=== PATIENT | female | born 1950 ===

== ENCOUNTER 2025-01-18 01:31 | Outpatient (BNV) | payer MEDICARE, MEDICAID, SELFPAY | END 2025-01-27 12:18 | PROVIDERS: Admitting Provider Psychiatry & Neurology Psychiatry; PCP Family Medicine; Visit Provider Radiology Diagnostic Radiology | DX: R60.0 Localized edema (principal) | CPT/HCPCS: 93971 ==

== ENCOUNTER 2025-01-18 01:31 | Inpatient (IN) | payer MEDICARE, OTHER, SELFPAY ==
--- NOTE | ~2025-01-18 | US_ITS ---
EXAMINATION: US LOWER EXTREMITY VEINS LIMITED FOLLOW UP LEFT HISTORY: Swelling, edema COMPARISON: There are no prior studies for comparison. TECHNIQUE: Duplex and color Doppler sonographic examination of the deep venous system of the left lower extremity was performed. FINDINGS: The common femoral, superficial femoral, and popliteal veins are patent demonstrating normal compressibility, spontaneous flow, and augmentation. There is a normal color and spectral Doppler waveform appearance of the visualized deep venous system above the knee. The posterior tibial and peroneal veins are patent. US/US venous duplex LE LT IMPRESSION: No evidence of acute DVT in the left lower extremity. Electronically signed by: Yg Go MD 01/27/2025 01:30 PM EDT
[2025-01-18 01:49] VITALS: BMI 18.5
[2025-01-18 01:50] VITALS: BP 109/53; PULSE 61; RESP 16; TEMP 36.7; O2SAT 96
--- NOTE | 2025-01-18 03:53 | HO.PM.IMCN ---
History of Present Illness Data of Consult Service Date: 01/18/25 Requesting physician: Nir Anna Primary Care Provider: Ian Urena [facility] Reason for consult: wound L ankle Pt is a 74 yo female admitted to [facility] with a pmhx significant for hypothyroid, iron def anemia, vit D deficeincy, mood disorder, and COPD unspecified, with an urgent consult placed for wound L ankle, r/o infection. the pt states that she has been seeing wound care and her son was contacted who also states this. the wound is not painful, no foul odor, or increased warmth. no purulent drainage or surrounding erythema. the pt denies any nausea, vomiting, fever, chills or diarrhea. she is not happy that we are evaluating the wound as she states she has had it for 10+ years Review of Systems Constitutional: Constitutional: Denies body ache(s), Denies chills, Denies fatigue and Denies fever(s) Gastrointestinal: Gastrointestinal: Denies diarrhea, Denies nausea and Denies vomiting Integumentary/Breasts: Skin/Breast: Reports as per HPI Neurologic: Denies confusion Psychiatric: Psychiatric: Denies confusion Endocrine: Endocrine: Denies fatigue Hematologic/Lymphatic: Hematologic/Lymphatic: Denies easy bleeding and Denies easy bruising PMFSH Social History Household Members: Other Household Members Other:: son Housing: House Do you presently have visiting nurse or other home services: No Patient Tobacco Use Status: Former Tobacco user Tobacco use type: Cigarette Use of substances other than those prescribed or required for medical reasons: No Have you been hit, kicked, punched, or otherwise hurt by someone within the past year? If so, by whom?: No Do you feel safe in your current relationship?: No Current Relationship Is there a partner from a previous relationship who is making you feel unsafe now?: No Are you made to feel afraid or neglected: No Advance Directives: No Advance Directives Information Provided: No Do you have a plan to hurt others: No Plan Recently lost weight without trying: Yes How much weight loss: 14-23 pounds Eating poorly because of decreased appetite: Yes Nutrition screen score: 5 Nutrition Risks: No Nutritional Risk Patient : No : No Poor oral hygiene: No Meds Allergies Allergy/AdvReac Type Severity Reaction Status Date / Time gluten Allergy Unknown Unknown Verified 01/17/25 19:18 hydrocodone Allergy Unknown Unknown Verified 01/17/25 19:17 propoxyphene Allergy Unknown Unknown Verified 01/17/25 19:18 sulfamethoxazole Allergy Unknown Unknown Verified 01/17/25 19:17 [From Bactrim] trimethoprim [From Bactrim] Allergy Unknown Unknown Verified 01/17/25 19:17 mepilex Allergy Unknown Unknown Uncoded 01/17/25 19:18 Active Medications: Current Medications Acetaminophen (Acetaminophen 325 Mg Tablet) 650 mg PO Q6H PRN PRN Reason: Headache/Pain, Scale 1-10 Al Hydroxide/Mg Hydroxide (Magnesium Hydrox/Alum Hydrox 30 Ml Oral.Susp) 30 ml PO Q6H PRN PRN Reason: Heartburn/Nausea Albuterol Sulfate (Albuterol Sulfate 90 Mcg 8 Gm Inhaler) 2 puff INHALE RQ4H PRN PRN Reason: Dyspnea Ascorbic Acid (Ascorbic Acid 500 Mg Tablet) 500 mg PO DAILY [facility] Ferrous Sulfate (Ferrous Sulfate 324 Mg Tablet.Dr) 324 mg PO BIDWM [facility] Levothyroxine Sodium (Levothyroxine Sodium 125 Mcg Tablet) 125 mcg PO DAILY@0600 [facility] [place] Carbonate ([place] Carbonate Er 450 Mg Tablet.Er) 450 mg PO BEDTIME [facility] Magnesium Hydroxide (Milk Of Magnesia 30 Ml Oral.Susp) 30 ml PO DAILY PRN PRN Reason: Constipation Mirtazapine (Mirtazapine 15 Mg Tablet) 15 mg PO BEDTIME [facility] Nicotine Polacrilex (Nicotine Polacrilex 2 Mg Gum) 4 mg BUCCAL Q2H PRN PRN Reason: Nicotine Cravings Risperidone (Risperidone 0.25 Mg Tablet) 0.25 mg PO BID [facility] Trazodone HCl (Trazodone Hcl 50 Mg Tablet) 50 mg PO BEDTIME MRX1 PRN PRN Reason: Insomnia Vitamin D (Cholecalciferol (Vitamin D3) 25 Mcg Tablet) 25 mcg PO DAILY [facility] Home Medications ?Medication ?Instructions ?Recorded ?Confirmed ?Last Taken ?Type albuterol sulfate 90 mcg/actuation 2 puff inhalation Q4H PRN dyspnea 01/18/25 01/18/25 Unknown History aerosol inhaler ascorbic acid (vitamin C) 500 mg 500 mg PO DAILY 01/18/25 01/18/25 Unknown History tablet (Vitamin C) cholecalciferol (vitamin D3) 25 25 mcg PO DAILY 01/18/25 01/18/25 Unknown History mcg (1,000 unit) tablet (Vitamin D3) ferrous sulfate 325 mg (65 mg 325 mg PO BID 01/18/25 01/18/25 Unknown History iron) tablet levothyroxine 125 mcg tablet 125 mcg PO QAM 01/18/25 01/18/25 Unknown History lithium carbonate 450 mg 450 mg PO BEDTIME 01/18/25 01/18/25 Unknown History tablet,extended release mirtazapine 15 mg tablet 15 mg PO BEDTIME 01/18/25 01/18/25 Unknown History risperidone 0.25 mg tablet 0.25 mg PO BID 01/18/25 01/18/25 Unknown History Physical Exam Vital Signs and Narrative: Vital Signs: Last Vital Signs Temp 98.1 F 01/18/25 01:50 Pulse 61 01/18/25 01:50 Resp 16 01/18/25 01:50 BP 109/53 L 01/18/25 01:50 Pulse Ox 96 01/18/25 01:50 O2 Del Method Room Air 01/18/25 01:50 BMI result Body Mass Index 18.5 General: AOx3, no acute distress. mild agitation Resp: CTA B/L, no respiratory distress CVS: pedal pulse present, RRR Skin: Warm, dry. large ovioid wound L ankle with graulation tissue. no foul odor, no increased warmth, no surround erythema, no pain to touch the surrounding area. pt states it has been like this for years. Extremities: No LE edema Neuro: CN II-XII intact. moves all extremities without difficulty. Psych: Appropriate affect, mild agitation Const: General: No confusion Orientation/consciousness: No confusion Neuro: General: No confusion Assessment and Plan (1) Wound of left ankle: Status: Acute (2) Medical clearance for psychiatric admission: Status: Acute Plan Pt is a 74 yo female admitted to [facility] with a pmhx significant for hypothyroid, iron def anemia, vit D deficiency, mood disorder, and COPD unspecified, urgent consult placed for wound L ankle, r/o infection. the pt states that she has been seeing wound care and her son was contacted who also states this. wound L ankle - the wound does not appear infected at this time, therefore, transfer to the medical floor is not necessary - no fever, tachycardia or tachypnea, mild hypotension, no previous vitals to compare - add labs to upcoming AM labs: CBC, CRP, ESR, BMP, lactic acid, blood cultures x2 (pt will not likely allow further labs so will order all now incase of leukocytosis) - wound care consult mood disorder - plan per psych hypothyroid - levothyroxine - check TSH with morning labs iron deficiency anemia - continue iron - CBC ordered COPD unspecified, no acute exacerbation - continue albuterol PRN Thank you for allowing me to participate in the pt's care. Will continue to follow pending labs. Please contact the medical team if any questions or concerns.
--- NOTE | 2025-01-18 04:15 | PC.NURSE ---
Admission Note Joceline Giles, a 74-year-old woman, was presented to [facility] ED from the Doctor?s office for making suicidal and homicidal statements. The patient lives with her son, Kenny, who is her health care proxy. According to Kenny, he has been actively looking for long-term care for his mother. The patient was at [facility] for 10 months, and the hospital could not find a placement and eventually discharged to home. The patient has a medical and psychiatric history of Hypothyroidism, Hyperlipidemia, PTSD, and? Bipolar I. Tisha arrived at our unit in a stretcher at 0145 on 01/18/25, on section 12 B, with an admitting diagnosis of? Bipolar I Mixed Severe. She is full-code. The patient is alert and oriented times four. Behaviour loud, disruptive at times, and labile. The patient was not compliant with skin assessment; however, the skin check revealed a left inner ankle venous ulcer, weeping, and the presence of slough. The left mid-lateral sole has a raised callus. The right sole at the base of the toes has a slit. Bilateral toes are twisted and deformed. Wounds were cleansed, covered with a nonadherent pad, and secured with tape. Wounds were pictured and sent to the on-call. The rest of the skin is intact. The wound nurse was unavailable on weekends, so a stat hospitalist consult was ordered. Med rec completed/pending provider?s approval, per report, patient takes her meds whole with water. Patients use a cane for ambulation at home, but she is using a walker on the units for ambulation?continent with bowel and bladder.? The patient needs assistance with bathing and minimal support with dressing, per the patient. Labs are unremarkable. UA negative. Utox negative. Serology negative. No lithium level was checked at [place], but it was ordered here. Tisha signed her treatment plan, safety tool, belonging sheet, and release paper. Omerabanzayra searched. Tisha is on a 5-minute safety check.
[2025-01-18] MEDS: Levothyroxine Sodium 125 MCG TABLET PO (05:26)
[2025-01-18 08:00] VITALS: BP 94/49; PULSE 66; RESP 14; TEMP 37.1; O2SAT 96
[2025-01-18] MEDS: Ascorbic Acid 500 MG TABLET PO (09:16)
[2025-01-18] MEDS: risperiDONE 0.25 MG TABLET PO ×2 (09:16→21:00)
[2025-01-18] MEDS: Ferrous Sulfate 324 MG TABLET.DR PO ×2 (09:16→16:46)
[2025-01-18] MEDS: Cholecalciferol (Vitamin D3) 25 MCG TABLET PO (09:17)
[2025-01-18 11:48] LABS: MANUAL DIFF FLAG NO
[2025-01-18 11:51] LABS: Basophils Percent Auto 0.3 % (0-2); Eosinophils Absolute Auto 0.2 X10*3/uL (0.0-0.4); Eosinophils Percent Auto 2.5 % (0-4); Hematocrit 39.5 % (37.0-47.0); Hemoglobin 11.9 g/dl (12.0-16.0); Imm Gran Abs Auto 0.01 X10*3/uL (0.00-0.03); Imm Gran Pct Auto 0.1 % (0.0-0.4); Lymphocytes Absolute Auto 2.2 X10*3/uL (1.2-4.9); Lymphocytes Percent Auto 29.3 % (20-40); Mean Corpuscular HGB Conc 30.1 g/dl (31.0-35.0); Mean Corpuscular Hemoglobin 27.9 pg (27.0-33.0); Mean Corpuscular Volume 92.5 fL (80.0-98.0); Mean Platelet Volume 10.5 fL (9.4-12.3); Monocytes Absolute Auto 0.7 X10*3/uL (0.1-1.2); Monocytes Percent Auto 8.9 % (2-11); Neutrophils Absolute Auto 4.4 x10*3/uL (2.0-8.3); Neutrophils Percent Auto 58.9 % (45-73); Platelet Count 295 X10*3/uL (160-400); Red Blood Count 4.27 X10*6/uL (4.20-5.50); Red Cell Distribution Width 14.5 % (11.0-16.0); White Blood Count 7.5 X10*3/uL (4.8-10.8)
[2025-01-18 12:09] LABS: Estimated Average Glucose 114 mg/dL; Hemoglobin A1C 114.7569 umol/L; Hemoglobin A1c % 5.6 % (<6.0); Lithium 0.28 mmol/L (0.60-1.20); Total Hemoglobin (HGBA1C) 3030.0058 umol/L
[2025-01-18 12:22] LABS: Anion Gap 13 (12-20); Blood Urea Nitrogen 19 mg/dL (9-16); C Reactive Protein 0.21 mg/dL (< or = 0.50); Calcium 9.2 mg/dL (8.4-10.2); Carbon Dioxide 23 mmol/L (22-29); Chloride 111 mmol/L (96-108); Cholesterol 123 mg/dL (<200); Creatinine Clr Calc Pharmacy 55.8; Estimated Glomerular Filt Rate > 60; Glucose Random 94 mg/dL (60-115); HDL Cholesterol 30 mg/dL (>40); LDL Cholesterol Calculated 73 mg/dL (<100); Potassium 4.7 mmol/L (3.3-5.1); Sodium 142 mmol/L (135-145); Triglycerides 103 mg/dL (<150)
[2025-01-18 12:38] LABS: Free T4 (Free Thyroxine) 0.65 ng/dL (0.71-1.85); Thyroid Stimulating Hormone 66.09 uIU/mL (0.32-4.0)
[2025-01-18 12:43] LABS: Erythrocyte Sedimentation Rate 32 MM/HR (0-20)
[2025-01-18 12:51] LABS: Folate 8.1 ng/mL (> or = 4.0); Vitamin B12 858 pg/mL (200-900)
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
[2025-01-18 20:00] VITALS: BP 96/55; PULSE 95; RESP 18; TEMP 36.4; O2SAT 95
[2025-01-18] MEDS: Mirtazapine 15 MG TABLET PO (21:00)
[2025-01-18] MEDS: Lithium Carbonate ER 450 MG TABLET.ER PO (21:00)
[2025-01-19] MEDS: Levothyroxine Sodium 150 MCG TABLET PO (05:34)
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
[2025-01-19] MEDS: Cholecalciferol (Vitamin D3) 25 MCG TABLET PO (09:38)
[2025-01-19] MEDS: Ascorbic Acid 500 MG TABLET PO (09:38)
[2025-01-19] MEDS: risperiDONE 0.25 MG TABLET PO ×2 (09:39→20:42)
[2025-01-19] MEDS: Ferrous Sulfate 324 MG TABLET.DR PO ×2 (09:39→17:06)
--- NOTE | 2025-01-19 13:22 | PC.NURSE ---
Dsg on left inner ankle changed the wound bed is 75% covered in slough there is some depth to the center of the wound. Wound edges are slightly macerated and surounding skin is red and crusty. Wound bed cleansed with NS then 4x6 boarder gauze applied over the wound.
[2025-01-19 20:00] VITALS: BP 104/53; PULSE 74; RESP 16; TEMP 36.8; O2SAT 94
[2025-01-19] MEDS: Lithium Carbonate ER 450 MG TABLET.ER PO (20:42)
[2025-01-19] MEDS: Mirtazapine 15 MG TABLET PO (20:43)
[2025-01-19] MEDS: traZODone HCL 50 MG TABLET PO (20:43)
[2025-01-20] MEDS: Levothyroxine Sodium 150 MCG TABLET PO (05:47)
[2025-01-20 08:36] VITALS: BP 115/56; PULSE 71; RESP 16; TEMP 36.8; O2SAT 98
[2025-01-20] MEDS: risperiDONE 0.25 MG TABLET PO ×3 (08:37→21:01)
[2025-01-20] MEDS: Ascorbic Acid 500 MG TABLET PO (08:37)
[2025-01-20] MEDS: Cholecalciferol (Vitamin D3) 25 MCG TABLET PO (08:37)
[2025-01-20] MEDS: Ferrous Sulfate 324 MG TABLET.DR PO (08:37)
[2025-01-20] MEDS: OLANZapine 2.5 MG TABLET PO (11:13)
--- NOTE | 2025-01-20 11:17 | P.PNPSI_ITS ---
Subjective Subjective Date of Service: 01/20/25 Reason For Visit: Bipolar Interim History: Patient seen chart reviewed. Patient has had periods of behavioral dyscontrol paranoia feels people at home are not real people but imposters. Patient irritable dysphoric reactive labile in the milieu intermittently agitated and reportedly trying to posture at others. Was on Risperdal 4 mg in the past was lowered to minimal says as an outpatient and has relapse with psychosis further history unclear reported bipolar diagnosis hypothyroid Medication Compliance: Intermittent Mental Status Exam Mental Status Exam Narrative: Pt is using her walker, self-dialoguing. Patient Appearance: Disheveled and Unkempt Patient Orientation: Person, Place and Situation Level of Consciousness: Alert Patient Behavior: Guarded, Talkative, Suspicious and Good Eye Contact Mood Description: Hostile and Angry Affect Description: Hostile, Labile and Flat Patient Cognition Impaired: Yes Ability to Follow Directions: Fair Speech Pattern: Spontaneous Speech and Pressured Memory Description: Remote Impaired Delusions: Present Thought Process: Distracted and Rumination Thought Content: positive for [place], positive for Circumstantial, positive for Disorganized, positive for Suicidal Ideation and positive for Homicidal Ideation Depressive Symptoms: Difficulty Sleeping, Changes in Appetite, Loss of Int. in Activity, Hopelessness, Unhappiness, Thoughts of /Suicide, Loss of Energy and Difficulty Concentrating Judgement: Poor Diagnostics Vital Signs (24Hr): Vital Signs - 24 hr 01/19/25 20:00 01/20/25 08:36 Temperature 98.2 F 98.2 F Pulse Rate 74 71 Respiratory Rate 16 16 Blood Pressure 104/53 L 115/56 L Pulse Oximetry 94 98 Oxygen Delivery Method Room Air Room Air BMI result Body Mass Index 18.5 Labs 01/18/25 11:38 01/18/25 11:38 Labs: Laboratory Results - last 48 hr 01/18/25 01/18/25 11:38 11:39 WBC 7.5 RBC 4.27 Hgb 11.9 L Hct 39.5 MCV 92.5 MCH 27.9 MCHC 30.1 L RDW 14.5 Plt Count 295 MPV 10.5 Immature Gran % (Auto) 0.1 Neut % (Auto) 58.9 Lymph % (Auto) 29.3 [place] % (Auto) 8.9 Eos % (Auto) 2.5 Baso % (Auto) 0.3 Lymph # (Auto) 2.2 [place] # (Auto) 0.7 Eos # (Auto) 0.2 Baso # (Auto) 0.0 Abs Immat Gran (auto) 0.01 Absolute Neuts (auto) 4.4 Absolute Nucleated RBC 0.000 Nucleated RBC % (auto) 0.0 ESR 32 H Sodium 142 Potassium 4.7 Chloride 111 H Carbon Dioxide 23 Anion Gap 13 BUN 19 H Creatinine 0.68 Estim Creat Clear Calc 55.8 Estimated GFR > 60 Random Glucose 94 Estimat Average Glucose 114 Hemoglobin A1c % 5.6 Lactic Acid 2.0 Calcium 9.2 Magnesium 2.0 C-Reactive Protein 0.21 Triglycerides 103 Cholesterol 123 LDL Cholesterol, Calc 73 HDL Cholesterol 30 L Vitamin B12 858 Folate 8.1 TSH 66.09 H Free T4 0.65 L [place] 0.28 L Medications Medications Current Medications Acetaminophen (Acetaminophen 325 Mg Tablet) 650 mg PO Q6H PRN PRN Reason: Headache/Pain, Scale 1-10 Al Hydroxide/Mg Hydroxide (Magnesium Hydrox/Alum Hydrox 30 Ml Oral.Susp) 30 ml PO Q6H PRN PRN Reason: Heartburn/Nausea Albuterol Sulfate (Albuterol Sulfate 90 Mcg 8 Gm Inhaler) 2 puff INHALE RQ4H PRN PRN Reason: Dyspnea Ascorbic Acid (Ascorbic Acid 500 Mg Tablet) 500 mg PO DAILY [facility] Last Admin: 01/20/25 08:37 Dose: 500 mg Ferrous Sulfate (Ferrous Sulfate 324 Mg Tablet.Dr) 324 mg PO BIDWM [facility] Last Admin: 01/20/25 08:37 Dose: 324 mg Levothyroxine Sodium (Levothyroxine Sodium 150 Mcg Tablet) 150 mcg PO DAILY@0600 [facility] Last Admin: 01/20/25 05:47 Dose: 150 mcg [place] Carbonate ([place] Carbonate Er 450 Mg Tablet.Er) 450 mg PO BEDTIME [facility] Last Admin: 01/19/25 20:42 Dose: 450 mg Magnesium Hydroxide (Milk Of Magnesia 30 Ml Oral.Susp) 30 ml PO DAILY PRN PRN Reason: Constipation Mirtazapine (Mirtazapine 15 Mg Tablet) 15 mg PO BEDTIME [facility] Last Admin: 01/19/25 20:43 Dose: 15 mg Nicotine Polacrilex (Nicotine Polacrilex 2 Mg Gum) 4 mg BUCCAL Q2H PRN PRN Reason: Nicotine Cravings Risperidone (Risperidone 0.25 Mg Tablet) 0.25 mg PO BID [facility] Last Admin: 01/20/25 08:37 Dose: 0.25 mg Risperidone (Risperidone 0.25 Mg Tablet) 0.25 mg PO BID PRN PRN Reason: agitation Last Admin: 01/20/25 10:02 Dose: 0.25 mg Trazodone HCl (Trazodone Hcl 50 Mg Tablet) 50 mg PO BEDTIME MRX1 PRN PRN Reason: Insomnia Last Admin: 01/19/25 20:43 Dose: 50 mg Vitamin D (Cholecalciferol (Vitamin D3) 25 Mcg Tablet) 25 mcg PO DAILY [facility] Last Admin: 01/20/25 08:37 Dose: 25 mcg Allergies Allergies Allergy/AdvReac Type Severity Reaction Status Date / Time gluten Allergy Unknown Unknown Verified 01/17/25 19:18 hydrocodone Allergy Unknown Unknown Verified 01/17/25 19:17 propoxyphene Allergy Unknown Unknown Verified 01/17/25 19:18 sulfamethoxazole Allergy Unknown Unknown Verified 01/17/25 19:17 [From Bactrim] trimethoprim [From Bactrim] Allergy Unknown Unknown Verified 01/17/25 19:17 mepilex Allergy Unknown Unknown Uncoded 01/18/25 14:24 Assessment & Plan Assessment & Plan (1) Bipolar disorder with psychotic features: Status: Acute Code(s): F31.9 - Bipolar disorder, unspecified (2) Cognitive impairment: Status: Acute Code(s): R41.89 - Other symptoms and signs involving cognitive functions and awareness Plan Admit, Section XIIB, 5 minute checks Continue current regime and observe in milieu. Attempt alliance Collateral contact with family, out pt providers No current med changes until collateral contact is made. Diagnostics as needed 01/19 Pt assaultive to team. Risperdal 0.25 mg bid prn agitation 01/20/2025 Risperdal p.r.n. discontinued start olanzapine 2.5 p.r.n. if Risperdal was titrated off secondary to EPS may benefit from alternative such as olanzapine need additional history encourage med compliance encourage levothyroxine TSH was encouraged Patient educated on: medication risk/benefits Informed Consent: further education needed Reason for continued inpatient stay Substantial Risk for: inability to function, rapid decompensation and med/psych decompensation Time Spent With Patient Time: Total time managing care of this patient today ____ minutes.
[2025-01-20 14:12] VITALS: BMI 18.5
--- NOTE | 2025-01-20 18:00 | PC.NURSE ---
Pt wound not allow this marine underwriter to look at the wound on her L ankle area. This marine underwriter texted Rosangela Escudero wound consult RN. She stated that she was unable to do her assessment today and she will be coming tomorrow.
[2025-01-20 20:00] VITALS: BP 93/55; PULSE 74; RESP 17; TEMP 37; O2SAT 94
[2025-01-20] MEDS: Lithium Carbonate ER 450 MG TABLET.ER PO (21:01)
[2025-01-20] MEDS: traZODone HCL 50 MG TABLET PO (21:01)
[2025-01-20] MEDS: Mirtazapine 15 MG TABLET PO (21:01)
[2025-01-21] MEDS: Levothyroxine Sodium 150 MCG TABLET PO (06:30)
[2025-01-21 08:28] VITALS: BP 140/81; PULSE 72; RESP 15; TEMP 36.9; O2SAT 98
[2025-01-21] MEDS: risperiDONE 0.25 MG TABLET PO (08:30)
[2025-01-21] MEDS: Cholecalciferol (Vitamin D3) 25 MCG TABLET PO (08:30)
[2025-01-21] MEDS: OLANZapine 2.5 MG TABLET PO ×2 (08:30→16:14)
[2025-01-21] MEDS: Ferrous Sulfate 324 MG TABLET.DR PO ×2 (08:30→16:14)
[2025-01-21] MEDS: Ascorbic Acid 500 MG TABLET PO (08:30)
--- NOTE | 2025-01-21 10:44 | HO.WOUND ---
Wound Consult: Initial 74yr old? admitted to [facility] – [place] - Geriatric Behavioral Health Unit on 01/18/25 - See progress notes and H&P for detailed history.? Wound consult placed for Left Ankle and Plantar feet.? Patient agreeable to assessment and photo documentation.? Initially she was resistant to assessment but with education and role explained she was agreeable. No photos were taken at this assessment. Left Medial Ankle Etiology: ??Ulceration suspect related to venous disease Measurements: 5cm x 5cm x 0.3cm Wound Bed: full thickness tissue loss marbled wound bed with moist red pink and yellow slough Drainage / Odor: moderate amount of yellow acosta drainage - mild odor noted Edges: ? macerated and well defined [place] wound: ?macerated pink blanchable tissue - No Induration, Fluctuance or Warmth noted Pain: denies Goals of Treatment: ? Durafiber for moisture management Bilateral Plantar Feet Etiology: [place] vs Wart - unable to perform thorough assessment due to patient irritation level and resistence to assessment. She reports she has the the areas for sometime. She reports she has treated with a corrugated box machine operator in the past. She will benefit from podiatry at time of d/c to pare down callus and treat corn / wart. On the side of each area there is a small open wound 0.1cm x0.2cm red wound bed - I suspect this is trauma from the corn / wart itself digging into her skin or from picking and attempting to peel callused tissue off. Foam dressing in place currently. May continue with foam dressing in place as long as wound is present. When wound is healed corn / wart itself to no need cover dressing. Recommend follow up outpt. Recommendations: Off Load all bony prominences with use of pillows and heel boots if needed.? Apply Preventative foams where needed. ? Monitor for incontinence and moisture control, use barrier creams when needed for prevention and treatment. Provide adequate and supplemental nutrition.? Order or Continue low air loss mattress. When applicable maintain blood glucose levels per Providers order. Left ankle - Cleanse with NS moist gauze, pat dry. Apply skin barrier to wound egde either skin prep or barrier cream. Apply Durafiber AG to wound bed only. Cover with dry gauze, ABD pad and eleastic netting or may use foam dressing. Change every 2-3 days. Plantar Feet - Cleanse with routine bathing. Dry well. Apply skin prep allow to dry. Cover sites with foam dressing. Change every 5 days. May discontinue when wounds heal. Re-consult wound care Nurse for wound deterioration or wound changes.
--- NOTE | 2025-01-21 11:09 | HO.PSYCHPN ---
Subjective Subjective Date of Service: 01/21/25 Reason For Visit: Bipolar Subjective Notes: [place] Warning and Section 12B Interim History: Patient seen has been less agitated difficult to engage in any logical conversation. Patient at present will not sign a conditional voluntary. Again difficult to engage in logical conversation disorganized has been taking Risperdal lithium Medication Compliance: Yes Mental Status Exam Mental Status Exam Narrative: Pt is using her walker, self-dialoguing ongoing Patient Appearance: Disheveled and Unkempt Patient Orientation: Person and Situation Level of Consciousness: Alert Patient Behavior: Guarded, Talkative, Suspicious and Good Eye Contact Mood Description: Angry Affect Description: Hostile, Labile and Flat Patient Cognition Impaired: Yes Ability to Follow Directions: Fair Speech Pattern: Spontaneous Speech and Pressured Memory Description: Remote Impaired Delusions: Present Thought Process: Distracted and Rumination Thought Content: positive for [place], positive for Circumstantial and positive for Disorganized Depressive Symptoms: Difficulty Sleeping, Changes in Appetite, Loss of Int. in Activity, Hopelessness, Unhappiness, Thoughts of /Suicide, Loss of Energy and Difficulty Concentrating Judgement: Poor Judgement and Insight: Delusional preoccupied regarding her son limping her son her [id number] would not answer questions regarding threats to kill herself for threats to kill her family Diagnostics Vital Signs (24Hr): Vital Signs - 24 hr 01/20/25 20:00 01/21/25 08:28 Temperature 98.6 F 98.4 F Pulse Rate 74 72 Respiratory Rate 17 15 Blood Pressure 93/55 L 140/81 H Pulse Oximetry 94 98 Oxygen Delivery Method Room Air Room Air BMI result Body Mass Index 18.5 Labs 01/18/25 11:38 01/18/25 11:38 Medications Medications Current Medications Acetaminophen (Acetaminophen 325 Mg Tablet) 650 mg PO Q6H PRN PRN Reason: Headache/Pain, Scale 1-10 Al Hydroxide/Mg Hydroxide (Magnesium Hydrox/Alum Hydrox 30 Ml Oral.Susp) 30 ml PO Q6H PRN PRN Reason: Heartburn/Nausea Albuterol Sulfate (Albuterol Sulfate 90 Mcg 8 Gm Inhaler) 2 puff INHALE RQ4H PRN PRN Reason: Dyspnea Ascorbic Acid (Ascorbic Acid 500 Mg Tablet) 500 mg PO DAILY [facility] Last Admin: 01/21/25 08:30 Dose: 500 mg Ferrous Sulfate (Ferrous Sulfate 324 Mg Tablet.) 324 mg PO BIDWM [facility] Last Admin: 01/21/25 08:30 Dose: 324 mg Levothyroxine Sodium (Levothyroxine Sodium 150 Mcg Tablet) 150 mcg PO DAILY@0600 [facility] Last Admin: 01/21/25 06:30 Dose: 150 mcg [place] Carbonate ([place] Carbonate Er 450 Mg Tablet.Er) 450 mg PO BEDTIME [facility] Last Admin: 01/20/25 21:01 Dose: 450 mg Magnesium Hydroxide (Milk Of Magnesia 30 Ml Oral.Susp) 30 ml PO DAILY PRN PRN Reason: Constipation Mirtazapine (Mirtazapine 15 Mg Tablet) 15 mg PO BEDTIME [facility] Last Admin: 01/20/25 21:01 Dose: 15 mg Nicotine Polacrilex (Nicotine Polacrilex 2 Mg Gum) 4 mg BUCCAL Q2H PRN PRN Reason: Nicotine Cravings Olanzapine (Olanzapine 2.5 Mg Tablet) 2.5 mg PO Q6H PRN PRN Reason: Psychosis Last Admin: 01/21/25 08:30 Dose: 2.5 mg Risperidone (Risperidone 0.25 Mg Tablet) 0.25 mg PO BID [facility] Last Admin: 01/21/25 08:30 Dose: 0.25 mg Trazodone HCl (Trazodone Hcl 50 Mg Tablet) 50 mg PO BEDTIME MRX1 PRN PRN Reason: Insomnia Last Admin: 01/20/25 21:01 Dose: 50 mg Vitamin D (Cholecalciferol (Vitamin D3) 25 Mcg Tablet) 25 mcg PO DAILY [facility] Last Admin: 01/21/25 08:30 Dose: 25 mcg Allergies Allergies Allergy/AdvReac Type Severity Reaction Status Date / Time gluten Allergy Unknown Unknown Verified 01/17/25 19:18 hydrocodone Allergy Unknown Unknown Verified 01/17/25 19:17 propoxyphene Allergy Unknown Unknown Verified 01/17/25 19:18 sulfamethoxazole Allergy Unknown Unknown Verified 01/17/25 19:17 [From Bactrim] trimethoprim [From Bactrim] Allergy Unknown Unknown Verified 01/17/25 19:17 mepilex Allergy Unknown Unknown Uncoded 01/18/25 14:24 Assessment & Plan Assessment & Plan (1) Bipolar disorder with psychotic features: Status: Acute Code(s): F31.9 - Bipolar disorder, unspecified (2) Cognitive impairment: Status: Acute Code(s): R41.89 - Other symptoms and signs involving cognitive functions and awareness Plan Admit, Section XIIB, 5 minute checks Continue current regime and observe in milieu. Attempt alliance Collateral contact with family, out pt providers No current med changes until collateral contact is made. Diagnostics as needed 01/19 Pt assaultive to team. Risperdal 0.25 mg bid prn agitation 01/20/2025 Risperdal p.r.n. discontinued start olanzapine 2.5 p.r.n. if Risperdal was titrated off secondary to EPS may benefit from alternative such as olanzapine need additional history encourage med compliance encourage levothyroxine TSH was encouraged 01/21/2025 Call placed to healthcare proxy trying to get clear information regarding dangerousness. Patient's section 12 B most likely will need to file can not have logical conversation with patient has been taking Risperdal lithium. Patient labile intrusive irritable will not have clear conversation regarding condition or legal status check lithium level Risperdal call placed to patient's psychiatrist and patient's son trying in additional information try and clarify healthcare proxy Reason for continued inpatient stay Substantial Risk for: harm to others, inability to function and rapid decompensation Time Spent With Patient Time: Total time managing care of this patient today ____ minutes.
[2025-01-21 20:00] VITALS: BP 129/58; PULSE 78; RESP 18; TEMP 37.1; O2SAT 94
[2025-01-21] MEDS: risperiDONE 0.25 MG TABLET 0.5 MG PO (20:35)
[2025-01-21] MEDS: traZODone HCL 50 MG TABLET PO (20:35)
[2025-01-21] MEDS: Mirtazapine 15 MG TABLET PO (20:36)
[2025-01-21] MEDS: Lithium Carbonate ER 450 MG TABLET.ER PO (20:36)
[2025-01-22] MEDS: Levothyroxine Sodium 150 MCG TABLET PO (06:51)
[2025-01-22] MEDS: risperiDONE 0.25 MG TABLET 0.5 MG PO ×2 (08:29→20:55)
[2025-01-22] MEDS: Cholecalciferol (Vitamin D3) 25 MCG TABLET PO (08:30)
[2025-01-22] MEDS: Ferrous Sulfate 324 MG TABLET.DR PO ×2 (08:30→16:17)
[2025-01-22] MEDS: Ascorbic Acid 500 MG TABLET PO (08:30)
[2025-01-22 08:51] VITALS: BP 122/76; PULSE 66; RESP 18; TEMP 36.2; O2SAT 98
--- NOTE | 2025-01-22 15:10 | P.PNPSI_ITS ---
Subjective Subjective Date of Service: 01/22/25 Reason For Visit: Bipolar Subjective Notes: [place] Warning and Section 7 Healthcare Proxy: Yes Interim History: THE PATIENT IS A 71-YEAR-OLD female history of bipolar disorder versus schizoaffective disorder who had been living with her son [id number] children she was in an upstairs apartment. The patient has become increasingly debilitated was not taking in adequate nutrition refusing medications intermittently and has not been able to be stabilized as an outpatient. Increasingly had been making suicidal and homicidal statements. Case was reviewed with her psychiatrist had been quite stable in the past on Risperdal. She had become quite debilitated after a 7 month stay on medical floor secondary to failure to thrive was unable to be referred to a assisted facility ended up going to her son's house Extensive discussion was held with the patient regarding legal status at some points she seemed to understand that she had bipolar disorder ask questions regarding at later just said lets go to court but could not really explain her reasoning. She did seem to be aware that the things she had said could be used in a court hearing. Medication Compliance: Intermittent Attending Groups: Intermittent Review of Systems Acute medical concerns: Yes Has wound hypothyroidism arthritis gait disturbance Mental Status Exam Mental Status Exam Narrative: Pt is using her walker, self-dialoguing ongoing Patient Appearance: Disheveled and Unkempt Patient Orientation: Person, Place and Situation Level of Consciousness: Awake and Alert Patient Behavior: Guarded, Talkative and Suspicious Mood Description: Angry Affect Description: Depressed, Hostile, Labile and Flat Patient Cognition Impaired: Yes Ability to Follow Directions: Fair Speech Pattern: Spontaneous Speech, Pressured and Includes Profanity Memory Description: Remote Impaired and Working Impaired Delusions: Present Thought Process: Distracted and Rumination Thought Content: positive for [place], positive for Circumstantial and positive for Disorganized Depressive Symptoms: Difficulty Sleeping, Changes in Appetite, Loss of Int. in Activity, Hopelessness, Unhappiness, Thoughts of /Suicide, Loss of Energy and Difficulty Concentrating Judgement: Poor Judgement and Insight: Delusional preoccupied regarding her son limping her son her [id number] would not answer questions regarding threats to kill herself for threats to kill her family Diagnostics Vital Signs (24Hr): Vital Signs - 24 hr 01/21/25 20:00 01/22/25 08:51 Temperature 98.7 F 97.2 F Pulse Rate 78 66 Respiratory Rate 18 18 Blood Pressure 129/58 L 122/76 Pulse Oximetry 94 98 Oxygen Delivery Method Room Air Room Air BMI result Body Mass Index 18.5 Labs 01/18/25 11:38 01/18/25 11:38 Medications Medications Current Medications Acetaminophen (Acetaminophen 325 Mg Tablet) 650 mg PO Q6H PRN PRN Reason: Headache/Pain, Scale 1-10 Al Hydroxide/Mg Hydroxide (Magnesium Hydrox/Alum Hydrox 30 Ml Oral.Susp) 30 ml PO Q6H PRN PRN Reason: Heartburn/Nausea Albuterol Sulfate (Albuterol Sulfate 90 Mcg 8 Gm Inhaler) 2 puff INHALE RQ4H PRN PRN Reason: Dyspnea Ascorbic Acid (Ascorbic Acid 500 Mg Tablet) 500 mg PO DAILY [facility] Last Admin: 01/22/25 08:30 Dose: 500 mg Ferrous Sulfate (Ferrous Sulfate 324 Mg Tablet.Dr) 324 mg PO BIDWM [facility] Last Admin: 01/22/25 08:30 Dose: 324 mg Levothyroxine Sodium (Levothyroxine Sodium 150 Mcg Tablet) 150 mcg PO DAILY@0600 [facility] Last Admin: 01/22/25 06:51 Dose: 150 mcg [place] Carbonate ([place] Carbonate Er 450 Mg Tablet.Er) 450 mg PO BEDTIME [facility] Last Admin: 01/21/25 20:36 Dose: 450 mg Magnesium Hydroxide (Milk Of Magnesia 30 Ml Oral.Susp) 30 ml PO DAILY PRN PRN Reason: Constipation Mirtazapine (Mirtazapine 15 Mg Tablet) 15 mg PO BEDTIME [facility] Last Admin: 01/21/25 20:36 Dose: 15 mg Nicotine Polacrilex (Nicotine Polacrilex 2 Mg Gum) 4 mg BUCCAL Q2H PRN PRN Reason: Nicotine Cravings Olanzapine (Olanzapine 2.5 Mg Tablet) 2.5 mg PO Q6H PRN PRN Reason: Psychosis Last Admin: 01/21/25 16:14 Dose: 2.5 mg Risperidone (Risperidone 0.25 Mg Tablet) 0.5 mg PO BID [facility] Last Admin: 01/22/25 08:29 Dose: 0.5 mg Trazodone HCl (Trazodone Hcl 50 Mg Tablet) 50 mg PO BEDTIME MRX1 PRN PRN Reason: Insomnia Last Admin: 01/21/25 20:35 Dose: 50 mg Vitamin D (Cholecalciferol (Vitamin D3) 25 Mcg Tablet) 25 mcg PO DAILY [facility] Last Admin: 01/22/25 08:30 Dose: 25 mcg Allergies Allergies Allergy/AdvReac Type Severity Reaction Status Date / Time gluten Allergy Unknown Unknown Verified 01/17/25 19:18 hydrocodone Allergy Unknown Unknown Verified 01/17/25 19:17 propoxyphene Allergy Unknown Unknown Verified 01/17/25 19:18 sulfamethoxazole Allergy Unknown Unknown Verified 01/17/25 19:17 [From Bactrim] trimethoprim [From Bactrim] Allergy Unknown Unknown Verified 01/17/25 19:17 mepilex Allergy Unknown Unknown Uncoded 01/18/25 14:24 Assessment & Plan Assessment & Plan (1) Bipolar disorder with psychotic features: Status: Acute Code(s): F31.9 - Bipolar disorder, unspecified (2) Cognitive impairment: Status: Acute Code(s): R41.89 - Other symptoms and signs involving cognitive functions and awareness Plan Admit, Section XIIB, 5 minute checks Continue current regime and observe in milieu. Attempt alliance Collateral contact with family, out pt providers No current med changes until collateral contact is made. Diagnostics as needed 01/19 Pt assaultive to team. Risperdal 0.25 mg bid prn agitation 01/20/2025 Risperdal p.r.n. discontinued start olanzapine 2.5 p.r.n. if Risperdal was titrated off secondary to EPS may benefit from alternative such as olanzapine need additional history encourage med compliance encourage levothyroxine TSH was encouraged 01/21/2025 Call placed to healthcare proxy trying to get clear information regarding dangerousness. Patient's section 12 B most likely will need to file can not have logical conversation with patient has been taking Risperdal lithium. Patient labile intrusive irritable will not have clear conversation regarding condition or legal status check lithium level Risperdal call placed to patient's psychiatrist and patient's son trying in additional information try and clarify healthcare proxy 01/22/2025 Filed for commitment and treatment plan we did get a copy of the healthcare proxy check lithium level increase Risperdal as tolerated may need supplements might need additional physical therapy will trying get records of 7 month admission to [place] might do well on long-acting injectable Patient educated on: diagnosis and medication risk/benefits Informed Consent: further education needed Reason for continued inpatient stay Substantial Risk for: harm to self, harm to others, inability to function and rapid decompensation Time Spent With Patient Time: Total time managing care of this patient today __45__ minutes.
[2025-01-22 20:00] VITALS: RESP 16
[2025-01-22] MEDS: Mirtazapine 15 MG TABLET PO (20:55)
[2025-01-22] MEDS: Lithium Carbonate ER 450 MG TABLET.ER PO (20:55)
[2025-01-23] MEDS: Levothyroxine Sodium 150 MCG TABLET PO (06:15)
[2025-01-23] MEDS: risperiDONE 0.25 MG TABLET 0.5 MG PO ×2 (08:47→21:05)
[2025-01-23] MEDS: Ascorbic Acid 500 MG TABLET PO (08:47)
[2025-01-23] MEDS: Ferrous Sulfate 324 MG TABLET.DR PO ×2 (08:47→16:08)
[2025-01-23] MEDS: Cholecalciferol (Vitamin D3) 25 MCG TABLET PO (08:47)
[2025-01-23 08:53] VITALS: BP 103/59; PULSE 67; RESP 18; TEMP 36.1; O2SAT 94
[2025-01-23 20:00] VITALS: TEMP 36.6
[2025-01-23] MEDS: Lithium Carbonate ER 450 MG TABLET.ER PO (21:04)
[2025-01-23] MEDS: Mirtazapine 15 MG TABLET PO (21:04)
--- NOTE | 2025-01-23 22:33 | HO.PSYCHPN ---
Subjective Subjective Date of Service: 01/23/25 Reason For Visit: Bipolar Subjective Notes: [place] Warning and Section 7 Healthcare Proxy: Yes Interim History: Patient has been eating. Patient ambulating with walker dialogue going to herself in his somewhat nonsensical manner difficult to engage in linear conversation. Patient aware that court hearing has been filed will not engage in logical dialogue has been accepting medication Medication Compliance: Yes Attending Groups: No Mental Status Exam Mental Status Exam Narrative: Pt is using her walker, self-dialoguing ongoing Patient Appearance: Disheveled and Unkempt Patient Orientation: Person, Place and Situation Level of Consciousness: Awake and Alert Patient Behavior: Guarded and Suspicious Mood Description: Angry Affect Description: Depressed, Hostile, Labile and Flat Patient Cognition Impaired: Yes Ability to Follow Directions: Fair Speech Pattern: Spontaneous Speech, Pressured and Includes Profanity Memory Description: Remote Impaired and Working Impaired Delusions: Present Thought Process: Distracted and Rumination Thought Content: positive for [place], positive for Circumstantial and positive for Disorganized Depressive Symptoms: Difficulty Sleeping, Changes in Appetite, Loss of Int. in Activity, Hopelessness, Unhappiness, Thoughts of /Suicide, Loss of Energy and Difficulty Concentrating Judgement: Poor Judgement and Insight: Would not engage in linear dialogue digressive angry hays would not answer questions Diagnostics Vital Signs (24Hr): Vital Signs - 24 hr 01/23/25 08:53 01/23/25 20:00 Temperature 97.0 F 97.9 F Pulse Rate 67 Respiratory Rate 18 Blood Pressure 103/59 L Pulse Oximetry 94 Oxygen Delivery Method Room Air BMI result Body Mass Index 18.5 Labs 01/18/25 11:38 01/18/25 11:38 Medications Medications Current Medications Acetaminophen (Acetaminophen 325 Mg Tablet) 650 mg PO Q6H PRN PRN Reason: Headache/Pain, Scale 1-10 Al Hydroxide/Mg Hydroxide (Magnesium Hydrox/Alum Hydrox 30 Ml Oral.Susp) 30 ml PO Q6H PRN PRN Reason: Heartburn/Nausea Albuterol Sulfate (Albuterol Sulfate 90 Mcg 8 Gm Inhaler) 2 puff INHALE RQ4H PRN PRN Reason: Dyspnea Ascorbic Acid (Ascorbic Acid 500 Mg Tablet) 500 mg PO DAILY [facility] Last Admin: 01/23/25 08:47 Dose: 500 mg Ferrous Sulfate (Ferrous Sulfate 324 Mg Tablet.) 324 mg PO BIDWM [facility] Last Admin: 01/23/25 16:08 Dose: 324 mg Levothyroxine Sodium (Levothyroxine Sodium 150 Mcg Tablet) 150 mcg PO DAILY@0600 [facility] Last Admin: 01/23/25 06:15 Dose: 150 mcg [place] Carbonate ([place] Carbonate Er 450 Mg Tablet.Er) 450 mg PO BEDTIME [facility] Last Admin: 01/23/25 21:04 Dose: 450 mg Magnesium Hydroxide (Milk Of Magnesia 30 Ml Oral.Susp) 30 ml PO DAILY PRN PRN Reason: Constipation Mirtazapine (Mirtazapine 15 Mg Tablet) 15 mg PO BEDTIME [facility] Last Admin: 01/23/25 21:04 Dose: 15 mg Nicotine Polacrilex (Nicotine Polacrilex 2 Mg Gum) 4 mg BUCCAL Q2H PRN PRN Reason: Nicotine Cravings Olanzapine (Olanzapine 2.5 Mg Tablet) 2.5 mg PO Q6H PRN PRN Reason: Psychosis Last Admin: 01/21/25 16:14 Dose: 2.5 mg Risperidone (Risperidone 0.25 Mg Tablet) 0.5 mg PO BID [facility] Last Admin: 01/23/25 21:05 Dose: 0.5 mg Trazodone HCl (Trazodone Hcl 50 Mg Tablet) 50 mg PO BEDTIME MRX1 PRN PRN Reason: Insomnia Last Admin: 01/21/25 20:35 Dose: 50 mg Vitamin D (Cholecalciferol (Vitamin D3) 25 Mcg Tablet) 25 mcg PO DAILY [facility] Last Admin: 01/23/25 08:47 Dose: 25 mcg Allergies Allergies Allergy/AdvReac Type Severity Reaction Status Date / Time gluten Allergy Unknown Unknown Verified 01/17/25 19:18 hydrocodone Allergy Unknown Unknown Verified 01/17/25 19:17 propoxyphene Allergy Unknown Unknown Verified 01/17/25 19:18 sulfamethoxazole Allergy Unknown Unknown Verified 01/17/25 19:17 [From Bactrim] trimethoprim [From Bactrim] Allergy Unknown Unknown Verified 01/17/25 19:17 mepilex Allergy Unknown Unknown Uncoded 01/18/25 14:24 Assessment & Plan Assessment & Plan (1) Bipolar disorder with psychotic features: Status: Acute Code(s): F31.9 - Bipolar disorder, unspecified (2) Cognitive impairment: Status: Acute Code(s): R41.89 - Other symptoms and signs involving cognitive functions and awareness Plan Admit, Section XIIB, 5 minute checks Continue current regime and observe in milieu. Attempt alliance Collateral contact with family, out pt providers No current med changes until collateral contact is made. Diagnostics as needed 01/19 Pt assaultive to team. Risperdal 0.25 mg bid prn agitation 01/20/2025 Risperdal p.r.n. discontinued start olanzapine 2.5 p.r.n. if Risperdal was titrated off secondary to EPS may benefit from alternative such as olanzapine need additional history encourage med compliance encourage levothyroxine TSH was encouraged 01/21/2025 Call placed to healthcare proxy trying to get clear information regarding dangerousness. Patient's section 12 B most likely will need to file can not have logical conversation with patient has been taking Risperdal lithium. Patient labile intrusive irritable will not have clear conversation regarding condition or legal status check lithium level Risperdal call placed to patient's psychiatrist and patient's son trying in additional information try and clarify healthcare proxy 01/22/2025 Filed for commitment and treatment plan we did get a copy of the healthcare proxy check lithium level increase Risperdal as tolerated may need supplements might need additional physical therapy will trying get records of 7 month admission to [place] might do well on long-acting injectable 01/23/2025 Check lithium level continue Risperdal recheck TSH encourage medication compliance and encourage acceptance of laboratory and physical exam section 7 filed Patient educated on: diagnosis and medication risk/benefits Informed Consent: further education needed Reason for continued inpatient stay Substantial Risk for: harm to self, harm to others, rapid decompensation and med/psych decompensation Time Spent With Patient Time: Total time managing care of this patient today ____ minutes.
[2025-01-24] MEDS: Levothyroxine Sodium 150 MCG TABLET PO (06:01)
[2025-01-24 08:18] VITALS: BP 107/54; PULSE 69; RESP 16; TEMP 36.5; O2SAT 98
[2025-01-24] MEDS: Cholecalciferol (Vitamin D3) 25 MCG TABLET PO (09:34)
[2025-01-24] MEDS: Ascorbic Acid 500 MG TABLET PO (09:34)
[2025-01-24] MEDS: Ferrous Sulfate 324 MG TABLET.DR PO ×2 (09:34→16:57)
[2025-01-24] MEDS: risperiDONE 0.25 MG TABLET 0.5 MG PO ×2 (09:34→20:39)
--- NOTE | 2025-01-24 13:30 | P.PNPSI_ITS ---
Subjective Subjective Date of Service: 01/24/25 Reason For Visit: Bipolar Subjective Notes: Section 7 Healthcare Proxy: Yes Interim History: Patient seen in psychiatric follow-up. Patient somewhat guarded regarding statements and behavior that she made prior to the hospitalization. States she does not need medication but has been taking it complains of difficulties that she was having prior to admission living with her son and [id number]. Feeling how difficult things were before she was hospitalized . Can be quite reactive in the milieu Mental Status Exam Mental Status Exam Narrative: Pt is using her walker, self-dialoguing ongoing Patient Appearance: Disheveled and Unkempt Patient Orientation: Person, Place and Situation Level of Consciousness: Awake and Alert Patient Behavior: Guarded and Suspicious Mood Description: Angry Affect Description: Depressed, Hostile, Labile and Flat Patient Cognition Impaired: Yes Ability to Follow Directions: Fair Speech Pattern: Spontaneous Speech, Pressured and Includes Profanity Memory Description: Remote Impaired and Working Impaired Delusions: Present Thought Process: Distracted and Rumination Thought Content: positive for [place], positive for Circum[place] and positive for Disorganized Depressive Symptoms: Difficulty Sleeping, Changes in Appetite, Loss of Int. in Activity, Hopelessness, Unhappiness, Thoughts of /Suicide, Loss of Energy and Difficulty Concentrating Judgement: Poor Judgement and Insight: Would not engage in linear dialogue digressive angry hays would not answer questions Diagnostics Vital Signs (24Hr): Vital Signs - 24 hr 01/23/25 20:00 01/24/25 08:18 Temperature 97.9 F 97.7 F Pulse Rate 69 Respiratory Rate 16 Blood Pressure 107/54 L Pulse Oximetry 98 Oxygen Delivery Method Room Air BMI result Body Mass Index 18.5 Labs 01/18/25 11:38 01/18/25 11:38 Medications Medications Current Medications Acetaminophen (Acetaminophen 325 Mg Tablet) 650 mg PO Q6H PRN PRN Reason: Headache/Pain, Scale 1-10 Al Hydroxide/Mg Hydroxide (Magnesium Hydrox/Alum Hydrox 30 Ml Oral.Susp) 30 ml PO Q6H PRN PRN Reason: Heartburn/Nausea Albuterol Sulfate (Albuterol Sulfate 90 Mcg 8 Gm Inhaler) 2 puff INHALE RQ4H PRN PRN Reason: Dyspnea Ascorbic Acid (Ascorbic Acid 500 Mg Tablet) 500 mg PO DAILY [facility] Last Admin: 01/24/25 09:34 Dose: 500 mg Ferrous Sulfate (Ferrous Sulfate 324 Mg Tablet.) 324 mg PO BIDWM [facility] Last Admin: 01/24/25 09:34 Dose: 324 mg Levothyroxine Sodium (Levothyroxine Sodium 150 Mcg Tablet) 150 mcg PO DAILY@0600 [facility] Last Admin: 01/24/25 06:01 Dose: 150 mcg [place] Carbonate ([place] Carbonate Er 450 Mg Tablet.Er) 450 mg PO BEDTIME [facility] Last Admin: 01/23/25 21:04 Dose: 450 mg Magnesium Hydroxide (Milk Of Magnesia 30 Ml Oral.Susp) 30 ml PO DAILY PRN PRN Reason: Constipation Mirtazapine (Mirtazapine 15 Mg Tablet) 15 mg PO BEDTIME [facility] Last Admin: 01/23/25 21:04 Dose: 15 mg Nicotine Polacrilex (Nicotine Polacrilex 2 Mg Gum) 4 mg BUCCAL Q2H PRN PRN Reason: Nicotine Cravings Olanzapine (Olanzapine 2.5 Mg Tablet) 2.5 mg PO Q6H PRN PRN Reason: Psychosis Last Admin: 01/21/25 16:14 Dose: 2.5 mg Risperidone (Risperidone 0.25 Mg Tablet) 0.5 mg PO BID [facility] Last Admin: 01/24/25 09:34 Dose: 0.5 mg Trazodone HCl (Trazodone Hcl 50 Mg Tablet) 50 mg PO BEDTIME MRX1 PRN PRN Reason: Insomnia Last Admin: 01/21/25 20:35 Dose: 50 mg Vitamin D (Cholecalciferol (Vitamin D3) 25 Mcg Tablet) 25 mcg PO DAILY [facility] Last Admin: 01/24/25 09:34 Dose: 25 mcg Allergies Allergies Allergy/AdvReac Type Severity Reaction Status Date / Time gluten Allergy Unknown Unknown Verified 01/17/25 19:18 hydrocodone Allergy Unknown Unknown Verified 01/17/25 19:17 propoxyphene Allergy Unknown Unknown Verified 01/17/25 19:18 sulfamethoxazole Allergy Unknown Unknown Verified 01/17/25 19:17 [From Bactrim] trimethoprim [From Bactrim] Allergy Unknown Unknown Verified 01/17/25 19:17 mepilex Allergy Unknown Unknown Uncoded 01/18/25 14:24 Assessment & Plan Assessment & Plan (1) Bipolar disorder with psychotic features: Status: Acute Code(s): F31.9 - Bipolar disorder, unspecified (2) Cognitive impairment: Status: Acute Code(s): R41.89 - Other symptoms and signs involving cognitive functions and awareness Plan Admit, Section XIIB, 5 minute checks Continue current regime and observe in milieu. Attempt alliance Collateral contact with family, out pt providers No current med changes until collateral contact is made. Diagnostics as needed 01/19 Pt assaultive to team. Risperdal 0.25 mg bid prn agitation 01/20/2025 Risperdal p.r.n. discontinued start olanzapine 2.5 p.r.n. if Risperdal was titrated off secondary to EPS may benefit from alternative such as olanzapine need additional history encourage med compliance encourage levothyroxine TSH was encouraged 01/21/2025 Call placed to healthcare proxy trying to get clear information regarding dangerousness. Patient's section 12 B most likely will need to file can not have logical conversation with patient has been taking Risperdal lithium. Patient labile intrusive irritable will not have clear conversation regarding condition or legal status check lithium level Risperdal call placed to patient's psychiatrist and patient's son trying in additional information try and clarify healthcare proxy 01/22/2025 Filed for commitment and treatment plan we did get a copy of the healthcare proxy check lithium level increase Risperdal as tolera esau may need supplements might need additional physical therapy will trying get records of 7 month admission to [place] might do well on long-acting injectable 01/23/2025 Check lithium level continue Risperdal recheck TSH encourage medication compliance and encourage acceptance of laboratory and physical exam section 7 filed 01/24/2025 Discussed case with medical nurse practitioner mood somewhat labile difficulty organizing her thoughts but somewhat less labile Continue lithium and Risperdal Reason for continued inpatient stay Substantial Risk for: harm to self, harm to others, rapid decompensation and med/psych decompensation Time Spent With Patient Time: Total time managing care of this patient today ____ minutes.
--- NOTE | 2025-01-24 14:27 | MHC.CLN ---
NUTRITION DIET=REGULAR. INTAKE AT MEALS USUALLY 100%. IMPAIRED SKIN NOT PRESSURE RELATED. RD TO MONITOR PO INTAKE WEEKLY.
[2025-01-24] MEDS: Lithium Carbonate ER 450 MG TABLET.ER PO (20:39)
[2025-01-24] MEDS: Mirtazapine 15 MG TABLET PO (20:39)
[2025-01-24] MEDS: traZODone HCL 50 MG TABLET PO (20:39)
[2025-01-25] MEDS: Levothyroxine Sodium 150 MCG TABLET PO (05:13)
--- NOTE | 2025-01-25 07:44 | P.PNPSI_ITS ---
Subjective Subjective Date of Service: 01/25/25 Reason For Visit: Bipolar Subjective Notes: Section 7 Interim History: met with patient. Discussed with Nursing. Self dialogue going. Medications as per Carey order. Intermittent agitation and yelling and clear paranoia throw me to the animals, what do you want here? and declined to further engage Medication Compliance: Yes ( as per Aurelio) Side effects from medications: No Attending Groups: No Review of Systems Acute medical concerns: No Review of Systems Review of Systems Yes Unobtainable due to mental status Mental Status Exam Mental Status Exam Narrative: Pt is using her walker, self-dialoguing ongoing Patient Appearance: Disheveled and Unkempt Patient Orientation: Person, Place and Situation Level of Consciousness: Awake and Alert Patient Behavior: Guarded and Suspicious Mood Description: Angry Affect Description: Hostile, Labile and Flat Patient Cognition Impaired: Yes Ability to Follow Directions: Fair Speech Pattern: Spontaneous Speech, Pressured and Includes Profanity Memory Description: Remote Impaired and Working Impaired Delusions: Present Thought Process: Distracted and Rumination Thought Content: positive for [place], positive for Circumstantial and positive for Disorganized Depressive Symptoms: Difficulty Sleeping, Changes in Appetite, Loss of Int. in Activity, Hopelessness, Unhappiness, Loss of Energy and Difficulty Concentrating Judgement: Poor Judgement and Insight: Would not engage in linear dialogue digressive angry hays would not answer questions Diagnostics Vital Signs (24Hr): Vital Signs - 24 hr 01/24/25 08:18 Temperature 97.7 F Pulse Rate 69 Respiratory Rate 16 Blood Pressure 107/54 L Pulse Oximetry 98 Oxygen Delivery Method Room Air BMI result Body Mass Index 18.5 Labs 01/18/25 11:38 01/18/25 11:38 Medications Medications Current Medications Acetaminophen (Acetaminophen 325 Mg Tablet) 650 mg PO Q6H PRN PRN Reason: Headache/Pain, Scale 1-10 Al Hydroxide/Mg Hydroxide (Magnesium Hydrox/Alum Hydrox 30 Ml Oral.Susp) 30 ml PO Q6H PRN PRN Reason: Heartburn/Nausea Albuterol Sulfate (Albuterol Sulfate 90 Mcg 8 Gm Inhaler) 2 puff INHALE RQ4H PRN PRN Reason: Dyspnea Ascorbic Acid (Ascorbic Acid 500 Mg Tablet) 500 mg PO DAILY [facility] Last Admin: 01/24/25 09:34 Dose: 500 mg Ferrous Sulfate (Ferrous Sulfate 324 Mg Tablet.) 324 mg PO BIDWM [facility] Last Admin: 01/24/25 16:57 Dose: 324 mg Levothyroxine Sodium (Levothyroxine Sodium 150 Mcg Tablet) 150 mcg PO DAILY@0600 [facility] Last Admin: 01/25/25 05:13 Dose: 150 mcg [place] Carbonate ([place] Carbonate Er 450 Mg Tablet.Er) 450 mg PO BEDTIME [facility] Last Admin: 01/24/25 20:39 Dose: 450 mg Magnesium Hydroxide (Milk Of Magnesia 30 Ml Oral.Susp) 30 ml PO DAILY PRN PRN Reason: Constipation Mirtazapine (Mirtazapine 15 Mg Tablet) 15 mg PO BEDTIME [facility] Last Admin: 01/24/25 20:39 Dose: 15 mg Nicotine Polacrilex (Nicotine Polacrilex 2 Mg Gum) 4 mg BUCCAL Q2H PRN PRN Reason: Nicotine Cravings Olanzapine (Olanzapine 2.5 Mg Tablet) 2.5 mg PO Q6H PRN PRN Reason: Psychosis Last Admin: 01/21/25 16:14 Dose: 2.5 mg Risperidone (Risperidone 0.25 Mg Tablet) 0.5 mg PO BID [facility] Last Admin: 01/24/25 20:39 Dose: 0.5 mg Trazodone HCl (Trazodone Hcl 50 Mg Tablet) 50 mg PO BEDTIME MRX1 PRN PRN Reason: Insomnia Last Admin: 01/24/25 20:39 Dose: 50 mg Vitamin D (Cholecalciferol (Vitamin D3) 25 Mcg Tablet) 25 mcg PO DAILY [facility] Last Admin: 01/24/25 09:34 Dose: 25 mcg Allergies Allergies Allergy/AdvReac Type Severity Reaction Status Date / Time gluten Allergy Unknown Unknown Verified 01/17/25 19:18 hydrocodone Allergy Unknown Unknown Verified 01/17/25 19:17 propoxyphene Allergy Unknown Unknown Verified 01/17/25 19:18 sulfamethoxazole Allergy Unknown Unknown Verified 01/17/25 19:17 [From Bactrim] trimethoprim [From Bactrim] Allergy Unknown Unknown Verified 01/17/25 19:17 mepilex Allergy Unknown Unknown Uncoded 01/18/25 14:24 Assessment & Plan Assessment & Plan (1) Bipolar disorder with psychotic features: Status: Acute Code(s): F31.9 - Bipolar disorder, unspecified (2) Cognitive impairment: Status: Acute Code(s): R41.89 - Other symptoms and signs involving cognitive functions and awareness Plan Admit, Section XIIB, 5 minute checks Continue current regime and observe in milieu. Attempt alliance Collateral contact with family, out pt providers No current med changes until collateral contact is made. Diagnostics as needed 01/19 Pt assaultive to team. Risperdal 0.25 mg bid prn agitation 01/20/2025 Risperdal p.r.n. discontinued start olanzapine 2.5 p.r.n. if Risperdal was titrated off secondary to EPS may benefit from alternative such as olanzapine need additional history encourage med compliance encourage levothyroxine TSH was encouraged 01/21/2025 Call placed to healthcare proxy trying to get clear information regarding dangerousness. Patient's section 12 B most likely will need to file can not have logical conversation with patient has been taking Risperdal lithium. Patient labile intrusive irritable will not have clear conversation regarding condition or legal status check lithium level Risperdal call placed to patient's psychiatrist and patient's son trying in additional information try and clarify healthcare proxy 01/22/2025 Filed for commitment and treatment plan we did get a copy of the healthcare proxy check lithium level increase Risperdal as tolera seau may need supplements might need additional physical therapy will trying get records of 7 month admission to [place] might do well on long-acting injectable 01/23/2025 Check lithium level continue Risperdal recheck TSH encourage medication compliance and encourage acceptance of laboratory and physical exam section 7 filed 01/24/2025 Discussed case with medical nurse practitioner mood somewhat labile difficulty organizing her thoughts but somewhat less labile Continue lithium and Risperdal 01/25/2025: No changes to current regimen. Reason for continued inpatient stay Substantial Risk for: inability to function Time Spent With Patient Time: Total time managing care of this patient today ____ minutes.
[2025-01-25 08:00] VITALS: BP 103/49; PULSE 77; RESP 18; TEMP 37; O2SAT 94
[2025-01-25] MEDS: risperiDONE 0.25 MG TABLET 0.5 MG PO ×2 (08:22→20:48)
[2025-01-25] MEDS: Ferrous Sulfate 324 MG TABLET.DR PO ×2 (08:22→17:05)
[2025-01-25] MEDS: Cholecalciferol (Vitamin D3) 25 MCG TABLET PO (08:22)
[2025-01-25] MEDS: Ascorbic Acid 500 MG TABLET PO (08:22)
[2025-01-25] MEDS: OLANZapine 2.5 MG TABLET PO (18:05)
--- NOTE | 2025-01-25 19:15 | PC.NURSE ---
Pt refused labs, they will attempt again later.
[2025-01-25 20:00] VITALS: BP 103/55; PULSE 79; RESP 18; TEMP 36.9; O2SAT 94
[2025-01-25] MEDS: Mirtazapine 15 MG TABLET PO (20:48)
[2025-01-25] MEDS: traZODone HCL 50 MG TABLET PO (20:48)
[2025-01-25] MEDS: Lithium Carbonate ER 450 MG TABLET.ER PO (20:48)
[2025-01-26] MEDS: Levothyroxine Sodium 150 MCG TABLET PO (06:10)
[2025-01-26 08:00] VITALS: BP 88/56; PULSE 69; RESP 16; TEMP 36.4; O2SAT 97
[2025-01-26] MEDS: Cholecalciferol (Vitamin D3) 25 MCG TABLET PO (10:00)
[2025-01-26] MEDS: Ascorbic Acid 500 MG TABLET PO (10:00)
[2025-01-26] MEDS: risperiDONE 0.25 MG TABLET 0.5 MG PO (10:00)
[2025-01-26] MEDS: Ferrous Sulfate 324 MG TABLET.DR PO ×2 (10:01→17:00)
--- NOTE | 2025-01-26 17:34 | P.PNPSI_ITS ---
Subjective Subjective Date of Service: 01/26/25 Reason For Visit: Bipolar Subjective Notes: Section 12B (hearing pending) Medical Problems Affecting Mental Status: No Interim History: Sitting in dayroom. Interacting with another patient. Holding a baby doll. Wants to be able to talk to her daughters but unwilling to ask staff for assistance and appeared guarded when this was suggested. Eating and sleeping OK. No physical health complaints. Medication Compliance: Yes Side effects from medications: No Attending Groups: Intermittent Review of Systems Acute medical concerns: No Medical Review of Systems: unchanged Mental Status Exam Mental Status Exam Patient Appearance: Well Grooomed Patient Orientation: Person and Place Level of Consciousness: Alert Patient Behavior: Guarded Mood Description: Apprehensive Affect Description: Calm Patient Cognition Impaired: No Ability to Follow Directions: Good Speech Pattern: Clear Memory Description: Intact Hallucinations: None Delusions: Paranoid Ideation Thought Process: Intact Thought Content: positive for Preoccupation Depressive Symptoms: Increased Irritability Judgement: Fair Diagnostics Vital Signs (24Hr): Vital Signs - 24 hr 01/25/25 20:00 01/26/25 08:00 Temperature 98.4 F 97.5 F Pulse Rate 79 69 Respiratory Rate 18 16 Blood Pressure 103/55 L 88/56 L Pulse Oximetry 94 97 Oxygen Delivery Method Room Air Room Air BMI result Body Mass Index 18.5 Labs 01/18/25 11:38 01/18/25 11:38 Medications Medications Current Medications Acetaminophen (Acetaminophen 325 Mg Tablet) 650 mg PO Q6H PRN PRN Reason: Headache/Pain, Scale 1-10 Al Hydroxide/Mg Hydroxide (Magnesium Hydrox/Alum Hydrox 30 Ml Oral.Susp) 30 ml PO Q6H PRN PRN Reason: Heartburn/Nausea Albuterol Sulfate (Albuterol Sulfate 90 Mcg 8 Gm Inhaler) 2 puff INHALE RQ4H PRN PRN Reason: Dyspnea Ascorbic Acid (Ascorbic Acid 500 Mg Tablet) 500 mg PO DAILY [facility] Last Admin: 01/26/25 10:00 Dose: 500 mg Ferrous Sulfate (Ferrous Sulfate 324 Mg Tablet.Dr) 324 mg PO BIDWM [facility] Last Admin: 01/26/25 17:00 Dose: 324 mg Levothyroxine Sodium (Levothyroxine Sodium 150 Mcg Tablet) 150 mcg PO DAILY@0600 [facility] Last Admin: 01/26/25 06:10 Dose: 150 mcg [place] Carbonate ([place] Carbonate Er 450 Mg Tablet.Er) 450 mg PO BEDTIME [facility] Last Admin: 01/25/25 20:48 Dose: 450 mg Magnesium Hydroxide (Milk Of Magnesia 30 Ml Oral.Susp) 30 ml PO DAILY PRN PRN Reason: Constipation Mirtazapine (Mirtazapine 15 Mg Tablet) 15 mg PO BEDTIME [facility] Last Admin: 01/25/25 20:48 Dose: 15 mg Nicotine Polacrilex (Nicotine Polacrilex 2 Mg Gum) 4 mg BUCCAL Q2H PRN PRN Reason: Nicotine Cravings Olanzapine (Olanzapine 2.5 Mg Tablet) 2.5 mg PO Q6H PRN PRN Reason: Psychosis Last Admin: 01/25/25 18:05 Dose: 2.5 mg Risperidone (Risperidone 0.25 Mg Tablet) 0.5 mg PO BID [facility] Last Admin: 01/26/25 10:00 Dose: 0.5 mg Trazodone HCl (Trazodone Hcl 50 Mg Tablet) 50 mg PO BEDTIME MRX1 PRN PRN Reason: Insomnia Last Admin: 01/25/25 20:48 Dose: 50 mg Vitamin D (Cholecalciferol (Vitamin D3) 25 Mcg Tablet) 25 mcg PO DAILY [facility] Last Admin: 01/26/25 10:00 Dose: 25 mcg Allergies Allergies Allergy/AdvReac Type Severity Reaction Status Date / Time gluten Allergy Unknown Unknown Verified 01/17/25 19:18 hydrocodone Allergy Unknown Unknown Verified 01/17/25 19:17 propoxyphene Allergy Unknown Unknown Verified 01/17/25 19:18 sulfamethoxazole Allergy Unknown Unknown Verified 01/17/25 19:17 [From Bactrim] trimethoprim [From Bactrim] Allergy Unknown Unknown Verified 01/17/25 19:17 mepilex Allergy Unknown Unknown Uncoded 01/18/25 14:24 Assessment & Plan Assessment & Plan (1) Bipolar disorder with psychotic features: Status: Acute Code(s): F31.9 - Bipolar disorder, unspecified (2) Cognitive impairment: Status: Acute Code(s): R41.89 - Other symptoms and signs involving cognitive functions and awareness Plan Admit, Section XIIB, 5 minute checks Continue current regime and observe in milieu. Attempt alliance Collateral contact with family, out pt providers No current med changes until collateral contact is made. Diagnostics as needed 01/19 Pt assaultive to team. Risperdal 0.25 mg bid prn agitation 01/20/2025 Risperdal p.r.n. discontinued start olanzapine 2.5 p.r.n. if Risperdal was titrated off secondary to EPS may benefit from alternative such as olanzapine need additional history encourage med compliance encourage levothyroxine TSH was encouraged 01/21/2025 Call placed to healthcare proxy trying to get clear information regarding dangerousness. Patient's section 12 B most likely will need to file can not have logical conversation with patient has been taking Risperdal lithium. Patient labile intrusive irritable will not have clear conversation regarding condition or legal status check lithium level Risperdal call placed to patient's psychiatrist and patient's son trying in additional information try and clarify healthcare proxy 01/22/2025 Filed for commitment and treatment plan we did get a copy of the healthcare proxy check lithium level increase Risperdal as tolera esau may need supplements might need additional physical therapy will trying get records of 7 month admission to [place] might do well on long-acting injectable 01/23/2025 Check lithium level continue Risperdal recheck TSH encourage medication compliance and encourage acceptance of laboratory and physical exam section 7 filed 01/24/2025 Discussed case with medical nurse practitioner mood somewhat labile difficulty organizing her thoughts but somewhat less labile Continue lithium and Risperdal 01/25/2025: No changes to current regimen. 01/26/2025: consider increasing standing risperdal Reason for continued inpatient stay Substantial Risk for: inability to function Time Spent With Patient Time: Total time managing care of this patient today ____ minutes.
[2025-01-26 20:00] VITALS: BP 109/64; PULSE 76; RESP 16; TEMP 36.5; O2SAT 96
--- NOTE | 2025-01-26 20:55 | PC.NURSE ---
Patient refusing labs [place] level. Also refused HS meds [place], Mirtazepine and Risperidone multiple attempts. inbound call center representative Malik texted by garrett.
[2025-01-27 07:41] LABS: Lithium 0.54 mmol/L (0.60-1.20); Lithium 0.55 mmol/L (0.60-1.20)
[2025-01-27 07:51] VITALS: BP 104/52; PULSE 70; RESP 16; TEMP 36.7; O2SAT 96
[2025-01-27] MEDS: Cholecalciferol (Vitamin D3) 25 MCG TABLET PO (08:29)
[2025-01-27] MEDS: risperiDONE 0.25 MG TABLET 0.5 MG PO ×2 (08:29→20:21)
[2025-01-27] MEDS: Ascorbic Acid 500 MG TABLET PO (08:30)
[2025-01-27] MEDS: Ferrous Sulfate 324 MG TABLET.DR PO ×2 (08:30→16:26)
--- NOTE | 2025-01-27 09:04 | P.PNPSI_ITS ---
Subjective Subjective Date of Service: 01/27/25 Reason For Visit: Bipolar Subjective Notes: Section 7 Healthcare Proxy: Yes Interim History: Patient intermittently refusing Risperdal and mirtazapine. Case reviewed extensively with healthcare proxy. Pt at times less reactive and able to have conversation at times Mental Status Exam Mental Status Exam Patient Appearance: Well Grooomed Patient Orientation: Person and Place Level of Consciousness: Alert Patient Behavior: Guarded Mood Description: Apprehensive Affect Description: Calm Patient Cognition Impaired: No Ability to Follow Directions: Good Speech Pattern: Clear Memory Description: Intact Hallucinations: None Delusions: Paranoid Ideation Thought Process: Intact Thought Content: positive for Preoccupation Depressive Symptoms: Increased Irritability Judgement: Fair Diagnostics Vital Signs (24Hr): Vital Signs - 24 hr 01/26/25 20:00 01/27/25 07:51 Temperature 97.7 F 98.0 F Pulse Rate 76 70 Respiratory Rate 16 16 Blood Pressure 109/64 104/52 L Pulse Oximetry 96 96 Oxygen Delivery Method Room Air Room Air BMI result Body Mass Index 18.5 Labs 01/18/25 11:38 01/18/25 11:38 Labs: Laboratory Results - last 48 hr 01/27/25 01/27/25 07:16 07:16 [place] 0.55 L 0.54 L Medications Medications Current Medications Acetaminophen (Acetaminophen 325 Mg Tablet) 650 mg PO Q6H PRN PRN Reason: Headache/Pain, Scale 1-10 Al Hydroxide/Mg Hydroxide (Magnesium Hydrox/Alum Hydrox 30 Ml Oral.Susp) 30 ml PO Q6H PRN PRN Reason: Heartburn/Nausea Albuterol Sulfate (Albuterol Sulfate 90 Mcg 8 Gm Inhaler) 2 puff INHALE RQ4H PRN PRN Reason: Dyspnea Ascorbic Acid (Ascorbic Acid 500 Mg Tablet) 500 mg PO DAILY [facility] Last Admin: 01/27/25 08:30 Dose: 500 mg Ferrous Sulfate (Ferrous Sulfate 324 Mg Tablet.Dr) 324 mg PO BIDWM [facility] Last Admin: 01/27/25 08:30 Dose: 324 mg Levothyroxine Sodium (Levothyroxine Sodium 150 Mcg Tablet) 150 mcg PO DAILY@0600 [facility] Last Admin: 01/27/25 05:50 Dose: Not Given [place] Carbonate ([place] Carbonate Er 450 Mg Tablet.Er) 450 mg PO BEDTIME [facility] Last Admin: 01/26/25 20:54 Dose: Not Given Magnesium Hydroxide (Milk Of Magnesia 30 Ml Oral.Susp) 30 ml PO DAILY PRN PRN Reason: Constipation Mirtazapine (Mirtazapine 15 Mg Tablet) 15 mg PO BEDTIME [facility] Last Admin: 01/26/25 20:54 Dose: Not Given Nicotine Polacrilex (Nicotine Polacrilex 2 Mg Gum) 4 mg BUCCAL Q2H PRN PRN Reason: Nicotine Cravings Olanzapine (Olanzapine 2.5 Mg Tablet) 2.5 mg PO Q6H PRN PRN Reason: Psychosis Last Admin: 01/25/25 18:05 Dose: 2.5 mg Risperidone (Risperidone 0.25 Mg Tablet) 0.5 mg PO BID [facility] Last Admin: 01/27/25 08:29 Dose: 0.5 mg Trazodone HCl (Trazodone Hcl 50 Mg Tablet) 50 mg PO BEDTIME MRX1 PRN PRN Reason: Insomnia Last Admin: 01/25/25 20:48 Dose: 50 mg Vitamin D (Cholecalciferol (Vitamin D3) 25 Mcg Tablet) 25 mcg PO DAILY [facility] Last Admin: 01/27/25 08:29 Dose: 25 mcg Allergies Allergies Allergy/AdvReac Type Severity Reaction Status Date / Time gluten Allergy Unknown Unknown Verified 01/17/25 19:18 hydrocodone Allergy Unknown Unknown Verified 01/17/25 19:17 propoxyphene Allergy Unknown Unknown Verified 01/17/25 19:18 sulfamethoxazole Allergy Unknown Unknown Verified 01/17/25 19:17 [From Bactrim] trimethoprim [From Bactrim] Allergy Unknown Unknown Verified 01/17/25 19:17 mepilex Allergy Unknown Unknown Uncoded 01/18/25 14:24 Assessment & Plan Assessment & Plan (1) Bipolar disorder with psychotic features: Status: Acute Code(s): F31.9 - Bipolar disorder, unspecified (2) Cognitive impairment: Status: Acute Code(s): R41.89 - Other symptoms and signs involving cognitive functions and awareness Plan Admit, Section XIIB, 5 minute checks Continue current regime and observe in milieu. Attempt alliance Collateral contact with family, out pt providers No current med changes until collateral contact is made. Diagnostics as needed 01/19 Pt assaultive to team. Risperdal 0.25 mg bid prn agitation 01/20/2025 Risperdal p.r.n. discontinued start olanzapine 2.5 p.r.n. if Risperdal was titrated off secondary to EPS may benefit from alternative such as olanzapine need additional history encourage med compliance encourage levothyroxine TSH was encouraged 01/21/2025 Call placed to healthcare proxy trying to get clear information regarding dangerousness. Patient's section 12 B most likely will need to file can not have logical conversation with patient has been taking Risperdal lithium. Patient labile intrusive irritable will not have clear conversation regarding condition or legal status check lithium level Risperdal call placed to patient's psychiatrist and patient's son trying in additional information try and clarify healthcare proxy 01/22/2025 Filed for commitment and treatment plan we did get a copy of the healthcare proxy check lithium level increase Risperdal as tolera esau may need supplements might need additional physical therapy will trying get records of 7 month admission to [place] might do well on long-acting injectable 01/23/2025 Check lithium level continue Risperdal recheck TSH encourage medication compliance and encourage acceptance of laboratory and physical exam section 7 filed 01/24/2025 Discussed case with medical nurse practitioner mood somewhat labile difficulty organizing her thoughts but somewhat less labile Continue lithium and Risperdal 01/25/2025: No changes to current regimen. 01/26/2025: consider increasing standing risperdal 01/27/25 pt somewhat less labile intermittantly has difficulty with narrative hx discussed refusing risp and events of past few yrs. Civil commitment pending case reviewed with hcp Reason for continued inpatient stay Substantial Risk for: harm to self, inability to function, rapid decompensation and med/psych decompensation Time Spent With Patient Time: Total time managing care of this patient today ____ minutes.
--- NOTE | 2025-01-27 10:54 | P.PNIM_ITS ---
Subjective Subjective Date of Service: 01/27/25 Interval History: 74 year old female with PMH of hypothyroid, iron def anemia, vit D deficeincy, mood disorder, COPD and chronic wounds seen today for increased swelling to left leg. Asked by nursing to see patient for increased swelling to her left leg. Per nursing she has been cooperative with dressing changes. On exam the patient denies any pain or discomfort to her leg. Leg examined, no pain with palpation positive pedal pulses. Interval healing noted at edges. Wound dry, no odor. Recent sed rate was 32, CRP within normal limits, blood cultures negative that were drawn on 01/18/2025. No fevers reported. Review of Systems Denies any shortness of breath, chest pain, dizziness, lightheadedness, abdominal pain or discomfort, nausea, vomiting or diarrhea Physical Exam 2 Vital Signs: Vital Signs: Last Vital Signs Temp 98.0 F 01/27/25 07:51 Pulse 70 01/27/25 07:51 Resp 16 01/27/25 07:51 BP 104/52 L 01/27/25 07:51 Pulse Ox 96 01/27/25 07:51 O2 Del Method Room Air 01/27/25 07:51 BMI result Body Mass Index 18.5 CONST: Alert and oriented, in NAD. Well nourished HEENT: Normocephalic, atraumatic, MMM, Eyes clear RESP: Lungs clear, RRR even and regular HEART:,RRR, S1, S2. No murmur, 1+ edema to left leg. + PP GI:Abdomen Soft NT, ND. + BS times four :Deferred SKIN: Warm dry and intact, Wound to left ankle with interval healing. NEURO:CN II-XII Intact bilaterally, Sensation intact. Speech clear PSYCH:Cooperative, initially resisting care and assessment, later calmed and was agreeable. Objective Data Active Medications Acetaminophen (Acetaminophen 325 Mg Tablet) 650 mg PO Q6H PRN PRN Reason: Headache/Pain, Scale 1-10 Al Hydroxide/Mg Hydroxide (Magnesium Hydrox/Alum Hydrox 30 Ml Oral.Susp) 30 ml PO Q6H PRN PRN Reason: Heartburn/Nausea Albuterol Sulfate (Albuterol Sulfate 90 Mcg 8 Gm Inhaler) 2 puff INHALE RQ4H PRN PRN Reason: Dyspnea Ascorbic Acid (Ascorbic Acid 500 Mg Tablet) 500 mg PO DAILY [facility] Last Admin: 01/27/25 08:30 Dose: 500 mg Documented By: MIKAYLA Ferrous Sulfate (Ferrous Sulfate 324 Mg Tablet.Dr) 324 mg PO BIDWM [facility] Last Admin: 01/27/25 08:30 Dose: 324 mg Documented By: MIKAYLA Levothyroxine Sodium (Levothyroxine Sodium 150 Mcg Tablet) 150 mcg PO DAILY@0600 [facility] Last Admin: 01/27/25 05:50 Dose: Not Given Documented By: OREN Non-Admin Reason: Patient Refused [place] Carbonate ([place] Carbonate Er 450 Mg Tablet.Er) 450 mg PO BEDTIME [facility] Last Admin: 01/26/25 20:54 Dose: Not Given Documented By: LINDSAY Non-Admin Reason: Pt refused Magnesium Hydroxide (Milk Of Magnesia 30 Ml Oral.Susp) 30 ml PO DAILY PRN PRN Reason: Constipation Mirtazapine (Mirtazapine 15 Mg Tablet) 15 mg PO BEDTIME [facility] Last Admin: 01/26/25 20:54 Dose: Not Given Documented By: LINDSAY Non-Admin Reason: Patient Refused Nicotine Polacrilex (Nicotine Polacrilex 2 Mg Gum) 4 mg BUCCAL Q2H PRN PRN Reason: Nicotine Cravings Olanzapine (Olanzapine 2.5 Mg Tablet) 2.5 mg PO Q6H PRN PRN Reason: Psychosis Last Admin: 01/25/25 18:05 Dose: 2.5 mg Documented By: LINDSAY Risperidone (Risperidone 0.25 Mg Tablet) 0.5 mg PO BID [facility] Last Admin: 01/27/25 08:29 Dose: 0.5 mg Documented By: MIKAYLA Trazodone HCl (Trazodone Hcl 50 Mg Tablet) 50 mg PO BEDTIME MRX1 PRN PRN Reason: Insomnia Last Admin: 01/25/25 20:48 Dose: 50 mg Documented By: BYRON Vitamin D (Cholecalciferol (Vitamin D3) 25 Mcg Tablet) 25 mcg PO DAILY [facility] Last Admin: 01/27/25 08:29 Dose: 25 mcg Documented By: MIKAYLA Labs 01/18/25 11:38 01/18/25 11:38 Labs: Laboratory Results - last 24 hr 01/27/25 01/27/25 07:16 07:16 [place] 0.55 L 0.54 L Assessment and Plan (1) Wound of left ankle: Status: Acute Plan 74-year-old patient seen today for evaluation of chronic medical conditions including hypothyroidism chronic wounds, COPD and iron deficiency anemia. She is currently inpatient and the geripsych unit after she was admitted for refusing all care food and medications. Edema to left leg Ultrasound to rule out DVT Chronic wound to left medial ankle Suspected due to venous disease- no records available, however patient reports that she has been seen in the past by vascular as well as a wound clinic. Current wound orders include applying skin barrier, followed by dura fiber Ag wound bed covered with a dry gauze. Changing every 2-3 days Recent CRP within normal limits and sed rate was noted to be elevated at 32, blood cultures negative she has been afebrile. Wound does not appear infected at this time. She has been seen by the wound nurse. We will check pre-albumin and CBC with next lab draw, monitor closely for evidence of infection. Change dressing to Santyl daily Supplements BID Hypothyroidism Her TSH was noted to be 66.09 on 01/18 with a free T4 of 0.65. Had been refusing medication prior to admit. Continues to occasionally refuse medication. Levothyroxine at 150 mcg daily. Continue to follow TSH. Recommend repeat in 2 weeks. COPD Not in acute exacerbation. Continue with albuterol as needed. Nutritional support History of iron deficiency anemia Most recent H&H 11.9/39.5 Continue iron b.i.d. and vitamin-C Quality Stroke Does the patient have a stroke diagnosis?: No VTE Prior VTE?: No VTE Risk Level:: Medical - low VTE Device Contraindication: Treatment Not Indicated VTE Drug Contraindication: Treatment Not Indicated
--- NOTE | 2025-01-27 12:54 | PM.EVENT ---
Event Note Date of Service: 01/27/25 Event Note: Patient seen for wound and edema to left leg. Will start Cephalexin 500 mgs QID for 10 days and change wound dressing orders to santyl. Time Spent With Patient Time: Total time managing care of this patient today ____ minutes.
[2025-01-27] MEDS: cephALEXin 500 MG CAPSULE PO ×2 (14:29→20:21)
[2025-01-27 20:00] VITALS: BP 101/63; PULSE 68; RESP 18; TEMP 36.6; O2SAT 96
[2025-01-27] MEDS: Lithium Carbonate ER 450 MG TABLET.ER PO (20:21)
[2025-01-27] MEDS: traZODone HCL 50 MG TABLET PO (20:21)
[2025-01-27] MEDS: Mirtazapine 15 MG TABLET PO (20:21)
[2025-01-28] MEDS: cephALEXin 500 MG CAPSULE PO ×4 (01:14→19:51)
[2025-01-28] MEDS: Levothyroxine Sodium 150 MCG TABLET PO (05:45)
[2025-01-28 08:42] VITALS: BP 110/57; PULSE 74; RESP 18; TEMP 36.7; O2SAT 96
[2025-01-28] MEDS: Cholecalciferol (Vitamin D3) 25 MCG TABLET PO (08:46)
[2025-01-28] MEDS: Ferrous Sulfate 324 MG TABLET.DR PO ×2 (08:46→16:26)
[2025-01-28] MEDS: Ascorbic Acid 500 MG TABLET PO (08:46)
[2025-01-28] MEDS: risperiDONE 0.25 MG TABLET 0.5 MG PO ×2 (08:47→19:51)
--- NOTE | 2025-01-28 08:51 | HO.WOUND ---
Wound Consult: Follow up 74yr old admitted to [facility] [place] - [facility] on 01/18/25 - See progress notes and H&P for detailed history.? Wound consult followup for Left Ankle and Plantar feet.? This is based on chart review and discussion with provider, Thao Contreras. Photo reviewed. The patient does not report increased pain but swelling and erythema has been noted by staff and provider. See note for details and updated orders. Left Medial Ankle Etiology: ??Ulceration suspect related to venous disease Wound Bed: full thickness tissue loss yellow slough Edges: ?irregular and well defined [place] wound: ?pink erythema tissue Pain: denies Goals of Treatment: ? switch to Santyl for enzymatic debridement Bilateral Plantar Feet - not assessed. Recommendations: Off Load all bony prominences with use of pillows and heel boots if needed.? Apply Preventative foams where needed. ? Monitor for incontinence and moisture control, use barrier creams when needed for prevention and treatment. Provide adequate and supplemental nutrition.? Order or Continue low air loss mattress. When applicable maintain blood glucose levels per Providers order. Left ankle - Cleanse with NS moist gauze, pat dry. Apply skin barrier to wound edge either skin prep or barrier cream. Apply thick layer of santyl to wound bed only. Cover with dry gauze, ABD pad and elastic netting. Change Daily. Plantar Feet - Cleanse with routine bathing. Dry well. Apply skin prep allow to dry. Cover sites with foam dressing. Change every 5 days. May discontinue when wounds heal. Re-consult wound care Nurse for wound deterioration or wound changes.
[2025-01-28] MEDS: Collagenase Clostridium Hist. 30 GM TUBE 1 APPL TOPICAL (15:15)
--- NOTE | 2025-01-28 15:24 | P.PNPSI_ITS ---
Subjective Subjective Date of Service: 01/28/25 Reason For Visit: Bipolar Subjective Notes: Conditional Voluntary Interim History: Pt seen in f/u case reviewed in treatment team patient is somewhat more cooperative less labile more accepting of treatment Medication Compliance: Intermittent Mental Status Exam Mental Status Exam Patient Appearance: Well Grooomed Patient Orientation: Person and Place Level of Consciousness: Alert Patient Behavior: Guarded Mood Description: Labile and Apprehensive Affect Description: Calm Patient Cognition Impaired: No Ability to Follow Directions: Good Speech Pattern: Clear Memory Description: Intact Hallucinations: None Delusions: Paranoid Ideation Thought Process: Intact Thought Content: positive for Preoccupation Depressive Symptoms: Increased Irritability Judgement: Fair Diagnostics Vital Signs (24Hr): Vital Signs - 24 hr 01/27/25 20:00 01/28/25 08:42 Temperature 98 F 98.1 F Pulse Rate 68 74 Respiratory Rate 18 18 Blood Pressure 101/63 110/57 L Pulse Oximetry 96 96 Oxygen Delivery Method Room Air Room Air BMI result Body Mass Index 18.5 Labs 01/18/25 11:38 01/18/25 11:38 Labs: Laboratory Results - last 48 hr 01/27/25 01/27/25 07:16 07:16 [place] 0.55 L 0.54 L Imaging Radiology Impressions: ITS Impressions Venous Duplex 01/27/25 13:11 IMPRESSION: No evidence of acute DVT in the left lower extremity. Electronically signed by: Yg Go MD 01/27/2025 01:30 PM EDT RP Medications Medications Current Medications Acetaminophen (Acetaminophen 325 Mg Tablet) 650 mg PO Q6H PRN PRN Reason: Headache/Pain, Scale 1-10 Al Hydroxide/Mg Hydroxide (Magnesium Hydrox/Alum Hydrox 30 Ml Oral.Susp) 30 ml PO Q6H PRN PRN Reason: Heartburn/Nausea Albuterol Sulfate (Albuterol Sulfate 90 Mcg 8 Gm Inhaler) 2 puff INHALE RQ4H PRN PRN Reason: Dyspnea Ascorbic Acid (Ascorbic Acid 500 Mg Tablet) 500 mg PO DAILY [facility] Last Admin: 01/28/25 08:46 Dose: 500 mg Cephalexin HCl (Cephalexin 500 Mg Capsule) 500 mg PO Q6H [facility] Stop: 02/06/25 12:59 Last Admin: 01/28/25 12:33 Dose: 500 mg Collagenase (Collagenase Clostridium Hist. 30 Gm Tube) 1 appl TOPICAL DAILY [facility]; Protocol Last Admin: 01/28/25 15:15 Dose: 1 appl Ferrous Sulfate (Ferrous Sulfate 324 Mg Tablet.Dr) 324 mg PO BIDWM [facility] Last Admin: 01/28/25 08:46 Dose: 324 mg Levothyroxine Sodium (Levothyroxine Sodium 150 Mcg Tablet) 150 mcg PO DAILY@0600 [facility] Last Admin: 01/28/25 05:45 Dose: 150 mcg [place] Carbonate ([place] Carbonate Er 450 Mg Tablet.Er) 450 mg PO BEDTIME [facility] Last Admin: 01/27/25 20:21 Dose: 450 mg Magnesium Hydroxide (Milk Of Magnesia 30 Ml Oral.Susp) 30 ml PO DAILY PRN PRN Reason: Constipation Mirtazapine (Mirtazapine 15 Mg Tablet) 15 mg PO BEDTIME [facility] Last Admin: 01/27/25 20:21 Dose: 15 mg Nicotine Polacrilex (Nicotine Polacrilex 2 Mg Gum) 4 mg BUCCAL Q2H PRN PRN Reason: Nicotine Cravings Olanzapine (Olanzapine 2.5 Mg Tablet) 2.5 mg PO Q6H PRN PRN Reason: Psychosis Last Admin: 01/25/25 18:05 Dose: 2.5 mg Risperidone (Risperidone 0.25 Mg Tablet) 0.5 mg PO BID [facility] Last Admin: 01/28/25 08:47 Dose: 0.5 mg Trazodone HCl (Trazodone Hcl 50 Mg Tablet) 50 mg PO BEDTIME MRX1 PRN PRN Reason: Insomnia Last Admin: 01/27/25 20:21 Dose: 50 mg Vitamin D (Cholecalciferol (Vitamin D3) 25 Mcg Tablet) 25 mcg PO DAILY [facility] Last Admin: 01/28/25 08:46 Dose: 25 mcg Allergies Allergies Allergy/AdvReac Type Severity Reaction Status Date / Time gluten Allergy Unknown Unknown Verified 01/17/25 19:18 hydrocodone Allergy Unknown Unknown Verified 01/17/25 19:17 propoxyphene Allergy Unknown Unknown Verified 01/17/25 19:18 sulfamethoxazole Allergy Unknown Unknown Verified 01/17/25 19:17 [From Bactrim] trimethoprim [From Bactrim] Allergy Unknown Unknown Verified 01/17/25 19:17 mepilex Allergy Unknown Unknown Uncoded 01/18/25 14:24 Assessment & Plan Assessment & Plan (1) Bipolar disorder with psychotic features: Status: Acute Code(s): F31.9 - Bipolar disorder, unspecified (2) Cognitive impairment: Status: Acute Code(s): R41.89 - Other symptoms and signs involving cognitive functions and awareness Plan Admit, Section XIIB, 5 minute checks Continue current regime and observe in milieu. Attempt alliance Collateral contact with family, out pt providers No current med changes until collateral contact is made. Diagnostics as needed 01/19 Pt assaultive to team. Risperdal 0.25 mg bid prn agitation 01/20/2025 Risperdal p.r.n. discontinued start olanzapine 2.5 p.r.n. if Risperdal was titrated off secondary to EPS may benefit from alternative such as olanzapine need additional history encourage med compliance encourage levothyroxine TSH was encouraged 01/21/2025 Call placed to healthcare proxy trying to get clear information regarding dangerousness. Patient's section 12 B most likely will need to file can not have logical conversation with patient has been taking Risperdal lithium. Patient labile intrusive irritable will not have clear conversation regarding condition or legal status check lithium level Risperdal call placed to patient's psychiatrist and patient's son trying in additional information try and clarify healthcare proxy 01/22/2025 Filed for commitment and treatment plan we did get a copy of the healthcare proxy check lithium level increase Risperdal as tolera esau may need supplements might need additional physical therapy will trying get records of 7 month admission to [place] might do well on long-acting injectable 01/23/2025 Check lithium level continue Risperdal recheck TSH encourage medication compliance and encourage acceptance of laboratory and physical exam section 7 filed 01/24/2025 Discussed case with medical nurse practitioner mood somewhat labile difficulty organizing her thoughts but somewhat less labile Continue lithium and Risperdal 01/25/2025: No changes to current regimen. 01/26/2025: consider increasing standing risperdal 01/27/25 pt somewhat less labile intermittantly has difficulty with narrative hx discussed refusing risp and events of past few yrs. Civil commitment pending case reviewed with hcp 01/2025 Continue lithium and Risperdal patient appears to be tolerating able to ambulate with walker. Some periods of less lability lithium level 0.54 consider increase by 150-300 mg was on lithium for many years previously Patient educated on: medication risk/benefits Guardian/Caregiver educated on: medication risk/benefits Informed Consent: further education needed Reason for continued inpatient stay Substantial Risk for: harm to self, rapid decompensation and med/psych decompensation Time Spent With Patient Time: Total time managing care of this patient today ____ minutes.
[2025-01-28] MEDS: Lithium Carbonate ER 450 MG TABLET.ER PO (19:51)
[2025-01-28] MEDS: Mirtazapine 15 MG TABLET PO (19:51)
[2025-01-28] MEDS: traZODone HCL 50 MG TABLET PO (19:51)
[2025-01-28 20:00] VITALS: BP 100/49; PULSE 72; RESP 18; TEMP 36.2; O2SAT 96
[2025-01-29] MEDS: cephALEXin 500 MG CAPSULE PO ×3 (00:57→18:15)
[2025-01-29 08:00] VITALS: BP 100/60; PULSE 70; RESP 16; TEMP 36.7; O2SAT 98
[2025-01-29] MEDS: Ferrous Sulfate 324 MG TABLET.DR PO ×2 (08:14→18:15)
[2025-01-29] MEDS: Cholecalciferol (Vitamin D3) 25 MCG TABLET PO (08:14)
[2025-01-29] MEDS: risperiDONE 0.25 MG TABLET 0.5 MG PO ×2 (08:14→20:16)
[2025-01-29] MEDS: Ascorbic Acid 500 MG TABLET PO (08:15)
[2025-01-29 20:00] VITALS: BP 107/57; PULSE 77; RESP 16; TEMP 36.3; O2SAT 94
[2025-01-29] MEDS: Mirtazapine 15 MG TABLET PO (20:16)
[2025-01-29] MEDS: Lithium Carbonate ER 450 MG TABLET.ER PO (20:16)
--- NOTE | 2025-01-29 22:14 | HO.PSYCHPN ---
Subjective Subjective Date of Service: 01/29/25 Reason For Visit: Bipolar Subjective Notes: Section 7 Interim History: pt intermittantly refusing meds and at times care. better able to reflect at times Mental Status Exam Mental Status Exam Patient Appearance: Well Grooomed Patient Orientation: Person and Place Level of Consciousness: Alert Patient Behavior: Guarded Mood Description: Labile and Apprehensive Affect Description: Calm Patient Cognition Impaired: No Ability to Follow Directions: Good Speech Pattern: Clear Memory Description: Intact Hallucinations: None Delusions: Paranoid Ideation Thought Process: Intact Thought Content: positive for Preoccupation Depressive Symptoms: Increased Irritability Judgement: Fair Diagnostics Vital Signs (24Hr): Vital Signs - 24 hr 01/29/25 08:00 01/29/25 20:00 Temperature 98.0 F 97.4 F Pulse Rate 70 77 Respiratory Rate 16 16 Blood Pressure 100/60 107/57 L Pulse Oximetry 98 94 Oxygen Delivery Method Room Air BMI result Body Mass Index 18.5 Labs 01/18/25 11:38 01/18/25 11:38 Imaging Radiology Impressions: ITS Impressions Venous Duplex 01/27/25 13:11 IMPRESSION: No evidence of acute DVT in the left lower extremity. Electronically signed by: Yg Go MD 01/27/2025 01:30 PM EDT RP Medications Medications Current Medications Acetaminophen (Acetaminophen 325 Mg Tablet) 650 mg PO Q6H PRN PRN Reason: Headache/Pain, Scale 1-10 Al Hydroxide/Mg Hydroxide (Magnesium Hydrox/Alum Hydrox 30 Ml Oral.Susp) 30 ml PO Q6H PRN PRN Reason: Heartburn/Nausea Albuterol Sulfate (Albuterol Sulfate 90 Mcg 8 Gm Inhaler) 2 puff INHALE RQ4H PRN PRN Reason: Dyspnea Ascorbic Acid (Ascorbic Acid 500 Mg Tablet) 500 mg PO DAILY [facility] Last Admin: 01/29/25 08:15 Dose: 500 mg Cephalexin HCl (Cephalexin 500 Mg Capsule) 500 mg PO Q6H [facility] Stop: 02/06/25 12:59 Last Admin: 01/29/25 18:15 Dose: 500 mg Collagenase (Collagenase Clostridium Hist. 30 Gm Tube) 1 appl TOPICAL DAILY [facility]; Protocol Last Admin: 01/29/25 14:54 Dose: Not Given Ferrous Sulfate (Ferrous Sulfate 324 Mg Tablet.) 324 mg PO BIDWM [facility] Last Admin: 01/29/25 18:15 Dose: 324 mg Levothyroxine Sodium (Levothyroxine Sodium 150 Mcg Tablet) 150 mcg PO DAILY@0600 [facility] Last Admin: 01/29/25 05:37 Dose: Not Given Magnesium Hydroxide (Milk Of Magnesia 30 Ml Oral.Susp) 30 ml PO DAILY PRN PRN Reason: Constipation Mirtazapine (Mirtazapine 15 Mg Tablet) 15 mg PO BEDTIME [facility] Last Admin: 01/29/25 20:16 Dose: 15 mg Nicotine Polacrilex (Nicotine Polacrilex 2 Mg Gum) 4 mg BUCCAL Q2H PRN PRN Reason: Nicotine Cravings Olanzapine (Olanzapine 2.5 Mg Tablet) 2.5 mg PO Q6H PRN PRN Reason: Psychosis Last Admin: 01/25/25 18:05 Dose: 2.5 mg Risperidone (Risperidone 0.25 Mg Tablet) 0.5 mg PO BID [facility] Last Admin: 01/29/25 20:16 Dose: 0.5 mg Trazodone HCl (Trazodone Hcl 50 Mg Tablet) 50 mg PO BEDTIME MRX1 PRN PRN Reason: Insomnia Last Admin: 01/28/25 19:51 Dose: 50 mg Vitamin D (Cholecalciferol (Vitamin D3) 25 Mcg Tablet) 25 mcg PO DAILY [facility] Last Admin: 01/29/25 08:14 Dose: 25 mcg Allergies Allergies Allergy/AdvReac Type Severity Reaction Status Date / Time gluten Allergy Unknown Unknown Verified 01/17/25 19:18 hydrocodone Allergy Unknown Unknown Verified 01/17/25 19:17 propoxyphene Allergy Unknown Unknown Verified 01/17/25 19:18 sulfamethoxazole Allergy Unknown Unknown Verified 01/17/25 19:17 [From Bactrim] trimethoprim [From Bactrim] Allergy Unknown Unknown Verified 01/17/25 19:17 mepilex Allergy Unknown Unknown Uncoded 01/18/25 14:24 Assessment & Plan Assessment & Plan (1) Bipolar disorder with psychotic features: Status: Acute Code(s): F31.9 - Bipolar disorder, unspecified (2) Cognitive impairment: Status: Acute Code(s): R41.89 - Other symptoms and signs involving cognitive functions and awareness Plan Admit, Section XIIB, 5 minute checks Continue current regime and observe in milieu. Attempt alliance Collateral contact with family, out pt providers No current med changes until collateral contact is made. Diagnostics as needed 01/19 Pt assaultive to team. Risperdal 0.25 mg bid prn agitation 01/20/2025 Risperdal p.r.n. discontinued start olanzapine 2.5 p.r.n. if Risperdal was titrated off secondary to EPS may benefit from alternative such as olanzapine need additional history encourage med compliance encourage levothyroxine TSH was encouraged 01/21/2025 Call placed to healthcare proxy trying to get clear information regarding dangerousness. Patient's section 12 B most likely will need to file can not have logical conversation with patient has been taking Risperdal lithium. Patient labile intrusive irritable will not have clear conversation regarding condition or legal status check lithium level Risperdal call placed to patient's psychiatrist and patient's son trying in additional information try and clarify healthcare proxy 01/22/2025 Filed for commitment and treatment plan we did get a copy of the healthcare proxy check lithium level increase Risperdal as tolera esau may need supplements might need additional physical therapy will trying get records of 7 month admission to [place] might do well on long-acting injectable 01/23/2025 Check lithium level continue Risperdal recheck TSH encourage medication compliance and encourage acceptance of laboratory and physical exam section 7 filed 01/24/2025 Discussed case with medical nurse practitioner mood somewhat labile difficulty organizing her thoughts but somewhat less labile Continue lithium and Risperdal 01/25/2025: No changes to current regimen. 01/26/2025: consider increasing standing risperdal 01/27/25 pt somewhat less labile intermittantly has difficulty with narrative hx discussed refusing risp and events of past few yrs. Civil commitment pending case reviewed with hcp 01/2025 Continue lithium and Risperdal patient appears to be tolerating able to ambulate with walker. Some periods of less lability lithium level 0.54 consider increase by 150-300 mg was on lithium for many years previously 01/29/25 Pt willing to comsider gonzales needs much support re medical issues Reason for continued inpatient stay Substantial Risk for: harm to self, rapid decompensation and med/psych decompensation Time Spent With Patient Time: Total time managing care of this patient today ____ minutes.
[2025-01-30] MEDS: cephALEXin 500 MG CAPSULE PO ×4 (00:36→19:25)
[2025-01-30] MEDS: Levothyroxine Sodium 150 MCG TABLET PO (05:26)
[2025-01-30 08:00] VITALS: BP 117/56; PULSE 73; RESP 18; TEMP 36.3; O2SAT 95
[2025-01-30] MEDS: Cholecalciferol (Vitamin D3) 25 MCG TABLET PO (08:26)
[2025-01-30] MEDS: Ferrous Sulfate 324 MG TABLET.DR PO ×2 (08:26→16:44)
[2025-01-30] MEDS: Ascorbic Acid 500 MG TABLET PO (08:26)
[2025-01-30] MEDS: risperiDONE 0.25 MG TABLET 0.5 MG PO ×2 (08:26→20:44)
[2025-01-30] MEDS: Collagenase Clostridium Hist. 30 GM TUBE 1 APPL TOPICAL (10:48)
[2025-01-30 12:52] VITALS: BMI 19.6
[2025-01-30 20:00] VITALS: BP 109/56; PULSE 80; RESP 16; TEMP 37; O2SAT 95
[2025-01-30] MEDS: Mirtazapine 15 MG TABLET PO (20:44)
[2025-01-30] MEDS: Lithium Carbonate ER 300 MG TABLET.ER 600 MG PO (20:44)
--- NOTE | 2025-01-30 21:43 | P.PNPSI_ITS ---
Subjective Subjective Date of Service: 01/30/25 Reason For Visit: Bipolar Subjective Notes: Section 7 Healthcare Proxy: Yes Interim History: Patient seen psychiatric follow-up case reviewed in treatment planning treatment team. Patient is section [address] She has been generally more cooperative can be somewhat irrational at times self dialogue going at times but not grossly psychotic. Poor short-term memory intermittently has been more cooperative with medical care she is somewhat easily arousable. Has been accepting treatment with Risperdal 0.5 b.i.d. and lithium Mental Status Exam Mental Status Exam Patient Appearance: Appropriate Patient Orientation: Person and Place Level of Consciousness: Alert Patient Behavior: Guarded Mood Description: Labile and Apprehensive Affect Description: Calm Patient Cognition Impaired: No Ability to Follow Directions: Good Speech Pattern: Clear Memory Description: Intact Hallucinations: None Delusions: Paranoid Ideation Thought Process: Intact Thought Content: positive for Preoccupation Depressive Symptoms: Increased Irritability Judgement: Fair Diagnostics Vital Signs (24Hr): Vital Signs - 24 hr 01/30/25 08:00 01/30/25 20:00 Temperature 97.4 F 98.6 F Pulse Rate 73 80 Respiratory Rate 18 16 Blood Pressure 117/56 L 109/56 L Pulse Oximetry 95 95 Oxygen Delivery Method Room Air Room Air BMI result Body Mass Index 19.6 Labs 01/18/25 11:38 01/18/25 11:38 Imaging Radiology Impressions: ITS Impressions Venous Duplex 01/27/25 13:11 IMPRESSION: No evidence of acute DVT in the left lower extremity. Electronically signed by: Yg Go MD 01/27/2025 01:30 PM EDT Medications Medications Current Medications Acetaminophen (Acetaminophen 325 Mg Tablet) 650 mg PO Q6H PRN PRN Reason: Headache/Pain, Scale 1-10 Al Hydroxide/Mg Hydroxide (Magnesium Hydrox/Alum Hydrox 30 Ml Oral.Susp) 30 ml PO Q6H PRN PRN Reason: Heartburn/Nausea Albuterol Sulfate (Albuterol Sulfate 90 Mcg 8 Gm Inhaler) 2 puff INHALE RQ4H PRN PRN Reason: Dyspnea Ascorbic Acid (Ascorbic Acid 500 Mg Tablet) 500 mg PO DAILY [facility] Last Admin: 01/30/25 08:26 Dose: 500 mg Cephalexin HCl (Cephalexin 500 Mg Capsule) 500 mg PO Q6H [facility] Stop: 02/06/25 12:59 Last Admin: 01/30/25 19:25 Dose: 500 mg Collagenase (Collagenase Clostridium Hist. 30 Gm Tube) 1 appl TOPICAL DAILY [facility]; Protocol Last Admin: 01/30/25 10:48 Dose: 1 appl Ferrous Sulfate (Ferrous Sulfate 324 Mg Tablet.Dr) 324 mg PO BIDWM [facility] Last Admin: 01/30/25 16:44 Dose: 324 mg Levothyroxine Sodium (Levothyroxine Sodium 150 Mcg Tablet) 150 mcg PO DAILY@0600 [facility] Last Admin: 01/30/25 05:26 Dose: 150 mcg [place] Carbonate ([place] Carbonate Er 300 Mg Tablet.Er) 600 mg PO BEDTIME [facility] Last Admin: 01/30/25 20:44 Dose: 600 mg Magnesium Hydroxide (Milk Of Magnesia 30 Ml Oral.Susp) 30 ml PO DAILY PRN PRN Reason: Constipation Mirtazapine (Mirtazapine 15 Mg Tablet) 15 mg PO BEDTIME [facility] Last Admin: 01/30/25 20:44 Dose: 15 mg Nicotine Polacrilex (Nicotine Polacrilex 2 Mg Gum) 4 mg BUCCAL Q2H PRN PRN Reason: Nicotine Cravings Olanzapine (Olanzapine 2.5 Mg Tablet) 2.5 mg PO Q6H PRN PRN Reason: Psychosis Last Admin: 01/25/25 18:05 Dose: 2.5 mg Risperidone (Risperidone 0.25 Mg Tablet) 0.5 mg PO BID [facility] Last Admin: 01/30/25 20:44 Dose: 0.5 mg Trazodone HCl (Trazodone Hcl 50 Mg Tablet) 50 mg PO BEDTIME MRX1 PRN PRN Reason: Insomnia Last Admin: 01/28/25 19:51 Dose: 50 mg Vitamin D (Cholecalciferol (Vitamin D3) 25 Mcg Tablet) 25 mcg PO DAILY [facility] Last Admin: 01/30/25 08:26 Dose: 25 mcg Allergies Allergies Allergy/AdvReac Type Severity Reaction Status Date / Time gluten Allergy Unknown Unknown Verified 01/17/25 19:18 hydrocodone Allergy Unknown Unknown Verified 01/17/25 19:17 propoxyphene Allergy Unknown Unknown Verified 01/17/25 19:18 sulfamethoxazole Allergy Unknown Unknown Verified 01/17/25 19:17 [From Bactrim] trimethoprim [From Bactrim] Allergy Unknown Unknown Verified 01/17/25 19:17 mepilex Allergy Unknown Unknown Uncoded 01/18/25 14:24 Assessment & Plan Assessment & Plan (1) Bipolar disorder with psychotic features: Status: Acute Code(s): F31.9 - Bipolar disorder, unspecified (2) Cognitive impairment: Status: Acute Code(s): R41.89 - Other symptoms and signs involving cognitive functions and awareness Plan Admit, Section XIIB, 5 minute checks Continue current regime and observe in milieu. Attempt alliance Collateral contact with family, out pt providers No current med changes until collateral contact is made. Diagnostics as needed 01/19 Pt assaultive to team. Risperdal 0.25 mg bid prn agitation 01/20/2025 Risperdal p.r.n. discontinued start olanzapine 2.5 p.r.n. if Risperdal was titrated off secondary to EPS may benefit from alternative such as olanzapine need additional history encourage med compliance encourage levothyroxine TSH was encouraged 01/21/2025 Call placed to healthcare proxy trying to get clear information regarding dangerousness. Patient's section 12 B most likely will need to file can not have logical conversation with patient has been taking Risperdal lithium. Patient labile intrusive irritable will not have clear conversation regarding condition or legal status check lithium level Risperdal call placed to patient's psychiatrist and patient's son trying in additional information try and clarify healthcare proxy 01/22/2025 Filed for commitment and treatment plan we did get a copy of the healthcare proxy check lithium level increase Risperdal as tolera esau may need supplements might need additional physical therapy will trying get records of 7 month admission to [place] might do well on long-acting injectable 01/23/2025 Check lithium level continue Risperdal recheck TSH encourage medication compliance and encourage acceptance of laboratory and physical exam section 7 filed 01/24/2025 Discussed case with medical nurse practitioner mood somewhat labile difficulty organizing her thoughts but somewhat less labile Continue lithium and Risperdal 01/25/2025: No changes to current regimen. 01/26/2025: consider increasing standing risperdal 01/27/25 pt somewhat less labile intermittantly has difficulty with narrative hx discussed refusing risp and events of past few yrs. Civil commitment pending case reviewed with hcp 01/2025 Continue lithium and Risperdal patient appears to be tolerating able to ambulate with walker. Some periods of less lability lithium level 0.54 consider increase by 150-300 mg was on lithium for many years previously 01/29/25 Pt willing to comsider gonzales needs much support re medical issues 01/30/2025 Patient accepting increase lithium 600 mg bedtime is able to sit down and have a conversation can become circumstantial distracted has difficulty with Details. Able to relate story of her difficult relationship with her [id number]. Denies any active thoughts of self-harm states that she has been quiet chronically reactive and making statements that she get overwhelmed with life at times Reason for continued inpatient stay Substantial Risk for: harm to self, inability to function, rapid decompensation and med/psych decompensation Time Spent With Patient Time: Total time managing care of this patient today ____ minutes.
[2025-01-31] MEDS: cephALEXin 500 MG CAPSULE PO ×3 (05:56→18:15)
[2025-01-31] MEDS: Levothyroxine Sodium 150 MCG TABLET PO (05:56)
[2025-01-31 08:00] VITALS: BP 109/55; PULSE 69; RESP 16; TEMP 36.4; O2SAT 96
[2025-01-31] MEDS: risperiDONE 0.25 MG TABLET 0.5 MG PO ×2 (09:30→20:57)
[2025-01-31] MEDS: Ascorbic Acid 500 MG TABLET PO (09:30)
[2025-01-31] MEDS: Ferrous Sulfate 324 MG TABLET.DR PO ×2 (09:30→17:42)
[2025-01-31] MEDS: Cholecalciferol (Vitamin D3) 25 MCG TABLET PO (09:30)
[2025-01-31] MEDS: Collagenase Clostridium Hist. 30 GM TUBE 1 APPL TOPICAL (12:45)
--- NOTE | 2025-01-31 14:11 | MHC.CLN ---
F/U FAVORABLE WEIGHT GAIN SINCE ADM +6%. BMI NOW WITHIN NORMAL LIMITS, 19.6. INTAKE AT MEALS USUALLY 100%. SKIN WITH VENOUS STASIS WOUND TO LEFT ANKLE. NO NUTRITIONAL RISK AT THIS TIME. NO ADDITIONAL FOLLOW UP.
[2025-01-31 20:00] VITALS: BP 96/48; PULSE 70; RESP 16; TEMP 36.7; O2SAT 94
[2025-01-31] MEDS: Lithium Carbonate ER 300 MG TABLET.ER 600 MG PO (20:57)
[2025-01-31] MEDS: Mirtazapine 15 MG TABLET PO (20:58)
--- NOTE | 2025-01-31 22:35 | P.PNPSI_ITS ---
Subjective Subjective Date of Service: 01/31/25 Reason For Visit: Bipolar Subjective Notes: Conditional Voluntary Healthcare Proxy: Yes Mental Status Exam Mental Status Exam Patient Appearance: Appropriate Patient Orientation: Person and Place Level of Consciousness: Alert Patient Behavior: Guarded Mood Description: Labile and Apprehensive Affect Description: Calm Patient Cognition Impaired: No Ability to Follow Directions: Good Speech Pattern: Clear Memory Description: Intact Hallucinations: None Delusions: Not Present Thought Process: Intact Thought Content: positive for Preoccupation Depressive Symptoms: Increased Irritability Judgement: Fair Judgement and Insight: Some difficulty at times short-term memory and reasoning. No gross psychosis not combative more organized in thought Diagnostics Vital Signs (24Hr): Vital Signs - 24 hr 01/31/25 08:00 01/31/25 20:00 Temperature 97.5 F 98.1 F Pulse Rate 69 70 Respiratory Rate 16 16 Blood Pressure 109/55 L 96/48 L Pulse Oximetry 96 94 Oxygen Delivery Method Room Air Room Air BMI result Body Mass Index 19.6 Labs 01/18/25 11:38 01/18/25 11:38 Imaging Radiology Impressions: ITS Impressions Venous Duplex 01/27/25 13:11 IMPRESSION: No evidence of acute DVT in the left lower extremity. Electronically signed by: Yg Go MD 01/27/2025 01:30 PM EDT RP Medications Medications Current Medications Acetaminophen (Acetaminophen 325 Mg Tablet) 650 mg PO Q6H PRN PRN Reason: Headache/Pain, Scale 1-10 Al Hydroxide/Mg Hydroxide (Magnesium Hydrox/Alum Hydrox 30 Ml Oral.Susp) 30 ml PO Q6H PRN PRN Reason: Heartburn/Nausea Albuterol Sulfate (Albuterol Sulfate 90 Mcg 8 Gm Inhaler) 2 puff INHALE RQ4H PRN PRN Reason: Dyspnea Ascorbic Acid (Ascorbic Acid 500 Mg Tablet) 500 mg PO DAILY [facility] Last Admin: 01/31/25 09:30 Dose: 500 mg Cephalexin HCl (Cephalexin 500 Mg Capsule) 500 mg PO Q6H [facility] Stop: 02/06/25 12:59 Last Admin: 01/31/25 18:15 Dose: 500 mg Collagenase (Collagenase Clostridium Hist. 30 Gm Tube) 1 appl TOPICAL DAILY [facility]; Protocol Last Admin: 01/31/25 12:45 Dose: 1 appl Ferrous Sulfate (Ferrous Sulfate 324 Mg Tablet.) 324 mg PO BIDWM [facility] Last Admin: 01/31/25 17:42 Dose: 324 mg Levothyroxine Sodium (Levothyroxine Sodium 150 Mcg Tablet) 150 mcg PO DAILY@0600 [facility] Last Admin: 01/31/25 05:56 Dose: 150 mcg [place] Carbonate ([place] Carbonate Er 300 Mg Tablet.Er) 600 mg PO BEDTIME [facility] Last Admin: 01/31/25 20:57 Dose: 600 mg Magnesium Hydroxide (Milk Of Magnesia 30 Ml Oral.Susp) 30 ml PO DAILY PRN PRN Reason: Constipation Mirtazapine (Mirtazapine 15 Mg Tablet) 15 mg PO BEDTIME [facility] Last Admin: 01/31/25 20:58 Dose: 15 mg Nicotine Polacrilex (Nicotine Polacrilex 2 Mg Gum) 4 mg BUCCAL Q2H PRN PRN Reason: Nicotine Cravings Olanzapine (Olanzapine 2.5 Mg Tablet) 2.5 mg PO Q6H PRN PRN Reason: Psychosis Last Admin: 01/25/25 18:05 Dose: 2.5 mg Risperidone (Risperidone 0.25 Mg Tablet) 0.5 mg PO BID [facility] Last Admin: 01/31/25 20:57 Dose: 0.5 mg Trazodone HCl (Trazodone Hcl 50 Mg Tablet) 50 mg PO BEDTIME MRX1 PRN PRN Reason: Insomnia Last Admin: 01/28/25 19:51 Dose: 50 mg Vitamin D (Cholecalciferol (Vitamin D3) 25 Mcg Tablet) 25 mcg PO DAILY [facility] Last Admin: 01/31/25 09:30 Dose: 25 mcg Allergies Allergies Allergy/AdvReac Type Severity Reaction Status Date / Time gluten Allergy Unknown Unknown Verified 01/17/25 19:18 hydrocodone Allergy Unknown Unknown Verified 01/17/25 19:17 propoxyphene Allergy Unknown Unknown Verified 01/17/25 19:18 sulfamethoxazole Allergy Unknown Unknown Verified 01/17/25 19:17 [From Bactrim] trimethoprim [From Bactrim] Allergy Unknown Unknown Verified 01/17/25 19:17 mepilex Allergy Unknown Unknown Uncoded 01/18/25 14:24 Assessment & Plan Assessment & Plan (1) Bipolar disorder with psychotic features: Status: Acute Code(s): F31.9 - Bipolar disorder, unspecified (2) Cognitive impairment: Status: Acute Code(s): R41.89 - Other symptoms and signs involving cognitive functions and awareness Plan Admit, Section XIIB, 5 minute checks Continue current regime and observe in milieu. Attempt alliance Collateral contact with family, out pt providers No current med changes until collateral contact is made. Diagnostics as needed 01/19 Pt assaultive to team. Risperdal 0.25 mg bid prn agitation 01/20/2025 Risperdal p.r.n. discontinued start olanzapine 2.5 p.r.n. if Risperdal was titrated off secondary to EPS may benefit from alternative such as olanzapine need additional history encourage med compliance encourage levothyroxine TSH was encouraged 01/21/2025 Call placed to healthcare proxy trying to get clear information regarding dangerousness. Patient's section 12 B most likely will need to file can not have logical conversation with patient has been taking Risperdal lithium. Patient labile intrusive irritable will not have clear conversation regarding condition or legal status check lithium level Risperdal call placed to patient's psychiatrist and patient's son trying in additional information try and clarify healthcare proxy 01/22/2025 Filed for commitment and treatment plan we did get a copy of the healthcare proxy check lithium level increase Risperdal as tolera esau may need supplements might need additional physical therapy will trying get records of 7 month admission to [place] might do well on long-acting injectable 01/23/2025 Check lithium level continue Risperdal recheck TSH encourage medication compliance and encourage acceptance of laboratory and physical exam section 7 filed 01/24/2025 Discussed case with medical nurse practitioner mood somewhat labile difficulty organizing her thoughts but somewhat less labile Continue lithium and Risperdal 01/25/2025: No changes to current regimen. 01/26/2025: consider increasing standing risperdal 01/27/25 pt somewhat less labile intermittantly has difficulty with narrative hx discussed refusing risp and events of past few yrs. Civil commitment pending case reviewed with hcp 01/2025 Continue lithium and Risperdal patient appears to be tolerating able to ambulate with walker. Some periods of less lability lithium level 0.54 consider increase by 150-300 mg was on lithium for many years previously 01/29/25 Pt willing to comsider gonzales needs much support re medical issues 01/30/2025 Patient accepting increase lithium 600 mg bedtime is able to sit down and have a conversation can become circumstantial distracted has difficulty with Details. Able to relate story of her difficult relationship with her [id number]. Denies any active thoughts of self-harm states that she has been quiet chronically reactive and making statements that she get overwhelmed with life at times 01/31/2025 Continue lithium and Risperdal. Discussed option of long-acting injectable for Risperdal looking at possibility of discharge versus commitment. Social work has been working with patient's son her healthcare proxy see what services can be put in place Patient educated on: medication risk/benefits Informed Consent: further education needed Reason for continued inpatient stay Substantial Risk for: harm to self and rapid decompensation Time Spent With Patient Time: Total time managing care of this patient today ____ minutes.
[2025-02-01] MEDS: Levothyroxine Sodium 150 MCG TABLET PO (06:35)
[2025-02-01] MEDS: cephALEXin 500 MG CAPSULE PO ×3 (06:35→19:53)
[2025-02-01 08:00] VITALS: BP 114/56; PULSE 70; RESP 14; TEMP 36.7; O2SAT 95
[2025-02-01] MEDS: Ferrous Sulfate 324 MG TABLET.DR PO ×2 (08:21→16:52)
[2025-02-01] MEDS: Ascorbic Acid 500 MG TABLET PO (08:21)
[2025-02-01] MEDS: Cholecalciferol (Vitamin D3) 25 MCG TABLET PO (08:21)
[2025-02-01] MEDS: risperiDONE 0.25 MG TABLET 0.5 MG PO ×2 (08:21→20:48)
--- NOTE | 2025-02-01 10:02 | P.PNPSI_ITS ---
Subjective Subjective Date of Service: 02/01/25 Reason For Visit: Bipolar Interim History: Patient improved per primary team. She has not been overtly manic. She has been in better control. More cooperative. She was approached for a meeting with this keno writer/runner. She was initially calm. She became irritable and started saying where are our rights as patients in here. We have to stay in this [facility]aken place. Go away you're no good. She calmed soon after. Taking medications. Denies SI. Sometimes self dialoguing. Review of Systems Review of Systems Denies any shortness of breath, chest pain, dizziness, lightheadedness, abdominal pain or discomfort, nausea, vomiting or diarrhea Yes Unobtainable due to mental status Constitutional: Denies body ache(s), Denies chills, Denies fatigue and Denies fever(s) Gastrointestinal: Denies diarrhea, Denies nausea and Denies vomiting Skin/Breast: Reports as per HPI Denies confusion Psychiatric: Denies confusion Endocrine: Denies fatigue Hematologic/Lymphatic: Denies easy bleeding and Denies easy bruising Mental Status Exam Mental Status Exam Narrative: Pt is using her walker, self-dialoguing ongoing Patient Appearance: Appropriate Patient Orientation: Person and Place Level of Consciousness: Alert Patient Behavior: Guarded Mood Description: Labile and Apprehensive Affect Description: Calm Patient Cognition Impaired: No Ability to Follow Directions: Good Speech Pattern: Clear Memory Description: Intact Diagnostics Vital Signs (24Hr): Vital Signs - 24 hr 01/31/25 20:00 02/01/25 08:00 Temperature 98.1 F 98.1 F Pulse Rate 70 70 Respiratory Rate 16 14 Blood Pressure 96/48 L 114/56 L Pulse Oximetry 94 95 Oxygen Delivery Method Room Air Room Air BMI result Body Mass Index 19.6 Labs 01/18/25 11:38 01/18/25 11:38 Imaging Radiology Impressions: ITS Impressions Venous Duplex 01/27/25 13:11 IMPRESSION: No evidence of acute DVT in the left lower extremity. Electronically signed by: Yg Go MD 01/27/2025 01:30 PM EDT RP Medications Medications Current Medications Acetaminophen (Acetaminophen 325 Mg Tablet) 650 mg PO Q6H PRN PRN Reason: Headache/Pain, Scale 1-10 Al Hydroxide/Mg Hydroxide (Magnesium Hydrox/Alum Hydrox 30 Ml Oral.Susp) 30 ml PO Q6H PRN PRN Reason: Heartburn/Nausea Albuterol Sulfate (Albuterol Sulfate 90 Mcg 8 Gm Inhaler) 2 puff INHALE RQ4H PRN PRN Reason: Dyspnea Ascorbic Acid (Ascorbic Acid 500 Mg Tablet) 500 mg PO DAILY [facility] Last Admin: 02/01/25 08:21 Dose: 500 mg Cephalexin HCl (Cephalexin 500 Mg Capsule) 500 mg PO Q6H [facility] Stop: 02/06/25 12:59 Last Admin: 02/01/25 06:35 Dose: 500 mg Collagenase (Collagenase Clostridium Hist. 30 Gm Tube) 1 appl TOPICAL DAILY [facility]; Protocol Last Admin: 01/31/25 12:45 Dose: 1 appl Ferrous Sulfate (Ferrous Sulfate 324 Mg Tablet.Dr) 324 mg PO BIDWM [facility] Last Admin: 02/01/25 08:21 Dose: 324 mg Levothyroxine Sodium (Levothyroxine Sodium 150 Mcg Tablet) 150 mcg PO DAILY@0600 [facility] Last Admin: 02/01/25 06:35 Dose: 150 mcg [place] Carbonate ([place] Carbonate Er 300 Mg Tablet.Er) 600 mg PO BEDTIME [facility] Last Admin: 01/31/25 20:57 Dose: 600 mg Magnesium Hydroxide (Milk Of Magnesia 30 Ml Oral.Susp) 30 ml PO DAILY PRN PRN Reason: Constipation Mirtazapine (Mirtazapine 15 Mg Tablet) 15 mg PO BEDTIME [facility] Last Admin: 01/31/25 20:58 Dose: 15 mg Nicotine Polacrilex (Nicotine Polacrilex 2 Mg Gum) 4 mg BUCCAL Q2H PRN PRN Reason: Nicotine Cravings Olanzapine (Olanzapine 2.5 Mg Tablet) 2.5 mg PO Q6H PRN PRN Reason: Psychosis Last Admin: 01/25/25 18:05 Dose: 2.5 mg Risperidone (Risperidone 0.25 Mg Tablet) 0.5 mg PO BID [facility] Last Admin: 02/01/25 08:21 Dose: 0.5 mg Trazodone HCl (Trazodone Hcl 50 Mg Tablet) 50 mg PO BEDTIME MRX1 PRN PRN Reason: Insomnia Last Admin: 01/28/25 19:51 Dose: 50 mg Vitamin D (Cholecalciferol (Vitamin D3) 25 Mcg Tablet) 25 mcg PO DAILY [facility] Last Admin: 02/01/25 08:21 Dose: 25 mcg Allergies Allergies Allergy/AdvReac Type Severity Reaction Status Date / Time gluten Allergy Unknown Unknown Verified 01/17/25 19:18 hydrocodone Allergy Unknown Unknown Verified 01/17/25 19:17 propoxyphene Allergy Unknown Unknown Verified 01/17/25 19:18 sulfamethoxazole Allergy Unknown Unknown Verified 01/17/25 19:17 [From Bactrim] trimethoprim [From Bactrim] Allergy Unknown Unknown Verified 01/17/25 19:17 mepilex Allergy Unknown Unknown Uncoded 01/18/25 14:24 Assessment & Plan Assessment & Plan (1) Bipolar disorder with psychotic features: Status: Acute Code(s): F31.9 - Bipolar disorder, unspecified (2) Cognitive impairment: Status: Acute Code(s): R41.89 - Other symptoms and signs involving cognitive functions and awareness Plan Admit, Section XIIB, 5 minute checks Continue current regime and observe in milieu. Attempt alliance Collateral contact with family, out pt providers No current med changes until collateral contact is made. Diagnostics as needed 01/19 Pt assaultive to team. Risperdal 0.25 mg bid prn agitation 01/20/2025 Risperdal p.r.n. discontinued start olanzapine 2.5 p.r.n. if Risperdal was titrated off secondary to EPS may benefit from alternative such as olanzapine need additional history encourage med compliance encourage levothyroxine TSH was encouraged 01/21/2025 Call placed to healthcare proxy trying to get clear information regarding dangerousness. Patient's section 12 B most likely will need to file can not have logical conversation with patient has been taking Risperdal lithium. Patient labile intrusive irritable will not have clear conversation regarding condition or legal status check lithium level Risperdal call placed to patient's psychiatrist and patient's son trying in additional information try and clarify healthcare proxy 01/22/2025 Filed for commitment and treatment plan we did get a copy of the healthcare proxy check lithium level increase Risperdal as tolera esau may need supplements might need additional physical therapy will trying get records of 7 month admission to [place] might do well on long-acting injectable 01/23/2025 Check lithium level continue Risperdal recheck TSH encourage medication compliance and encourage acceptance of laboratory and physical exam section 7 filed 01/24/2025 Discussed case with medical nurse practitioner mood somewhat labile difficulty organizing her thoughts but somewhat less labile Continue lithium and Risperdal 01/25/2025: No changes to current regimen. 01/26/2025: consider increasing standing risperdal 01/27/25 pt somewhat less labile intermittantly has difficulty with narrative hx discussed refusing risp and events of past few yrs. Civil commitment pending case reviewed with hcp 01/2025 Continue lithium and Risperdal patient appears to be tolerating able to ambulate with walker. Some periods of less lability lithium level 0.54 consider increase by 150-300 mg was on lithium for many years previously 01/29/25 Pt willing to comsider gonzales needs much support re medical issues 01/30/2025 Patient accepting increase lithium 600 mg bedtime is able to sit down and have a conversation can become circumstantial distracted has difficulty with Details. Able to relate story of her difficult relationship with her [id number]. Denies any active thoughts of self-harm states that she has been quiet chronically reactive and making statements that she get overwhelmed with life at times 01/31/2025 Continue lithium and Risperdal. Discussed option of long-acting injectable for Risperdal looking at possibility of discharge versus commitment. Social work has been working with patient's son her healthcare proxy see what services can be put in place 02/01: continue current management and treatment plan. Reason for continued inpatient stay Substantial Risk for: inability to function and rapid decompensation Time Spent With Patient Time: Total time managing care of this patient today ____ minutes.
[2025-02-01] MEDS: Collagenase Clostridium Hist. 30 GM TUBE 1 APPL TOPICAL (13:41)
[2025-02-01 20:00] VITALS: BP 103/52; PULSE 70; RESP 16; TEMP 36.6; O2SAT 95
[2025-02-01] MEDS: Lithium Carbonate ER 300 MG TABLET.ER 600 MG PO (20:48)
[2025-02-01] MEDS: Mirtazapine 15 MG TABLET PO (20:48)
[2025-02-02] MEDS: cephALEXin 500 MG CAPSULE PO ×4 (01:27→20:00)
[2025-02-02] MEDS: Levothyroxine Sodium 150 MCG TABLET PO (06:34)
[2025-02-02] MEDS: Ascorbic Acid 500 MG TABLET PO (09:09)
[2025-02-02] MEDS: Cholecalciferol (Vitamin D3) 25 MCG TABLET PO (09:09)
[2025-02-02] MEDS: Ferrous Sulfate 324 MG TABLET.DR PO ×2 (09:09→18:03)
[2025-02-02 10:13] VITALS: BP 133/60; PULSE 74; RESP 16; TEMP 36.6; O2SAT 96
--- NOTE | 2025-02-02 14:43 | HO.PSYCHPN ---
Subjective Subjective Date of Service: 02/02/25 Reason For Visit: Bipolar Interim History: Patient improved per primary team. More upbeat and pleasant. Less depressed. Denies SI/HI/AVH. She has not been manic. She has been in better control. More cooperative. Taking medications. Sometimes self dialoguing. Review of Systems Review of Systems Denies any shortness of breath, chest pain, dizziness, lightheadedness, abdominal pain or discomfort, nausea, vomiting or diarrhea Yes Unobtainable due to mental status Constitutional: Denies body ache(s), Denies chills, Denies fatigue and Denies fever(s) Gastrointestinal: Denies diarrhea, Denies nausea and Denies vomiting Skin/Breast: Reports as per HPI Denies confusion Psychiatric: Denies confusion Endocrine: Denies fatigue Hematologic/Lymphatic: Denies easy bleeding and Denies easy bruising Mental Status Exam Mental Status Exam Narrative: Pt is using her walker, self-dialoguing ongoing Patient Appearance: Appropriate Patient Orientation: Person and Place Level of Consciousness: Alert Patient Behavior: Guarded Mood Description: Labile and Apprehensive Affect Description: Calm Patient Cognition Impaired: No Ability to Follow Directions: Good Speech Pattern: Clear Memory Description: Intact Diagnostics Vital Signs (24Hr): Vital Signs - 24 hr 02/01/25 20:00 02/02/25 10:13 Temperature 97.9 F 97.8 F Pulse Rate 70 74 Respiratory Rate 16 16 Blood Pressure 103/52 L 133/60 Pulse Oximetry 95 96 Oxygen Delivery Method Room Air Room Air BMI result Body Mass Index 19.6 Labs 01/18/25 11:38 01/18/25 11:38 Imaging Radiology Impressions: ITS Impressions Venous Duplex 01/27/25 13:11 IMPRESSION: No evidence of acute DVT in the left lower extremity. Electronically signed by: Yg Go MD 01/27/2025 01:30 PM EDT Medications Medications Current Medications Acetaminophen (Acetaminophen 325 Mg Tablet) 650 mg PO Q6H PRN PRN Reason: Headache/Pain, Scale 1-10 Al Hydroxide/Mg Hydroxide (Magnesium Hydrox/Alum Hydrox 30 Ml Oral.Susp) 30 ml PO Q6H PRN PRN Reason: Heartburn/Nausea Albuterol Sulfate (Albuterol Sulfate 90 Mcg 8 Gm Inhaler) 2 puff INHALE RQ4H PRN PRN Reason: Dyspnea Ascorbic Acid (Ascorbic Acid 500 Mg Tablet) 500 mg PO DAILY [facility] Last Admin: 02/02/25 09:09 Dose: 500 mg Cephalexin HCl (Cephalexin 500 Mg Capsule) 500 mg PO Q6H [facility] Stop: 02/06/25 12:59 Last Admin: 02/02/25 06:34 Dose: 500 mg Collagenase (Collagenase Clostridium Hist. 30 Gm Tube) 1 appl TOPICAL DAILY [facility]; Protocol Last Admin: 02/01/25 13:41 Dose: 1 appl Ferrous Sulfate (Ferrous Sulfate 324 Mg Tablet.Dr) 324 mg PO BIDWM [facility] Last Admin: 02/02/25 09:09 Dose: 324 mg Levothyroxine Sodium (Levothyroxine Sodium 150 Mcg Tablet) 150 mcg PO DAILY@0600 [facility] Last Admin: 02/02/25 06:34 Dose: 150 mcg [place] Carbonate ([place] Carbonate Er 300 Mg Tablet.Er) 600 mg PO BEDTIME [facility] Last Admin: 02/01/25 20:48 Dose: 600 mg Magnesium Hydroxide (Milk Of Magnesia 30 Ml Oral.Susp) 30 ml PO DAILY PRN PRN Reason: Constipation Mirtazapine (Mirtazapine 15 Mg Tablet) 15 mg PO BEDTIME [facility] Last Admin: 02/01/25 20:48 Dose: 15 mg Nicotine Polacrilex (Nicotine Polacrilex 2 Mg Gum) 4 mg BUCCAL Q2H PRN PRN Reason: Nicotine Cravings Olanzapine (Olanzapine 2.5 Mg Tablet) 2.5 mg PO Q6H PRN PRN Reason: Psychosis Last Admin: 01/25/25 18:05 Dose: 2.5 mg Risperidone (Risperidone 0.25 Mg Tablet) 0.5 mg PO BID [facility] Last Admin: 02/02/25 11:45 Dose: Not Given Trazodone HCl (Trazodone Hcl 50 Mg Tablet) 50 mg PO BEDTIME MRX1 PRN PRN Reason: Insomnia Last Admin: 01/28/25 19:51 Dose: 50 mg Vitamin D (Cholecalciferol (Vitamin D3) 25 Mcg Tablet) 25 mcg PO DAILY [facility] Last Admin: 02/02/25 09:09 Dose: 25 mcg Allergies Allergies Allergy/AdvReac Type Severity Reaction Status Date / Time gluten Allergy Unknown Unknown Verified 01/17/25 19:18 hydrocodone Allergy Unknown Unknown Verified 01/17/25 19:17 propoxyphene Allergy Unknown Unknown Verified 01/17/25 19:18 sulfamethoxazole Allergy Unknown Unknown Verified 01/17/25 19:17 [From Bactrim] trimethoprim [From Bactrim] Allergy Unknown Unknown Verified 01/17/25 19:17 mepilex Allergy Unknown Unknown Uncoded 01/18/25 14:24 Assessment & Plan Assessment & Plan (1) Bipolar disorder with psychotic features: Status: Acute Code(s): F31.9 - Bipolar disorder, unspecified (2) Cognitive impairment: Status: Acute Code(s): R41.89 - Other symptoms and signs involving cognitive functions and awareness Plan Admit, Section XIIB, 5 minute checks Continue current regime and observe in milieu. Attempt alliance Collateral contact with family, out pt providers No current med changes until collateral contact is made. Diagnostics as needed 01/19 Pt assaultive to team. Risperdal 0.25 mg bid prn agitation 01/20/2025 Risperdal p.r.n. discontinued start olanzapine 2.5 p.r.n. if Risperdal was titrated off secondary to EPS may benefit from alternative such as olanzapine need additional history encourage med compliance encourage levothyroxine TSH was encouraged 01/21/2025 Call placed to healthcare proxy trying to get clear information regarding dangerousness. Patient's section 12 B most likely will need to file can not have logical conversation with patient has been taking Risperdal lithium. Patient labile intrusive irritable will not have clear conversation regarding condition or legal status check lithium level Risperdal call placed to patient's psychiatrist and patient's son trying in additional information try and clarify healthcare proxy 01/22/2025 Filed for commitment and treatment plan we did get a copy of the healthcare proxy check lithium level increase Risperdal as tolera esau may need supplements might need additional physical therapy will trying get records of 7 month admission to [place] might do well on long-acting injectable 01/23/2025 Check lithium level continue Risperdal recheck TSH encourage medication compliance and encourage acceptance of laboratory and physical exam section 7 filed 01/24/2025 Discussed case with medical nurse practitioner mood somewhat labile difficulty organizing her thoughts but somewhat less labile Continue lithium and Risperdal 01/25/2025: No changes to current regimen. 01/26/2025: consider increasing standing risperdal 01/27/25 pt somewhat less labile intermittantly has difficulty with narrative hx discussed refusing risp and events of past few yrs. Civil commitment pending case reviewed with hcp 01/2025 Continue lithium and Risperdal patient appears to be tolerating able to ambulate with walker. Some periods of less lability lithium level 0.54 consider increase by 150-300 mg was on lithium for many years previously 01/29/25 Pt willing to comsider gonzales needs much support re medical issues 01/30/2025 Patient accepting increase lithium 600 mg bedtime is able to sit down and have a conversation can become circumstantial distracted has difficulty with Details. Able to relate story of her difficult relationship with her [id number]. Denies any active thoughts of self-harm states that she has been quiet chronically reactive and making statements that she get overwhelmed with life at times 01/31/2025 Continue lithium and Risperdal. Discussed option of long-acting injectable for Risperdal looking at possibility of discharge versus commitment. Social work has been working with patient's son her healthcare proxy see what services can be put in place 02/01: continue current management and treatment plan. 02/02: continue current management and treatment plan. Reason for continued inpatient stay Substantial Risk for: inability to function and rapid decompensation Time Spent With Patient Time: Total time managing care of this patient today ____ minutes.
[2025-02-02] MEDS: Collagenase Clostridium Hist. 30 GM TUBE 1 APPL TOPICAL (18:03)
[2025-02-02] MEDS: risperiDONE 0.25 MG TABLET 0.5 MG PO (20:00)
[2025-02-02] MEDS: Lithium Carbonate ER 300 MG TABLET.ER 600 MG PO (20:01)
[2025-02-02] MEDS: Mirtazapine 15 MG TABLET PO (20:01)
[2025-02-03] MEDS: cephALEXin 500 MG CAPSULE PO ×4 (01:04→20:59)
[2025-02-03 05:53] VITALS: BP 138/60; PULSE 67; RESP 18
[2025-02-03] MEDS: Levothyroxine Sodium 150 MCG TABLET PO (06:14)
[2025-02-03 08:00] VITALS: RESP 16
[2025-02-03] MEDS: Ferrous Sulfate 324 MG TABLET.DR PO ×2 (09:19→18:08)
[2025-02-03] MEDS: Ascorbic Acid 500 MG TABLET PO (09:19)
[2025-02-03] MEDS: risperiDONE 0.25 MG TABLET 0.5 MG PO ×2 (09:19→20:59)
[2025-02-03] MEDS: Cholecalciferol (Vitamin D3) 25 MCG TABLET PO (09:19)
--- NOTE | 2025-02-03 09:35 | HO.PSYCHPN ---
Subjective Subjective Date of Service: 02/03/25 Reason For Visit: Bipolar Interim History: Patient continues to improve. Less agitated. More in control. More upbeat and pleasant. Less depressed. Denies SI/HI/AVH. She is more cooperative. Taking medications although initially refused meds from one nurse then took them from another. Review of Systems Review of Systems Denies any shortness of breath, chest pain, dizziness, lightheadedness, abdominal pain or discomfort, nausea, vomiting or diarrhea Yes Unobtainable due to mental status Constitutional: Denies body ache(s), Denies chills, Denies fatigue and Denies fever(s) Gastrointestinal: Denies diarrhea, Denies nausea and Denies vomiting Skin/Breast: Reports as per HPI Denies confusion Psychiatric: Denies confusion Endocrine: Denies fatigue Hematologic/Lymphatic: Denies easy bleeding and Denies easy bruising Mental Status Exam Mental Status Exam Narrative: Pt is using her walker, self-dialoguing ongoing Patient Appearance: Appropriate Patient Orientation: Person and Place Level of Consciousness: Alert Patient Behavior: Guarded Mood Description: Labile and Apprehensive Affect Description: Calm Patient Cognition Impaired: No Ability to Follow Directions: Good Speech Pattern: Clear Memory Description: Intact Diagnostics Vital Signs (24Hr): Vital Signs - 24 hr 02/02/25 10:13 02/03/25 05:53 Temperature 97.8 F Pulse Rate 74 67 Respiratory Rate 16 18 Blood Pressure 133/60 138/60 Pulse Oximetry 96 Oxygen Delivery Method Room Air BMI result Body Mass Index 19.6 Labs 01/18/25 11:38 01/18/25 11:38 Imaging Radiology Impressions: ITS Impressions Venous Duplex 01/27/25 13:11 IMPRESSION: No evidence of acute DVT in the left lower extremity. Electronically signed by: Yg Go MD 01/27/2025 01:30 PM EDT RP Medications Medications Current Medications Acetaminophen (Acetaminophen 325 Mg Tablet) 650 mg PO Q6H PRN PRN Reason: Headache/Pain, Scale 1-10 Al Hydroxide/Mg Hydroxide (Magnesium Hydrox/Alum Hydrox 30 Ml Oral.Susp) 30 ml PO Q6H PRN PRN Reason: Heartburn/Nausea Albuterol Sulfate (Albuterol Sulfate 90 Mcg 8 Gm Inhaler) 2 puff INHALE RQ4H PRN PRN Reason: Dyspnea Ascorbic Acid (Ascorbic Acid 500 Mg Tablet) 500 mg PO DAILY [facility] Last Admin: 02/02/25 09:09 Dose: 500 mg Cephalexin HCl (Cephalexin 500 Mg Capsule) 500 mg PO Q6H [facility] Stop: 02/06/25 12:59 Last Admin: 02/03/25 06:14 Dose: 500 mg Collagenase (Collagenase Clostridium Hist. 30 Gm Tube) 1 appl TOPICAL DAILY [facility]; Protocol Last Admin: 02/02/25 18:03 Dose: 1 appl Ferrous Sulfate (Ferrous Sulfate 324 Mg Tablet.Dr) 324 mg PO BIDWM [facility] Last Admin: 02/02/25 18:03 Dose: 324 mg Levothyroxine Sodium (Levothyroxine Sodium 150 Mcg Tablet) 150 mcg PO DAILY@0600 [facility] Last Admin: 02/03/25 06:14 Dose: 150 mcg [place] Carbonate ([place] Carbonate Er 300 Mg Tablet.Er) 600 mg PO BEDTIME [facility] Last Admin: 02/02/25 20:01 Dose: 600 mg Magnesium Hydroxide (Milk Of Magnesia 30 Ml Oral.Susp) 30 ml PO DAILY PRN PRN Reason: Constipation Mirtazapine (Mirtazapine 15 Mg Tablet) 15 mg PO BEDTIME [facility] Last Admin: 02/02/25 20:01 Dose: 15 mg Nicotine Polacrilex (Nicotine Polacrilex 2 Mg Gum) 4 mg BUCCAL Q2H PRN PRN Reason: Nicotine Cravings Olanzapine (Olanzapine 2.5 Mg Tablet) 2.5 mg PO Q6H PRN PRN Reason: Psychosis Last Admin: 01/25/25 18:05 Dose: 2.5 mg Risperidone (Risperidone 0.25 Mg Tablet) 0.5 mg PO BID [facility] Last Admin: 02/02/25 20:00 Dose: 0.5 mg Trazodone HCl (Trazodone Hcl 50 Mg Tablet) 50 mg PO BEDTIME MRX1 PRN PRN Reason: Insomnia Last Admin: 01/28/25 19:51 Dose: 50 mg Vitamin D (Cholecalciferol (Vitamin D3) 25 Mcg Tablet) 25 mcg PO DAILY [facility] Last Admin: 02/02/25 09:09 Dose: 25 mcg Allergies Allergies Allergy/AdvReac Type Severity Reaction Status Date / Time gluten Allergy Unknown Unknown Verified 01/17/25 19:18 hydrocodone Allergy Unknown Unknown Verified 01/17/25 19:17 propoxyphene Allergy Unknown Unknown Verified 01/17/25 19:18 sulfamethoxazole Allergy Unknown Unknown Verified 01/17/25 19:17 [From Bactrim] trimethoprim [From Bactrim] Allergy Unknown Unknown Verified 01/17/25 19:17 mepilex Allergy Unknown Unknown Uncoded 01/18/25 14:24 Assessment & Plan Assessment & Plan (1) Bipolar disorder with psychotic features: Status: Acute Code(s): F31.9 - Bipolar disorder, unspecified (2) Cognitive impairment: Status: Acute Code(s): R41.89 - Other symptoms and signs involving cognitive functions and awareness Plan Admit, Section XIIB, 5 minute checks Continue current regime and observe in milieu. Attempt alliance Collateral contact with family, out pt providers No current med changes until collateral contact is made. Diagnostics as needed 01/19 Pt assaultive to team. Risperdal 0.25 mg bid prn agitation 01/20/2025 Risperdal p.r.n. discontinued start olanzapine 2.5 p.r.n. if Risperdal was titrated off secondary to EPS may benefit from alternative such as olanzapine need additional history encourage med compliance encourage levothyroxine TSH was encouraged 01/21/2025 Call placed to healthcare proxy trying to get clear information regarding dangerousness. Patient's section 12 B most likely will need to file can not have logical conversation with patient has been taking Risperdal lithium. Patient labile intrusive irritable will not have clear conversation regarding condition or legal status check lithium level Risperdal call placed to patient's psychiatrist and patient's son trying in additional information try and clarify healthcare proxy 01/22/2025 Filed for commitment and treatment plan we did get a copy of the healthcare proxy check lithium level increase Risperdal as tolera esau may need supplements might need additional physical therapy will trying get records of 7 month admission to [place] might do well on long-acting injectable 01/23/2025 Check lithium level continue Risperdal recheck TSH encourage medication compliance and encourage acceptance of laboratory and physical exam section 7 filed 01/24/2025 Discussed case with medical nurse practitioner mood somewhat labile difficulty organizing her thoughts but somewhat less labile Continue lithium and Risperdal 01/25/2025: No changes to current regimen. 01/26/2025: consider increasing standing risperdal 01/27/25 pt somewhat less labile intermittantly has difficulty with narrative hx discussed refusing risp and events of past few yrs. Civil commitment pending case reviewed with hcp 01/2025 Continue lithium and Risperdal patient appears to be tolerating able to ambulate with walker. Some periods of less lability lithium level 0.54 consider increase by 150-300 mg was on lithium for many years previously 01/29/25 Pt willing to comsider gonzales needs much support re medical issues 01/30/2025 Patient accepting increase lithium 600 mg bedtime is able to sit down and have a conversation can become circumstantial distracted has difficulty with Details. Able to relate story of her difficult relationship with her [id number]. Denies any active thoughts of self-harm states that she has been quiet chronically reactive and making statements that she get overwhelmed with life at times 01/31/2025 Continue lithium and Risperdal. Discussed option of long-acting injectable for Risperdal looking at possibility of discharge versus commitment. Social work has been working with patient's son her healthcare proxy see what services can be put in place 02/01: continue current management and treatment plan. 02/02: continue current management and treatment plan. 02/03: continue current management and treatment plan. Reason for continued inpatient stay Substantial Risk for: inability to function and rapid decompensation Time Spent With Patient Time: Total time managing care of this patient today ____ minutes.
[2025-02-03] MEDS: Collagenase Clostridium Hist. 30 GM TUBE 1 APPL TOPICAL (14:02)
[2025-02-03] MEDS: Lithium Carbonate ER 300 MG TABLET.ER 600 MG PO (20:59)
[2025-02-03] MEDS: traZODone HCL 50 MG TABLET PO (20:59)
[2025-02-03] MEDS: Mirtazapine 15 MG TABLET PO (20:59)
[2025-02-04] MEDS: cephALEXin 500 MG CAPSULE PO ×4 (04:04→19:07)
[2025-02-04] MEDS: Levothyroxine Sodium 150 MCG TABLET PO (05:35)
[2025-02-04 08:00] VITALS: BP 110/54; PULSE 73; RESP 16; TEMP 36.9; O2SAT 95
[2025-02-04] MEDS: Collagenase Clostridium Hist. 30 GM TUBE 1 APPL TOPICAL (08:51)
[2025-02-04] MEDS: Ascorbic Acid 500 MG TABLET PO (08:52)
[2025-02-04] MEDS: risperiDONE 0.25 MG TABLET 0.5 MG PO ×2 (08:52→20:28)
[2025-02-04] MEDS: Ferrous Sulfate 324 MG TABLET.DR PO (08:52)
[2025-02-04] MEDS: Cholecalciferol (Vitamin D3) 25 MCG TABLET PO (08:52)
--- NOTE | 2025-02-04 12:42 | HO.PM.IMPN ---
Subjective Subjective Date of Service: 02/04/25 Interval History: Patient is seen in follow up for wound care management. She is being followed weekly by wound care team. Wound is improving with the use of Santyl. Patient has a callused area on the bottom of her left foot which is painful. She continues on antibiotics, nursing reported a loose stool. We will obtain stool for C diff to rule it out. She otherwise feels well has no complaints, she declines to allow me to look at her wounds at this time. She will be seen by the wound nurse tomorrow. Review of Systems Denies any shortness of breath, chest pain, or pain. One episode of diarrhea. Physical Exam Vital Signs: Vital Signs: Last Vital Signs Temp 98.4 F 02/04/25 08:00 Pulse 73 02/04/25 08:00 Resp 16 02/04/25 08:00 BP 110/54 L 02/04/25 08:00 Pulse Ox 95 02/04/25 08:00 O2 Del Method Room Air 02/04/25 08:00 BMI result Body Mass Index 19.6 CONST: Alert and oriented, in NAD. Well nourished HEENT: Normocephalic, atraumatic, MMM RESP: Lungs clear, RRR even and regular HEART:,RRR, S1, S2. No murmur, no edema GI:Abdomen Soft NT, ND. + BS times four :Deferred SKIN: Warm dry and intact, dressing to left ankle intact. Hard calloused area to left outer sole of foot near 5th toe NEURO:CN II-XII Intact bilaterally, Sensation intact. Speech clear PSYCH: Normal affect Objective Data Active Medications Acetaminophen (Acetaminophen 325 Mg Tablet) 650 mg PO Q6H PRN PRN Reason: Headache/Pain, Scale 1-10 Al Hydroxide/Mg Hydroxide (Magnesium Hydrox/Alum Hydrox 30 Ml Oral.Susp) 30 ml PO Q6H PRN PRN Reason: Heartburn/Nausea Albuterol Sulfate (Albuterol Sulfate 90 Mcg 8 Gm Inhaler) 2 puff INHALE RQ4H PRN PRN Reason: Dyspnea Ascorbic Acid (Ascorbic Acid 500 Mg Tablet) 500 mg PO DAILY [facility] Last Admin: 02/04/25 08:52 Dose: 500 mg Documented By: LINDSAY Cephalexin HCl (Cephalexin 500 Mg Capsule) 500 mg PO Q6H [facility] Stop: 02/06/25 12:59 Last Admin: 02/04/25 12:23 Dose: 500 mg Documented By: LINDSAY Collagenase (Collagenase Clostridium Hist. 30 Gm Tube) 1 appl TOPICAL DAILY [facility]; Protocol Last Admin: 02/04/25 08:51 Dose: 1 appl Documented By: LINDSAY Ferrous Sulfate (Ferrous Sulfate 324 Mg Tablet.Dr) 324 mg PO BIDWM [facility] Last Admin: 02/04/25 08:52 Dose: 324 mg Documented By: LINDSAY Levothyroxine Sodium (Levothyroxine Sodium 150 Mcg Tablet) 150 mcg PO DAILY@0600 [facility] Last Admin: 02/04/25 05:35 Dose: 150 mcg Documented By: BYRON Wilkinson Carbonate ([place]kinson Carbonate Er 300 Mg Tablet.Er) 600 mg PO BEDTIME [facility] Last Admin: 02/03/25 20:59 Dose: 600 mg Documented By: BYRON Magnesium Hydroxide (Milk Of Magnesia 30 Ml Oral.Susp) 30 ml PO DAILY PRN PRN Reason: Constipation Mirtazapine (Mirtazapine 15 Mg Tablet) 15 mg PO BEDTIME [facility] Last Admin: 02/03/25 20:59 Dose: 15 mg Documented By: BYRON Nicotine Polacrilex (Nicotine Polacrilex 2 Mg Gum) 4 mg BUCCAL Q2H PRN PRN Reason: Nicotine Cravings Olanzapine (Olanzapine 2.5 Mg Tablet) 2.5 mg PO Q6H PRN PRN Reason: Psychosis Last Admin: 01/25/25 18:05 Dose: 2.5 mg Documented By: LINDSAY Risperidone (Risperidone 0.25 Mg Tablet) 0.5 mg PO BID [facility] Last Admin: 02/04/25 08:52 Dose: 0.5 mg Documented By: LINDSAY Trazodone HCl (Trazodone Hcl 50 Mg Tablet) 50 mg PO BEDTIME MRX1 PRN PRN Reason: Insomnia Last Admin: 02/03/25 20:59 Dose: 50 mg Documented By: BYRON Vitamin D (Cholecalciferol (Vitamin D3) 25 Mcg Tablet) 25 mcg PO DAILY [facility] Last Admin: 02/04/25 08:52 Dose: 25 mcg Documented By: LINDSAY Labs 01/18/25 11:38 01/18/25 11:38 Assessment and Plan (1) Wound of left ankle: Status: Acute Plan 74-year-old patient seen today for evaluation of chronic medical conditions including hypothyroidism chronic wounds, COPD and iron deficiency anemia. She is currently inpatient and the geripsych unit after she was admitted for refusing all care food and medications. Loose stool Rule out CDIFF Chronic wound to left medial ankle Suspected due to venous disease- no records available, however patient reports that she has been seen in the past by vascular as well as a wound clinic. Recent CRP within normal limits and sed rate was noted to be elevated at 32, blood cultures negative she has been afebrile. Wound does not appear infected at this time. Wound nurse to see tomorrow Completing Cephalexin Continue Santyl daily Supplements BID Hypothyroidism Her TSH was noted to be 66.09 on 01/18 with a free T4 of 0.65. Had been refusing medication prior to admit. Continues to occasionally refuse medication. Levothyroxine at 150 mcg daily. Repeat TSH COPD Not in acute exacerbation. Continue with albuterol as needed. Nutritional support History of iron deficiency anemia Most recent H&H 11.9/39.5 Continue iron b.i.d. and vitamin-C Quality Stroke Does the patient have a stroke diagnosis?: No VTE Prior VTE?: No VTE Risk Level:: Medical - low VTE Device Contraindication: Treatment Not Indicated VTE Drug Contraindication: Treatment Not Indicated
--- NOTE | 2025-02-04 12:58 | HO.PSYCHPN ---
Subjective Subjective Date of Service: 02/04/25 Reason For Visit: Bipolar Subjective Notes: Section 7 Interim History: Patient has been accepting medication generally some difficulty with wound care at times easily frustrated. In general significantly improved less labile future oriented not combative in the milieu Mental Status Exam Mental Status Exam Narrative: Pt is using her walker, self-dialoguing ongoing Patient Appearance: Appropriate Patient Orientation: Person and Place Level of Consciousness: Alert Patient Behavior: Guarded Mood Description: Labile and Apprehensive Affect Description: Calm Patient Cognition Impaired: No Ability to Follow Directions: Good Speech Pattern: Clear Memory Description: Intact Diagnostics Vital Signs (24Hr): Vital Signs - 24 hr 02/04/25 08:00 Temperature 98.4 F Pulse Rate 73 Respiratory Rate 16 Blood Pressure 110/54 L Pulse Oximetry 95 Oxygen Delivery Method Room Air BMI result Body Mass Index 19.6 Labs 01/18/25 11:38 01/18/25 11:38 Imaging Radiology Impressions: ITS Impressions Venous Duplex 01/27/25 13:11 IMPRESSION: No evidence of acute DVT in the left lower extremity. Electronically signed by: Yg Go MD 01/27/2025 01:30 PM EDT RP Medications Medications Current Medications Acetaminophen (Acetaminophen 325 Mg Tablet) 650 mg PO Q6H PRN PRN Reason: Headache/Pain, Scale 1-10 Al Hydroxide/Mg Hydroxide (Magnesium Hydrox/Alum Hydrox 30 Ml Oral.Susp) 30 ml PO Q6H PRN PRN Reason: Heartburn/Nausea Albuterol Sulfate (Albuterol Sulfate 90 Mcg 8 Gm Inhaler) 2 puff INHALE RQ4H PRN PRN Reason: Dyspnea Ascorbic Acid (Ascorbic Acid 500 Mg Tablet) 500 mg PO DAILY [facility] Last Admin: 02/04/25 08:52 Dose: 500 mg Cephalexin HCl (Cephalexin 500 Mg Capsule) 500 mg PO Q6H [facility] Stop: 02/06/25 12:59 Last Admin: 02/04/25 12:23 Dose: 500 mg Collagenase (Collagenase Clostridium Hist. 30 Gm Tube) 1 appl TOPICAL DAILY [facility]; Protocol Last Admin: 02/04/25 08:51 Dose: 1 appl Ferrous Sulfate (Ferrous Sulfate 324 Mg Tablet.) 324 mg PO BIDWM [facility] Last Admin: 02/04/25 08:52 Dose: 324 mg Levothyroxine Sodium (Levothyroxine Sodium 150 Mcg Tablet) 150 mcg PO DAILY@0600 [facility] Last Admin: 02/04/25 05:35 Dose: 150 mcg [place] Carbonate ([place] Carbonate Er 300 Mg Tablet.Er) 600 mg PO BEDTIME [facility] Last Admin: 02/03/25 20:59 Dose: 600 mg Magnesium Hydroxide (Milk Of Magnesia 30 Ml Oral.Susp) 30 ml PO DAILY PRN PRN Reason: Constipation Mirtazapine (Mirtazapine 15 Mg Tablet) 15 mg PO BEDTIME [facility] Last Admin: 02/03/25 20:59 Dose: 15 mg Nicotine Polacrilex (Nicotine Polacrilex 2 Mg Gum) 4 mg BUCCAL Q2H PRN PRN Reason: Nicotine Cravings Olanzapine (Olanzapine 2.5 Mg Tablet) 2.5 mg PO Q6H PRN PRN Reason: Psychosis Last Admin: 01/25/25 18:05 Dose: 2.5 mg Risperidone (Risperidone 0.25 Mg Tablet) 0.5 mg PO BID [facility] Last Admin: 02/04/25 08:52 Dose: 0.5 mg Trazodone HCl (Trazodone Hcl 50 Mg Tablet) 50 mg PO BEDTIME MRX1 PRN PRN Reason: Insomnia Last Admin: 02/03/25 20:59 Dose: 50 mg Vitamin D (Cholecalciferol (Vitamin D3) 25 Mcg Tablet) 25 mcg PO DAILY [facility] Last Admin: 02/04/25 08:52 Dose: 25 mcg Allergies Allergies Allergy/AdvReac Type Severity Reaction Status Date / Time gluten Allergy Unknown Unknown Verified 01/17/25 19:18 hydrocodone Allergy Unknown Unknown Verified 01/17/25 19:17 propoxyphene Allergy Unknown Unknown Verified 01/17/25 19:18 sulfamethoxazole Allergy Unknown Unknown Verified 01/17/25 19:17 [From Bactrim] trimethoprim [From Bactrim] Allergy Unknown Unknown Verified 01/17/25 19:17 mepilex Allergy Unknown Unknown Uncoded 01/18/25 14:24 Assessment & Plan Assessment & Plan (1) Bipolar disorder with psychotic features: Status: Acute Code(s): F31.9 - Bipolar disorder, unspecified (2) Cognitive impairment: Status: Acute Code(s): R41.89 - Other symptoms and signs involving cognitive functions and awareness Plan Admit, Section XIIB, 5 minute checks Continue current regime and observe in milieu. Attempt alliance Collateral contact with family, out pt providers No current med changes until collateral contact is made. Diagnostics as needed 01/19 Pt assaultive to team. Risperdal 0.25 mg bid prn agitation 01/20/2025 Risperdal p.r.n. discontinued start olanzapine 2.5 p.r.n. if Risperdal was titrated off secondary to EPS may benefit from alternative such as olanzapine need additional history encourage med compliance encourage levothyroxine TSH was encouraged 01/21/2025 Call placed to healthcare proxy trying to get clear information regarding dangerousness. Patient's section 12 B most likely will need to file can not have logical conversation with patient has been taking Risperdal lithium. Patient labile intrusive irritable will not have clear conversation regarding condition or legal status check lithium level Risperdal call placed to patient's psychiatrist and patient's son trying in additional information try and clarify healthcare proxy 01/22/2025 Filed for commitment and treatment plan we did get a copy of the healthcare proxy check lithium level increase Risperdal as tolera esau may need supplements might need additional physical therapy will trying get records of 7 month admission to [place] might do well on long-acting injectable 01/23/2025 Check lithium level continue Risperdal recheck TSH encourage medication compliance and encourage acceptance of laboratory and physical exam section 7 filed 01/24/2025 Discussed case with medical nurse practitioner mood somewhat labile difficulty organizing her thoughts but somewhat less labile Continue lithium and Risperdal 01/25/2025: No changes to current regimen. 01/26/2025: consider increasing standing risperdal 01/27/25 pt somewhat less labile intermittantly has difficulty with narrative hx discussed refusing risp and events of past few yrs. Civil commitment pending case reviewed with hcp 01/2025 Continue lithium and Risperdal patient appears to be tolerating able to ambulate with walker. Some periods of less lability lithium level 0.54 consider increase by 150-300 mg was on lithium for many years previously 01/29/25 Pt willing to comsider gonzales needs much support re medical issues 01/30/2025 Patient accepting increase lithium 600 mg bedtime is able to sit down and have a conversation can become circumstantial distracted has difficulty with Details. Able to relate story of her difficult relationship with her [id number]. Denies any active thoughts of self-harm states that she has been quiet chronically reactive and making statements that she get overwhelmed with life at times 01/31/2025 Continue lithium and Risperdal. Discussed option of long-acting injectable for Risperdal looking at possibility of discharge versus commitment. Social work has been working with patient's son her healthcare proxy see what services can be put in place 02/01: continue current management and treatment plan. 02/02: continue current management and treatment plan. 02/03: continue current management and treatment plan. 02/05/2024 Continue lithium and Risperdal patient on section 7 evaluate safety coordinate with patient's son as possible discharge planning check lithium level Reason for continued inpatient stay Substantial Risk for: inability to function, rapid decompensation and med/psych decompensation Time Spent With Patient Time: Total time managing care of this patient today ____ minutes.
[2025-02-04 15:51] LABS: TSH reflex Free T4 3.39 uIU/mL (0.32-4.0)
[2025-02-04 20:00] VITALS: BP 126/56; PULSE 75; RESP 18; TEMP 36.8; O2SAT 95
[2025-02-04] MEDS: Lithium Carbonate ER 300 MG TABLET.ER 600 MG PO (20:28)
[2025-02-04] MEDS: traZODone HCL 50 MG TABLET PO (20:28)
[2025-02-04] MEDS: Mirtazapine 15 MG TABLET PO (20:34)
[2025-02-05] MEDS: cephALEXin 500 MG CAPSULE PO ×2 (00:20→08:31)
[2025-02-05] MEDS: Levothyroxine Sodium 150 MCG TABLET PO (05:52)
[2025-02-05 08:00] VITALS: BP 93/55; PULSE 66; RESP 16; TEMP 36.4; O2SAT 96
[2025-02-05 08:06] LABS: Lithium 1.26 mmol/L (0.60-1.20)
[2025-02-05] MEDS: Ferrous Sulfate 324 MG TABLET.DR PO (08:31)
[2025-02-05] MEDS: risperiDONE 0.25 MG TABLET 0.5 MG PO ×2 (08:31→20:27)
[2025-02-05] MEDS: Ascorbic Acid 500 MG TABLET PO (08:31)
[2025-02-05] MEDS: Cholecalciferol (Vitamin D3) 25 MCG TABLET PO (08:31)
[2025-02-05] MEDS: Collagenase Clostridium Hist. 30 GM TUBE 1 APPL TOPICAL (12:03)
[2025-02-05 12:52] VITALS: BMI 19.8
--- NOTE | 2025-02-05 13:51 | P.PNPSI_ITS ---
Subjective Subjective Date of Service: 02/05/25 Reason For Visit: Bipolar Subjective Notes: Section 7 and Conditional Voluntary Healthcare Proxy: Yes Interim History: Patient seen psychiatric follow-up. Patient's case reviewed with her son healthcare proxy. Patient more reflective calmer not grossly psychotic lithium level somewhat elevated 1 point 2 5 discuss with patient lowering lithium to 450 mg bedtime much less irritable more cooperative no psychosis Mental Status Exam Mental Status Exam Patient Appearance: Appropriate Patient Orientation: Person and Place Level of Consciousness: Alert Patient Behavior: Appropriate and Cooperative Mood Description: Labile and Apprehensive Affect Description: Calm Patient Cognition Impaired: No Ability to Follow Directions: Good Speech Pattern: Clear Memory Description: Intact Judgement: Fair Judgement and Insight: Much more agreeable to treatment agrees for support and taking medication post discharge Diagnostics Vital Signs (24Hr): Vital Signs - 24 hr 02/04/25 20:00 02/05/25 08:00 Temperature 98.3 F 97.5 F Pulse Rate 75 66 Respiratory Rate 18 16 Blood Pressure 126/56 L 93/55 L Pulse Oximetry 95 96 Oxygen Delivery Method Room Air Room Air BMI result Body Mass Index 19.8 Labs 01/18/25 11:38 01/18/25 11:38 Labs: Laboratory Results - last 48 hr 02/04/25 02/05/25 14:52 07:24 TSH 3.39 [place] 1.26 H Imaging Radiology Impressions: ITS Impressions Venous Duplex 01/27/25 13:11 IMPRESSION: No evidence of acute DVT in the left lower extremity. Electronically signed by: Yg Go MD 01/27/2025 01:30 PM EDT RP Medications Medications Current Medications Acetaminophen (Acetaminophen 325 Mg Tablet) 650 mg PO Q6H PRN PRN Reason: Headache/Pain, Scale 1-10 Al Hydroxide/Mg Hydroxide (Magnesium Hydrox/Alum Hydrox 30 Ml Oral.Susp) 30 ml PO Q6H PRN PRN Reason: Heartburn/Nausea Albuterol Sulfate (Albuterol Sulfate 90 Mcg 8 Gm Inhaler) 2 puff INHALE RQ4H PRN PRN Reason: Dyspnea Ascorbic Acid (Ascorbic Acid 500 Mg Tablet) 500 mg PO DAILY GEORGE Last Admin: 02/05/25 08:31 Dose: 500 mg Collagenase (Collagenase Clostridium Hist. 30 Gm Tube) 1 appl TOPICAL DAILY GEORGE; Protocol Last Admin: 02/05/25 12:03 Dose: 1 appl Ferrous Sulfate (Ferrous Sulfate 324 Mg Tablet.Dr) 324 mg PO BIDWM [facility] Last Admin: 02/05/25 08:31 Dose: 324 mg Levothyroxine Sodium (Levothyroxine Sodium 150 Mcg Tablet) 150 mcg PO DAILY@0600 [facility] Last Admin: 02/05/25 05:52 Dose: 150 mcg [place] Carbonate ([place] Carbonate Er 450 Mg Tablet.Er) 450 mg PO BEDTIME [facility] Magnesium Hydroxide (Milk Of Magnesia 30 Ml Oral.Susp) 30 ml PO DAILY PRN PRN Reason: Constipation Mirtazapine (Mirtazapine 15 Mg Tablet) 15 mg PO BEDTIME [facility] Last Admin: 02/04/25 20:34 Dose: 15 mg Nicotine Polacrilex (Nicotine Polacrilex 2 Mg Gum) 4 mg BUCCAL Q2H PRN PRN Reason: Nicotine Cravings Olanzapine (Olanzapine 2.5 Mg Tablet) 2.5 mg PO Q6H PRN PRN Reason: Psychosis Last Admin: 01/25/25 18:05 Dose: 2.5 mg Risperidone (Risperidone 0.25 Mg Tablet) 0.5 mg PO BID [facility] Last Admin: 02/05/25 08:31 Dose: 0.5 mg Trazodone HCl (Trazodone Hcl 50 Mg Tablet) 50 mg PO BEDTIME MRX1 PRN PRN Reason: Insomnia Last Admin: 02/04/25 20:28 Dose: 50 mg Vitamin D (Cholecalciferol (Vitamin D3) 25 Mcg Tablet) 25 mcg PO DAILY [facility] Last Admin: 02/05/25 08:31 Dose: 25 mcg Allergies Allergies Allergy/AdvReac Type Severity Reaction Status Date / Time gluten Allergy Unknown Unknown Verified 01/17/25 19:18 hydrocodone Allergy Unknown Unknown Verified 01/17/25 19:17 propoxyphene Allergy Unknown Unknown Verified 01/17/25 19:18 sulfamethoxazole Allergy Unknown Unknown Verified 01/17/25 19:17 [From Bactrim] trimethoprim [From Bactrim] Allergy Unknown Unknown Verified 01/17/25 19:17 mepilex Allergy Unknown Unknown Uncoded 01/18/25 14:24 Assessment & Plan Assessment & Plan (1) Bipolar disorder with psychotic features: Status: Acute Code(s): F31.9 - Bipolar disorder, unspecified (2) Cognitive impairment: Status: Acute Code(s): R41.89 - Other symptoms and signs involving cognitive functions and awareness Plan Admit, Section XIIB, 5 minute checks Continue current regime and observe in milieu. Attempt alliance Collateral contact with family, out pt providers No current med changes until collateral contact is made. Diagnostics as needed 01/19 Pt assaultive to team. Risperdal 0.25 mg bid prn agitation 01/20/2025 Risperdal p.r.n. discontinued start olanzapine 2.5 p.r.n. if Risperdal was titrated off secondary to EPS may benefit from alternative such as olanzapine need additional history encourage med compliance encourage levothyroxine TSH was encouraged 01/21/2025 Call placed to healthcare proxy trying to get clear information regarding dangerousness. Patient's section 12 B most likely will need to file can not have logical conversation with patient has been taking Risperdal lithium. Patient labile intrusive irritable will not have clear conversation regarding condition or legal status check lithium level Risperdal call placed to patient's psychiatrist and patient's son trying in additional information try and clarify healthcare proxy 01/22/2025 Filed for commitment and treatment plan we did get a copy of the healthcare proxy check lithium level increase Risperdal as tolera esau may need supplements might need additional physical therapy will trying get records of 7 month admission to [place] might do well on long-acting injectable 01/23/2025 Check lithium level continue Risperdal recheck TSH encourage medication compliance and encourage acceptance of laboratory and physical exam section 7 filed 01/24/2025 Discussed case with medical nurse practitioner mood somewhat labile difficulty organizing her thoughts but somewhat less labile Continue lithium and Risperdal 01/25/2025: No changes to current regimen. 01/26/2025: consider increasing standing risperdal 01/27/25 pt somewhat less labile intermittantly has difficulty with narrative hx discussed refusing risp and events of past few yrs. Civil commitment pending case reviewed with hcp 01/2025 Continue lithium and Risperdal patient appears to be tolerating able to ambulate with walker. Some periods of less lability lithium level 0.54 consider increase by 150-300 mg was on lithium for many years previously 01/29/25 Pt willing to comsider gonzales needs much support re medical issues 01/30/2025 Patient accepting increase lithium 600 mg bedtime is able to sit down and have a conversation can become circumstantial distracted has difficulty with Details. Able to relate story of her difficult relationship with her [id number]. Denies any active thoughts of self-harm states that she has been quiet chronically reactive and making statements that she get overwhelmed with life at times 01/31/2025 Continue lithium and Risperdal. Discussed option of long-acting injectable for Risperdal looking at possibility of discharge versus commitment. Social work has been working with patient's son her healthcare proxy see what services can be put in place 02/01: continue current management and treatment plan. 02/02: continue current management and treatment plan. 02/03: continue current management and treatment plan. 02/05/2024 Continue lithium and Risperdal patient on section 7 evaluate safety coordinate with patient's son as possible discharge planning check lithium level 02/05/2025 Lower lithium to 450 mg continue Risperdal 0.5 mg 2 times a day Patient educated on: medication risk/benefits Guardian/Caregiver educated on: medication risk/benefits Informed Consent: further education needed Reason for continued inpatient stay Substantial Risk for: rapid decompensation and med/psych decompensation Time Spent With Patient Time: Total time managing care of this patient today ____ minutes.
--- NOTE | 2025-02-05 15:01 | HO.WOUND ---
Wound Consult: Follow up 74yr old admitted [place] [facility] on 01/18/25 - See progress notes and H&P for detailed history.? Wound consult followup for Left Ankle and Plantar feet.? No new topical recommendations needed at this time - continue with Santyl. 02/05/25 Left Medial Ankle Etiology: ??Ulceration suspect related to venous disease Wound Bed: full thickness tissue loss improving yellow slough Edges: ?irregular and well defined macerated [place] wound: ?Mild pink noted no s/s of active infection at this time. Pain: denies Goals of Treatment: ? continue Santyl for enzymatic debridement Bilateral Plantar Feet - remain with thick corn vs wart - refused dressing at this time. No concerns for infection at this time. recommend off loading site to minimize pain and maximize comfort when patient is agreeable. Recommendations: Off Load all bony prominences with use of pillows and heel boots if needed.? Apply Preventative foams where needed. ? Monitor for incontinence and moisture control, use barrier creams when needed for prevention and treatment. Provide adequate and supplemental nutrition.? When applicable maintain blood glucose levels per Providers order. Left ankle - Cleanse with NS moist gauze, pat dry. Apply Barrier cream (purple top) to wound edge. Apply thick layer of santyl to wound bed only. Cover with dry gauze, ABD pad and elastic netting. Change Daily. Plantar Feet - Cleanse with routine bathing. Dry well. Apply skin prep allow to dry. Cover sites with foam dressing. Change every 5 days. May discontinue when wounds heal. Re-consult wound care Nurse for wound deterioration or wound changes.
[2025-02-05 20:00] VITALS: BP 109/54; PULSE 71; RESP 16; TEMP 36; O2SAT 93
[2025-02-05] MEDS: Lithium Carbonate ER 450 MG TABLET.ER PO (20:27)
[2025-02-05] MEDS: Mirtazapine 15 MG TABLET PO (20:27)
[2025-02-06] MEDS: Levothyroxine Sodium 150 MCG TABLET PO (06:23)
[2025-02-06 09:00] VITALS: BP 109/51; PULSE 66; RESP 20; TEMP 36.6; O2SAT 93
[2025-02-06] MEDS: Ferrous Sulfate 324 MG TABLET.DR PO ×2 (09:04→16:43)
[2025-02-06] MEDS: Cholecalciferol (Vitamin D3) 25 MCG TABLET PO (09:04)
[2025-02-06] MEDS: Ascorbic Acid 500 MG TABLET PO (09:04)
[2025-02-06] MEDS: risperiDONE 0.25 MG TABLET 0.5 MG PO ×2 (09:05→20:25)
[2025-02-06] MEDS: Collagenase Clostridium Hist. 30 GM TUBE 1 APPL TOPICAL (09:39)
[2025-02-06 20:00] VITALS: RESP 16
[2025-02-06] MEDS: Lithium Carbonate ER 450 MG TABLET.ER PO (20:25)
[2025-02-06] MEDS: Mirtazapine 15 MG TABLET PO (20:25)
--- NOTE | 2025-02-06 21:34 | HO.PSYCHPN ---
Subjective Subjective Date of Service: 02/06/25 Reason For Visit: Bipolar Subjective Notes: Conditional Voluntary Interim History: Patient continues to show gradual improvement less irritability and agitation. Case reviewed in treatment planning chart reviewed patient seen. Patient been cooperative not overly agitated or combative continues on lithium and Risperdal. Mental Status Exam Mental Status Exam Patient Appearance: Appropriate Patient Orientation: Person and Place Level of Consciousness: Alert Patient Behavior: Appropriate and Cooperative Mood Description: Labile and Apprehensive Affect Description: Calm Patient Cognition Impaired: No Ability to Follow Directions: Good Speech Pattern: Clear Memory Description: Intact Judgement: Fair Judgement and Insight: Much more agreeable to treatment agrees for support and taking medication post discharge Diagnostics Vital Signs (24Hr): Vital Signs - 24 hr 02/06/25 09:00 02/06/25 20:00 Temperature 97.9 F Pulse Rate 66 Respiratory Rate 20 16 Blood Pressure 109/51 L Pulse Oximetry 93 Oxygen Delivery Method Room Air BMI result Body Mass Index 19.8 Labs 01/18/25 11:38 01/18/25 11:38 Labs: Laboratory Results - last 48 hr 02/05/25 07:24 [place] 1.26 H Imaging Radiology Impressions: ITS Impressions Venous Duplex 01/27/25 13:11 IMPRESSION: No evidence of acute DVT in the left lower extremity. Electronically signed by: Yg Go MD 01/27/2025 01:30 PM EDT RP Medications Medications Current Medications Acetaminophen (Acetaminophen 325 Mg Tablet) 650 mg PO Q6H PRN PRN Reason: Headache/Pain, Scale 1-10 Al Hydroxide/Mg Hydroxide (Magnesium Hydrox/Alum Hydrox 30 Ml Oral.Susp) 30 ml PO Q6H PRN PRN Reason: Heartburn/Nausea Albuterol Sulfate (Albuterol Sulfate 90 Mcg 8 Gm Inhaler) 2 puff INHALE RQ4H PRN PRN Reason: Dyspnea Ascorbic Acid (Ascorbic Acid 500 Mg Tablet) 500 mg PO DAILY GEORGE Last Admin: 02/06/25 09:04 Dose: 500 mg Collagenase (Collagenase Clostridium Hist. 30 Gm Tube) 1 appl TOPICAL DAILY GEORGE; Protocol Last Admin: 02/06/25 09:39 Dose: 1 appl Ferrous Sulfate (Ferrous Sulfate 324 Mg Tablet.) 324 mg PO BIDWM [facility]OR[facility] Last Admin: 02/06/25 16:43 Dose: 324 mg Levothyroxine Sodium (Levothyroxine Sodium 150 Mcg Tablet) 150 mcg PO DAILY@0600 [facility] Last Admin: 02/06/25 06:23 Dose: 150 mcg [place] Carbonate ([place] Carbonate Er 450 Mg Tablet.Er) 450 mg PO BEDTIME [facility] Last Admin: 02/06/25 20:25 Dose: 450 mg Magnesium Hydroxide (Milk Of Magnesia 30 Ml Oral.Susp) 30 ml PO DAILY PRN PRN Reason: Constipation Mirtazapine (Mirtazapine 15 Mg Tablet) 15 mg PO BEDTIME [facility] Last Admin: 02/06/25 20:25 Dose: 15 mg Nicotine Polacrilex (Nicotine Polacrilex 2 Mg Gum) 4 mg BUCCAL Q2H PRN PRN Reason: Nicotine Cravings Olanzapine (Olanzapine 2.5 Mg Tablet) 2.5 mg PO Q6H PRN PRN Reason: Psychosis Last Admin: 01/25/25 18:05 Dose: 2.5 mg Risperidone (Risperidone 0.25 Mg Tablet) 0.5 mg PO BID [facility] Last Admin: 02/06/25 20:25 Dose: 0.5 mg Trazodone HCl (Trazodone Hcl 50 Mg Tablet) 50 mg PO BEDTIME MRX1 PRN PRN Reason: Insomnia Last Admin: 02/04/25 20:28 Dose: 50 mg Vitamin D (Cholecalciferol (Vitamin D3) 25 Mcg Tablet) 25 mcg PO DAILY [facility] Last Admin: 02/06/25 09:04 Dose: 25 mcg Allergies Allergies Allergy/AdvReac Type Severity Reaction Status Date / Time gluten Allergy Unknown Unknown Verified 01/17/25 19:18 hydrocodone Allergy Unknown Unknown Verified 01/17/25 19:17 propoxyphene Allergy Unknown Unknown Verified 01/17/25 19:18 sulfamethoxazole Allergy Unknown Unknown Verified 01/17/25 19:17 [From Bactrim] trimethoprim [From Bactrim] Allergy Unknown Unknown Verified 01/17/25 19:17 mepilex Allergy Unknown Unknown Uncoded 01/18/25 14:24 Assessment & Plan Assessment & Plan (1) Bipolar disorder with psychotic features: Status: Acute Code(s): F31.9 - Bipolar disorder, unspecified (2) Cognitive impairment: Status: Acute Code(s): R41.89 - Other symptoms and signs involving cognitive functions and awareness Plan Admit, Section XIIB, 5 minute checks Continue current regime and observe in milieu. Attempt alliance Collateral contact with family, out pt providers No current med changes until collateral contact is made. Diagnostics as needed 01/19 Pt assaultive to team. Risperdal 0.25 mg bid prn agitation 01/20/2025 Risperdal p.r.n. discontinued start olanzapine 2.5 p.r.n. if Risperdal was titrated off secondary to EPS may benefit from alternative such as olanzapine need additional history encourage med compliance encourage levothyroxine TSH was encouraged 01/21/2025 Call placed to healthcare proxy trying to get clear information regarding dangerousness. Patient's section 12 B most likely will need to file can not have logical conversation with patient has been taking Risperdal lithium. Patient labile intrusive irritable will not have clear conversation regarding condition or legal status check lithium level Risperdal call placed to patient's psychiatrist and patient's son trying in additional information try and clarify healthcare proxy 01/22/2025 Filed for commitment and treatment plan we did get a copy of the healthcare proxy check lithium level increase Risperdal as tolera esau may need supplements might need additional physical therapy will trying get records of 7 month admission to [place] might do well on long-acting injectable 01/23/2025 Check lithium level continue Risperdal recheck TSH encourage medication compliance and encourage acceptance of laboratory and physical exam section 7 filed 01/24/2025 Discussed case with medical nurse practitioner mood somewhat labile difficulty organizing her thoughts but somewhat less labile Continue lithium and Risperdal 01/25/2025: No changes to current regimen. 01/26/2025: consider increasing standing risperdal 01/27/25 pt somewhat less labile intermittantly has difficulty with narrative hx discussed refusing risp and events of past few yrs. Civil commitment pending case reviewed with hcp 01/2025 Continue lithium and Risperdal patient appears to be tolerating able to ambulate with walker. Some periods of less lability lithium level 0.54 consider increase by 150-300 mg was on lithium for many years previously 01/29/25 Pt willing to comsider gonzales needs much support re medical issues 01/30/2025 Patient accepting increase lithium 600 mg bedtime is able to sit down and have a conversation can become circumstantial distracted has difficulty with Details. Able to relate story of her difficult relationship with her [id number]. Denies any active thoughts of self-harm states that she has been quiet chronically reactive and making statements that she get overwhelmed with life at times 01/31/2025 Continue lithium and Risperdal. Discussed option of long-acting injectable for Risperdal looking at possibility of discharge versus commitment. Social work has been working with patient's son her healthcare proxy see what services can be put in place 02/01: continue current management and treatment plan. 02/02: continue current management and treatment plan. 02/03: continue current management and treatment plan. 02/05/2024 Continue lithium and Risperdal patient on section 7 evaluate safety coordinate with patient's son as possible discharge planning check lithium level 02/05/2025 Lower lithium to 450 mg continue Risperdal 0.5 mg 2 times a day 02/06/2025 Continue lithium and Risperdal discharge planning monitor response to lowered lithium Reason for continued inpatient stay Substantial Risk for: inability to function, rapid decompensation and med/psych decompensation Time Spent With Patient Time: Total time managing care of this patient today ____ minutes.
[2025-02-07] MEDS: Levothyroxine Sodium 150 MCG TABLET PO (06:33)
[2025-02-07 08:00] VITALS: BP 105/55; PULSE 69; RESP 18; TEMP 36.6; O2SAT 95
[2025-02-07] MEDS: Cholecalciferol (Vitamin D3) 25 MCG TABLET PO (08:50)
[2025-02-07] MEDS: Ascorbic Acid 500 MG TABLET PO (08:50)
[2025-02-07] MEDS: Ferrous Sulfate 324 MG TABLET.DR PO ×2 (08:50→16:12)
[2025-02-07] MEDS: risperiDONE 0.25 MG TABLET 0.5 MG PO ×2 (08:50→21:08)
[2025-02-07] MEDS: Collagenase Clostridium Hist. 30 GM TUBE 1 APPL TOPICAL (13:47)
[2025-02-07 20:00] VITALS: BP 99/54; PULSE 73; RESP 16; TEMP 36.6; O2SAT 94
[2025-02-07] MEDS: Lithium Carbonate ER 450 MG TABLET.ER PO (21:08)
[2025-02-07] MEDS: Mirtazapine 15 MG TABLET PO (21:08)
[2025-02-07] MEDS: traZODone HCL 50 MG TABLET PO (21:08)
--- NOTE | 2025-02-07 23:59 | P.PNPSI_ITS ---
Subjective Subjective Date of Service: 02/07/25 Reason For Visit: Bipolar Subjective Notes: Section 7 Healthcare Proxy: Yes Interim History: pt much improved less irritable able to process info better no si much dec pi using walker Medication Compliance: Yes Mental Status Exam Mental Status Exam Patient Appearance: Appropriate Patient Orientation: Person, Place and Situation Level of Consciousness: Alert Patient Behavior: Appropriate and Cooperative Mood Description: Labile and Apprehensive Affect Description: Calm Patient Cognition Impaired: No Ability to Follow Directions: Good Speech Pattern: Clear Memory Description: Intact Judgement: Fair Judgement and Insight: Much more agreeable to treatment agrees for support and taking medication post discharge Diagnostics Vital Signs (24Hr): Vital Signs - 24 hr 02/07/25 08:00 02/07/25 20:00 Temperature 97.9 F 98 F Pulse Rate 69 73 Respiratory Rate 18 16 Blood Pressure 105/55 L 99/54 L Pulse Oximetry 95 94 Oxygen Delivery Method Room Air Room Air BMI result Body Mass Index 19.8 Labs 01/18/25 11:38 01/18/25 11:38 Imaging Radiology Impressions: ITS Impressions Venous Duplex 01/27/25 13:11 IMPRESSION: No evidence of acute DVT in the left lower extremity. Electronically signed by: Yg Go MD 01/27/2025 01:30 PM EDT RP Medications Medications Current Medications Acetaminophen (Acetaminophen 325 Mg Tablet) 650 mg PO Q6H PRN PRN Reason: Headache/Pain, Scale 1-10 Al Hydroxide/Mg Hydroxide (Magnesium Hydrox/Alum Hydrox 30 Ml Oral.Susp) 30 ml PO Q6H PRN PRN Reason: Heartburn/Nausea Albuterol Sulfate (Albuterol Sulfate 90 Mcg 8 Gm Inhaler) 2 puff INHALE RQ4H PRN PRN Reason: Dyspnea Ascorbic Acid (Ascorbic Acid 500 Mg Tablet) 500 mg PO DAILY [facility] Last Admin: 02/07/25 08:50 Dose: 500 mg Collagenase (Collagenase Clostridium Hist. 30 Gm Tube) 1 appl TOPICAL DAILY [facility]; Protocol Last Admin: 02/07/25 13:47 Dose: 1 appl Ferrous Sulfate (Ferrous Sulfate 324 Mg Tablet.) 324 mg PO BIDWM [facility] Last Admin: 02/07/25 16:12 Dose: 324 mg Levothyroxine Sodium (Levothyroxine Sodium 150 Mcg Tablet) 150 mcg PO DAILY@0600 [facility] Last Admin: 02/07/25 06:33 Dose: 150 mcg [place] Carbonate ([place] Carbonate Er 450 Mg Tablet.Er) 450 mg PO BEDTIME [facility] Last Admin: 02/07/25 21:08 Dose: 450 mg Magnesium Hydroxide (Milk Of Magnesia 30 Ml Oral.Susp) 30 ml PO DAILY PRN PRN Reason: Constipation Mirtazapine (Mirtazapine 15 Mg Tablet) 15 mg PO BEDTIME [facility] Last Admin: 02/07/25 21:08 Dose: 15 mg Nicotine Polacrilex (Nicotine Polacrilex 2 Mg Gum) 4 mg BUCCAL Q2H PRN PRN Reason: Nicotine Cravings Olanzapine (Olanzapine 2.5 Mg Tablet) 2.5 mg PO Q6H PRN PRN Reason: Psychosis Last Admin: 01/25/25 18:05 Dose: 2.5 mg Risperidone (Risperidone 0.25 Mg Tablet) 0.5 mg PO BID [facility] Last Admin: 02/07/25 21:08 Dose: 0.5 mg Trazodone HCl (Trazodone Hcl 50 Mg Tablet) 50 mg PO BEDTIME MRX1 PRN PRN Reason: Insomnia Last Admin: 02/07/25 21:08 Dose: 50 mg Vitamin D (Cholecalciferol (Vitamin D3) 25 Mcg Tablet) 25 mcg PO DAILY [facility] Last Admin: 02/07/25 08:50 Dose: 25 mcg Allergies Allergies Allergy/AdvReac Type Severity Reaction Status Date / Time gluten Allergy Unknown Unknown Verified 01/17/25 19:18 hydrocodone Allergy Unknown Unknown Verified 01/17/25 19:17 propoxyphene Allergy Unknown Unknown Verified 01/17/25 19:18 sulfamethoxazole Allergy Unknown Unknown Verified 01/17/25 19:17 [From Bactrim] trimethoprim [From Bactrim] Allergy Unknown Unknown Verified 01/17/25 19:17 mepilex Allergy Unknown Unknown Uncoded 01/18/25 14:24 Assessment & Plan Assessment & Plan (1) Bipolar disorder with psychotic features: Status: Acute Code(s): F31.9 - Bipolar disorder, unspecified (2) Cognitive impairment: Status: Acute Code(s): R41.89 - Other symptoms and signs involving cognitive functions and awareness Plan Admit, Section XIIB, 5 minute checks Continue current regime and observe in milieu. Attempt alliance Collateral contact with family, out pt providers No current med changes until collateral contact is made. Diagnostics as needed 01/19 Pt assaultive to team. Risperdal 0.25 mg bid prn agitation 01/20/2025 Risperdal p.r.n. discontinued start olanzapine 2.5 p.r.n. if Risperdal was titrated off secondary to EPS may benefit from alternative such as olanzapine need additional history encourage med compliance encourage levothyroxine TSH was encouraged 01/21/2025 Call placed to healthcare proxy trying to get clear information regarding dangerousness. Patient's section 12 B most likely will need to file can not have logical conversation with patient has been taking Risperdal lithium. Patient labile intrusive irritable will not have clear conversation regarding condition or legal status check lithium level Risperdal call placed to patient's psychiatrist and patient's son trying in additional information try and clarify healthcare proxy 01/22/2025 Filed for commitment and treatment plan we did get a copy of the healthcare proxy check lithium level increase Risperdal as tolera esau may need supplements might need additional physical therapy will trying get records of 7 month admission to [place] might do well on long-acting injectable 01/23/2025 Check lithium level continue Risperdal recheck TSH encourage medication compliance and encourage acceptance of laboratory and physical exam section 7 filed 01/24/2025 Discussed case with medical nurse practitioner mood somewhat labile difficulty organizing her thoughts but somewhat less labile Continue lithium and Risperdal 01/25/2025: No changes to current regimen. 01/26/2025: consider increasing standing risperdal 01/27/25 pt somewhat less labile intermittantly has difficulty with narrative hx discussed refusing risp and events of past few yrs. Civil commitment pending case reviewed with hcp 01/2025 Continue lithium and Risperdal patient appears to be tolerating able to ambulate with walker. Some periods of less lability lithium level 0.54 consider increase by 150-300 mg was on lithium for many years previously 01/29/25 Pt willing to comsider gonzales needs much support re medical issues 01/30/2025 Patient accepting increase lithium 600 mg bedtime is able to sit down and have a conversation can become circumstantial distracted has difficulty with Details. Able to relate story of her difficult relationship with her [id number]. Denies any active thoughts of self-harm states that she has been quiet chronically reactive and making statements that she get overwhelmed with life at times 01/31/2025 Continue lithium and Risperdal. Discussed option of long-acting injectable for Risperdal looking at possibility of discharge versus commitment. Social work has been working with patient's son her healthcare proxy see what services can be put in place 02/01: continue current management and treatment plan. 02/02: continue current management and treatment plan. 02/03: continue current management and treatment plan. 02/05/2024 Continue lithium and Risperdal patient on section 7 evaluate safety coordinate with patient's son as possible discharge planning check lithium level 02/05/2025 Lower lithium to 450 mg continue Risperdal 0.5 mg 2 times a day 02/06/2025 Continue lithium and Risperdal discharge planning monitor response to lowered lithium 02/07/2025 Pt improving generally Reason for continued inpatient stay Substantial Risk for: inability to function and rapid decompensation Time Spent With Patient Time: Total time managing care of this patient today ____ minutes.
[2025-02-08] MEDS: Levothyroxine Sodium 150 MCG TABLET PO (05:52)
[2025-02-08] MEDS: Ascorbic Acid 500 MG TABLET PO (09:02)
[2025-02-08] MEDS: Cholecalciferol (Vitamin D3) 25 MCG TABLET PO (09:02)
[2025-02-08] MEDS: risperiDONE 0.25 MG TABLET 0.5 MG PO ×2 (09:02→20:13)
[2025-02-08] MEDS: Ferrous Sulfate 324 MG TABLET.DR PO ×2 (09:02→18:35)
[2025-02-08 12:00] VITALS: BMI 19.4
--- NOTE | 2025-02-08 12:41 | P.PNPSI_ITS ---
Subjective Subjective Date of Service: 02/08/25 Reason For Visit: Bipolar Subjective Notes: Conditional Voluntary Interim History: Patient was seen and discussed in rounds today. Records and plans were reviewed. She remains the same with no changes. No behavioral issues. No complaints or side effects. No changes were made today Review of Systems Review of Systems Yes all other systems are reviewed and are negative Mental Status Exam Mental Status Exam Patient Appearance: Appropriate Patient Orientation: Person and Place Level of Consciousness: Alert Patient Behavior: Appropriate and Cooperative Mood Description: Labile and Apprehensive Affect Description: Calm Patient Cognition Impaired: No Ability to Follow Directions: Good Speech Pattern: Clear Memory Description: Intact Judgement: Fair Judgement and Insight: Much more agreeable to treatment agrees for support and taking medication post discharge Diagnostics Vital Signs (24Hr): Vital Signs - 24 hr 02/07/25 20:00 Temperature 98 F Pulse Rate 73 Respiratory Rate 16 Blood Pressure 99/54 L Pulse Oximetry 94 Oxygen Delivery Method Room Air BMI result Body Mass Index 19.8 Labs 01/18/25 11:38 01/18/25 11:38 Imaging Radiology Impressions: ITS Impressions Venous Duplex 01/27/25 13:11 IMPRESSION: No evidence of acute DVT in the left lower extremity. Electronically signed by: Yg Go MD 01/27/2025 01:30 PM EDT RP Medications Medications Current Medications Acetaminophen (Acetaminophen 325 Mg Tablet) 650 mg PO Q6H PRN PRN Reason: Headache/Pain, Scale 1-10 Al Hydroxide/Mg Hydroxide (Magnesium Hydrox/Alum Hydrox 30 Ml Oral.Susp) 30 ml PO Q6H PRN PRN Reason: Heartburn/Nausea Albuterol Sulfate (Albuterol Sulfate 90 Mcg 8 Gm Inhaler) 2 puff INHALE RQ4H PRN PRN Reason: Dyspnea Ascorbic Acid (Ascorbic Acid 500 Mg Tablet) 500 mg PO DAILY [facility] Last Admin: 02/08/25 09:02 Dose: 500 mg Collagenase (Collagenase Clostridium Hist. 30 Gm Tube) 1 appl TOPICAL DAILY [facility]; Protocol Last Admin: 02/07/25 13:47 Dose: 1 appl Ferrous Sulfate (Ferrous Sulfate 324 Mg Tablet.) 324 mg PO BIDWM [facility] Last Admin: 02/08/25 09:02 Dose: 324 mg Levothyroxine Sodium (Levothyroxine Sodium 150 Mcg Tablet) 150 mcg PO DAILY@0600 [facility] Last Admin: 02/08/25 05:52 Dose: 150 mcg [place] Carbonate ([place] Carbonate Er 450 Mg Tablet.Er) 450 mg PO BEDTIME [facility] Last Admin: 02/07/25 21:08 Dose: 450 mg Magnesium Hydroxide (Milk Of Magnesia 30 Ml Oral.Susp) 30 ml PO DAILY PRN PRN Reason: Constipation Mirtazapine (Mirtazapine 15 Mg Tablet) 15 mg PO BEDTIME [facility] Last Admin: 02/07/25 21:08 Dose: 15 mg Nicotine Polacrilex (Nicotine Polacrilex 2 Mg Gum) 4 mg BUCCAL Q2H PRN PRN Reason: Nicotine Cravings Olanzapine (Olanzapine 2.5 Mg Tablet) 2.5 mg PO Q6H PRN PRN Reason: Psychosis Last Admin: 01/25/25 18:05 Dose: 2.5 mg Risperidone (Risperidone 0.25 Mg Tablet) 0.5 mg PO BID [facility] Last Admin: 02/08/25 09:02 Dose: 0.5 mg Trazodone HCl (Trazodone Hcl 50 Mg Tablet) 50 mg PO BEDTIME MRX1 PRN PRN Reason: Insomnia Last Admin: 02/07/25 21:08 Dose: 50 mg Vitamin D (Cholecalciferol (Vitamin D3) 25 Mcg Tablet) 25 mcg PO DAILY [facility] Last Admin: 02/08/25 09:02 Dose: 25 mcg Allergies Allergies Allergy/AdvReac Type Severity Reaction Status Date / Time gluten Allergy Unknown Unknown Verified 01/17/25 19:18 hydrocodone Allergy Unknown Unknown Verified 01/17/25 19:17 propoxyphene Allergy Unknown Unknown Verified 01/17/25 19:18 sulfamethoxazole Allergy Unknown Unknown Verified 01/17/25 19:17 [From Bactrim] trimethoprim [From Bactrim] Allergy Unknown Unknown Verified 01/17/25 19:17 mepilex Allergy Unknown Unknown Uncoded 01/18/25 14:24 Assessment & Plan Assessment & Plan (1) Bipolar disorder with psychotic features: Status: Acute Code(s): F31.9 - Bipolar disorder, unspecified (2) Cognitive impairment: Status: Acute Code(s): R41.89 - Other symptoms and signs involving cognitive functions and awareness Plan Admit, Section XIIB, 5 minute checks Continue current regime and observe in milieu. Attempt alliance Collateral contact with family, out pt providers No current med changes until collateral contact is made. Diagnostics as needed 01/19 Pt assaultive to team. Risperdal 0.25 mg bid prn agitation 01/20/2025 Risperdal p.r.n. discontinued start olanzapine 2.5 p.r.n. if Risperdal was titrated off secondary to EPS may benefit from alternative such as olanzapine need additional history encourage med compliance encourage levothyroxine TSH was encouraged 01/21/2025 Call placed to healthcare proxy trying to get clear information regarding dangerousness. Patient's section 12 B most likely will need to file can not have logical conversation with patient has been taking Risperdal lithium. Patient labile intrusive irritable will not have clear conversation regarding condition or legal status check lithium level Risperdal call placed to patient's psychiatrist and patient's son trying in additional information try and clarify healthcare proxy 01/22/2025 Filed for commitment and treatment plan we did get a copy of the healthcare proxy check lithium level increase Risperdal as tolera esau may need supplements might need additional physical therapy will trying get records of 7 month admission to [place] might do well on long-acting injectable 01/23/2025 Check lithium level continue Risperdal recheck TSH encourage medication compliance and encourage acceptance of laboratory and physical exam section 7 filed 01/24/2025 Discussed case with medical nurse practitioner mood somewhat labile difficulty organizing her thoughts but somewhat less labile Continue lithium and Risperdal 01/25/2025: No changes to current regimen. 01/26/2025: consider increasing standing risperdal 01/27/25 pt somewhat less labile intermittantly has difficulty with narrative hx discussed refusing risp and events of past few yrs. Civil commitment pending case reviewed with hcp 01/2025 Continue lithium and Risperdal patient appears to be tolerating able to ambulate with walker. Some periods of less lability lithium level 0.54 consider increase by 150-300 mg was on lithium for many years previously 01/29/25 Pt willing to comsider gonzales needs much support re medical issues 01/30/2025 Patient accepting increase lithium 600 mg bedtime is able to sit down and have a conversation can become circumstantial distracted has difficulty with Details. Able to relate story of her difficult relationship with her [id number]. Denies any active thoughts of self-harm states that she has been quiet chronically reactive and making statements that she get overwhelmed with life at times 01/31/2025 Continue lithium and Risperdal. Discussed option of long-acting injectable for Risperdal looking at possibility of discharge versus commitment. Social work has been working with patient's son her healthcare proxy see what services can be put in place 02/01: continue current management and treatment plan. 02/02: continue current management and treatment plan. 02/03: continue current management and treatment plan. 02/05/2024 Continue lithium and Risperdal patient on section 7 evaluate safety coordinate with patient's son as possible discharge planning check lithium level 02/05/2025 Lower lithium to 450 mg continue Risperdal 0.5 mg 2 times a day 02/06/2025 Continue lithium and Risperdal discharge planning monitor response to lowered lithium 02/08: Continue current regimen and plans. Reason for continued inpatient stay Substantial Risk for: inability to function Time Spent With Patient Time: Total time managing care of this patient today ____ minutes.
[2025-02-08 20:00] VITALS: BP 118/57; PULSE 73; RESP 18; TEMP 37.1; O2SAT 95
[2025-02-08] MEDS: Mirtazapine 15 MG TABLET PO (20:13)
[2025-02-08] MEDS: Lithium Carbonate ER 450 MG TABLET.ER PO (20:13)
[2025-02-08] MEDS: traZODone HCL 50 MG TABLET PO (20:13)
[2025-02-09] MEDS: Levothyroxine Sodium 150 MCG TABLET PO (06:26)
[2025-02-09 08:00] VITALS: BP 96/53; PULSE 70; RESP 18; TEMP 36.2; O2SAT 96
[2025-02-09] MEDS: Cholecalciferol (Vitamin D3) 25 MCG TABLET PO (08:10)
[2025-02-09] MEDS: risperiDONE 0.25 MG TABLET 0.5 MG PO ×2 (08:10→20:40)
[2025-02-09] MEDS: Ferrous Sulfate 324 MG TABLET.DR PO ×2 (08:10→16:32)
[2025-02-09] MEDS: Ascorbic Acid 500 MG TABLET PO (08:11)
--- NOTE | 2025-02-09 11:25 | P.PNPSI_ITS ---
Subjective Subjective Date of Service: 02/09/25 Reason For Visit: Bipolar Subjective Notes: Conditional Voluntary Interim History: Patient was seen and discussed in rounds today. Records and plans were reviewed. She continues to be stable. She is medication compliant. Today her blood pressure was low at 96/53. No complaints or symptoms. Eating and sleeping adequately. No behavioral issues. No changes were made Review of Systems Review of Systems Yes all other systems are reviewed and are negative Mental Status Exam Mental Status Exam Patient Appearance: Appropriate Patient Orientation: Person and Place Level of Consciousness: Alert Patient Behavior: Appropriate and Cooperative Mood Description: Labile and Apprehensive Affect Description: Calm Patient Cognition Impaired: No Ability to Follow Directions: Good Speech Pattern: Clear Memory Description: Intact Judgement: Fair Judgement and Insight: Much more agreeable to treatment agrees for support and taking medication post discharge Diagnostics Vital Signs (24Hr): Vital Signs - 24 hr 02/08/25 20:00 02/09/25 08:00 Temperature 98.8 F 97.2 F Pulse Rate 73 70 Respiratory Rate 18 18 Blood Pressure 118/57 L 96/53 L Pulse Oximetry 95 96 Oxygen Delivery Method Room Air Room Air BMI result Body Mass Index 19.4 Labs 01/18/25 11:38 01/18/25 11:38 Imaging Radiology Impressions: ITS Impressions Venous Duplex 01/27/25 13:11 IMPRESSION: No evidence of acute DVT in the left lower extremity. Electronically signed by: Yg Go MD 01/27/2025 01:30 PM EDT RP Medications Medications Current Medications Acetaminophen (Acetaminophen 325 Mg Tablet) 650 mg PO Q6H PRN PRN Reason: Headache/Pain, Scale 1-10 Al Hydroxide/Mg Hydroxide (Magnesium Hydrox/Alum Hydrox 30 Ml Oral.Susp) 30 ml PO Q6H PRN PRN Reason: Heartburn/Nausea Albuterol Sulfate (Albuterol Sulfate 90 Mcg 8 Gm Inhaler) 2 puff INHALE RQ4H PRN PRN Reason: Dyspnea Ascorbic Acid (Ascorbic Acid 500 Mg Tablet) 500 mg PO DAILY [facility] Last Admin: 02/09/25 08:11 Dose: 500 mg Collagenase (Collagenase Clostridium Hist. 30 Gm Tube) 1 appl TOPICAL DAILY [facility]; Protocol Last Admin: 02/07/25 13:47 Dose: 1 appl Ferrous Sulfate (Ferrous Sulfate 324 Mg Tablet.) 324 mg PO BIDWM [facility] Last Admin: 02/09/25 08:10 Dose: 324 mg Levothyroxine Sodium (Levothyroxine Sodium 150 Mcg Tablet) 150 mcg PO DAILY@0600 [facility] Last Admin: 02/09/25 06:26 Dose: 150 mcg [place] Carbonate ([place] Carbonate Er 450 Mg Tablet.Er) 450 mg PO BEDTIME [facility] Last Admin: 02/08/25 20:13 Dose: 450 mg Magnesium Hydroxide (Milk Of Magnesia 30 Ml Oral.Susp) 30 ml PO DAILY PRN PRN Reason: Constipation Mirtazapine (Mirtazapine 15 Mg Tablet) 15 mg PO BEDTIME [facility] Last Admin: 02/08/25 20:13 Dose: 15 mg Nicotine Polacrilex (Nicotine Polacrilex 2 Mg Gum) 4 mg BUCCAL Q2H PRN PRN Reason: Nicotine Cravings Olanzapine (Olanzapine 2.5 Mg Tablet) 2.5 mg PO Q6H PRN PRN Reason: Psychosis Last Admin: 01/25/25 18:05 Dose: 2.5 mg Risperidone (Risperidone 0.25 Mg Tablet) 0.5 mg PO BID [facility] Last Admin: 02/09/25 08:10 Dose: 0.5 mg Trazodone HCl (Trazodone Hcl 50 Mg Tablet) 50 mg PO BEDTIME MRX1 PRN PRN Reason: Insomnia Last Admin: 02/08/25 20:13 Dose: 50 mg Vitamin D (Cholecalciferol (Vitamin D3) 25 Mcg Tablet) 25 mcg PO DAILY [facility] Last Admin: 02/09/25 08:10 Dose: 25 mcg Allergies Allergies Allergy/AdvReac Type Severity Reaction Status Date / Time gluten Allergy Unknown Unknown Verified 01/17/25 19:18 hydrocodone Allergy Unknown Unknown Verified 01/17/25 19:17 propoxyphene Allergy Unknown Unknown Verified 01/17/25 19:18 sulfamethoxazole Allergy Unknown Unknown Verified 01/17/25 19:17 [From Bactrim] trimethoprim [From Bactrim] Allergy Unknown Unknown Verified 01/17/25 19:17 mepilex Allergy Unknown Unknown Uncoded 01/18/25 14:24 Assessment & Plan Assessment & Plan (1) Bipolar disorder with psychotic features: Status: Acute Code(s): F31.9 - Bipolar disorder, unspecified (2) Cognitive impairment: Status: Acute Code(s): R41.89 - Other symptoms and signs involving cognitive functions and awareness Plan Admit, Section XIIB, 5 minute checks Continue current regime and observe in milieu. Attempt alliance Collateral contact with family, out pt providers No current med changes until collateral contact is made. Diagnostics as needed 01/19 Pt assaultive to team. Risperdal 0.25 mg bid prn agitation 01/20/2025 Risperdal p.r.n. discontinued start olanzapine 2.5 p.r.n. if Risperdal was titrated off secondary to EPS may benefit from alternative such as olanzapine need additional history encourage med compliance encourage levothyroxine TSH was encouraged 01/21/2025 Call placed to healthcare proxy trying to get clear information regarding dangerousness. Patient's section 12 B most likely will need to file can not have logical conversation with patient has been taking Risperdal lithium. Patient labile intrusive irritable will not have clear conversation regarding condition or legal status check lithium level Risperdal call placed to patient's psychiatrist and patient's son trying in additional information try and clarify healthcare proxy 01/22/2025 Filed for commitment and treatment plan we did get a copy of the healthcare proxy check lithium level increase Risperdal as tolera esau may need supplements might need additional physical therapy will trying get records of 7 month admission to [place] might do well on long-acting injectable 01/23/2025 Check lithium level continue Risperdal recheck TSH encourage medication compliance and encourage acceptance of laboratory and physical exam section 7 filed 01/24/2025 Discussed case with medical nurse practitioner mood somewhat labile difficulty organizing her thoughts but somewhat less labile Continue lithium and Risperdal 01/25/2025: No changes to current regimen. 01/26/2025: consider increasing standing risperdal 01/27/25 pt somewhat less labile intermittantly has difficulty with narrative hx discussed refusing risp and events of past few yrs. Civil commitment pending case reviewed with hcp 01/2025 Continue lithium and Risperdal patient appears to be tolerating able to ambulate with walker. Some periods of less lability lithium level 0.54 consider increase by 150-300 mg was on lithium for many years previously 01/29/25 Pt willing to comsider gonzales needs much support re medical issues 01/30/2025 Patient accepting increase lithium 600 mg bedtime is able to sit down and have a conversation can become circumstantial distracted has difficulty with Details. Able to relate story of her difficult relationship with her [id number]. Denies any active thoughts of self-harm states that she has been quiet chronically reactive and making statements that she get overwhelmed with life at times 01/31/2025 Continue lithium and Risperdal. Discussed option of long-acting injectable for Risperdal looking at possibility of discharge versus commitment. Social work has been working with patient's son her healthcare proxy see what services can be put in place 02/01: continue current management and treatment plan. 02/02: continue current management and treatment plan. 02/03: continue current management and treatment plan. 02/05/2024 Continue lithium and Risperdal patient on section 7 evaluate safety coordinate with patient's son as possible discharge planning check lithium level 02/05/2025 Lower lithium to 450 mg continue Risperdal 0.5 mg 2 times a day 02/06/2025 Continue lithium and Risperdal discharge planning monitor response to lowered lithium 02/08: Continue current regimen and plans. 02/09: Continue current regimen and plans. Reason for continued inpatient stay Substantial Risk for: inability to function Time Spent With Patient Time: Total time managing care of this patient today ____ minutes.
[2025-02-09] MEDS: Collagenase Clostridium Hist. 30 GM TUBE 1 APPL TOPICAL ×2 (14:55)
[2025-02-09 20:00] VITALS: BP 92/46; PULSE 73; TEMP 36.9; O2SAT 92
[2025-02-09] MEDS: Lithium Carbonate ER 450 MG TABLET.ER PO (20:40)
[2025-02-09] MEDS: Mirtazapine 15 MG TABLET PO (20:41)
[2025-02-10] MEDS: Levothyroxine Sodium 150 MCG TABLET PO (05:58)
[2025-02-10 07:51] LABS: Lithium 1.01 mmol/L (0.60-1.20)
[2025-02-10 08:00] VITALS: BP 97/50; PULSE 67; RESP 14; TEMP 36.6; O2SAT 93
[2025-02-10] MEDS: Ferrous Sulfate 324 MG TABLET.DR PO (08:25)
[2025-02-10] MEDS: risperiDONE 0.25 MG TABLET 0.5 MG PO (08:25)
[2025-02-10] MEDS: Ascorbic Acid 500 MG TABLET PO (08:25)
[2025-02-10] MEDS: Cholecalciferol (Vitamin D3) 25 MCG TABLET PO (08:25)
--- NOTE | 2025-02-10 12:37 | P.DS_ITS ---
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 help. This was gradually discussed with the patient over time and as she accepted Risperdal and treatment with lithium she became much more grounded social and engaged. She did have some memory and executive function difficulties but she did understand that she had bipolar disorder and was eventually accepting of returning to medication. We did not need to complete the civil commitment. Patient was cooperative with medication. She was on 0.5 mg Risperdal 2 times a day she does walk with a walker she did accept treatment with lithium on 450 mg she had a level of 1.2 on then 1.0 mg her lithium level is trending down at 1.0 education was given to patient and son regarding lithium toxicity, including tremor confusion.Pt pleasant future oriented at time of d/c no longer having diarrhea Status at Discharge Cognitive/behavioral status at discharge: pt alert knows her dx medical issues working attention variable improved judgement impulse control. Not aggressive cooperative Pt looking forward to going home seeing family no bizarre delusions or aggression re family future oriented no si or hi Functional status at discharge: uses cane/walker Overall status at discharge: patient is progressing back to baseline Time Spent with Patient Time attestation: Total time managing care of this patient today __45__ minutes. Time spent: Greater than 30 minutes Discharge Plan Discharge Anticipated Discharge Date/Time: 02/10/25 17:00 Patient Disposition: Home Health Service Discharge Diagnosis: bipolar disorder mixed with recent psychotic fx cognitive impairment hypothyroidism l ankle foot wound low iron copd Referrals: Dr Gómez [Other] - 02/13/25 4:20 pm [facility] [Other] - 3-5 Days (Your [employer] will contact you following discharge within 3 days to discuss your services and needs. ) [facility] [Other] - 02/12/25 ([facility] services for daily wound care will begin 02/12/25. ) Ian Urena MD [Primary Care Provider] - 02/17/25 2:30 pm (Your next appointment with Dr Urena is scheduled for February 17 at 2:30pm. ) Discharge Medications: New risperidone 0.5 mg tablet 0.5 mg PO BID 30 Days Qty: 60 1RF levothyroxine 150 mcg Tablet 150 mcg PO DAILY@0600 30 Days Qty: 30 1RF Santyl 250 unit/gram Ointment 1 appl topical DAILY 30 Days Qty: 90 0RF Protocol: Apply to: Apply to: Left medial ankle lithium carbonate 300 mg Tablet 450 mg PO BEDTIME 30 Days Qty: 45 0RF Continued ascorbic acid (vitamin C) [Vitamin C] 500 mg tablet 500 mg PO DAILY 30 Days Qty: 30 0RF ferrous sulfate 325 mg (65 mg iron) tablet 325 mg PO BID 30 Days Qty: 60 1RF Rx Instructions: 2 x day with meals mirtazapine 15 mg tablet 15 mg PO BEDTIME 30 Days Qty: 30 1RF albuterol sulfate 90 mcg/actuation HFA aerosol inhaler 2 puff INHALATION Q4H PRN (Reason: dyspnea) Qty: 8.5 1RF Rx Instructions: Q.4h p.r.n. shortness breath cholecalciferol (vitamin D3) [Vitamin D3] 25 mcg (1,000 unit) tablet 25 mcg PO DAILY 30 Days Qty: 30 1RF Discontinued risperidone 0.25 mg tablet 0.25 mg PO BID lithium carbonate 450 mg tablet extended release 450 mg PO BEDTIME levothyroxine 125 mcg tablet 125 mcg PO QAM Discharge Orders: Discharge Order (Routine); Ordered 02/10/25 Ordered By: Nir Anna Diet: Advance to usual diet Activity on Discharge: Use cane or walker Stand Alone Forms: Patient Portal Discharge page Print Language: Algerian Activity Restrictions/Additional Instructions: use walker make sure you stay hydrated Care Plan Goals: maintain stable mood reality based thinking stay on medication maintain hydration cooperate with visiting nurses pt Health Concerns: bipolar dx ulceration l foot ankle copd hypothyroidism Plan of Treatment: lithium risperadol see your psychiatrist regularly visiting nurse senior ctr f/u with your pcp regarding medical issues if feeling unsafe call [phone] suicide hotline or go to er if confusion or worsening tremor hold off on lithium and go to er /call your psychiatrist Assessment: pleasant stable accepting of treatment much more reality based
[2025-02-10] MEDS: Collagenase Clostridium Hist. 30 GM TUBE 1 APPL TOPICAL (14:52)
--- NOTE | 2025-02-10 14:53 | PC.NURSE ---
Wound dsg changed wound bed remains fairly heavy. Thick layer of santyl applied with barrier cream applied to surrounding tissue then covered with DCD
== END 2025-02-10 17:15 | disposition home health service (06) | DRG 885 ==
PROVIDERS: Clinical Nurse Specialist Psychiatric/Mental Health, Adult; Nurse Practitioner Family; Physician Assistant; Admitting Provider Psychiatry & Neurology Psychiatry; PCP Family Medicine; Visit Provider Psychiatry & Neurology Psychiatry
DX: F31.9 Bipolar disorder, unspecified (principal); L97.329 Non-pressure chronic ulcer of left ankle with unspecified severity; E03.9 Hypothyroidism, unspecified; D50.9 Iron deficiency anemia, unspecified; J44.9 Chronic obstructive pulmonary disease, unspecified; R41.89 Other symptoms and signs involving cognitive functions and awareness; Z87.891 Personal history of nicotine dependence; Z79.890 Hormone replacement therapy; Z79.899 Other long term (current) drug therapy
CPT/HCPCS: 36415; 80048; 80061; 80178; 82607; 82746; 83036; 83605; 83735; 84439; 84443; 85025; 85652; 86140; 87040; 93971

== ENCOUNTER → 2025-01-18 01:31 | Outpatient (BNV) | payer MEDICARE, MEDICAID, SELFPAY | PROVIDERS: Admitting Provider Psychiatry & Neurology Psychiatry; PCP Family Medicine; Visit Provider Psychiatry & Neurology Psychiatry | DX: F31.9 Bipolar disorder, unspecified (principal); R41.89 Other symptoms and signs involving cognitive functions and awareness | CPT/HCPCS: 99231; 99232 ==

== ENCOUNTER → 2025-01-18 01:31 | Outpatient (BNV) | payer MEDICARE, MEDICAID, SELFPAY | PROVIDERS: Admitting Provider Psychiatry & Neurology Psychiatry; Visit Provider Clinical Nurse Specialist Psychiatric/Mental Health, Adult | DX: F31.9 Bipolar disorder, unspecified (principal); R41.89 Other symptoms and signs involving cognitive functions and awareness | CPT/HCPCS: 90792; 99232 ==

== ENCOUNTER → 2025-01-18 01:31 | Outpatient (BNV) | payer MEDICARE, MEDICAID, SELFPAY | PROVIDERS: Admitting Provider Psychiatry & Neurology Psychiatry; Visit Provider Physician Assistant | DX: S91.002A Unspecified open wound, left ankle, initial encounter (principal); Z00.8 Encounter for other general examination | CPT/HCPCS: 99223 ==

== ENCOUNTER 2025-03-21 12:09 | Emergency (ER) | payer MEDICARE, MEDICAID, SELFPAY ==
--- OUTSIDE RECORDS SUMMARY | 2024-04-15 06:04 | XMS_ITS | Continuity of Care Document ---
Author Organization [facility] Address [address] [place] [phone] Phone Care Team Providers Care Director Federal Name Role Phone Germain PARRA, Kylee Unavailable Unavailable Advance Directives Directive Yes / No Effective Date File Name No Information Encounters Encounter Description Practice Location Reason(s) For Visit Diagnoses Date Provider [facility], [address], [id number], [place] tel:[phone] No Information 2023 Germain Pichardo. [address] [place], [place], [id number], [place]. tel:[phone] Family History Family Member Type Diagnosis Age At Onset No Information Payers Payer name Insurance type Covered republican ID Authoriza tion(s) No Information Social History Type Description Quantity Date Captured Comments Sex Female Smoking Status No Information Chief Complaint And Reason For Visit No Information History Of Present Illness Encounter Date Complaint History Of Prese nt Illness No Information Instructions Date Instruction Additional Infor mation No Information Assessments Type Assessment Date No Information
[2025-03-21 12:26] VITALS: BP 110/70; PULSE 88; RESP 18; TEMP 37.2; O2SAT 95; BMI 24.0
--- OUTSIDE RECORDS SUMMARY | 2025-03-21 13:11 | XMS_ITS | Referral Summary ---
Author Organization [facility] Address [address] [place], [place] [id number] Care Team Providers Care [employer] Name Role Phone Silverio Urena MD Primary Care Provider [phone] Encounters * This document contains information received from the source organization and may not represent a complete record from that organization. Date Type Department Care Team Description 03/19/2025 3:21 PM EDT - 03/20/2025 2:50 PM EDT Emergency [facility] Emergency Department [address] [place] [address] Cielo De La Cruz MD Silva, Joshua T, MD Bipolar disorder, current episode manic severe with psychotic features (HCC) [F31.2] (Primary Dx); Mild cognitive impairment [G31.84]; Bipolar 1 disorder (HCC) [facility]PT [facility] facility/unit[facility] (65) 03/10/2025 11:00 AM EDT Follow-Up [facility] [address] [place] [id number] Tiffanie Kong PA Venous stasis ulcer of left ankle with fat layer exposed with varicose veins (HCC) (Primary Dx) 02/27/2025 Telephone [facility] [address] [place] [phone] Nimisha Bennett RN Santyl 02/25/2025 1:00 PM EDT Follow-Up [facility] [address] [place] [phone] Tiffanie Kong PA Venous stasis ulcer of left ankle with fat layer exposed with varicose veins (HCC) (Primary Dx); Non-healing ulcer of foot with fat layer exposed, left (HCC) 02/21/2025 12:19 PM EDT - 02/21/2025 3:58 PM EDT Emergency [facility] Emergency Department [address] [place] [phone] Chantale Glover MD Roy, Rahul D, MD Venous stasis ulcer of ankle, left (HCC) (Primary Dx); Callus of foot; Cellulitis of left leg Discharge Disposition: Home or Self Care () 02/14/[address] Rheumatology [address] [place] [phone] Danielle Zambrano MD 01/03/2025 1:00 PM EDT Follow-Up [facility] [address] [place] [id number] Tiffanie Kong PA Venous stasis ulcer of left ankle with fat layer exposed with varicose veins (HCC) (Primary Dx) 01/02/2025 6:03 PM EDT - 01/02/2025 6:51 PM EDT Emergency [facility] Emergency Department [address] [place] [id number] Kenny Porras MD Encounter for psychiatric assessment (Primary Dx) Discharge Disposition: Home or Self Care () 12/26/2024 11:45 AM EDT Office Visit [address] Rheumatology [address] [place] [id number] Danielle Zambrano MD Post-menopausal (Primary Dx); Positive anti-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; TENA positive; Polyarthralgia; Encounter for screening for osteoporosis 12/20/2024 1:00 PM EDT Office Visit [facility] [address] [place] [id number] Bellairs-Bk, Cindy M, PA Venous stasis ulcer of left ankle with fat layer exposed with varicose veins (HCC) (Primary Dx); Non-healing ulcer of foot with fat layer exposed, left (HCC) from Last 3 Months Allergies Active Allergy Reactions Criticality Noted Date Comments Sulfamethoxazole-Trimet hoprim Rash Medium 07/02/2023 Gluten Diarrhea,Abdominal Pain,Flatulence 04/11/2024 Pt has Celiac Disease - gluten allergy Hydrocodone Nausea Medium 06/07/2022 Silver Sulfate-Foam Bandage Rash Medium 07/02/2023 Propoxyphene Nausea Medium 06/07/2022 Medications * This document contains information received from the source organization and may not represent a complete record from that organization. Vitamin D3 25 mcg (1,000 unit) capsule Take 1 capsule (1,000 Units total) by mouth once a day. 60 capsule 3 Active ascorbic acid (VITAMIN C) 500 mg tablet Take 1 tablet (500 mg total) by mouth once a day. 30 tablet 2 4 Active mirtazapine (REMERON) 15 mg tablet Take 1 tablet (15 mg total) by mouth nightly. 4 Active albuterol (PROAIR HFA,VENTOLIN HFA) 90 mcg inhaler Inhale 2 puffs by mouth every 4 hours as needed for wheezing or shortness of breath. Use with spacer. Active ARIPiprazole (ABILIFY) 2 mg tablet Take 2 mg by mouth once a day. Active loperamide (IMODIUM) 2 mg capsule Take 2 mg by mouth daily as needed for diarrhea. Active cyanocobalamin (vitamin B-12) 1,000 mcg tablet Take 1 tablet (1,000 mcg total) by mouth once a day. 30 tablet 5 Active levothyroxine (SYNTHROID, LEVOTHROID) 125 mcg tablet Take 1 tablet (125 mcg total) by mouth daily. 30 tablet 5 Active acetaminophen (TYLENOL) 325 mg tablet Take 2 tablets (650 mg total) by mouth every 6 hours as needed for pain (Mild pain). 5 Active folic acid (FOLVITE) 1 mg tablet Take 1 tablet (1 mg total) by mouth once a day. 30 tablet 5 Active hydroxychloroqu ine (PLAQUENIL) 200 mg tablet Take 1 tablet (200 mg total) by mouth once a day. 30 tablet 5 Active ferrous sulfate 325 mg (65 mg iron) EC tablet Take 1 tablet (325 mg total) by mouth once a day. 30 tablet 2 5 Active risperiDONE (RisperDAL) 0.25 mg tablet Take 0.25 mg by mouth nightly. Active acetaminophen (TYLENOL) 325 mg tablet 2 tablet EVERY 6 HOURS (route: oral) 5 Active lithium ER (ESKALITH) 450 mg tablet SMARTSI Tablet(s) By Mouth Every Night 5 Active cholecalciferol 25 mcg (1,000 unit) tablet SMARTSI Tablet(s) By Mouth Daily 5 Active cephalexin (KEFLEX) 500 mg capsule Take 1 capsule (500 mg total) by mouth 4 times a day for 7 days. 28 capsule 5 02/29/20 25 doxycycline hyclate (VIBRAMYCIN) 100 mg capsule Take 1 capsule (100 mg total) by mouth 2 times a day for 7 days. 14 capsule 5 02/29/20 25 Hospital, Clinic, or Other Facility Administered Medication Ordered Dose Route Frequency Start Date End Date Status lidocaine (LMX) 4 % cream topical Once 12/20/2024 Active lidocaine (LMX) 4 % creamIndications:Venous stasis ulcer of left ankle with fat layer exposed with varicose veins (HCC),Non-healing ulcer of foot with fat layer exposed, left (HCC) topical Once 02/25/2025 02/25/2025 Ended lidocaine (LMX) 4 % creamIndications:Venous stasis ulcer of left ankle with fat layer exposed with varicose veins (HCC) topical Once 03/10/2025 03/10/2025 Ended Active Problems Problem Noted Date Diagnosed Date Diarrhea 09/28/2024 Assessment & Plan (10/04/2024 7:45 AM EST): Diarrhea: RESOLVED C-diff neg. Anemia 09/23/2024 Assessment & Plan (11/21/2024 10:39 AM EDT): Anemia: No signs of active blood loss. Last H/H 11.8/34.8 on 11/12/24. Continue folic acid 1 mg daily and ferrous sulfate 325mg daily. Assessment & Plan (11/20/2024 1:06 PM EDT): Anemia: No signs of active blood loss. Last H/H 11.8/34.8 on 11/12/24. Continue folic acid 1 mg daily and ferrous sulfate 325mg daily. Assessment & Plan (11/19/2024 4:11 PM EDT): Anemia: No signs of active blood loss. Last H/H 11.8/34.8 on 11/12/24. Continue folic acid 1 mg daily and ferrous sulfate 325mg daily. Assessment & Plan (11/18/2024 12:22 PM EDT): Anemia: No signs of active blood loss. Last H/H 11.8/34.8 on 11/12/24. Continue folic acid 1 mg daily and ferrous sulfate 325mg daily. Assessment & Plan (11/17/2024 8:24 AM EDT): Anemia: No signs of active blood loss. Last H/H 11.8/34.8 on 11/12/24. Continue folic acid 1 mg daily and ferrous sulfate 325mg daily. Assessment & Plan (11/15/2024 8:53 AM EST): No signs of active blood loss. Continue folic acid 1 mg daily and ferrous sulfate 325mg daily. Assessment & Plan (11/14/2024 11:50 AM EST): No signs of active blood loss. Continue folic acid 1 mg daily and ferrous sulfate 325mg daily. Assessment & Plan (2024 11:49 AM EST): 11.1/34.8. No signs of active bleeding Continue folic acid 1 mg daily and ferrous sulfate 325mg daily Assessment & Plan (2024 12:51 AM EST): 11.1/34.8. No signs of active bleeding Continue folic acid 1 mg daily. Assessment & Plan (11/11/2024 11:24 AM EST): Low folate level at 3.3. H&H from 09/23/24: hgb:10/hct:31. No signs of active bleeding Continue folic acid 1 mg daily. Assessment & Plan (11/10/2024 9:40 AM EST): Low folate level at 3.3. H&H 1 month ago 07/11. No signs of active bleeding Continue folic acid 1 mg daily. Assessment & Plan (11/09/2024 10:44 AM EST): Low folate level at 3.3. H&H 1 month ago 07/11. No signs of active bleeding Continue folic acid 1 mg daily. Assessment & Plan (11/08/2024 10:32 AM EST): Low folate level at 3.3. Continue folic acid 1 mg daily. Assessment & Plan (11/07/2024 9:15 AM EST): Low folate level at 3.3. Continue folic acid 1 mg daily. Assessment & Plan (11/06/2024 1:28 PM EST): Low folate level at 3.3. Continue folic acid 1 mg daily. Assessment & Plan (10/31/2024 4:47 PM EST): Anemia: Related to folate deficiency. Low folate level at 3.3. Continue folic acid 1 mg daily. Repeat CBC in 3 months (December 23, 2024). Assessment & Plan (10/30/2024 1:39 PM EST): Anemia: Related to folate deficiency. Low folate level at 3.3. Continue folic acid 1 mg daily. Repeat CBC in 3 months (December 23, 2024). Assessment & Plan (10/29/2024 5:05 PM EST): Anemia: Related to folate deficiency. Low folate level at 3.3. Continue folic acid 1 mg daily. Repeat CBC in 3 months (December 23, 2024). Assessment & Plan (10/28/2024 10:08 AM EST): Anemia: Related to folate deficiency. Low folate level at 3.3. Continue folic acid 1 mg daily. Repeat CBC in 3 months (December 23, 2024). Assessment & Plan (10/27/2024 7:24 AM EST): Anemia: Related to folate deficiency. Low folate level at 3.3. Continue folic acid 1 mg daily. Repeat CBC in 3 months (December 23, 2024). Assessment & Plan (10/26/2024 8:23 AM EST): Anemia: Related to folate deficiency. Low folate level at 3.3. Continue folic acid 1 mg daily. Repeat CBC in 3 months (December 23, 2024). Assessment & Plan (10/24/2024 9:32 AM EST): Anemia: Related to folate deficiency. Low folate level at 3.3. Continue folic acid 1 mg daily. Repeat CBC in 3 months (December 23, 2024). Assessment & Plan (10/23/2024 8:28 AM EST): Anemia: Related to folate deficiency. Low folate level at 3.3. Continue folic acid 1 mg daily. Repeat CBC in 3 months (December 23, 2024). Assessment & Plan (10/13/2024 11:58 AM EST): Related to folate deficiency. Low folate level at 3.3 Continue folic acid 1 mg daily. Assessment & Plan (10/12/2024 11:33 AM EST): Anemia: Related to folate deficiency. Low folate level at 3.3 Continue folic acid 1 mg daily. Repeat CBC in 3 months (December 23, 2024). Assessment & Plan (10/11/2024 10:57 AM EST): Anemia: Related to folate deficiency. Low folate level at 3.3 Continue folic acid 1 mg daily. Repeat CBC in 3 months (December 23, 2024). Assessment & Plan (10/10/2024 11:14 AM EST): Anemia: Related to folate deficiency. Low folate level at 3.3 Continue folic acid 1 mg daily. Repeat CBC in 3 months (December 23, 2024). Assessment & Plan (10/09/2024 3:08 PM EST): Anemia: Related to folate deficiency. Low folate level at 3.3 Continue folic acid 1 mg daily. Repeat CBC in 3 months (December 23, 2024). Assessment & Plan (10/08/2024 3:20 PM EST): Anemia: Related to folate deficiency. Low folate level at 3.3 Continue folic acid 1 mg daily. Repeat CBC in 3 months (December 23, 2024). Assessment & Plan (10/07/2024 5:08 PM EST): Anemia: Related to folate deficiency. Low folate level at 3.3 Continue folic acid 1 mg daily. Repeat CBC in 3 months (December 23, 2024). Assessment & Plan (10/06/2024 12:33 PM EST): Anemia: Related to folate deficiency. Low folate level at 3.3 Continue folic acid 1 mg daily. Repeat CBC in 3 months (December 23, 2024). Assessment & Plan (10/05/2024 3:12 PM EST): Anemia: Related to folate deficiency. Low folate level at 3.3 Started folic acid 1 mg daily. Repeat CBC in 3 months (December 23, 2024). Assessment & Plan (10/04/2024 7:45 AM EST): Anemia: Related to folate deficiency. Low folate level at 3.3 Started folic acid 1 mg daily. Repeat CBC in 3 months (December 23, 2024). 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 Low folate level at 3.3 started folic acid 1 mg daily. Repeat CBC in 3 months (December 23, 2024). 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 Low folate level at 3.3 started folic acid 1 mg daily. Repeat CBC in 3 months (December 23, 2024). 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 Low folate level at 3.3 Will start folic acid 1 mg daily. Repeat CBC in 3 months (December 23, 2024). Assessment & Plan (09/23/2024 4:36 PM EST): Slight drop in H&H Will check iron panel, B12, folate Pneumonia due to COVID-19 virus 08/24/2024 Assessment & Plan (09/13/2024 1:00 PM EST): Resolved Assessment & Plan (09/12/2024 11:53 AM EST): Resolved Assessment & Plan (09/09/2024 11:51 AM EST): Resolved Assessment & Plan (09/05/2024 1:51 PM EST): Resolved Assessment & Plan (08/30/2024 8:03 AM EST): COVID-19: She tested positive for COVID and flu on 08/23/24.. As she is immunosuppressed and CXR is suggestive of pneumonia, started on Remdesivir and Tamiflu. Continue supportive care; no evidence of worsening hypoxia or WOB. CO2 17, (08/23) but no evidence of hyperventilation. Recheck WNL at 21. Contact isolation precautions discontinued. Last dose of Tamiflu 08/29. Assessment & Plan (08/29/2024 7:29 AM EST): COVID-19: She tested positive for COVID and flu on 08/23/24.. As she is immunosuppressed and CXR is suggestive of pneumonia, started on Remdesivir and Tamiflu. Continue supportive care; no evidence of worsening hypoxia or WOB. CO2 17, (08/23) but no evidence of hyperventilation. Recheck WNL at 21. Contact isolation precautions discontinued. Last dose of Tamiflu 08/29. Assessment & Plan (08/28/2024 1:43 PM EST): Resolved Assessment & Plan (08/27/2024 2:11 PM EST): She tested positive for COVID and flu on 08/23/24.. As she is immunosuppressed and CXR is suggestive of pneumonia, started on Remdesivir and Tamiflu. Continue supportive care; no evidence of worsening hypoxia or WOB Remdesivir discontinued d/t loss of IV access. Pt asymptomatic Contact isolation precautions; she is being compliant. Assessment & Plan (08/26/2024 12:54 PM EST): She tested positive for COVID and flu on 08/23/24.. As she is immunosuppressed and CXR is suggestive of pneumonia, started on Remdesivir and Tamiflu. Continue supportive care; no evidence of worsening hypoxia or WOB Remdesivir discontinued d/t loss of IV access. Pt asymptomatic Contact isolation precautions; she is being compliant. Assessment & Plan (08/25/2024 9:25 AM EST): COVID-19: She tested positive for COVID and flu on 08/23/24.. As she is immunosuppressed and CXR is suggestive of pneumonia, started on Remdesivir and Tamiflu. Continue supportive care; no evidence of worsening hypoxia or WOB/ CO2 17, (08/23) but no evidence of hyperventilation. Recheck am labs. Contact isolation precautions; she is being compliant. Assessment & Plan (08/24/2024 2:21 PM EST): She tested positive for COVID and flu on 08/23. As she is immunosuppressed and chest x-ray is suggestive of pneumonia, started her on remdesivir Started her on Tamiflu Supportive care Contact isolation precautions Metabolic acidosis, normal anion gap (NAG) 07/29 Assessment & Plan (2024 11:49 AM EST): Normalized. BMP WNL. Patient wished to stop bicarb tabs. CO2 20-23 DC Bicarb tabs. Repeat labs in 1 week 11/20 Assessment & Plan (2024 12:50 AM EST): Normalized. BMP WNL. Patient wished to stop bicarb tabs. DC Bicarb tabs. Assessment & Plan (11/11/2024 11:23 AM EST): Normalized. BMP WNL. Patient wished to stop bicarb tabs. DC Bicarb tabs. BMP 11/12/24 am with thyroid testing reeval at that time. Assessment & Plan (11/10/2024 5:05 PM EST): Normalized. BMP WNL. Patient wished to stop bicarb tabs. DC Bicarb tabs. BMP in 1 week to re-evaluate Assessment & Plan (11/09/2024 10:44 AM EST): Continue sodium bicarb 650mg daily. Repeat labs in a.m. to reevaluate Assessment & Plan (11/08/2024 10:32 AM EST): Continue sodium bicarb 650mg daily. Assessment & Plan (11/07/2024 9:14 AM EST): Continue sodium bicarb 650mg daily. Assessment & Plan (11/06/2024 1:28 PM EST): Continue sodium bicarb 650mg daily. Assessment & Plan (10/31/2024 4:48 PM EST): Continue sodium bicarb 650mg daily. Assessment & Plan (10/30/2024 1:39 PM EST): Continue sodium bicarb 650mg daily. Assessment & Plan (10/29/2024 5:05 PM EST): Continue sodium bicarb 650mg daily. Assessment & Plan (10/28/2024 10:08 AM EST): Continue sodium bicarb 650mg daily. Assessment & Plan (10/27/2024 7:24 AM EST): Continue sodium bicarb 650mg daily. Assessment & Plan (10/26/2024 8:23 AM EST): Continue sodium bicarb 650mg daily. Assessment & Plan (10/24/2024 9:32 AM EST): Continue sodium bicarb 650mg daily. Assessment & Plan (10/23/2024 8:29 AM EST): Continue sodium bicarb 650mg daily. Assessment & Plan (10/13/2024 11:57 AM EST): Continue sodium bicarb every day. Assessment & Plan (10/12/2024 11:33 AM EST): Continue sodium bicarb every day. Assessment & Plan (10/11/2024 10:57 AM EST): Continue sodium bicarb every day. Assessment & Plan (10/10/2024 11:14 AM EST): Continue sodium bicarb every day. Assessment & Plan (10/09/2024 3:08 PM EST): Continue sodium bicarb every day. Assessment & Plan (10/08/2024 3:20 PM EST): Sodium bicarb changed to 3 times a day. Repeat BMP on 10/01/24 CO2 22.-Will repeat tomorrow for monitoring Assessment & Plan (10/07/2024 5:08 PM EST): Sodium bicarb changed to 3 times a day. Repeat BMP on 10/01/24 CO2 22.-Will repeat in 1 week 10/08 Assessment & Plan (10/06/2024 12:34 PM EST): Sodium bicarb changed to 3 times a day. Repeat BMP on 10/01/24 CO2 22.-Will repeat in 1 week 10/08 Assessment & Plan (10/05/2024 3:13 PM EST): Sodium bicarb changed to 3 times a day. Repeat BMP on 10/01/24 CO2 22. Assessment & Plan (10/04/2024 7:50 AM EST): Sodium bicarb changed to 3 times a day. Repeat BMP on 10/01/24 CO2 22. Assessment & Plan (09/26/2024 1:09 PM EST): Sodium bicarb tid Repeat BMP on Monday Assessment & Plan (09/25/2024 4:31 PM EST): sodium bicarb tid Repeat BMP on Monday Assessment & Plan (09/24/2024 4:23 PM EST): sodium bicarb bid Repeat BMP Assessment & Plan (09/23/2024 4:38 PM EST): Will start sodium bicarb bid Repeat BMP Assessment & Plan (08/26/2024 12:53 PM EST): RESOLVED Assessment & Plan (08/25/2024 9:22 AM EST): RESOLVED Assessment & Plan (08/23/2024 7:08 AM EST): RESOLVED Assessment & Plan (08/22/2024 7:21 AM EST): RESOLVED Assessment & Plan (08/21/2024 1:34 PM EST): RESOLVED Assessment & Plan (08/20/2024 5:47 PM EST): RESOLVED Assessment & Plan (08/19/2024 2:45 PM EST): RESOLVED Assessment & Plan (08/18/2024 12:45 PM EST): RESOLVED Assessment & Plan (08/17/2024 10:43 AM EST): RESOLVED Assessment & Plan (08/16/2024 7:07 AM EST): RESOLVED Assessment & Plan (08/15/2024 9:37 AM EST): RESOLVED Assessment & Plan (08/14/2024 2:45 PM EST): Resolved Assessment & Plan (08/13/2024 3:26 PM EST): Resolved Assessment & Plan (08/12/2024 1:22 PM EST): Resolved Assessment & Plan (08/07/2024 2:40 PM EST): Patient with normal anion gap metabolic acidosis with serum bicarbonate 20 and anion gap 15. Encouraged fluid intake Monitor electrolytes Assessment & Plan (08/06/2024 1:33 PM EST): Patient with normal anion gap metabolic acidosis with serum bicarbonate 20 and anion gap 15. Encouraged fluid intake Monitor electrolytes Assessment & Plan (07/29/2024 11:20 AM EST): Patient with normal anion gap metabolic acidosis with serum bicarbonate 20 and anion gap 15. Encouraged fluid intake Monitor electrolytes Hypernatremia 07/14/2024 Assessment & Plan (08/26/2024 12:53 PM EST): Resolved Assessment & Plan (08/25/2024 9:22 AM EST): Hypernatremia: Serum sodium 136 on 08/25/24. Assessment & Plan (08/23/2024 7:08 AM EST): Hypernatremia: Serum sodium 141 on 08/17/24 Assessment & Plan (08/22/2024 7:21 AM EST): Hypernatremia: Serum sodium 141 on 08/17/24 Assessment & Plan (08/21/2024 1:34 PM EST): Hypernatremia: Serum sodium 141 on 08/17/24 Assessment & Plan (08/20/2024 5:47 PM EST): Hypernatremia: Serum sodium 141 on 08/17/24 Assessment & Plan (08/19/2024 2:45 PM EST): Hypernatremia: Serum sodium 141 on 08/17/24 Assessment & Plan (08/18/2024 12:45 PM EST): Hypernatremia: Serum sodium 141 on 08/17/24 Assessment & Plan (08/17/2024 10:43 AM EST): Hypernatremia: Serum sodium 141 on 08/17/24 Assessment & Plan (08/16/2024 7:07 AM EST): Hypernatremia: Serum sodium 137 on 07/27/24 Electrolytes ordered for 08/17. Assessment & Plan (08/15/2024 9:37 AM EST): Hypernatremia: Serum sodium 137 on 07/27/24 Electrolytes ordered for 08/17. Assessment & Plan (08/14/2024 2:45 PM EST): Serum sodium 137 on 07/27/24 Follow up labs 08/17 Assessment & Plan (08/13/2024 3:26 PM EST): Serum sodium 137 on 07/27/24 Follow up labs 08/17 Assessment & Plan (08/12/2024 1:21 PM EST): Serum sodium 137 on 07/27/24 Follow up labs 12/7 Assessment & Plan (08/07/2024 2:40 PM EST): Resolved. Serum sodium 137 on 07/27/24 Assessment & Plan (08/06/2024 1:33 PM EST): Resolved. Serum sodium 137 on 07/27/24 Assessment & Plan (07/29/2024 11:19 AM EST): Resolved. Serum sodium 137 on 07/27/24 Assessment & Plan (07/21/2024 2:41 PM EST): Resolved. Serum sodium 139 on 07/15/24 Assessment & Plan (07/20/2024 11:23 AM EST): Resolved. Serum sodium 139 on 07/15/24 Assessment & Plan (07/19/2024 3:21 PM EST): Resolved. Serum sodium 139 on 07/15/24 Assessment & Plan (07/18/2024 2:57 PM EST): Resolved. Serum sodium 139 on 07/15/24 Assessment & Plan (07/17/2024 9:34 AM EST): Resolved. Serum sodium 139 on 07/15/24 Assessment & Plan (07/16/2024 10:41 AM EST): Resolved. Serum sodium 139 on 07/15/24 Assessment & Plan (07/15/2024 12:55 PM EST): resolved Assessment & Plan (07/14/2024 2:21 PM EST): Na 150 today Will start on D5w 50 ml/hr Monitor BMP daily Paronychia of great toe of right foot 05/31/2024 Assessment & Plan (10/31/2024 4:48 PM EST): Dr. Amezcua will evaluate for podiatry issues on 08/29/25. Assessment & Plan (10/30/2024 1:39 PM EST): Dr. Amezcua will evaluate for podiatry issues on 08/29/25. Assessment & Plan (10/29/2024 5:05 PM EST): Dr. Amezcua will evaluate for podiatry issues on 08/29/25. Assessment & Plan (10/28/2024 10:08 AM EST): Dr. Amezcua will evaluate for podiatry issues on 08/29/25. Assessment & Plan (10/27/2024 7:24 AM EST): Dr. Amezcua will evaluate for podiatry issues on 08/29/25. Plantar tyloma left fifth metatarsal head is debrided with tissue nippers. The hyperkeratotic lesion is debrided and an abscess is encountered with clear exudate of superficial depth and any infected and devitalized tissue was also debrided at this time. The area is additionally cleansed with a 4 x 4 gauze. The base of the full-thickness wound now shows red healthy granular tissue with no other portal of opening. Otherwise wound edges are somewhat macerated in the exposed area of tissue now measures 1 cm x 1 cm in dimension. Recommend continue to monitor toenails for infection on a regular basis and consult podiatry as needed. Assessment & Plan (10/26/2024 8:23 AM EST): Dr. Amezcua will evaluate for podiatry issues on 08/29/25. Plantar tyloma left fifth metatarsal head is debrided with tissue nippers. The hyperkeratotic lesion is debrided and an abscess is encountered with clear exudate of superficial depth and any infected and devitalized tissue was also debrided at this time. The area is additionally cleansed with a 4 x 4 gauze. The base of the full-thickness wound now shows red healthy granular tissue with no other portal of opening. Otherwise wound edges are somewhat macerated in the exposed area of tissue now measures 1 cm x 1 cm in dimension. Recommend continue to monitor toenails for infection on a regular basis and consult podiatry as needed. Assessment & Plan (10/24/2024 9:33 AM EST): Dr. Amezcua will evaluate for podiatry issues on 08/29/25. Plantar tyloma left fifth metatarsal head is debrided with tissue nippers. The hyperkeratotic lesion is debrided and an abscess is encountered with clear exudate of superficial depth and any infected and devitalized tissue was also debrided at this time. The area is additionally cleansed with a 4 x 4 gauze. The base of the full-thickness wound now shows red healthy granular tissue with no other portal of opening. Otherwise wound edges are somewhat macerated in the exposed area of tissue now measures 1 cm x 1 cm in dimension. Recommend continue to monitor toenails for infection on a regular basis and consult podiatry as needed. Assessment & Plan (10/23/2024 8:29 AM EST): Patient was again seen by podiatry on 09/10/2024: Plantar tyloma left fifth metatarsal head is debrided with tissue nippers. The hyperkeratotic lesion is debrided and an abscess is encountered with clear exudate of superficial depth and any infected and devitalized tissue was also debrided at this time. The area is additionally cleansed with a 4 x 4 gauze. The base of the full-thickness wound now shows red healthy granular tissue with no other portal of opening. Otherwise wound edges are somewhat macerated in the exposed area of tissue now measures 1 cm x 1 cm in dimension. Recommend continue to monitor toenails for infection on a regular basis and consult podiatry as needed. Assessment & Plan (10/13/2024 11:57 AM EST): Patient was again seen by podiatry on 09/10/2024: Plantar tyloma left fifth metatarsal head is debrided with tissue nippers. The hyperkeratotic lesion is debrided and an abscess is encountered with clear exudate of superficial depth and any infected and devitalized tissue was also debrided at this time. The area is additionally cleansed with a 4 x 4 gauze. The base of the full-thickness wound now shows red healthy granular tissue with no other portal of opening. Otherwise wound edges are somewhat macerated in the exposed area of tissue now measures 1 cm x 1 cm in dimension. Recommend continue to monitor toenails for infection on a regular basis and consult podiatry as needed. Assessment & Plan (10/12/2024 11:33 AM EST): Patient was again seen by podiatry on 09/10/2024: Plantar tyloma left fifth metatarsal head is debrided with tissue nippers. The hyperkeratotic lesion is debrided and an abscess is encountered with clear exudate of superficial depth and any infected and devitalized tissue was also debrided at this time. The area is additionally cleansed with a 4 x 4 gauze. The base of the full-thickness wound now shows red healthy granular tissue with no other portal of opening. Otherwise wound edges are somewhat macerated in the exposed area of tissue now measures 1 cm x 1 cm in dimension. Recommend continue to monitor toenails for infection on a regular basis and consult podiatry as needed. Assessment & Plan (10/11/2024 10:57 AM EST): Patient was again seen by podiatry on 09/10/2024: Plantar tyloma left fifth metatarsal head is debrided with tissue nippers. The hyperkeratotic lesion is debrided and an abscess is encountered with clear exudate of superficial depth and any infected and devitalized tissue was also debrided at this time. The area is additionally cleansed with a 4 x 4 gauze. The base of the full-thickness wound now shows red healthy granular tissue with no other portal of opening. Otherwise wound edges are somewhat macerated in the exposed area of tissue now measures 1 cm x 1 cm in dimension. Recommend continue to monitor toenails for infection on a regular basis and consult podiatry as needed. Assessment & Plan (10/10/2024 11:14 AM EST): Patient was again seen by podiatry on 09/10/2024: Plantar tyloma left fifth metatarsal head is debrided with tissue nippers. The hyperkeratotic lesion is debrided and an abscess is encountered with clear exudate of superficial depth and any infected and devitalized tissue was also debrided at this time. The area is additionally cleansed with a 4 x 4 gauze. The base of the full-thickness wound now shows red healthy granular tissue with no other portal of opening. Otherwise wound edges are somewhat macerated in the exposed area of tissue now measures 1 cm x 1 cm in dimension. Recommend continue to monitor toenails for infection on a regular basis and consult podiatry as needed. Assessment & Plan (10/09/2024 3:07 PM EST): Patient was again seen by podiatry on 09/10/2024: Plantar tyloma left fifth metatarsal head is debrided with tissue nippers. The hyperkeratotic lesion is debrided and an abscess is encountered with clear exudate of superficial depth and any infected and devitalized tissue was also debrided at this time. The area is additionally cleansed with a 4 x 4 gauze. The base of the full-thickness wound now shows red healthy granular tissue with no other portal of opening. Otherwise wound edges are somewhat macerated in the exposed area of tissue now measures 1 cm x 1 cm in dimension. Recommend continue to monitor toenails for infection on a regular basis and consult podiatry as needed. Assessment & Plan (10/08/2024 3:21 PM EST): Patient was again seen by podiatry on 09/10/2024: Plantar tyloma left fifth metatarsal head is debrided with tissue nippers. The hyperkeratotic lesion is debrided and an abscess is encountered with clear exudate of superficial depth and any infected and devitalized tissue was also debrided at this time. The area is additionally cleansed with a 4 x 4 gauze. The base of the full-thickness wound now shows red healthy granular tissue with no other portal of opening. Otherwise wound edges are somewhat macerated in the exposed area of tissue now measures 1 cm x 1 cm in dimension. Recommend continue to monitor toenails for infection on a regular basis and consult podiatry as needed. Assessment & Plan (10/07/2024 5:08 PM EST): Patient was again seen by podiatry on 09/10/2024: Plantar tyloma left fifth metatarsal head is debrided with tissue nippers. The hyperkeratotic lesion is debrided and an abscess is encountered with clear exudate of superficial depth and any infected and devitalized tissue was also debrided at this time. The area is additionally cleansed with a 4 x 4 gauze. The base of the full-thickness wound now shows red healthy granular tissue with no other portal of opening. Otherwise wound edges are somewhat macerated in the exposed area of tissue now measures 1 cm x 1 cm in dimension. Recommend continue to monitor toenails for infection on a regular basis and consult podiatry as needed. Assessment & Plan (10/06/2024 12:34 PM EST): Patient was again seen by podiatry on 09/10/2024: Plantar tyloma left fifth metatarsal head is debrided with tissue nippers. The hyperkeratotic lesion is debrided and an abscess is encountered with clear exudate of superficial depth and any infected and devitalized tissue was also debrided at this time. The area is additionally cleansed with a 4 x 4 gauze. The base of the full-thickness wound now shows red healthy granular tissue with no other portal of opening. Otherwise wound edges are somewhat macerated in the exposed area of tissue now measures 1 cm x 1 cm in dimension. Recommend continue to monitor toenails for infection on a regular basis and consult podiatry as needed. Assessment & Plan (10/05/2024 3:13 PM EST): Patient was again seen by podiatry on 09/10/2024: Plantar tyloma left fifth metatarsal head is debrided with tissue nippers. The hyperkeratotic lesion is debrided and an abscess is encountered with clear exudate of superficial depth and any infected and devitalized tissue was also debrided at this time. The area is additionally cleansed with a 4 x 4 gauze. The base of the full-thickness wound now shows red healthy granular tissue with no other portal of opening. Otherwise wound edges are somewhat macerated in the exposed area of tissue now measures 1 cm x 1 cm in dimension. Recommend continue to monitor toenails for infection on a regular basis and consult podiatry as needed. Assessment & Plan (10/04/2024 7:50 AM EST): Patient was again seen by podiatry on 09/10/2024: Plantar tyloma left fifth metatarsal head is debrided with tissue nippers. The hyperkeratotic lesion is debrided and an abscess is encountered with clear exudate of superficial depth and any infected and devitalized tissue was also debrided at this time. The area is additionally cleansed with a 4 x 4 gauze. The base of the full-thickness wound now shows red healthy granular tissue with no other portal of opening. Otherwise wound edges are somewhat macerated in the exposed area of tissue now measures 1 cm x 1 cm in dimension. Recommend continue to monitor toenails for infection on a regular basis and consult podiatry as needed. Assessment & Plan (09/26/2024 1:09 PM EST): Patient was again seen by podiatry on 09/10/2024: Plantar tyloma left fifth metatarsal head is debrided with tissue nippers. The hyperkeratotic lesion is debrided and an abscess is encountered with clear exudate of superficial depth and any infected and devitalized tissue was also debrided at this time. The area is additionally cleansed with a 4 x 4 gauze. The base of the full-thickness wound now shows red healthy granular tissue with no other portal of opening. Otherwise wound edges are somewhat macerated in the exposed area of tissue now measures 1 cm x 1 cm in dimension. Recommend continue to monitor toenails for infection on a regular basis and consult podiatry as needed Assessment & Plan (09/25/2024 4:31 PM EST): Patient was again seen by podiatry on 09/10/2024: Plantar tyloma left fifth metatarsal head is debrided with tissue nippers. The hyperkeratotic lesion is debrided and an abscess is encountered with clear exudate of superficial depth and any infected and devitalized tissue was also debrided at this time. The area is additionally cleansed with a 4 x 4 gauze. The base of the full-thickness wound now shows red healthy granular tissue with no other portal of opening. Otherwise wound edges are somewhat macerated in the exposed area of tissue now measures 1 cm x 1 cm in dimension. Recommend continue to monitor toenails for infection on a regular basis and consult podiatry as needed Assessment & Plan (09/24/2024 4:23 PM EST): Patient was again seen by podiatry on 09/10/2024: Plantar tyloma left fifth metatarsal head is debrided with tissue nippers. The hyperkeratotic lesion is debrided and an abscess is encountered with clear exudate of superficial depth and any infected and devitalized tissue was also debrided at this time. The area is additionally cleansed with a 4 x 4 gauze. The base of the full-thickness wound now shows red healthy granular tissue with no other portal of opening. Otherwise wound edges are somewhat macerated in the exposed area of tissue now measures 1 cm x 1 cm in dimension. Recommend continue to monitor toenails for infection on a regular basis and consult podiatry as needed Assessment & Plan (09/23/2024 4:36 PM EST): Patient was again seen by podiatry on 09/10/2024: Plantar tyloma left fifth metatarsal head is debrided with tissue nippers. The hyperkeratotic lesion is debrided and an abscess is encountered with clear exudate of superficial depth and any infected and devitalized tissue was also debrided at this time. The area is additionally cleansed with a 4 x 4 gauze. The base of the full-thickness wound now shows red healthy granular tissue with no other portal of opening. Otherwise wound edges are somewhat macerated in the exposed area of tissue now measures 1 cm x 1 cm in dimension. Recommend continue to monitor toenails for infection on a regular basis and consult podiatry as needed Assessment & Plan (09/15/2024 12:44 PM EST): Patient was again seen by podiatry on 09/10/2024: Plantar tyloma left fifth metatarsal head is debrided with tissue nippers. The hyperkeratotic lesion is debrided and an abscess is encountered with clear exudate of superficial depth and any infected and devitalized tissue was also debrided at this time. The area is additionally cleansed with a 4 x 4 gauze. The base of the full-thickness wound now shows red healthy granular tissue with no other portal of opening. Otherwise wound edges are somewhat macerated in the exposed area of tissue now measures 1 cm x 1 cm in dimension. Recommend continue to monitor toenails for infection on a regular basis and consult podiatry as needed Assessment & Plan (09/14/2024 12:00 PM EST): Patient was again seen by podiatry on 09/10/2024: Plantar tyloma left fifth metatarsal head is debrided with tissue nippers. The hyperkeratotic lesion is debrided and an abscess is encountered with clear exudate of superficial depth and any infected and devitalized tissue was also debrided at this time. The area is additionally cleansed with a 4 x 4 gauze. The base of the full-thickness wound now shows red healthy granular tissue with no other portal of opening. Otherwise wound edges are somewhat macerated in the exposed area of tissue now measures 1 cm x 1 cm in dimension. Recommend continue to monitor toenails for infection on a regular basis and consult podiatry as needed Assessment & Plan (09/13/2024 1:00 PM EST): Patient was again seen by podiatry on 09/10/2024: Plantar tyloma left fifth metatarsal head is debrided with tissue nippers. The hyperkeratotic lesion is debrided and an abscess is encountered with clear exudate of superficial depth and any infected and devitalized tissue was also debrided at this time. The area is additionally cleansed with a 4 x 4 gauze. The base of the full-thickness wound now shows red healthy granular tissue with no other portal of opening. Otherwise wound edges are somewhat macerated in the exposed area of tissue now measures 1 cm x 1 cm in dimension. Recommend continue to monitor toenails for infection on a regular basis and consult podiatry as needed Assessment & Plan (09/12/2024 11:54 AM EST): Paronychia: She developed erythema over the lateral edge of nail right #1 toe with pain with some mild serous discharge noted. 05/27/24: Evaluated by Dr. Elias and right great toe lateral nail border was debrided of any paronychia - changes with mild dry hemorrhage and devitalized tissue were noted Her foot felt much better. On 07/29/24, She complains of pain in her right great toe with ambulation, related to recurrent ingrown toenail. She had been seen by Dr. Elias (Podiatry) for right hallux paronychia, during the course of this hospitalization and she had the right big toenail trimmed. She stated that the toenail grew back and it is digging in her skin causing her pain upon ambulation. She was reevaluated by who debrided down the nail borders of the left hallux nail plate to minimize soft tissue and skin fold impingement and risk of infection and paronychia. Assessment & Plan (09/09/2024 1:54 PM EST): Paronychia: She developed erythema over the lateral edge of nail right #1 toe with pain with some mild serous discharge noted. 05/27/24: Evaluated by Dr. Elias and right great toe lateral nail border was debrided of any paronychia - changes with mild dry hemorrhage and devitalized tissue were noted Her foot felt much better. On 07/29/24, She complains of pain in her right great toe with ambulation, related to recurrent ingrown toenail. She had been seen by Dr. Elias (Podiatry) for right hallux paronychia, during the course of this hospitalization and she had the right big toenail trimmed. She stated that the toenail grew back and it is digging in her skin causing her pain upon ambulation. She was reevaluated by who debrided down the nail borders of the left hallux nail plate to minimize soft tissue and skin fold impingement and risk of infection and paronychia. Assessment & Plan (09/09/2024 11:51 AM EST): Paronychia: She developed erythema over the lateral edge of nail right #1 toe with pain with some mild serous discharge noted. 05/27/24: Evaluated by Dr. Elias and right great toe lateral nail border was debrided of any paronychia - changes with mild dry hemorrhage and devitalized tissue were noted Her foot felt much better. On 07/29/24, She complains of pain in her right great toe with ambulation, related to recurrent ingrown toenail. She had been seen by Dr. Elias (Podiatry) for right hallux paronychia, during the course of this hospitalization and she had the right big toenail trimmed. She stated that the toenail grew back and it is digging in her skin causing her pain upon ambulation. She was reevaluated by who debrided down the nail borders of the left hallux nail plate to minimize soft tissue and skin fold impingement and risk of infection and paronychia. Assessment & Plan (09/05/2024 1:51 PM EST): Paronychia: She developed erythema over the lateral edge of nail right #1 toe with pain with some mild serous discharge noted. 05/27/24: Evaluated by Dr. Elias and right great toe lateral nail border was debrided of any paronychia - changes with mild dry hemorrhage and devitalized tissue were noted Her foot felt much better. On 07/29/24, She complains of pain in her right great toe with ambulation, related to recurrent ingrown toenail. She had been seen by Dr. Elias (Podiatry) for right hallux paronychia, during the course of this hospitalization and she had the right big toenail trimmed. She stated that the toenail grew back and it is digging in her skin causing her pain upon ambulation. She was reevaluated by who debrided down the nail borders of the left hallux nail plate to minimize soft tissue and skin fold impingement and risk of infection and paronychia. Assessment & Plan (08/28/2024 1:42 PM EST): Paronychia: She developed erythema over the lateral edge of nail right #1 toe with pain with some mild serous discharge noted. 05/27/24: Evaluated by Dr. Elias and right great toe lateral nail border was debrided of any paronychia - changes with mild dry hemorrhage and devitalized tissue were noted Her foot felt much better. On 07/29/24, She complains of pain in her right great toe with ambulation, related to recurrent ingrown toenail. She had been seen by Dr. Elias (Podiatry) for right hallux paronychia, during the course of this hospitalization and she had the right big toenail trimmed. She stated that the toenail grew back and it is digging in her skin causing her pain upon ambulation. She was reevaluated by who debrided down the nail borders of the left hallux nail plate to minimize soft tissue and skin fold impingement and risk of infection and paronychia. Assessment & Plan (08/27/2024 2:11 PM EST): Paronychia: She developed erythema over the lateral edge of nail right #1 toe with pain with some mild serous discharge noted. 05/27/24: Evaluated by Dr. Elias and right great toe lateral nail border was debrided of any paronychia - changes with mild dry hemorrhage and devitalized tissue were noted Her foot felt much better. On 07/29/24, She complains of pain in her right great toe with ambulation, related to recurrent ingrown toenail. She had been seen by Dr. Elias (Podiatry) for right hallux paronychia, during the course of this hospitalization and she had the right big toenail trimmed. She stated that the toenail grew back and it is digging in her skin causing her pain upon ambulation. She was reevaluated by who debrided down the nail borders of the left hallux nail plate to minimize soft tissue and skin fold impingement and risk of infection and paronychia. Assessment & Plan (08/26/2024 12:53 PM EST): Paronychia: She developed erythema over the lateral edge of nail right #1 toe with pain with some mild serous discharge noted. 05/27/24: Evaluated by Dr. Elias and right great toe lateral nail border was debrided of any paronychia - changes with mild dry hemorrhage and devitalized tissue were noted Her foot felt much better. On 07/29/24, She complains of pain in her right great toe with ambulation, related to recurrent ingrown toenail. She had been seen by Dr. Elias (Podiatry) for right hallux paronychia, during the course of this hospitalization and she had the right big toenail trimmed. She stated that the toenail grew back and it is digging in her skin causing her pain upon ambulation. She was reevaluated by who debrided down the nail borders of the left hallux nail plate to minimize soft tissue and skin fold impingement and risk of infection and paronychia. Assessment & Plan (08/25/2024 9:22 AM EST): Paronychia: She developed erythema over the lateral edge of nail right #1 toe with pain with some mild serous discharge noted. 05/27/24: Evaluated by Dr. Elias and right great toe lateral nail border was debrided of any paronychia - changes with mild dry hemorrhage and devitalized tissue were noted Her foot felt much better. On 07/29/24, She complains of pain in her right great toe with ambulation, related to recurrent ingrown toenail. She had been seen by Dr. Elias (Podiatry) for right hallux paronychia, during the course of this hospitalization and she had the right big toenail trimmed. She stated that the toenail grew back and it is digging in her skin causing her pain upon ambulation. She was reevaluated by who debrided down the nail borders of the left hallux nail plate to minimize soft tissue and skin fold impingement and risk of infection and paronychia. Assessment & Plan (08/23/2024 7:09 AM EST): Paronychia: She developed erythema over the lateral edge of nail right #1 toe with pain with some mild serous discharge noted. 05/27/24: Evaluated by Dr. Elias and right great toe lateral nail border was debrided of any paronychia - changes with mild dry hemorrhage and devitalized tissue were noted Her foot felt much better. On 07/29/24, She complains of pain in her right great toe with ambulation, related to recurrent ingrown toenail. She had been seen by Dr. Elias (Podiatry) for right hallux paronychia, during the course of this hospitalization and she had the right big toenail trimmed. She stated that the toenail grew back and it is digging in her skin causing her pain upon ambulation. She was reevaluated by who debrided down the nail borders of the left hallux nail plate to minimize soft tissue and skin fold impingement and risk of infection and paronychia. Assessment & Plan (08/22/2024 7:21 AM EST): Paronychia: She developed erythema over the lateral edge of nail right #1 toe with pain with some mild serous discharge noted. 05/27/24: Evaluated by Dr. Elias and right great toe lateral nail border was debrided of any paronychia - changes with mild dry hemorrhage and devitalized tissue were noted Her foot felt much better. On 07/29/24, She complains of pain in her right great toe with ambulation, related to recurrent ingrown toenail. She had been seen by Dr. Elias (Podiatry) for right hallux paronychia, during the course of this hospitalization and she had the right big toenail trimmed. She stated that the toenail grew back and it is digging in her skin causing her pain upon ambulation. She was reevaluated by who debrided down the nail borders of the left hallux nail plate to minimize soft tissue and skin fold impingement and risk of infection and paronychia. Assessment & Plan (08/21/2024 1:34 PM EST): Paronychia: She developed erythema over the lateral edge of nail right #1 toe with pain with some mild serous discharge noted. 05/27/24: Evaluated by Dr. Elias and right great toe lateral nail border was debrided of any paronychia - changes with mild dry hemorrhage and devitalized tissue were noted Her foot felt much better. On 07/29/24, She complains of pain in her right great toe with ambulation, related to recurrent ingrown toenail. She had been seen by Dr. Elias (Podiatry) for right hallux paronychia, during the course of this hospitalization and she had the right big toenail trimmed. She stated that the toenail grew back and it is digging in her skin causing her pain upon ambulation. She was reevaluated by who debrided down the nail borders of the left hallux nail plate to minimize soft tissue and skin fold impingement and risk of infection and paronychia. Assessment & Plan (08/20/2024 5:47 PM EST): Paronychia: She developed erythema over the lateral edge of nail right #1 toe with pain with some mild serous discharge noted. 05/27/24: Evaluated by Dr. Elias and right great toe lateral nail border was debrided of any paronychia - changes with mild dry hemorrhage and devitalized tissue were noted Her foot felt much better. On 07/29/24, She complains of pain in her right great toe with ambulation, related to recurrent ingrown toenail. She had been seen by Dr. Elias (Podiatry) for right hallux paronychia, during the course of this hospitalization and she had the right big toenail trimmed. She stated that the toenail grew back and it is digging in her skin causing her pain upon ambulation. She was reevaluated by who debrided down the nail borders of the left hallux nail plate to minimize soft tissue and skin fold impingement and risk of infection and paronychia. Assessment & Plan (08/19/2024 2:45 PM EST): Paronychia: She developed erythema over the lateral edge of nail right #1 toe with pain with some mild serous discharge noted. 05/27/24: Evaluated by Dr. Elias and right great toe lateral nail border was debrided of any paronychia - changes with mild dry hemorrhage and devitalized tissue were noted Her foot felt much better. On 07/29/24, She complains of pain in her right great toe with ambulation, related to recurrent ingrown toenail. She had been seen by Dr. Elias (Podiatry) for right hallux paronychia, during the course of this hospitalization and she had the right big toenail trimmed. She stated that the toenail grew back and it is digging in her skin causing her pain upon ambulation. She was reevaluated by who debrided down the nail borders of the left hallux nail plate to minimize soft tissue and skin fold impingement and risk of infection and paronychia. Assessment & Plan (08/18/2024 12:45 PM EST): Paronychia: She developed erythema over the lateral edge of nail right #1 toe with pain with some mild serous discharge noted. 05/27/24: Evaluated by Dr. Elias and right great toe lateral nail border was debrided of any paronychia - changes with mild dry hemorrhage and devitalized tissue were noted Her foot felt much better. On 07/29/24, She complains of pain in her right great toe with ambulation, related to recurrent ingrown toenail. She had been seen by Dr. Elias (Podiatry) for right hallux paronychia, during the course of this hospitalization and she had the right big toenail trimmed. She stated that the toenail grew back and it is digging in her skin causing her pain upon ambulation. She was reevaluated by who debrided down the nail borders of the left hallux nail plate to minimize soft tissue and skin fold impingement and risk of infection and paronychia. Assessment & Plan (08/17/2024 10:44 AM EST): Paronychia: She developed erythema over the lateral edge of nail right #1 toe with pain with some mild serous discharge noted. 05/27/24: Evaluated by Dr. Elias and right great toe lateral nail border was debrided of any paronychia - changes with mild dry hemorrhage and devitalized tissue were noted Her foot felt much better. On 07/29/24, She complains of pain in her right great toe with ambulation, related to recurrent ingrown toenail. She had been seen by Dr. Elias (Podiatry) for right hallux paronychia, during the course of this hospitalization and she had the right big toenail trimmed. She stated that the toenail grew back and it is digging in her skin causing her pain upon ambulation. She was reevaluated by who debrided down the nail borders of the left hallux nail plate to minimize soft tissue and skin fold impingement and risk of infection and paronychia. Assessment & Plan (08/16/2024 7:07 AM EST): Paronychia: She developed erythema over the lateral edge of nail right #1 toe with pain with some mild serous discharge noted. 05/27/24: Evaluated by Dr. Elias and right great toe lateral nail border was debrided of any paronychia - changes with mild dry hemorrhage and devitalized tissue were noted Her foot felt much better. On 07/29/24, She complains of pain in her right great toe with ambulation, related to recurrent ingrown toenail. She had been seen by Dr. Elias (Podiatry) for right hallux paronychia, during the course of this hospitalization and she had the right big toenail trimmed. She stated that the toenail grew back and it is digging in her skin causing her pain upon ambulation. She was reevaluated by who debrided down the nail borders of the left hallux nail plate to minimize soft tissue and skin fold impingement and risk of infection and paronychia. Assessment & Plan (08/15/2024 9:38 AM EST): Paronychia: She developed erythema over the lateral edge of nail right #1 toe with pain with some mild serous discharge noted. 05/27/24: Evaluated by Dr. Elias and right great toe lateral nail border was debrided of any paronychia - changes with mild dry hemorrhage and devitalized tissue were noted Her foot felt much better. On 07/29/24, She complains of pain in her right great toe with ambulation, related to recurrent ingrown toenail. She had been seen by Dr. Elias (Podiatry) for right hallux paronychia, during the course of this hospitalization and she had the right big toenail trimmed. She stated that the toenail grew back and it is digging in her skin causing her pain upon ambulation. She was reevaluated by who debrided down the nail borders of the left hallux nail plate to minimize soft tissue and skin fold impingement and risk of infection and paronychia. Assessment & Plan (08/14/2024 2:45 PM EST): Paronychia: She developed erythema over the lateral edge of nail right #1 toe with pain with some mild serous discharge noted. 05/27/24: Evaluated by Dr. Elias and right great toe lateral nail border was debrided of any paronychia - changes with mild dry hemorrhage and devitalized tissue were noted Her foot felt much better. On 07/29/24, She complains of pain in her right great toe with ambulation, related to recurrent ingrown toenail. She had been seen by Dr. Elias (Podiatry) for right hallux paronychia, during the course of this hospitalization and she had the right big toenail trimmed. She stated that the toenail grew back and it is digging in her skin causing her pain upon ambulation. She was reevaluated by who debrided down the nail borders of the left hallux nail plate to minimize soft tissue and skin fold impingement and risk of infection and paronychia. Assessment & Plan (08/13/2024 3:26 PM EST): Paronychia: She developed erythema over the lateral edge of nail right #1 toe with pain with some mild serous discharge noted. 05/27/24: Evaluated by Dr. Elias and right great toe lateral nail border was debrided of any paronychia - changes with mild dry hemorrhage and devitalized tissue were noted Her foot felt much better. On 07/29/24, She complains of pain in her right great toe with ambulation, related to recurrent ingrown toenail. She had been seen by Dr. Elias (Podiatry) for right hallux paronychia, during the course of this hospitalization and she had the right big toenail trimmed. She stated that the toenail grew back and it is digging in her skin causing her pain upon ambulation. She was reevaluated by who debrided down the nail borders of the left hallux nail plate to minimize soft tissue and skin fold impingement and risk of infection and paronychia. Assessment & Plan (08/12/2024 1:22 PM EST): Paronychia: She developed erythema over the lateral edge of nail right #1 toe with pain with some mild serous discharge noted. 05/27/24: Evaluated by Dr. Elias and right great toe lateral nail border was debrided of any paronychia - changes with mild dry hemorrhage and devitalized tissue were noted Her foot felt much better. On 07/29/24, She complains of pain in her right great toe with ambulation, related to recurrent ingrown toenail. She had been seen by Dr. Elias (Podiatry) for right hallux paronychia, during the course of this hospitalization and she had the right big toenail trimmed. She stated that the toenail grew back and it is digging in her skin causing her pain upon ambulation. She was reevaluated by who debrided down the nail borders of the left hallux nail plate to minimize soft tissue and skin fold impingement and risk of infection and paronychia. Assessment & Plan (08/07/2024 2:40 PM EST): Paronychia: She developed erythema over the lateral edge of nail right #1 toe with pain with some mild serous discharge noted. 05/27/24: Evaluated by Dr. Elias and right great toe lateral nail border was debrided of any paronychia - changes with mild dry hemorrhage and devitalized tissue were noted Her foot felt much better. On 07/29/24, She complains of pain in her right great toe with ambulation, related to recurrent ingrown toenail. She had been seen by Dr. Elias (Podiatry) for right hallux paronychia, during the course of this hospitalization and she had the right big toenail trimmed. She stated that the toenail grew back and it is digging in her skin causing her pain upon ambulation. She was reevaluated by who debrided down the nail borders of the left hallux nail plate to minimize soft tissue and skin fold impingement and risk of infection and paronychia. Assessment & Plan (08/06/2024 1:34 PM EST): Paronychia: She developed erythema over the lateral edge of nail right #1 toe with pain with some mild serous discharge noted. 05/27/24: Evaluated by Dr. Elias and right great toe lateral nail border was debrided of any paronychia - changes with mild dry hemorrhage and devitalized tissue were noted Her foot felt much better. On 07/29/24, She complains of pain in her right great toe with ambulation, related to recurrent ingrown toenail. She had been seen by Dr. Elias (Podiatry) for right hallux paronychia, during the course of this hospitalization and she had the right big toenail trimmed. She stated that the toenail grew back and it is digging in her skin causing her pain upon ambulation. She was reevaluated by who debrided down the nail borders of the left hallux nail plate to minimize soft tissue and skin fold impingement and risk of infection and paronychia. Assessment & Plan (07/29/2024 11:24 AM EST): Paronychia: She developed erythema over the lateral edge of nail right #1 toe with pain with some mild serous discharge noted. 05/27/24: Evaluated by Dr. Elias and right great toe lateral nail border was debrided of any paronychia - changes with mild dry hemorrhage and devitalized tissue were noted Her foot felt much better. This morning 07/29/24, She complains of pain in her right great toe with ambulation, related to recurrent ingrown toenail. She had been seen by Dr. Elias (Podiatry) for right hallux paronychia, during the course of this hospitalization and she had the right big toenail trimmed. She states that the toenail grew back and it is digging in her skin causing her pain upon ambulation. I will reconsult Dr. Elias Assessment & Plan (07/21/2024 2:40 PM EST): Paronychia: She developed erythema over the lateral edge of nail right #1 toe with pain with some mild serous discharge noted. 05/27/24: Evaluated by Dr. Elias and right great toe lateral nail border was debrided of any paronychia changes with mild dry hemorrhage and devitalized tissue. She indicates that her foot feels much better. -Resolved. Assessment & Plan (07/20/2024 11:23 AM EST): Paronychia: She developed erythema over the lateral edge of nail right #1 toe with pain with some mild serous discharge noted. 05/27/24: Evaluated by Dr. Elias and right great toe lateral nail border was debrided of any paronychia changes with mild dry hemorrhage and devitalized tissue. She indicates that her foot feels much better. Assessment & Plan (07/19/2024 3:22 PM EST): Paronychia: She developed erythema over the lateral edge of nail right #1 toe with pain with some mild serous discharge noted. 05/27/24: Evaluated by Dr. Elias and right great toe lateral nail border was debrided of any paronychia changes with mild dry hemorrhage and devitalized tissue. She indicates that her foot feels much better. Assessment & Plan (07/18/2024 2:57 PM EST): Paronychia: She developed erythema over the lateral edge of nail right #1 toe with pain with some mild serous discharge noted. 05/27/24: Evaluated by Dr. Elias and right great toe lateral nail border was debrided of any paronychia changes with mild dry hemorrhage and devitalized tissue. She indicates that her foot feels much better. Assessment & Plan (07/17/2024 9:34 AM EST): Paronychia: She developed erythema over the lateral edge of nail right #1 toe with pain with some mild serous discharge noted. 05/27/24: Evaluated by Dr. Elias and right great toe lateral nail border was debrided of any paronychia changes with mild dry hemorrhage and devitalized tissue. She indicates that her foot feels much better. Assessment & Plan (07/16/2024 10:41 AM EST): Paronychia: She developed erythema over the lateral edge of nail right #1 toe with pain with some mild serous discharge noted. 05/27/24: Evaluated by Dr. Elias and right great toe lateral nail border was debrided of any paronychia changes with mild dry hemorrhage and devitalized tissue. She indicates that her foot feels much better. Assessment & Plan (07/15/2024 12:55 PM EST): Paronychia: She developed erythema over the lateral edge of nail right #1 toe with pain with some mild serous discharge noted. 05/27/24: Evaluated by Dr. Elias and right great toe lateral nail border was debrided of any paronychia changes with mild dry hemorrhage and devitalized tissue. Indicates her foot feels much better. Assessment & Plan (07/14/2024 2:21 PM EST): Paronychia: She developed erythema over the lateral edge of nail right #1 toe with pain with some mild serous discharge noted. 05/27/24: Evaluated by Dr. Elias and right great toe lateral nail border was debrided of any paronychia changes with mild dry hemorrhage and devitalized tissue. Indicates her foot feels much better. Assessment & Plan (07/13/2024 1:02 PM EDT): Paronychia: She developed erythema over the lateral edge of nail right #1 toe with pain with some mild serous discharge noted. 05/27/24: Evaluated by Dr. Elias and right great toe lateral nail border was debrided of any paronychia changes with mild dry hemorrhage and devitalized tissue. Indicates her foot feels much better. Assessment & Plan (07/04/2024 12:42 PM EDT): Paronychia: Erythema lateral edge of nail right #1 toe with pain with some mild serous discharge noted. 05/27/24: Evaluated by Dr. Elias and right great toe lateral nail border was debrided of any paronychia changes with mild dry hemorrhage and devitalized tissue. Indicates her foot feels much better. 07/03/24: Discussed with Dr Elias. Will evaluate. Assessment & Plan (07/03/2024 11:26 AM EDT): Paronychia: Erythema lateral edge of nail right #1 toe with pain with some mild serous discharge noted. 05/27/24: Evaluated by Dr. Elias and right great toe lateral nail border was debrided of any paronychia changes with mild dry hemorrhage and devitalized tissue. Indicates her foot feels much better. 07/03/24: Discussed with Dr Elias. Will evaluate. Assessment & Plan (07/02/2024 11:22 AM EDT): Paronychia: Erythema lateral edge of nail right #1 toe with pain with some mild serous discharge noted. 05/27/24: Evaluated by Dr. Elias and right great toe lateral nail border was debrided of any paronychia changes with mild dry hemorrhage and devitalized tissue. Indicates her foot feels much better. Assessment & Plan (07/01/2024 7:36 AM EDT): Paronychia: Erythema lateral edge of nail right #1 toe with pain with some mild serous discharge noted. 05/27/24: Evaluated by Dr. Elias and right great toe lateral nail border was debrided of any paronychia changes with mild dry hemorrhage and devitalized tissue. Indicates her foot feels much better. Assessment & Plan (06/30/2024 9:22 AM EDT): Paronychia: Erythema lateral edge of nail right #1 toe with pain with some mild serous discharge noted. 05/27/24: Evaluated by Dr. Elias and right great toe lateral nail border was debrided of any paronychia changes with mild dry hemorrhage and devitalized tissue. Assessment & Plan (06/08/2024 6:05 PM EDT): Erythema lateral edge of nail with pain with some mild serous discharge noted Wound Cx pending Start on PO Keflex 500 mg 4 times a day Consult placed to podiatry- to evaluate on Monday Assessment & Plan (06/02/2024 4:49 PM EDT): Erythema lateral edge of nail with pain with some mild serous discharge noted Wound Cx pending Start on PO Keflex 500 mg 4 times a day Consult placed to podiatry- to evaluate on Monday Assessment & Plan (06/01/2024 3:22 PM EDT): Erythema lateral edge of nail with pain with some mild serous discharge noted Wound Cx pending Start on PO Keflex 500 mg 4 times a day Consult placed to podiatry- to evaluate on Monday Assessment & Plan (05/31/2024 2:45 PM EDT): Erythema lateral edge of nail with pain with some mild serous discharge noted Will Cx wound Start on PO Keflex 500 mg 4 times a day Consult placed to podiatry Chronic jaw pain 05/11/2024 Overview (05/11/2024): Jaw Pain: C/O left-sided jaw pain, persistent since a fall in April 2024. Check xray to assess for injury. Jaw symmetrical, no lymphadenopathy, no click, no dysphagia on exam. Assessment & Plan (09/15/2024 12:44 PM EST): C/O left-sided jaw pain, persistent since a fall in April 2024. She indicated she thought she had lock jaw a few years ago and describes a crunching sound. Possibly ongoing prior to fall in Apr. Likely related to TMJ and may need to follow up with ENT. Asymptomatic at present Supportive care at this time. Assessment & Plan (09/14/2024 12:00 PM EST): C/O left-sided jaw pain, persistent since a fall in April 2024. She indicated she thought she had lock jaw a few years ago and describes a crunching sound. Possibly ongoing prior to fall in Apr. Likely related to TMJ and may need to follow up with ENT. Asymptomatic at present Supportive care at this time. Assessment & Plan (09/13/2024 12:56 PM EST): C/O left-sided jaw pain, persistent since a fall in April 2024. She indicated she thought she had lock jaw a few years ago and describes a crunching sound. Possibly ongoing prior to fall in Apr. Likely related to TMJ and may need to follow up with ENT. Asymptomatic at present Supportive care at this time. Assessment & Plan (09/12/2024 11:54 AM EST): C/O left-sided jaw pain, persistent since a fall in April 2024. She indicated she thought she had lock jaw a few years ago and describes a crunching sound. Possibly ongoing prior to fall in Apr. Likely related to TMJ and may need to follow up with ENT. Asymptomatic at present Supportive care at this time. Assessment & Plan (09/11/2024 1:41 PM EST): C/O left-sided jaw pain, persistent since a fall in April 2024. She indicated she thought she had lock jaw a few years ago and describes a crunching sound. Possibly ongoing prior to fall in Apr. Likely related to TMJ and may need to follow up with ENT. Asymptomatic at present Supportive care at this time. Assessment & Plan (09/10/2024 12:56 PM EST): C/O left-sided jaw pain, persistent since a fall in April 2024. She indicated she thought she had lock jaw a few years ago and describes a crunching sound. Possibly ongoing prior to fall in Apr. Likely related to TMJ and may need to follow up with ENT. Asymptomatic at present Supportive care at this time. Assessment & Plan (09/09/2024 11:51 AM EST): C/O left-sided jaw pain, persistent since a fall in April 2024. She indicated she thought she had lock jaw a few years ago and describes a crunching sound. Possibly ongoing prior to fall in Apr. Likely related to TMJ and may need to follow up with ENT. Asymptomatic at present Supportive care at this time. Assessment & Plan (09/08/2024 2:26 PM EST): C/O left-sided jaw pain, persistent since a fall in April 2024. She indicated she thought she had lock jaw a few years ago and describes a crunching sound. Possibly ongoing prior to fall in Apr. Likely related to TMJ and may need to follow up with ENT. Asymptomatic at present Supportive care at this time. Assessment & Plan (09/05/2024 1:50 PM EST): C/O left-sided jaw pain, persistent since a fall in April 2024. She indicated she thought she had lock jaw a few years ago and describes a crunching sound. Possibly ongoing prior to fall in Apr. - Likely related to TMJ and may need to follow up with ENT. - Asymptomatic at present - Supportive care at this time. Assessment & Plan (08/30/2024 8:02 AM EST): Chronic Jaw Pain: C/O left-sided jaw pain, persistent since a fall in April 2024. She indicated she thought she had lock jaw a few years ago and describes a crunching sound. Possibly ongoing prior to fall in Apr. Likely related to TMJ and may need to follow up with ENT. Asymptomatic at present Supportive care at this time. Assessment & Plan (08/29/2024 7:26 AM EST): Chronic Jaw Pain: C/O left-sided jaw pain, persistent since a fall in April 2024. She indicated she thought she had lock jaw a few years ago and describes a crunching sound. Possibly ongoing prior to fall in Apr. Likely related to TMJ and may need to follow up with ENT. Asymptomatic at present Supportive care at this time. Assessment & Plan (08/28/2024 1:42 PM EST): C/O left-sided jaw pain, persistent since a fall in April 2024. She indicated she thought she had lock jaw a few years ago and describes a crunching sound. Possibly ongoing prior to fall in Apr. Likely related to TMJ and may need to follow up with ENT. Asymptomatic at present Supportive care at this time. Assessment & Plan (08/27/2024 2:10 PM EST): C/O left-sided jaw pain, persistent since a fall in April 2024. She indicated she thought she had lock jaw a few years ago and describes a crunching sound. Possibly ongoing prior to fall in Apr. Likely related to TMJ and may need to follow up with ENT. Asymptomatic at present Supportive care at this time. Assessment & Plan (08/26/2024 12:53 PM EST): C/O left-sided jaw pain, persistent since a fall in April 2024. She indicated she thought she had lock jaw a few years ago and describes a crunching sound. Possibly ongoing prior to fall in Apr. Likely related to TMJ and may need to follow up with ENT. Asymptomatic at present Supportive care at this time. Assessment & Plan (08/25/2024 9:21 AM EST): Chronic Jaw Pain: C/O left-sided jaw pain, persistent since a fall in April 2024. She indicated she thought she had lock jaw a few years ago and describes a crunching sound. Possibly ongoing prior to fall in Apr. Likely related to TMJ and may need to follow up with ENT. Asymptomatic at present Supportive care at this time. Assessment & Plan (08/23/2024 7:08 AM EST): Chronic Jaw Pain: C/O left-sided jaw pain, persistent since a fall in April 2024. She indicated she thought she had lock jaw a few years ago and describes a crunching sound. Possibly ongoing prior to fall in Apr. Likely related to TMJ and may need to follow up with ENT. Asymptomatic at present Supportive care at this time. Assessment & Plan (08/22/2024 7:21 AM EST): Chronic Jaw Pain: C/O left-sided jaw pain, persistent since a fall in April 2024. She indicated she thought she had lock jaw a few years ago and describes a crunching sound. Possibly ongoing prior to fall in Apr. Likely related to TMJ and may need to follow up with ENT. Asymptomatic at present Supportive care at this time. Assessment & Plan (08/21/2024 1:34 PM EST): Chronic Jaw Pain: C/O left-sided jaw pain, persistent since a fall in April 2024. She indicated she thought she had lock jaw a few years ago and describes a crunching sound. Possibly ongoing prior to fall in Apr. Likely related to TMJ and may need to follow up with ENT. Asymptomatic at present Supportive care Assessment & Plan (08/20/2024 5:47 PM EST): Chronic Jaw Pain: C/O left-sided jaw pain, persistent since a fall in April 2024. She indicated she thought she had lock jaw a few years ago and describes a crunching sound. Possibly ongoing prior to fall in Apr. Likely related to TMJ and may need to follow up with ENT. Asymptomatic at present Supportive care Assessment & Plan (08/19/2024 2:45 PM EST): Chronic Jaw Pain: C/O left-sided jaw pain, persistent since a fall in April 2024. She indicated she thought she had lock jaw a few years ago and describes a crunching sound. Possibly ongoing prior to fall in Apr. Likely related to TMJ and may need to follow up with ENT. Asymptomatic at present Supportive care Assessment & Plan (08/18/2024 12:44 PM EST): Chronic Jaw Pain: C/O left-sided jaw pain, persistent since a fall in April 2024. She indicated she thought she had lock jaw a few years ago and describes a crunching sound. Possibly ongoing prior to fall in Apr. Likely related to TMJ and may need to follow up with ENT. Asymptomatic at present Supportive care Assessment & Plan (08/17/2024 10:43 AM EST): Chronic Jaw Pain: C/O left-sided jaw pain, persistent since a fall in April 2024. She indicated she thought she had lock jaw a few years ago and describes a crunching sound. Possibly ongoing prior to fall in Apr. Likely related to TMJ and may need to follow up with ENT. Asymptomatic at present Supportive care Assessment & Plan (08/16/2024 7:07 AM EST): Chronic Jaw Pain: C/O left-sided jaw pain, persistent since a fall in April 2024. She indicated she thought she had lock jaw a few years ago and describes a crunching sound. Possibly ongoing prior to fall in Apr. Likely related to TMJ and may need to follow up with ENT. Supportive care at this time Assessment & Plan (08/15/2024 9:36 AM EST): Chronic Jaw Pain: C/O left-sided jaw pain, persistent since a fall in April 2024. She indicated she thought she had lock jaw a few years ago and describes a crunching sound. Possibly ongoing prior to fall in Apr. Likely related to TMJ and may need to follow up with ENT. Supportive care at this time Assessment & Plan (08/14/2024 2:45 PM EST): Chronic Jaw Pain: C/O left-sided jaw pain, persistent since a fall in April 2024. She indicated she thought she had lock jaw a few years ago and describes a crunching sound. Possibly ongoing prior to fall in Apr. Likely related to TMJ and may need to follow up with ENT. Supportive care at this time Assessment & Plan (08/13/2024 3:26 PM EST): Chronic Jaw Pain: C/O left-sided jaw pain, persistent since a fall in April 2024. She indicated she thought she had lock jaw a few years ago and describes a crunching sound. Possibly ongoing prior to fall in Apr. Likely related to TMJ and may need to follow up with ENT. Supportive care at this time Assessment & Plan (08/12/2024 1:21 PM EST): Chronic Jaw Pain: C/O left-sided jaw pain, persistent since a fall in April 2024. She indicated she thought she had lock jaw a few years ago and describes a crunching sound. Possibly ongoing prior to fall in Apr. Likely related to TMJ and may need to follow up with ENT. Supportive care at this time Assessment & Plan (08/07/2024 2:40 PM EST): Chronic Jaw Pain: C/O left-sided jaw pain, persistent since a fall in April 2024. She indicated she thought she had lock jaw a few years ago and describes a crunching sound. Possibly ongoing prior to fall in Apr. Likely related to TMJ and may need to follow up with ENT. Supportive care at this time Assessment & Plan (08/06/2024 1:32 PM EST): Chronic Jaw Pain: C/O left-sided jaw pain, persistent since a fall in April 2024. She indicated she thought she had lock jaw a few years ago and describes a crunching sound. Possibly ongoing prior to fall in Apr. Likely related to TMJ and may need to follow up with ENT. Supportive care at this time Assessment & Plan (07/29/2024 11:19 AM EST): Chronic Jaw Pain: C/O left-sided jaw pain, persistent since a fall in April 2024. She indicated she thought she had lock jaw a few years ago and describes a crunching sound. Possibly ongoing prior to fall in Apr. Likely related to TMJ and may need to follow up with ENT. Supportive care at this time Assessment & Plan (07/21/2024 2:40 PM EST): Chronic Jaw Pain: C/O left-sided jaw pain, persistent since a fall in April 2024. She indicated she thought she had lock jaw a few years ago and describes a crunching sound. Possibly ongoing prior to fall in Apr. Likely related to TMJ and may need to follow up with ENT. Supportive care at this time Assessment & Plan (07/20/2024 11:23 AM EST): Chronic Jaw Pain: C/O left-sided jaw pain, persistent since a fall in April 2024. She indicated she thought she had lock jaw a few years ago and describes a crunching sound. Possibly ongoing prior to fall in Apr. Likely related to TMJ and may need to follow up with ENT. Supportive care at this time Assessment & Plan (07/19/2024 3:21 PM EST): Chronic Jaw Pain: C/O left-sided jaw pain, persistent since a fall in April 2024. She indicated she thought she had lock jaw a few years ago and describes a crunching sound. Possibly ongoing prior to fall in Apr. Likely related to TMJ and may need to follow up with ENT. Supportive care at this time Assessment & Plan (07/18/2024 2:57 PM EST): Chronic Jaw Pain: C/O left-sided jaw pain, persistent since a fall in April 2024. She indicated she thought she had lock jaw a few years ago and describes a crunching sound. Possibly ongoing prior to fall in Apr. Likely related to TMJ and may need to follow up with ENT. Supportive care at this time Assessment & Plan (07/17/2024 9:34 AM EST): Chronic Jaw Pain: C/O left-sided jaw pain, persistent since a fall in April 2024. She indicated she thought she had lock jaw a few years ago and describes a crunching sound. Possibly ongoing prior to fall in Apr. Likely related to TMJ and may need to follow up with ENT. Supportive care at this time Assessment & Plan (07/16/2024 10:40 AM EST): Chronic Jaw Pain: C/O left-sided jaw pain, persistent since a fall in April 2024. She indicated she thought she had lock jaw a few years ago and describes a crunching sound. Possibly ongoing prior to fall in Apr. Likely related to TMJ and may need to follow up with ENT. Supportive care at this time Assessment & Plan (07/15/2024 12:55 PM EST): Chronic Jaw Pain: C/O left-sided jaw pain, persistent since a fall in April 2024. She indicated she thought she had lock jaw a few years ago and describes a crunching sound. Possibly ongoing prior to fall in Apr. Likely related to TMJ and may need to follow up with ENT. Supportive care at this time Assessment & Plan (07/14/2024 2:20 PM EST): Chronic Jaw Pain: C/O left-sided jaw pain, persistent since a fall in April 2024. She indicated she thought she had lock jaw a few years ago and describes a crunching sound. Possibly ongoing prior to fall in Apr. Likely related to TMJ and may need to follow up with ENT. Supportive care at this time Assessment & Plan (07/13/2024 1:00 PM EDT): Chronic Jaw Pain: C/O left-sided jaw pain, persistent since a fall in April 2024. She indicated she thought she had lock jaw a few years ago and describes a crunching sound. Possibly ongoing prior to fall in Apr. Likely related to TMJ and may need to follow up with ENT. Supportive care at this time Assessment & Plan (07/04/2024 12:42 PM EDT): Chronic Jaw Pain: C/O left-sided jaw pain, persistent since a fall in April 2024. She indicated she thought she had lock jaw a few years ago and describes a crunching sound. Possibly ongoing prior to fall in Apr. Likely related to TMJ and may need to follow up with ENT. Supportive care at this time Assessment & Plan (07/03/2024 11:25 AM EDT): Chronic Jaw Pain: C/O left-sided jaw pain, persistent since a fall in April 2024. She indicated she thought she had lock jaw a few years ago and describes a crunching sound. Possibly ongoing prior to fall in Apr. Likely related to TMJ and may need to follow up with ENT. Supportive care at this time Assessment & Plan (07/02/2024 11:22 AM EDT): Chronic Jaw Pain: C/O left-sided jaw pain, persistent since a fall in April 2024. She indicated she thought she had lock jaw a few years ago and describes a crunching sound. Possibly ongoing prior to fall in Apr. Likely related to TMJ and may need to follow up with ENT. Supportive care at this time Assessment & Plan (07/01/2024 7:35 AM EDT): Chronic Jaw Pain: C/O left-sided jaw pain, persistent since a fall in April 2024. She indicated she thought she had lock jaw a few years ago and describes a crunching sound. Possibly ongoing prior to fall in Apr. Likely related to TMJ and may need to follow up with ENT. Supportive care at this time Assessment & Plan (06/30/2024 9:13 AM EDT): Chronic Jaw Pain: C/O left-sided jaw pain, persistent since a fall in April 2024. She indicated she thought she had lock jaw a few years ago and describes a crunching sound. Possibly ongoing prior to fall in Apr. Likely related to TMJ and may need to follow up with ENT. Supportive care at this time Assessment & Plan (06/22/2024 3:19 PM EDT): Jaw Pain: C/O left-sided jaw pain, persistent since a fall in April 2024. She indicated she thought she had lock jaw a few years ago and describes a crunching sound. Possibly ongoing prior to fall in Apr. Likely related to TMJ and may need to follow up with ENT. Supportive care at this time Assessment & Plan (06/08/2024 6:04 PM EDT): Jaw Pain: C/O left-sided jaw pain, persistent since a fall in April 2024. She indicated she thought she had lock jaw a few years ago and describes a crunching sound. Possibly ongoing prior to fall in Apr. Likely related to TMJ and may need to follow up with ENT. On exam, Jaw symmetrical, no lymphadenopathy, no click, no dysphagia. Xray reveals no acute fracture, but limited exam, recommends If symptoms persist, consider maxillofacial CT scan. Supportive care at this time Assessment & Plan (06/02/2024 4:49 PM EDT): Jaw Pain: C/O left-sided jaw pain, persistent since a fall in April 2024. She indicated she thought she had lock jaw a few years ago and describes a crunching sound. Possibly ongoing prior to fall in Apr. Likely related to TMJ and may need to follow up with ENT. On exam, Jaw symmetrical, no lymphadenopathy, no click, no dysphagia. Xray reveals no acute fracture, but limited exam, recommends If symptoms persist, consider maxillofacial CT scan. Supportive care at this time Assessment & Plan (06/01/2024 3:22 PM EDT): Jaw Pain: C/O left-sided jaw pain, persistent since a fall in April 2024. She indicated she thought she had lock jaw a few years ago and describes a crunching sound. Possibly ongoing prior to fall in Apr. Likely related to TMJ and may need to follow up with ENT. On exam, Jaw symmetrical, no lymphadenopathy, no click, no dysphagia. Xray reveals no acute fracture, but limited exam, recommends If symptoms persist, consider maxillofacial CT scan. Supportive care at this time Assessment & Plan (05/31/2024 2:45 PM EDT): Jaw Pain: C/O left-sided jaw pain, persistent since a fall in April 2024. She indicated she thought she had lock jaw a few years ago and describes a crunching sound. Possibly ongoing prior to fall in Apr. Likely related to TMJ and may need to follow up with ENT. On exam, Jaw symmetrical, no lymphadenopathy, no click, no dysphagia. Xray reveals no acute fracture, but limited exam, recommends If symptoms persist, consider maxillofacial CT scan. Supportive care at this time Assessment & Plan (05/26/2024 10:16 AM EDT): Jaw Pain: C/O left-sided jaw pain, persistent since a fall in April 2024. She indicated she thought she had lock jaw a few years ago and describes a crunching sound. Possibly ongoing prior to fall in Apr. Likely related to TMJ and may need to follow up with ENT. On exam, Jaw symmetrical, no lymphadenopathy, no click, no dysphagia. Xray reveals no acute fracture, but limited exam, recommends If symptoms persist, consider maxillofacial CT scan. Supportive care at this time Assessment & Plan (05/25/2024 11:25 AM EDT): Jaw Pain: C/O left-sided jaw pain, persistent since a fall in April 2024. She indicated she thought she had lock jaw a few years ago and describes a crunching sound. Possibly ongoing prior to fall in Apr. Likely related to TMJ and may need to follow up with ENT. On exam, Jaw symmetrical, no lymphadenopathy, no click, no dysphagia. Xray reveals no acute fracture, but limited exam, recommends If symptoms persist, consider maxillofacial CT scan. Supportive care at this time Assessment & Plan (05/24/2024 10:42 AM EDT): Jaw Pain: C/O left-sided jaw pain, persistent since a fall in April 2024. She indicated she thought she had lock jaw a few years ago and describes a crunching sound. Possibly ongoing prior to fall in Apr. Likely related to TMJ and may need to follow up with ENT. On exam, Jaw symmetrical, no lymphadenopathy, no click, no dysphagia. Xray reveals no acute fracture, but limited exam, recommends If symptoms persist, consider maxillofacial CT scan. Supportive care at this time Assessment & Plan (05/23/2024 12:16 PM EDT): Jaw Pain: C/O left-sided jaw pain, persistent since a fall in April 2024. She indicated she thought she had lock jaw a few years ago and describes a crunching sound. Possibly ongoing prior to fall in Apr. Likely related to TMJ and may need to follow up with ENT. On exam, Jaw symmetrical, no lymphadenopathy, no click, no dysphagia. Xray reveals no acute fracture, but limited exam, recommends If symptoms persist, consider maxillofacial CT scan. Supportive care at this time Assessment & Plan (05/22/2024 11:26 AM EDT): Jaw Pain: C/O left-sided jaw pain, persistent since a fall in April 2024. She indicated she thought she had lock jaw a few years ago and describes a crunching sound. Possibly ongoing prior to fall in Apr. Likely related to TMJ and may need to follow up with ENT. On exam, Jaw symmetrical, no lymphadenopathy, no click, no dysphagia. Xray reveals no acute fracture, but limited exam, recommends If symptoms persist, consider maxillofacial CT scan. Supportive care at this time Assessment & Plan (05/21/2024 10:48 AM EDT): Jaw Pain: C/O left-sided jaw pain, persistent since a fall in April 2024. She indicated she thought she had lock jaw a few years ago and describes a crunching sound. Possibly ongoing prior to fall in Apr. Likely related to TMJ and may need to follow up with ENT. On exam, Jaw symmetrical, no lymphadenopathy, no click, no dysphagia. Xray reveals no acute fracture, but limited exam, recommends If symptoms persist, consider maxillofacial CT scan. Supportive care at this time Assessment & Plan (05/20/2024 10:44 AM EDT): Jaw Pain: C/O left-sided jaw pain, persistent since a fall in April 2024. She indicated she thought she had lock jaw a few years ago and describes a crunching sound. Possibly ongoing prior to fall in Apr. Likely related to TMJ and may need to follow up with ENT. On exam, Jaw symmetrical, no lymphadenopathy, no click, no dysphagia. Xray reveals no acute fracture, but limited exam, recommends If symptoms persist, consider maxillofacial CT scan. Supportive care at this time Assessment & Plan (05/19/2024 11:50 AM EDT): Jaw Pain: C/O left-sided jaw pain, persistent since a fall in April 2024. She indicated she thought she had lock jaw a few years ago and describes a crunching sound. Possibly ongoing prior to fall in Apr. Likely related to TMJ and may need to follow up with ENT. Check xray to assess for injury. Jaw symmetrical, no lymphadenopathy, no click, no dysphagia on exam. Xray reveals no acute fracture, but limited exam. If symptoms persist, consider maxillofacial CT scan. Assessment & Plan (05/16/2024 4:09 PM EDT): Jaw Pain: C/O left-sided jaw pain, persistent since a fall in April 2024. She indicated she thought she had lock jaw a few years ago and describes a crunching sound. Possibly ongoing prior to fall in Apr. Likely related to TMJ and may need to follow up with ENT. Check xray to assess for injury. Jaw symmetrical, no lymphadenopathy, no click, no dysphagia on exam. Xray reveals no acute fracture, but limited exam. If symptoms persist, consider maxillofacial CT scan. Assessment & Plan (05/14/2024 11:04 AM EDT): Jaw Pain: C/O left-sided jaw pain, persistent since a fall in April 2024. She indicated she thought she had lock jaw a few years ago and describes a crunching sound. Possibly ongoing prior to fall in Apr. Likely related to TMJ and may need to follow up with ENT. Check xray to assess for injury. Jaw symmetrical, no lymphadenopathy, no click, no dysphagia on exam. Xray reveals no acute fracture, but limited exam. If symptoms persist, consider maxillofacial CT scan. Assessment & Plan (05/13/2024 2:42 PM EDT): Jaw Pain: C/O left-sided jaw pain, persistent since a fall in April 2024. She indicated she thought she had lock jaw a few years ago and describes a crunching sound. Possibly ongoing prior to fall in Apr. Likely related to TMJ and may need to follow up with ENT. Check xray to assess for injury. Jaw symmetrical, no lymphadenopathy, no click, no dysphagia on exam. Xray reveals no acute fracture, but limited exam. If symptoms persist, consider maxillofacial CT scan. Assessment & Plan (05/12/2024 8:53 AM EDT): Jaw Pain: C/O left-sided jaw pain, persistent since a fall in April 2024. She indicated she thought she had lock jaw a few years ago and describes a crunching sound. Possibly ongoing prior to fall in Apr. Likely related to TMJ and may need to follow up with ENT. Check xray to assess for injury. Jaw symmetrical, no lymphadenopathy, no click, no dysphagia on exam. Xray reveals no acute fracture, but limited exam. If symptoms persist, consider maxillofacial CT scan. Generalized weakness 04/08/2024 Unable to care for self 04/08/2024 Assessment & Plan (11/21/2024 10:57 AM EDT): Will be discharged on Monday11/23/24 with son. Assessment & Plan (11/20/2024 1:08 PM EDT): Will be discharged on Monday11/23/24 with son. Assessment & Plan (11/19/2024 4:12 PM EDT): CM and SW attempting placement. She needs [facility] for LTC or other community services. [facility] application pending a home sale in [place]. Assessment & Plan (11/18/2024 12:33 PM EDT): CM and SW attempting placement. She needs [facility] for LTC or other community services. [facility] application pending a home sale in [place]. Assessment & Plan (11/17/2024 8:28 AM EDT): Initially presented to the ED after recent discharge home with reports of worsening dementia and inability to manage care at home. According to SW documentation: She wants to return home with her family while waiting for disposition options. Her son disagrees and is currently states if she returns home with his family, she will eventually stop taking her meds, causing untoward behavior. She will start smoking, which they do not want in their home. Son endorses she should not live alone, as she historically has had SI when living independently. CM and SW attempting placement. She needs [facility] for LTC or other community services. [facility] application pending a home sale in [place]. Assessment & Plan (11/15/2024 8:53 AM EST): Initially presented to the ED after recent discharge home with reports of worsening dementia and inability to manage care at home. According to SW documentation: She wants to return home with her family while waiting for disposition options. Her son disagrees and is currently states if she returns home with his family, she will eventually stop taking her meds, causing untoward behavior. She will start smoking, which they do not want in their home. Son endorses she should not live alone, as she historically has had SI when living independently. - CM and [facility] attempting placement. - She needs [facility] for LTC or other community services. - [facility] application pending a home sale in [place]. Assessment & Plan (11/14/2024 11:49 AM EST): Initially presented to the ED after recent discharge home with reports of worsening dementia and inability to manage care at home. According to SW documentation: She wants to return home with her family while waiting for disposition options. Her son disagrees and is currently states if she returns home with his family, she will eventually stop taking her meds, causing untoward behavior. She will start smoking, which they do not want in their home. Son endorses she should not live alone, as she historically has had SI when living independently. - CM and SW attempting placement. - She needs [facility] for LTC or other community services. - [facility] application pending a home sale in [place]. Assessment & Plan (2024 11:48 AM EST): Initially presented to the ED after recent discharge home with reports of worsening dementia and inability to manage care at home. According to SW documentation: She wants to return home with her family while waiting for disposition options. Her son disagrees and is currently states if she returns home with his family, she will eventually stop taking her meds, causing untoward behavior. She will start smoking, which they do not want in their home. Son endorses she should not live alone, as she historically has had SI when living independently. CM and SW attempting placement. She needs [facility] for LTC or other community services. [facility] application pending a home sale in [place]. Possible [place] home w/family vs LTC placement Assessment & Plan (2024 12:50 AM EST): Initially presented to the ED after recent discharge home with reports of worsening dementia and inability to manage care at home. According to SW documentation: She wants to return home with her family while waiting for disposition options. Her son disagrees and is currently states if she returns home with his family, she will eventually stop taking her meds, causing untoward behavior. She will start smoking, which they do not want in their home. Son endorses she should not live alone, as she historically has had SI when living independently. CM and SW attempting placement. She needs [facility] for LTC or other community services. [facility] application pending a home sale in [place]. Possible [place] home w/family vs LTC placement Assessment & Plan (11/11/2024 11:19 AM EST): Initially presented to the ED after recent discharge home with reports of worsening dementia and inability to manage care at home. According to SW documentation: She wants to return home with her family while waiting for disposition options. Her son disagrees and is currently states if she returns home with his family, she will eventually stop taking her meds, causing untoward behavior. She will start smoking, which they do not want in their home. Son endorses she should not live alone, as she historically has had SI when living independently. CM and SW attempting placement. She needs [facility] for LTC or other community services. [facility] application pending a home sale in [place]. Assessment & Plan (11/10/2024 9:39 AM EST): Initially presented to the ED after recent discharge home with reports of worsening dementia and inability to manage care at home. According to SW documentation: She wants to return home with her family while waiting for disposition options. Her son disagrees and is currently states if she returns home with his family, she will eventually stop taking her meds, causing untoward behavior. She will start smoking, which they do not want in their home. Son endorses she should not live alone, as she historically has had SI when living independently. CM and SW attempting placement. She needs [facility] for LTC or other community services. [facility] application pending a home sale in [place]. Assessment & Plan (11/09/2024 10:44 AM EST): Initially presented to the ED after recent discharge home with reports of worsening dementia and inability to manage care at home. According to SW documentation: She wants to return home with her family while waiting for disposition options. Her son disagrees and is currently states if she returns home with his family, she will eventually stop taking her meds, causing untoward behavior. She will start smoking, which they do not want in their home. Son endorses she should not live alone, as she historically has had SI when living independently. CM and SW attempting placement. She needs [facility] for LTC or other community services. [facility] application pending a home sale in [place]. Assessment & Plan (11/08/2024 10:32 AM EST): Initially presented to the ED after recent discharge home with reports of worsening dementia and inability to manage care at home. PMH significant for bipolar disorder, on Abilify, Jardine and Remeron at baseline According to SW documentation: She wants to return home with her family while waiting for disposition options. Her son disagrees and is currently states if she returns home with his family, she will eventually stop taking her meds, causing untoward behavior. She will start smoking, which they do not want in their home. Son endorses she should not live alone, as she historically has had SI when living independently. CM and SW attempting placement. She needs [facility] for LTC or other community services. [facility] application pending a home sale in [place]. Assessment & Plan (11/07/2024 9:14 AM EST): Initially presented to the ED after recent discharge home with reports of worsening dementia and inability to manage care at home. PMH significant for bipolar disorder, on Abilify, Jardine and Remeron at baseline According to SW documentation: She wants to return home with her family while waiting for disposition options. Her son disagrees and is currently states if she returns home with his family, she will eventually stop taking her meds, causing untoward behavior. She will start smoking, which they do not want in their home. Son endorses she should not live alone, as she historically has had SI when living independently. CM and SW attempting placement. She needs [facility] for LTC or other community services. [facility] application pending a home sale in [place]. Assessment & Plan (11/06/2024 1:28 PM EST): Initially presented to the ED after recent discharge home with reports of worsening dementia and inability to manage care at home. PMH significant for bipolar disorder, on Abilify, Jardine and Remeron at baseline According to SW documentation: She wants to return home with her family while waiting for disposition options. Her son disagrees and is currently states if she returns home with his family, she will eventually stop taking her meds, causing untoward behavior. She will start smoking, which they do not want in their home. Son endorses she should not live alone, as she historically has had SI when living independently. CM and SW attempting placement. She needs [facility] for LTC or other community services. [facility] application pending a home sale in [place]. Assessment & Plan (10/31/2024 4:48 PM EST): Initially presented to the ED after recent discharge home with reports of worsening dementia and inability to manage care at home. PMH significant for bipolar disorder, on Abilify, Jardine and Remeron at baseline According to SW documentation: She wants to return home with her family while waiting for disposition options. Her son disagrees and is currently states if she returns home with his family, she will eventually stop taking her meds, causing untoward behavior. She will start smoking, which they do not want in their home. Son endorses she should not live alone, as she historically has had SI when living independently. CM and SW attempting placement. She needs [facility] for LTC or other community services. [facility] application pending a home sale in [place]. Assessment & Plan (10/30/2024 1:39 PM EST): Initially presented to the ED after recent discharge home with reports of worsening dementia and inability to manage care at home. PMH significant for bipolar disorder, on Abilify, Jardine and Remeron at baseline According to SW documentation: She wants to return home with her family while waiting for disposition options. Her son disagrees and is currently states if she returns home with his family, she will eventually stop taking her meds, causing untoward behavior. She will start smoking, which they do not want in their home. Son endorses she should not live alone, as she historically has had SI when living independently. CM and SW attempting placement. She needs [facility] for LTC or other community services. [facility] application pending a home sale in [place]. Assessment & Plan (10/29/2024 5:05 PM EST): Initially presented to the ED after recent discharge home with reports of worsening dementia and inability to manage care at home. PMH significant for bipolar disorder, on Abilify, Jardine and Remeron at baseline According to SW documentation: She wants to return home with her family while waiting for disposition options. Her son disagrees and is currently states if she returns home with his family, she will eventually stop taking her meds, causing untoward behavior. She will start smoking, which they do not want in their home. Son endorses she should not live alone, as she historically has had SI when living independently. CM and SW attempting placement. She needs [facility] for LTC or other community services. [facility] application pending a home sale in [place]. Assessment & Plan (10/28/2024 10:09 AM EST): Initially presented to the ED after recent discharge home with reports of worsening dementia and inability to manage care at home. PMH significant for bipolar disorder, on Abilify, Jardine and Remeron at baseline According to SW documentation: She wants to return home with her family while waiting for disposition options. Her son disagrees and is currently states if she returns home with his family, she will eventually stop taking her meds, causing untoward behavior. She will start smoking, which they do not want in their home. Son endorses she should not live alone, as she historically has had SI when living independently. CM and SW attempting placement. She needs [facility] for LTC or other community services. [facility] application pending a home sale in [place]. Assessment & Plan (10/27/2024 7:24 AM EST): Initially presented to the ED after recent discharge home with reports of worsening dementia and inability to manage care at home. PMH significant for bipolar disorder, on Abilify, Jardine and Remeron at baseline According to SW documentation: She wants to return home with her family while waiting for disposition options. Her son disagrees and is currently states if she returns home with his family, she will eventually stop taking her meds, causing untoward behavior. She will start smoking, which they do not want in their home. Son endorses she should not live alone, as she historically has had SI when living independently. CM and SW attempting placement. She needs [facility] for LTC or other community services. [facility] application pending a home sale in [place]. Assessment & Plan (10/26/2024 8:25 AM EST): Initially presented to the ED after recent discharge home with reports of worsening dementia and inability to manage care at home. PMH significant for bipolar disorder, on Abilify, Jardine and Remeron at baseline According to SW documentation: She wants to return home with her family while waiting for disposition options. Her son disagrees and is currently states if she returns home with his family, she will eventually stop taking her meds, causing untoward behavior. She will start smoking, which they do not want in their home. Son endorses she should not live alone, as she historically has had SI when living independently. CM and SW attempting placement. She needs [facility] for LTC or other community services. [facility] application pending a home sale in [place]. Assessment & Plan (10/24/2024 9:35 AM EST): Initially presented to the ED after recent discharge home with reports of worsening dementia and inability to manage care at home. PMH significant for bipolar disorder, on Abilify, Jardine and Remeron at baseline According to SW documentation: She wants to return home with her family while waiting for disposition options. Her son disagrees and is currently states if she returns home with his family, she will eventually stop taking her meds, causing untoward behavior. She will start smoking, which they do not want in their home. Son endorses she should not live alone, as she historically has had SI when living independently. CM and SW attempting placement. She needs [facility] for LTC or other community services. [facility] application pending a home sale in [place]. Assessment & Plan (10/23/2024 8:33 AM EST): Initially presented to the ED after recent discharge home with reports of worsening dementia and inability to manage care at home. PMH significant for bipolar disorder, on Abilify, Jardine and Remeron at baseline According to SW documentation: She wants to return home with her family while waiting for disposition options. Her son disagrees and is currently states if she returns home with his family, she will eventually stop taking her meds, causing untoward behavior. She will start smoking, which they do not want in their home. Son endorses she should not live alone, as she historically has had SI when living independently. CM and SW attempting placement. She needs [facility] for LTC or other community services. [facility] application pending a home sale in [place]. Assessment & Plan (10/13/2024 11:57 AM EST): Initially presented to the ED after recent discharge home with reports of worsening dementia and inability to manage care at home. PMH significant for bipolar disorder, on Abilify, Jardine and Remeron at baseline According to SW documentation: She wants to return home with her family while waiting for disposition options. Her son disagrees and is currently states if she returns home with his family, she will eventually stop taking her meds, causing untoward behavior. She will start smoking, which they do not want in their home. Son endorses she should not live alone, as she historically has had SI when living independently. - CM and SW attempting placement. - She needs [facility] for LTC or other community services. - [facility] application pending a home sale in [place]. Assessment & Plan (10/12/2024 11:33 AM EST): Initially presented to the ED after recent discharge home with reports of worsening dementia and inability to manage care at home. PMH significant for bipolar disorder, on Abilify, Jardine and Remeron at baseline According to SW documentation: She wants to return home with her family while waiting for disposition options. Her son disagrees and is currently states if she returns home with his family, she will eventually stop taking her meds, causing untoward behavior. She will start smoking, which they do not want in their home. Son endorses she should not live alone, as she historically has had SI when living independently. CM and SW attempting placement. She needs [facility] for LTC or other community services. [facility] application pending a home sale in [place]. Assessment & Plan (10/11/2024 10:58 AM EST): Initially presented to the ED after recent discharge home with reports of worsening dementia and inability to manage care at home. PMH significant for bipolar disorder, on Abilify, Jardine and Remeron at baseline According to SW documentation: She wants to return home with her family while waiting for disposition options. Her son disagrees and is currently states if she returns home with his family, she will eventually stop taking her meds, causing untoward behavior. She will start smoking, which they do not want in their home. Son endorses she should not live alone, as she historically has had SI when living independently. CM and SW attempting placement. She needs [facility] for LTC or other community services. [facility] application pending a home sale in [place]. Assessment & Plan (10/10/2024 11:14 AM EST): Initially presented to the ED after recent discharge home with reports of worsening dementia and inability to manage care at home. PMH significant for bipolar disorder, on Abilify, Jardine and Remeron at baseline According to SW documentation: She wants to return home with her family while waiting for disposition options. Her son disagrees and is currently states if she returns home with his family, she will eventually stop taking her meds, causing untoward behavior. She will start smoking, which they do not want in their home. Son endorses she should not live alone, as she historically has had SI when living independently. RNCM and COLLEEN attempting placement. She needs [facility] for LTC or other community services. [facility] application pending a home sale in [place]. Assessment & Plan (10/09/2024 3:07 PM EST): Initially presented to the ED after recent discharge home with reports of worsening dementia and inability to manage care at home. PMH significant for bipolar disorder, on Abilify, Jardine and Remeron at baseline According to SW documentation: She wants to return home with her family while waiting for disposition options. Her son disagrees and is currently states if she returns home with his family, she will eventually stop taking her meds, causing untoward behavior. She will start smoking, which they do not want in their home. Son endorses she should not live alone, as she historically has had SI when living independently. RNMELLY and COLLEEN attempting placement. She needs [facility] for LTC or other community services. [facility] application pending a home sale in [place]. Assessment & Plan (10/08/2024 3:21 PM EST): Initially presented to the ED after recent discharge home with reports of worsening dementia and inability to manage care at home. PMH significant for bipolar disorder, on Abilify, Jardine and Remeron at baseline According to SW documentation: She wants to return home with her family while waiting for disposition options. Her son disagrees and is currently states if she returns home with his family, she will eventually stop taking her meds, causing untoward behavior. She will start smoking, which they do not want in their home. Son endorses she should not live alone, as she historically has had SI when living independently. RNCM and SW attempting placement. She needs [facility] for LTC or other community services. [facility] application pending a home sale in [place]. [facility] Assessment & Plan (10/07/2024 5:09 PM EST): Initially presented to the ED after recent discharge home with reports of worsening dementia and inability to manage care at home. PMH significant for bipolar disorder, on Abilify, Jardine and Remeron at baseline According to documentation: She wants to return home with her family while waiting for disposition options. Her son disagrees and is currently states if she returns home with his family, she will eventually stop taking her meds, causing untoward behavior. She will start smoking, which they do not want in their home. Son endorses she should not live alone, as she historically has had SI when living independently. RNCM and SW attempting placement. She needs [facility] for LTC or other community services. [facility] application pending a home sale in [place]. 09/13/24 [facility] Assessment & Plan (10/06/2024 12:34 PM EST): Initially presented to the ED after recent discharge home with reports of worsening dementia and inability to manage care at home. PMH significant for bipolar disorder, on Abilify, Jardine and Remeron at baseline According to documentation: She wants to return home with her family while waiting for disposition options. Her son disagrees and is currently states if she returns home with his family, she will eventually stop taking her meds, causing untoward behavior. She will start smoking, which they do not want in their home. Son endorses she should not live alone, as she historically has had SI when living independently. RNCM and SW attempting placement. She needs [facility] for LTC or other community services. [facility] application pending a home sale in [place]. 09/13/24 pt is being reviewed by [facility]. Assessment & Plan (10/05/2024 3:13 PM EST): Initially presented to the ED after recent discharge home with reports of worsening dementia and inability to manage care at home. PMH significant for bipolar disorder, on Abilify, Jardine and Remeron at baseline According to SW documentation: She wants to return home with her family while waiting for disposition options. Her son disagrees and is currently states if she returns home with his family, she will eventually stop taking her meds, causing untoward behavior. She will start smoking, which they do not want in their home. Son endorses she should not live alone, as she historically has had SI when living independently. RNCM and SW attempting placement. She needs [facility] for LTC or other community services. [facility] application pending a home sale in [place]. 09/13/24 pt is being reviewed by [facility]. Assessment & Plan (10/04/2024 7:48 AM EST): Initially presented to the ED after recent discharge home with reports of worsening dementia and inability to manage care at home. PMH significant for bipolar disorder, on Abilify, Jardine and Remeron at baseline According to documentation: She wants to return home with her family while waiting for disposition options. Her son disagrees and is currently states if she returns home with his family, she will eventually stop taking her meds, causing untoward behavior. She will start smoking, which they do not want in their home. Son endorses she should not live alone, as she historically has had SI when living independently. RNCM and SW attempting placement. She needs [facility] for LTC or other community services. [facility] application pending a home sale in [place]. 09/13/24 pt is being reviewed by [facility]. Assessment & Plan (09/26/2024 1:09 PM EST): Initially presented to the ED after recent discharge home with reports of worsening dementia and inability to manage care at home. PMH significant for bipolar disorder, on Abilify, Jardine and Remeron at baseline According to SW documentation: She wants to return home with her family while waiting for disposition options. Her son disagrees and is currently states if she returns home with his family, she will eventually stop taking her meds, causing untoward behavior. She will start smoking, which they do not want in their home. Son endorses she should not live alone, as she historically has had SI when living independently. RNCM and SW attempting placement. She needs [facility] for LTC or other community services. [facility] application pending a home sale in [place]. 09/13/24 pt is being reviewed by [facility]. Assessment & Plan (09/25/2024 4:31 PM EST): Initially presented to the ED after recent discharge home with reports of worsening dementia and inability to manage care at home. PMH significant for bipolar disorder, on Abilify, Jardine and Remeron at baseline According to documentation: She wants to return home with her family while waiting for disposition options. Her son disagrees and is currently states if she returns home with his family, she will eventually stop taking her meds, causing untoward behavior. She will start smoking, which they do not want in their home. Son endorses she should not live alone, as she historically has had SI when living independently. RNCM and SW attempting placement. She needs [facility] for LTC or other community services. [facility] application pending a home sale in [place]. 09/13/24 pt is being reviewed by [facility]. Assessment & Plan (09/24/2024 4:24 PM EST): Initially presented to the ED after recent discharge home with reports of worsening dementia and inability to manage care at home. PMH significant for bipolar disorder, on Abilify, Jardine and Remeron at baseline According to documentation: She wants to return home with her family while waiting for disposition options. Her son disagrees and is currently states if she returns home with his family, she will eventually stop taking her meds, causing untoward behavior. She will start smoking, which they do not want in their home. Son endorses she should not live alone, as she historically has had SI when living independently. RNCM and SW attempting placement. She needs [facility] for LTC or other community services. [facility] application pending a home sale in [place]. 09/13/24 pt is being reviewed by [facility]. Assessment & Plan (09/23/2024 4:37 PM EST): Initially presented to the ED after recent discharge home with reports of worsening dementia and inability to manage care at home. PMH significant for bipolar disorder, on Abilify, Jardine and Remeron at baseline According to documentation: She wants to return home with her family while waiting for disposition options. Her son disagrees and is currently states if she returns home with his family, she will eventually stop taking her meds, causing untoward behavior. She will start smoking, which they do not want in their home. Son endorses she should not live alone, as she historically has had SI when living independently. RNCM and SW attempting placement. She needs [facility] for LTC or other community services. [facility] application pending a home sale in [place]. 09/13/24 pt is being reviewed by [facility]. Assessment & Plan (09/16/2024 11:35 AM EST): Initially presented to the ED after recent discharge home with reports of worsening dementia and inability to manage care at home. PMH significant for bipolar disorder, on Abilify, Jardine and Remeron at baseline According to documentation: She wants to return home with her family while waiting for disposition options. Her son disagrees and is currently states if she returns home with his family, she will eventually stop taking her meds, causing untoward behavior. She will start smoking, which they do not want in their home. Son endorses she should not live alone, as she historically has had SI when living independently. RNCM and COLLEEN attempting placement. She needs [facility] for LTC or other community services. [facility] application pending a home sale in [place]. 09/13/24 pt is being reviewed by [facility]. Assessment & Plan (09/14/2024 12:00 PM EST): Initially presented to the ED after recent discharge home with reports of worsening dementia and inability to manage care at home. PMH significant for bipolar disorder, on Abilify, Jardine and Remeron at baseline According to documentation: She wants to return home with her family while waiting for disposition options. Her son disagrees and is currently states if she returns home with his family, she will eventually stop taking her meds, causing untoward behavior. She will start smoking, which they do not want in their home. Son endorses she should not live alone, as she historically has had SI when living independently. RNCM and SW attempting placement. She needs [facility] for LTC or other community services. [facility] application pending a home sale in [place]. 09/13/24 pt is being reviewed by [facility] Monika Page. Assessment & Plan (09/13/2024 1:00 PM EST): Initially presented to the ED after recent discharge home with reports of worsening dementia and inability to manage care at home. PMH significant for bipolar disorder, on Abilify, Jardine and Remeron at baseline According to SW documentation: She wants to return home with her family while waiting for disposition options. Her son disagrees and is currently states if she returns home with his family, she will eventually stop taking her meds, causing untoward behavior. She will start smoking, which they do not want in their home. Son endorses she should not live alone, as she historically has had SI when living independently. RNCM and SW attempting placement. She needs [facility] for LTC or other community services. [facility] application pending a home sale in [place]. Assessment & Plan (09/12/2024 11:53 AM EST): Initially presented to the ED after recent discharge home with reports of worsening dementia and inability to manage care at home. PMH significant for bipolar disorder, on Abilify, Jardine and Remeron at baseline According to SW documentation: She wants to return home with her family while waiting for disposition options. Her son disagrees and is currently states if she returns home with his family, she will eventually stop taking her meds, causing untoward behavior. She will start smoking, which they do not want in their home. Son endorses she should not live alone, as she historically has had SI when living independently. RNCM and SW attempting placement. She needs [facility] for LTC or other community services. [facility] application pending a home sale in [place]. Assessment & Plan (09/11/2024 1:41 PM EST): Initially presented to the ED after recent discharge home with reports of worsening dementia and inability to manage care at home. PMH significant for bipolar disorder, on Abilify, Jardine and Remeron at baseline According to SW documentation: She wants to return home with her family while waiting for disposition options. Her son disagrees and is currently states if she returns home with his family, she will eventually stop taking her meds, causing untoward behavior. She will start smoking, which they do not want in their home. Son endorses she should not live alone, as she historically has had SI when living independently. RNCM and SW attempting placement. She needs [facility] for LTC or other community services. [facility] application pending a home sale in [place]. Assessment & Plan (09/10/2024 12:56 PM EST): Initially presented to the ED after recent discharge home with reports of worsening dementia and inability to manage care at home. PMH significant for bipolar disorder, on Abilify, Jardine and Remeron at baseline According to SW documentation: She wants to return home with her family while waiting for disposition options. Her son disagrees and is currently states if she returns home with his family, she will eventually stop taking her meds, causing untoward behavior. She will start smoking, which they do not want in their home. Son endorses she should not live alone, as she historically has had SI when living independently. RNCM and COLLEEN attempting placement. She needs [facility] for LTC or other community services. [facility] application pending a home sale in [place]. Assessment & Plan (09/09/2024 11:52 AM EST): Initially presented to the ED after recent discharge home with reports of worsening dementia and inability to manage care at home. PMH significant for bipolar disorder, on Abilify, Jardine and Remeron at baseline According to SW documentation: She wants to return home with her family while waiting for disposition options. Her son disagrees and is currently states if she returns home with his family, she will eventually stop taking her meds, causing untoward behavior. She will start smoking, which they do not want in their home. Son endorses she should not live alone, as she historically has had SI when living independently. RNCM and SW attempting placement. She needs [facility] for LTC or other community services. [facility] application pending a home sale in [place]. Assessment & Plan (09/08/2024 2:26 PM EST): Initially presented to the ED after recent discharge home with reports of worsening dementia and inability to manage care at home. PMH significant for bipolar disorder, on Abilify, Jardine and Remeron at baseline According to SW documentation: She wants to return home with her family while waiting for disposition options. Her son disagrees and is currently states if she returns home with his family, she will eventually stop taking her meds, causing untoward behavior. She will start smoking, which they do not want in their home. Son endorses she should not live alone, as she historically has had SI when living independently. RNCM and SW attempting placement. She needs [facility] for LTC or other community services. [facility] application pending a home sale in [place]. Assessment & Plan (09/07/2024 6:25 PM EST): Initially presented to the ED after recent discharge home with reports of worsening dementia and inability to manage care at home. PMH significant for bipolar disorder, on Abilify, Jardine and Remeron at baseline According to SW documentation: She wants to return home with her family while waiting for disposition options. Her son disagrees and is currently states if she returns home with his family, she will eventually stop taking her meds, causing untoward behavior. She will start smoking, which they do not want in their home. Son endorses she should not live alone, as she historically has had SI when living independently. RNCM and SW attempting placement. She needs [facility] for LTC or other community services. [facility] application pending a home sale in [place]. Assessment & Plan (09/04/2024 1:38 PM EST): Initially presented to the ED after recent discharge home with reports of worsening dementia and inability to manage care at home. PMH significant for bipolar disorder, on Abilify, Jardine and Remeron at baseline According to SW documentation: She wants to return home with her family while waiting for disposition options. Her son disagrees and is currently states if she returns home with his family, she will eventually stop taking her meds, causing untoward behavior. She will start smoking, which they do not want in their home. Son endorses she should not live alone, as she historically has had SI when living independently. RNCM and SW attempting placement. She needs [facility] for LTC or other community services. [facility] application pending a home sale in [place]. Assessment & Plan (08/30/2024 8:03 AM EST): Initially presented to the ED after recent discharge home with reports of worsening dementia and inability to manage care at home. PMH significant for bipolar disorder, on Abilify, Jardine and Remeron at baseline According to documentation: She wants to return home with her family while waiting for disposition options. Her son disagrees and is currently states if she returns home with his family, she will eventually stop taking her meds, causing untoward behavior. She will start smoking, which they do not want in their home. Son endorses she should not live alone, as she historically has had SI when living independently. RNCM and SW attempting placement. She needs [facility] for LTC or other community services. [facility] application pending a home sale in [place]. She was evaluated by PT for possible discharge to rest home with 2nd floor room, and OT to determine capacity. MoCA scored 26/30 previously. Per documentation, rest home in [place] unable to accommodate at this time. [employer] has been made aware. Assessment & Plan (08/29/2024 7:31 AM EST): Initially presented to the ED after recent discharge home with reports of worsening dementia and inability to manage care at home. PMH significant for bipolar disorder, on Abilify, Jardine and Remeron at baseline According to documentation: She wants to return home with her family while waiting for disposition options. Her son disagrees and is currently states if she returns home with his family, she will eventually stop taking her meds, causing untoward behavior. She will start smoking, which they do not want in their home. Son endorses she should not live alone, as she historically has had SI when living independently. RNCM and SW attempting placement. She needs [facility] for LTC or other community services. [facility] application pending a home sale in [place]. She was evaluated by PT for possible discharge to rest home with 2nd floor room, and OT to determine capacity. MoCA scored 26/30 previously. Per documentation, rest home in [place] unable to accommodate at this time. [employer] has been made aware. Assessment & Plan (08/28/2024 1:43 PM EST): Initially presented to the ED after recent discharge home with reports of worsening dementia and inability to manage care at home. PMH significant for bipolar disorder, on Abilify, Jardine and Remeron at baseline According to SW documentation: She wants to return home with her family while waiting for disposition options. Her son disagrees and is currently states if she returns home with his family, she will eventually stop taking her meds, causing untoward behavior. She will start smoking, which they do not want in their home. Son endorses she should not live alone, as she historically has had SI when living independently. RNCM and SW attempting placement. She needs [facility] for LTC or other community services. [facility] application pending a home sale in [place]. She was evaluated by PT for possible discharge to rest home with 2nd floor room, and OT to determine capacity. MoCA scored 26/30 previously. Per documentation, rest home in [place] unable to accommodate at this time. [employer] has been made aware. Assessment & Plan (08/27/2024 2:11 PM EST): Initially presented to the ED after recent discharge home with reports of worsening dementia and inability to manage care at home. PMH significant for bipolar disorder, on Abilify, Jardine and Remeron at baseline According to SW documentation: She wants to return home with her family while waiting for disposition options. Her son disagrees and is currently states if she returns home with his family, she will eventually stop taking her meds, causing untoward behavior. She will start smoking, which they do not want in their home. Son endorses she should not live alone, as she historically has had SI when living independently. RNCM and SW attempting placement. She needs [facility] for LTC or other community services. [facility] application pending a home sale in [place]. She was evaluated by PT for possible discharge to rest home with 2nd floor room, and OT to determine capacity. MoCA scored 26/30 previously. Per documentation, rest home in [place] unable to accommodate at this time. [employer] has been made aware. Assessment & Plan (08/26/2024 12:54 PM EST): Initially presented to the ED after recent discharge home with reports of worsening dementia and inability to manage care at home. PMH significant for bipolar disorder, on Abilify, Jardine and Remeron at baseline According to SW documentation: She wants to return home with her family while waiting for disposition options. Her son disagrees and is currently states if she returns home with his family, she will eventually stop taking her meds, causing untoward behavior. She will start smoking, which they do not want in their home. Son endorses she should not live alone, as she historically has had SI when living independently. RNCM and SW attempting placement. She needs [facility] for LTC or other community services. [facility] application pending a home sale in [place]. She was evaluated by PT for possible discharge to rest home with 2nd floor room, and OT to determine capacity. MoCA scored 26/30 previously. Per documentation, rest home in [place] unable to accommodate at this time. [employer] has been made aware. Assessment & Plan (08/25/2024 9:28 AM EST): Initially presented to the ED after recent discharge home with reports of worsening dementia and inability to manage care at home. PMH significant for bipolar disorder, on Abilify, Jardine and Remeron at baseline According to SW documentation: She wants to return home with her family while waiting for disposition options. Her son disagrees and is currently states if she returns home with his family, she will eventually stop taking her meds, causing untoward behavior. She will start smoking, which they do not want in their home. Son endorses she should not live alone, as she historically has had SI when living independently. RNCM and SW attempting placement. She needs [facility] for LTC or other community services. [facility] application pending a home sale in [place]. She was evaluated by PT for possible discharge to rest home with 2nd floor room, and OT to determine capacity. MoCA scored 26/30 previously. Per documentation, rest home in [place] unable to accommodate at this time. [employer] has been made aware. Assessment & Plan (08/24/2024 2:21 PM EST): Initially presented to the ED after recent discharge home with reports of worsening dementia and inability to manage care at home. PMH significant for bipolar disorder, on Abilify, Jardine and Remeron at baseline According to SW documentation: She wants to return home with her family while waiting for disposition options. Her son disagrees and is currently states if she returns home with his family, she will eventually stop taking her meds, causing untoward behavior. She will start smoking, which they do not want in their home. Son endorses she should not live alone, as she historically has had SI when living independently. RNCM and SW attempting placement. She needs [facility] for LTC or other community services. [facility] application pending a home sale in [place]. She was evaluated by PT for possible discharge to rest home with 2nd floor room, and OT to determine capacity. MoCA scored 26/30 previously. According to SW, a referral has been sent to [email or web address] to Carlita Capps Tour Sales Representative who reports an open first floor female bed is available in [place], [place] Assessment & Plan (08/23/2024 7:11 AM EST): Initially presented to the ED after recent discharge home with reports of worsening dementia and inability to manage care at home. PMH significant for bipolar disorder, on Abilify, Jardine and Remeron at baseline According to SW documentation: She wants to return home with her family while waiting for disposition options. Her son disagrees and is currently states if she returns home with his family, she will eventually stop taking her meds, causing untoward behavior. She will start smoking, which they do not want in their home. Son endorses she should not live alone, as she historically has had SI when living independently. RNCM and SW attempting placement. She needs [facility] for LTC or other community services. [facility] application pending a home sale in [place]. She was evaluated by PT for possible discharge to rest home with 2nd floor room, and OT to determine capacity. MoCA scored 26/30 previously. According to SW, a referral has been sent to [email or web address] to Carlita Jefry Tour Sales Representative who reports an open first floor female bed is available in [place], [place] Assessment & Plan (08/22/2024 7:22 AM EST): Initially presented to the ED after recent discharge home with reports of worsening dementia and inability to manage care at home. PMH significant for bipolar disorder, on Abilify, Jardine and Remeron at baseline According to SW documentation: She wants to return home with her family while waiting for disposition options. Her son disagrees and is currently states if she returns home with his family, she will eventually stop taking her meds, causing untoward behavior. She will start smoking, which they do not want in their home. Son endorses she should not live alone, as she historically has had SI when living independently. RNCM and SW attempting placement. She needs [facility] for LTC or other community services. [facility] application pending a home sale in [place]. She was evaluated by PT for possible discharge to rest home with 2nd floor room, and OT to determine capacity. MoCA scored 26/30 previously. Assessment & Plan (08/21/2024 1:35 PM EST): Initially presented to the ED after recent discharge home with reports of worsening dementia and inability to manage care at home. PMH significant for bipolar disorder, on Abilify, Jardine and Remeron at baseline According to SW documentation: She wants to return home with her family while waiting for disposition options. Her son disagrees and is currently states if she returns home with his family, she will eventually stop taking her meds, causing untoward behavior. She will start smoking, which they do not want in their home. Son endorses she should not live alone, as she historically has had SI when living independently. RNCM and SW attempting placement. She needs [facility] for LTC or other community services. [facility] application pending a home sale in [place]. She was evaluated by PT for possible discharge to rest home with 2nd floor room, and OT to determine capacity. MoCA scored 26/30 previously. Assessment & Plan (08/20/2024 5:47 PM EST): Initially presented to the ED after recent discharge home with reports of worsening dementia and inability to manage care at home. PMH significant for bipolar disorder, on Abilify, Jardine and Remeron at baseline According to SW documentation: She wants to return home with her family while waiting for disposition options. Her son disagrees and is currently states if she returns home with his family, she will eventually stop taking her meds, causing untoward behavior. She will start smoking, which they do not want in their home. Son endorses she should not live alone, as she historically has had SI when living independently. RNCM and SW attempting placement. She needs [facility] for LTC or other community services. [facility] application pending a home sale in [place]. She was evaluated by PT for possible discharge to rest home with 2nd floor room, and OT to determine capacity. MoCA scored 26/30 previously. Assessment & Plan (08/19/2024 2:46 PM EST): Initially presented to the ED after recent discharge home with reports of worsening dementia and inability to manage care at home. PMH significant for bipolar disorder, on Abilify, Jardine and Remeron at baseline According to SW documentation: She wants to return home with her family while waiting for disposition options. Her son disagrees and is currently states if she returns home with his family, she will eventually stop taking her meds, causing untoward behavior. She will start smoking, which they do not want in their home. Son endorses she should not live alone, as she historically has had SI when living independently. RNCM and SW attempting placement. She needs [facility] for LTC or other community services. [facility] application pending a home sale in [place]. She was evaluated by PT for possible discharge to rest home with 2nd floor room, and OT to determine capacity. MoCA scored 26/30 previously. Assessment & Plan (08/18/2024 12:45 PM EST): Initially presented to the ED after recent discharge home with reports of worsening dementia and inability to manage care at home. PMH significant for bipolar disorder, on Abilify, Jardine and Remeron at baseline According to SW documentation: She wants to return home with her family while waiting for disposition options. Her son disagrees and is currently states if she returns home with his family, she will eventually stop taking her meds, causing untoward behavior. She will start smoking, which they do not want in their home. Son endorses she should not live alone, as she historically has had SI when living independently. RNCM and SW attempting placement. She needs [facility] for LTC or other community services. [facility] application pending a home sale in [place]. She was evaluated by PT for possible discharge to rest home with 2nd floor room, and OT to determine capacity. MoCA scored 26/30 previously. Assessment & Plan (08/17/2024 10:44 AM EST): Initially presented to the ED after recent discharge home with reports of worsening dementia and inability to manage care at home. PMH significant for bipolar disorder, on Abilify, Jardine and Remeron at baseline According to SW documentation: She wants to return home with her family while waiting for disposition options. Her son disagrees and is currently states if she returns home with his family, she will eventually stop taking her meds, causing untoward behavior. She will start smoking, which they do not want in their home. Son endorses she should not live alone, as she historically has had SI when living independently. RNCM and SW attempting placement. She needs [facility] for LTC or other community services. [facility] application pending a home sale in [place]. She was evaluated by PT for possible discharge to rest home with 2nd floor room, and OT to determine capacity. MoCA scored 26/30 previously. Assessment & Plan (08/16/2024 7:08 AM EST): Initially presented to the ED after recent discharge home with reports of worsening dementia and inability to manage care at home. PMH significant for bipolar disorder, on Abilify, Jardine and Remeron at baseline According to SW documentation: She wants to return home with her family while waiting for disposition options. Her son disagrees and is currently states if she returns home with his family, she will eventually stop taking her meds, causing untoward behavior. She will start smoking, which they do not want in their home. Son endorses she should not live alone, as she historically has had SI when living independently. RNCM and SW attempting placement. She needs [facility] for LTC or other community services. [facility] application pending a home sale in [place]. COLLEEN requested pt be evaluated by PT for possible discharge to rest home with 2nd floor room, and OT to determine capacity. MoCA scored 26/30 previously. Assessment & Plan (08/15/2024 9:41 AM EST): Initially presented to the ED after recent discharge home with reports of worsening dementia and inability to manage care at home. PMH significant for bipolar disorder, on Abilify, Jardine and Remeron at baseline According to SW documentation: She wants to return home with her family while waiting for disposition options. Her son disagrees and is currently states if she returns home with his family, she will eventually stop taking her meds, causing untoward behavior. She will start smoking, which they do not want in their home. Son endorses she should not live alone, as she historically has had SI when living independently. RNMELLY and COLLEEN attempting placement. She needs [facility] for LTC or other community services. [facility] application pending a home sale in [place]. COLLEEN requested pt be evaluated by PT for possible discharge to rest home with 2nd floor room, and OT to determine capacity. MoCA scored 26/30 previously. Assessment & Plan (08/14/2024 2:45 PM EST): Initially presented to the ED after recent discharge home with reports of worsening dementia and inability to manage care at home. PMH significant for bipolar disorder, on Abilify, Jardine and Remeron at baseline According to documentation: She wants to return home with her family while waiting for disposition options. Her son disagrees and is currently states if she returns home with his family, she will eventually stop taking her meds, causing untoward behavior. She will start smoking, which they do not want in their home. Son endorses she should not live alone, as she historically has had SI when living independently. RNMELLY and COLLEEN attempting placement. She needs [facility] for LTC or other community services. [facility] application pending a home sale in [place]. COLLEEN requested pt be evaluated by PT for possible discharge to rest home with 2nd floor room, and OT to determine capacity. MoCA scored 26/30 previously Re-eval by OT pending Assessment & Plan (08/13/2024 3:26 PM EST): Initially presented to the ED after recent discharge home with reports of worsening dementia and inability to manage care at home. PMH significant for bipolar disorder, on Abilify, Jardine and Remeron at baseline According to SW documentation: She wants to return home with her family while waiting for disposition options. Her son disagrees and is currently states if she returns home with his family, she will eventually stop taking her meds, causing untoward behavior. She will start smoking, which they do not want in their home. Son endorses she should not live alone, as she historically has had SI when living independently. RNCM and SW attempting placement. She needs [facility] for LTC or other community services. [facility] application pending a home sale in [place]. SW requested pt be evaluated by PT for possible discharge to rest home with 2nd floor room, and OT to determine capacity. MoCA scored 26/30 previously Re-eval by OT pending Assessment & Plan (08/12/2024 1:23 PM EST): Initially presented to the ED after recent discharge home with reports of worsening dementia and inability to manage care at home. PMH significant for bipolar disorder, on Abilify, Jardine and Remeron at baseline According to SW documentation: She wants to return home with her family while waiting for disposition options. Her son disagrees and is currently states if she returns home with his family, she will eventually stop taking her meds, causing untoward behavior. She will start smoking, which they do not want in their home. Son endorses she should not live alone, as she historically has had SI when living independently. RNCM and SW attempting placement. She needs [facility] for LTC or other community services. [facility] application pending a home sale in [place]. COLLEEN requested pt be evaluated by PT for possible discharge to rest home with 2nd floor room, and OT to determine capacity. MoCA scored 26/30 previously Re-eval by OT pending Assessment & Plan (08/11/2024 1:05 PM EST): Initially presented to the ED after recent discharge home with reports of worsening dementia and inability to manage care at home. PMH significant for bipolar disorder, on Abilify, Jardine and Remeron at baseline According to documentation: She wants to return home with her family while waiting for disposition options. Her son disagrees and is currently states if she returns home with his family, she will eventually stop taking her meds, causing untoward behavior. She will start smoking, which they do not want in their home. Son endorses she should not live alone, as she historically has had SI when living independently. RNCM and SW attempting placement. She needs [facility] for LTC or other community services. [facility] application pending a home sale in [place]. SW requested pt be evaluated by PT for possible discharge to rest home with 2nd floor room, and OT to determine capacity. MoCA scored 26/30 previously Re-eval by OT pending Assessment & Plan (08/09/2024 2:13 PM EST): Initially presented to the ED after recent discharge home with reports of worsening dementia and inability to manage care at home. PMH significant for bipolar disorder, on Abilify, Jardine and Remeron at baseline According to SW documentation: She wants to return home with her family while waiting for disposition options. Her son disagrees and is currently states if she returns home with his family, she will eventually stop taking her meds, causing untoward behavior. She will start smoking, which they do not want in their home. Son endorses she should not live alone, as she historically has had SI when living independently. RNCM and SW attempting placement. She needs [facility] for LTC or other community services. [facility] application pending a home sale in [place]. COLLEEN requested pt be evaluated by PT for possible discharge to rest home with 2nd floor room, and OT to determine capacity. MoCA scored 26/30 previously Re-eval by OT pending Assessment & Plan (08/08/2024 4:42 PM EST): Initially presented to the ED after recent discharge home with reports of worsening dementia and inability to manage care at home. PMH significant for bipolar disorder, on Abilify, Jardine and Remeron at baseline According to SW documentation: She wants to return home with her family while waiting for disposition options. Her son disagrees and is currently states if she returns home with his family, she will eventually stop taking her meds, causing untoward behavior. She will start smoking, which they do not want in their home. Son endorses she should not live alone, as she historically has had SI when living independently. RNCM and SW attempting placement. She needs [facility] for LTC or other community services. [facility] application pending a home sale in [place]. SW requested pt be evaluated by PT for possible discharge to rest home with 2nd floor room, and OT to determine capacity. MoCA scored 26/30 previously Re-eval by OT pending Assessment & Plan (08/07/2024 2:40 PM EST): Initially presented to the ED after recent discharge home with reports of worsening dementia and inability to manage care at home. PMH significant for bipolar disorder, on Abilify, Jardine and Remeron at baseline According to SW documentation: She wants to return home with her family while waiting for disposition options. Her son disagrees and is currently states if she returns home with his family, she will eventually stop taking her meds, causing untoward behavior. She will start smoking, which they do not want in their home. Son endorses she should not live alone, as she historically has had SI when living independently. RNCM and SW attempting placement. She needs [facility] for LTC or other community services. [facility] application pending a home sale in [place]. SW requested pt be evaluated by PT for possible discharge to rest home with 2nd floor room, and OT to determine capacity. MoCA scored 26/30 previously Re-eval by OT pending Assessment & Plan (08/06/2024 1:35 PM EST): Initially presented to the ED after recent discharge home with reports of worsening dementia and inability to manage care at home. PMH significant for bipolar disorder, on Abilify, Jardine and Remeron at baseline According to SW documentation: She wants to return home with her family while waiting for disposition options. Her son disagrees and is currently states if she returns home with his family, she will eventually stop taking her meds, causing untoward behavior. She will start smoking, which they do not want in their home. Son endorses she should not live alone, as she historically has had SI when living independently. RNCM and SW attempting placement. She needs [facility] for LTC or other community services. [facility] application pending a home sale in [place]. COLLEEN requested pt be evaluated by PT for possible discharge to rest home with 2nd floor room, and OT to determine capacity. MoCA scored 26/30 previously Re-eval by OT pending Assessment & Plan (08/05/2024 11:25 AM EST): Initially presented to the ED after recent discharge home with reports of worsening dementia and inability to manage care at home. PMH significant for bipolar disorder, on Abilify, Jardine and Remeron at baseline According to SW documentation: She wants to return home with her family while waiting for disposition options. Her son disagrees and is currently states if she returns home with his family, she will eventually stop taking her meds, causing untoward behavior. She will start smoking, which they do not want in their home. Son endorses she should not live alone, as she historically has had SI when living independently. RNCM and SW attempting placement. She needs [facility] for LTC or other community services. [facility] application pending a home sale in [place]. COLLEEN requested pt be evaluated by PT for possible discharge to rest home with 2nd floor room, and OT to determine capacity. MoCA scored 26/30 previously Re-eval by OT pending Assessment & Plan (08/04/2024 3:49 PM EST): Initially presented to the ED after recent discharge home with reports of worsening dementia and inability to manage care at home. PMH significant for bipolar disorder, on Abilify, Jardine and Remeron at baseline According to SW documentation: She wants to return home with her family while waiting for disposition options. Her son disagrees and is currently states if she returns home with his family, she will eventually stop taking her meds, causing untoward behavior. She will start smoking, which they do not want in their home. Son endorses she should not live alone, as she historically has had SI when living independently. RNCM and SW attempting placement. She needs [facility] for LTC or other community services. [facility] application pending a home sale in [place]. COLLEEN requested pt be evaluated by PT for possible discharge to rest home with 2nd floor room, and OT to determine capacity. MoCA scored 26/30 previously Re-eval by OT pending Assessment & Plan (08/03/2024 4:14 PM EST): Initially presented to the ED after recent discharge home with reports of worsening dementia and inability to manage care at home. PMH significant for bipolar disorder, on Abilify, Jardine and Remeron at baseline According to documentation: She wants to return home with her family while waiting for disposition options. Her son disagrees and is currently states if she returns home with his family, she will eventually stop taking her meds, causing untoward behavior. She will start smoking, which they do not want in their home. Son endorses she should not live alone, as she historically has had SI when living independently. RNCM and SW attempting placement. She needs [facility] for LTC or other community services. [facility] application pending a home sale in [place]. COLLEEN requested pt be evaluated by PT for possible discharge to rest home with 2nd floor room, and OT to determine capacity. MoCA scored 26/30 previously Re-eval by OT pending Assessment & Plan (08/01/2024 2:54 PM EST): Initially presented to the ED after recent discharge home with reports of worsening dementia and inability to manage care at home. PMH significant for bipolar disorder, on Abilify, Jardine and Remeron at baseline According to SW documentation: She wants to return home with her family while waiting for disposition options. Her son disagrees and is currently states if she returns home with his family, she will eventually stop taking her meds, causing untoward behavior. She will start smoking, which they do not want in their home. Son endorses she should not live alone, as she historically has had SI when living independently. RNCM and SW attempting placement. She needs [facility] for LTC or other community services. [facility] application pending a home sale in [place]. COLLEEN requested pt be evaluated by PT for possible discharge to rest home with 2nd floor room, and OT to determine capacity. MoCA scored 26/30 previously Re-eval by OT pending Assessment & Plan (08/01/2024 8:29 AM EST): Initially presented to the ED after recent discharge home with reports of worsening dementia and inability to manage care at home. PMH significant for bipolar disorder, on Abilify, Jardine and Remeron at baseline According to SW documentation: She wants to return home with her family while waiting for disposition options. Her son disagrees and is currently states if she returns home with his family, she will eventually stop taking her meds, causing untoward behavior. She will start smoking, which they do not want in their home. Son endorses she should not live alone, as she historically has had SI when living independently. RNCM and SW attempting placement. She needs [facility] for LTC or other community services. [facility] application pending a home sale in [place]. SW requested pt be evaluated by PT for possible discharge to rest home with 2nd floor room, and OT to determine capacity. MoCA scored 26/30 which is normal. Assessment & Plan (07/30/2024 11:35 AM EST): Initially presented to the ED after recent discharge home with reports of worsening dementia and inability to manage care at home. PMH significant for bipolar disorder, on Abilify, Jardine and Remeron at baseline According to SW documentation: She wants to return home with her family while waiting for disposition options. Her son disagrees and is currently states if she returns home with his family, she will eventually stop taking her meds, causing untoward behavior. She will start smoking, which they do not want in their home. Son endorses she should not live alone, as she historically has had SI when living independently. RNCM and SW attempting placement. She needs [facility] for LTC or other community services. [facility] application pending a home sale in [place]. COLLEEN requested pt be evaluated by PT for possible discharge to rest home with 2nd floor room, and OT to determine capacity. MoCA scored 26/30 which is normal. Assessment & Plan (07/29/2024 11:27 AM EST): Initially presented to the ED after recent discharge home with reports of worsening dementia and inability to manage care at home. PMH significant for bipolar disorder, on Abilify, Jardine and Remeron at baseline According to SW documentation: She wants to return home with her family while waiting for disposition options. Her son disagrees and is currently states if she returns home with his family, she will eventually stop taking her meds, causing untoward behavior. She will start smoking, which they do not want in their home. Son endorses she should not live alone, as she historically has had SI when living independently. RNCM and SW attempting placement. She needs [facility] for LTC or other community services. [facility] application pending a home sale in [place]. SW requested pt be evaluated by PT for possible discharge to rest home with 2nd floor room, and OT to determine capacity. MoCA scored 26/30 which is normal. Assessment & Plan (07/21/2024 2:40 PM EST): Initially presented to the ED after recent discharge home with reports of worsening dementia and inability to manage care at home. PMH significant for bipolar disorder, on Abilify, Jardine and Remeron at baseline According to SW documentation: She wants to return home with her family while waiting for disposition options. Her son disagrees and is currently states if she returns home with his family, she will eventually stop taking her meds, causing untoward behavior. She will start smoking, which they do not want in their home. Son endorses she should not live alone, as she historically has had SI when living independently. RNCM and SW attempting placement. She needs [facility] for LTC or other community services. [facility] application pending a home sale in [place]. SW requested pt be evaluated by PT for possible discharge to rest home with 2nd floor room, and OT to determine capacity. MoCA scored 26/30 which is normal. Assessment & Plan (07/20/2024 11:24 AM EST): Initially presented to the ED after recent discharge home with reports of worsening dementia and inability to manage care at home. PMH significant for bipolar disorder, on Abilify, Jardine and Remeron at baseline According to SW documentation: She wants to return home with her family while waiting for disposition options. Her son disagrees and is currently states if she returns home with his family, she will eventually stop taking her meds, causing untoward behavior. She will start smoking, which they do not want in their home. Son endorses she should not live alone, as she historically has had SI when living independently. RNCM and SW attempting placement. She needs [facility] for LTC or other community services. [facility] application pending a home sale in [place]. SW requested pt be evaluated by PT for possible discharge to rest home with 2nd floor room, and OT to determine capacity. MoCA scored 26/30 which is normal. Assessment & Plan (07/19/2024 3:22 PM EST): Initially presented to the ED after recent discharge home with reports of worsening dementia and inability to manage care at home. PMH significant for bipolar disorder, on Abilify, Jardine and Remeron at baseline According to SW documentation: She wants to return home with her family while waiting for disposition options. Her son disagrees and is currently states if she returns home with his family, she will eventually stop taking her meds, causing untoward behavior. She will start smoking, which they do not want in their home. Son endorses she should not live alone, as she historically has had SI when living independently. RNCM and SW attempting placement. She needs [facility] for LTC or other community services. [facility] application pending a home sale in [place]. COLLEEN requested pt be evaluated by PT for possible discharge to rest home with 2nd floor room, and OT to determine capacity. MoCA scored 26/30 which is normal. Assessment & Plan (07/18/2024 2:58 PM EST): Initially presented to the ED after recent discharge home with reports of worsening dementia and inability to manage care at home. PMH significant for bipolar disorder, on Abilify, Jardine and Remeron at baseline According to SW documentation: She wants to return home with her family while waiting for disposition options. Her son disagrees and is currently states if she returns home with his family, she will eventually stop taking her meds, causing untoward behavior. She will start smoking, which they do not want in their home. Son endorses she should not live alone, as she historically has had SI when living independently. RNCM and SW attempting placement. She needs [facility] for LTC or other community services. [facility] application pending a home sale in [place]. COLLEEN requested pt be evaluated by PT for possible discharge to rest home with 2nd floor room, and OT to determine capacity. MoCA scored 26/30 which is normal. Assessment & Plan (07/17/2024 9:34 AM EST): Initially presented to the ED after recent discharge home with reports of worsening dementia and inability to manage care at home. PMH significant for bipolar disorder, on Abilify, Jardine and Remeron at baseline According to SW documentation: She wants to return home with her family while waiting for disposition options. Her son disagrees and is currently states if she returns home with his family, she will eventually stop taking her meds, causing untoward behavior. She will start smoking, which they do not want in their home. Son endorses she should not live alone, as she historically has had SI when living independently. RNCM and SW attempting placement. She needs [facility] for LTC or other community services. [facility] application pending a home sale in [place]. SW requested pt be evaluated by PT for possible discharge to rest home with 2nd floor room, and OT to determine capacity. MoCA scored 26/30 which is normal. Assessment & Plan (07/16/2024 10:45 AM EST): Initially presented to the ED after recent discharge home with reports of worsening dementia and inability to manage care at home. PMH significant for bipolar disorder, on Abilify, Jardine and Remeron at baseline According to SW documentation: She wants to return home with her family while waiting for disposition options. Her son disagrees and is currently states if she returns home with his family, she will eventually stop taking her meds, causing untoward behavior. She will start smoking, which they do not want in their home. Son endorses she should not live alone, as she historically has had SI when living independently. RNCM and SW attempting placement. She needs [facility] for LTC or other community services. [facility] application pending a home sale in [place]. SW requested pt be evaluated by PT for possible discharge to rest home with 2nd floor room, and OT to determine capacity. MoCA scored 26/30 which is normal. Assessment & Plan (07/15/2024 12:54 PM EST): Initially presented to the ED after recent discharge home with reports of worsening dementia and inability to manage care at home. PMH significant for bipolar disorder, on Abilify, Jardine and Remeron at baseline According to SW documentation: She wants to return home with her family while waiting for disposition options. Her son disagrees and is currently states if she returns home with his family, she will eventually stop taking her meds, causing untoward behavior. She will start smoking, which they do not want in their home. Son endorses she should not live alone, as she historically has had SI when living independently. RNCM and SW attempting placement. She needs [facility] for LTC or other community services. [facility] application pending a home sale in [place]. SW requested pt be evaluated by PT for possible discharge to rest home with 2nd floor room, and OT to determine capacity. MoCA scored 26/30 which is normal. Assessment & Plan (07/14/2024 2:21 PM EST): Initially presented to the ED after recent discharge home with reports of worsening dementia and inability to manage care at home. PMH significant for bipolar disorder, on Abilify, Jardine and Remeron at baseline According to documentation: She wants to return home with her family while waiting for disposition options. Her son disagrees and is currently states if she returns home with his family, she will eventually stop taking her meds, causing untoward behavior. She will start smoking, which they do not want in their home. Son endorses she should not live alone, as she historically has had SI when living independently. RNCM and SW attempting placement. She needs [facility] for LTC or other community services. [facility] application pending a home sale in [place]. COLLEEN requested pt be evaluated by PT for possible discharge to rest home with 2nd floor room, and OT to determine capacity. MoCA scored 26/30 which is normal. Assessment & Plan (07/13/2024 1:05 PM EDT): Initially presented to the ED after recent discharge home with reports of worsening dementia and inability to manage care at home. PMH significant for bipolar disorder, on Abilify, Jardine and Remeron at baseline According to documentation: She wants to return home with her family while waiting for disposition options. Her son disagrees and is currently states if she returns home with his family, she will eventually stop taking her meds, causing untoward behavior. She will start smoking, which they do not want in their home. Son endorses she should not live alone, as she historically has had SI when living independently. RNCM and SW attempting placement. She needs [facility] for LTC or other community services. [facility] application pending a home sale in [place]. COLLEEN requested pt be evaluated by PT for possible discharge to rest home with 2nd floor room, and OT to determine capacity. MoCA scored 26/30 which is normal. Assessment & Plan (07/12/2024 5:58 PM EDT): Initially presented to the ED after recent discharge home with reports of worsening dementia and inability to manage care at home. PMH significant for bipolar disorder, on Abilify, Jardine and Remeron at baseline According to COLLEEN documentation: She wants to return home with her family while waiting for disposition options. Her son disagrees and is currently states if she returns home with his family, she will eventually stop taking her meds, causing untoward behavior. She will start smoking, which they do not want in their home. Son endorses she should not live alone, as she historically has had SI when living independently. RNCM and SW attempting placement. She needs [facility] for LTC or other community services. [facility] application pending a home sale in [place]. COLLEEN requested pt be evaluated by PT for possible discharge to rest home with 2nd floor room, and OT to determine capacity. MoCA scored 26/30 which is normal. Assessment & Plan (07/11/2024 9:58 AM EDT): Initially presented to the ED after recent discharge home with reports of worsening dementia and inability to manage care at home. PMH significant for bipolar disorder, on Abilify, Jardine and Remeron at baseline According to COLLEEN documentation: She wants to return home with her family while waiting for disposition options. Her son disagrees and is currently states if she returns home with his family, she will eventually stop taking her meds, causing untoward behavior. She will start smoking, which they do not want in their home. Son endorses she should not live alone, as she historically has had SI when living independently. RNCM and SW attempting placement. She needs [facility] for LTC or other community services. [facility] application pending a home sale in [place]. COLLEEN requested pt be evaluated by PT for possible discharge to rest home with 2nd floor room, and OT to determine capacity. MoCA scored 26/30 which is normal. Assessment & Plan (07/10/2024 11:53 AM EDT): Initially presented to the ED after recent discharge home with reports of worsening dementia and inability to manage care at home. PMH significant for bipolar disorder, on Abilify, Jardine and Remeron at baseline According to SW documentation: She wants to return home with her family while waiting for disposition options. Her son disagrees and is currently states if she returns home with his family, she will eventually stop taking her meds, causing untoward behavior. She will start smoking, which they do not want in their home. Son endorses she should not live alone, as she historically has had SI when living independently. RNCM and SW attempting placement. She needs [facility] for LTC or other community services. [facility] application pending a home sale in [place]. COLLEEN requested pt be evaluated by PT for possible discharge to rest home with 2nd floor room, and OT to determine capacity. MoCA scored 26/30 which is normal. Assessment & Plan (07/09/2024 6:04 PM EDT): Initially presented to the ED after recent discharge home with reports of worsening dementia and inability to manage care at home. PMH significant for bipolar disorder, on Abilify, Jardine and Remeron at baseline According to SW documentation: She wants to return home with her family while waiting for disposition options. Her son disagrees and is currently states if she returns home with his family, she will eventually stop taking her meds, causing untoward behavior. She will start smoking, which they do not want in their home. Son endorses she should not live alone, as she historically has had SI when living independently. RNCM and SW attempting placement. She needs [facility] for LTC or other community services. [facility] application pending a home sale in [place]. COLLEEN requested pt be evaluated by PT for possible discharge to rest home with 2nd floor room, and OT to determine capacity. MoCA scored 26/30 which is normal. Assessment & Plan (07/08/2024 4:11 PM EDT): Initially presented to the ED after recent discharge home with reports of worsening dementia and inability to manage care at home. PMH significant for bipolar disorder, on Abilify, Jardine and Remeron at baseline According to SW documentation: She wants to return home with her family while waiting for disposition options. Her son disagrees and is currently states if she returns home with his family, she will eventually stop taking her meds, causing untoward behavior. She will start smoking, which they do not want in their home. Son endorses she should not live alone, as she historically has had SI when living independently. RNCM and SW attempting placement. She needs [facility] for LTC or other community services. [facility] application pending a home sale in [place]. SW requested pt be evaluated by PT for possible discharge to rest home with 2nd floor room, and OT to determine capacity. MoCA scored 26/30 which is normal. Assessment & Plan (07/06/2024 10:19 AM EDT): Initially presented to the ED after recent discharge home with reports of worsening dementia and inability to manage care at home. PMH significant for bipolar disorder, on Abilify, Jardine and Remeron at baseline According to SW documentation: She wants to return home with her family while waiting for disposition options. Her son disagrees and is currently states if she returns home with his family, she will eventually stop taking her meds, causing untoward behavior. She will start smoking, which they do not want in their home. Son endorses she should not live alone, as she historically has had SI when living independently. RNCM and SW attempting placement. She needs [facility] for LTC or other community services. [facility] application pending a home sale in [place]. COLLEEN requested pt be evaluated by PT for possible discharge to rest home with 2nd floor room, and OT to determine capacity. MoCA scored 26/30 which is normal. Assessment & Plan (07/04/2024 12:42 PM EDT): Initially presented to the ED after recent discharge home with reports of worsening dementia and inability to manage care at home. PMH significant for bipolar disorder, on Abilify, Jardine and Remeron at baseline According to SW documentation: She wants to return home with her family while waiting for disposition options. Her son disagrees and is currently states if she returns home with his family, she will eventually stop taking her meds, causing untoward behavior. She will start smoking, which they do not want in their home. Son endorses she should not live alone, as she historically has had SI when living independently. RNCM and SW attempting placement. She needs [facility] for LTC or other community services. [facility] application pending a home sale in [place]. SW requested pt be evaluated by PT for possible discharge to rest home with 2nd floor room, and OT to determine capacity. MoCA scored 26/30 which is normal. Assessment & Plan (07/03/2024 11:25 AM EDT): Initially presented to the ED after recent discharge home with reports of worsening dementia and inability to manage care at home. PMH significant for bipolar disorder, on Abilify, Jardine and Remeron at baseline According to SW documentation: She wants to return home with her family while waiting for disposition options. Her son disagrees and is currently states if she returns home with his family, she will eventually stop taking her meds, causing untoward behavior. She will start smoking, which they do not want in their home. Son endorses she should not live alone, as she historically has had SI when living independently. RNCM and COLLEEN attempting placement. She needs [facility] for LTC or other community services. [facility] application pending a home sale in [place]. SW requested pt be evaluated by PT for possible discharge to rest home with 2nd floor room, and OT to determine capacity. MoCA scored 26/30 which is normal. Assessment & Plan (07/02/2024 11:21 AM EDT): Initially presented to the ED after recent discharge home with reports of worsening dementia and inability to manage care at home. PMH significant for bipolar disorder, on Abilify, Jardine and Remeron at baseline According to SW documentation: She wants to return home with her family while waiting for disposition options. Her son disagrees and is currently states if she returns home with his family, she will eventually stop taking her meds, causing untoward behavior. She will start smoking, which they do not want in their home. Son endorses she should not live alone, as she historically has had SI when living independently. RNCM and SW attempting placement. She needs [facility] for LTC or other community services. [facility] application pending a home sale in [place]. COLLEEN requested pt be evaluated by PT for possible discharge to rest home with 2nd floor room, and OT to determine capacity. MoCA scored 26/30 which is normal. Assessment & Plan (07/01/2024 7:36 AM EDT): Initially presented to the ED after recent discharge home with reports of worsening dementia and inability to manage care at home. PMH significant for bipolar disorder, on Abilify, Jardine and Remeron at baseline According to SW documentation: She wants to return home with her family while waiting for disposition options. Her son disagrees and is currently states if she returns home with his family, she will eventually stop taking her meds, causing untoward behavior. She will start smoking, which they do not want in their home. Son endorses she should not live alone, as she historically has had SI when living independently. RNCM and SW attempting placement. She needs [facility] for LTC or other community services. [facility] application pending a home sale in [place]. COLLEEN requested pt be evaluated by PT for possible discharge to rest home with 2nd floor room, and OT to determine capacity. MoCA scored 26/30 which is normal. Assessment & Plan (06/30/2024 9:25 AM EDT): Initially presented to the ED after recent discharge home with reports of worsening dementia and inability to manage care at home. PMH significant for bipolar disorder, on Abilify, Jardine and Remeron at baseline According to SW documentation: She wants to return home with her family while waiting for disposition options. Her son disagrees and is currently states if she returns home with his family, she will eventually stop taking her meds, causing untoward behavior. She will start smoking, which they do not want in their home. Son endorses she should not live alone, as she historically has had SI when living independently. RNCM and SW attempting placement. She needs [facility] for LTC or other community services. [facility] application pending a home sale in [place]. COLLEEN requested pt be evaluated by PT for possible discharge to rest home with 2nd floor room, and OT to determine capacity- MoCA scored 26/30 which is normal. Assessment & Plan (06/22/2024 3:18 PM EDT): Initially presented to the ED after recent discharge home with reports of worsening dementia and inability to manage care at home. PMH significant for bipolar disorder, on Abilify, Jardine and Remeron at baseline According to SW documentation: She wants to return home with her family while waiting for disposition options. Her son disagrees and is currently states if she returns home with his family, she will eventually stop taking her meds, causing untoward behavior. She will start smoking, which they do not want in their home. Son endorses she should not live alone, as she historically has had SI when living independently. RNCM and SW attempting placement. She needs [facility] for LTC or other community services. [facility] application pending a home sale in [place]. COLLEEN requested pt be evaluated by PT for possible discharge to rest home with 2nd floor room, and OT to determine capacity- MoCA scored 26/30 which is normal. Assessment & Plan (06/08/2024 6:04 PM EDT): Initially presented to the ED after recent discharge home with reports of worsening dementia and inability to manage care at home. PMH significant for bipolar disorder, on Abilify, Jardine and Remeron at baseline According to SW documentation: She wants to return home with her family while waiting for disposition options. Her son disagrees and is currently states if she returns home with his family, she will eventually stop taking her meds, causing untoward behavior. She will start smoking, which they do not want in their home. Son endorses she should not live alone, as she historically has had SI when living independently. RNCM and SW attempting placement. She needs [facility] for LTC or other community services. [facility] application pending a home sale in [place]. COLLEEN requested pt be evaluated by PT for possible discharge to rest home with 2nd floor room, and OT to determine capacity- MoCA scored 26/30 which is normal. Assessment & Plan (06/02/2024 4:49 PM EDT): Initially presented to the ED after recent discharge home with reports of worsening dementia and inability to manage care at home. PMH significant for bipolar disorder, on Abilify, Jardine and Remeron at baseline According to SW documentation: She wants to return home with her family while waiting for disposition options. Her son disagrees and is currently states if she returns home with his family, she will eventually stop taking her meds, causing untoward behavior. She will start smoking, which they do not want in their home. Son endorses she should not live alone, as she historically has had SI when living independently. RNCM and SW attempting placement. She needs [facility] for LTC or other community services. [facility] application pending a home sale in [place]. SW requested pt be evaluated by PT for possible discharge to rest home with 2nd floor room, and OT to determine capacity- MoCA scored 26/30 which is normal. Assessment & Plan (06/01/2024 3:22 PM EDT): Initially presented to the ED after recent discharge home with reports of worsening dementia and inability to manage care at home. PMH significant for bipolar disorder, on Abilify, Jardine and Remeron at baseline According to SW documentation: She wants to return home with her family while waiting for disposition options. Her son disagrees and is currently states if she returns home with his family, she will eventually stop taking her meds, causing untoward behavior. She will start smoking, which they do not want in their home. Son endorses she should not live alone, as she historically has had SI when living independently. RNCM and SW attempting placement. She needs [facility] for LTC or other community services. [facility] application pending a home sale in [place]. COLLEEN requested pt be evaluated by PT for possible discharge to rest home with 2nd floor room, and OT to determine capacity- MoCA scored 26/30 which is normal. Assessment & Plan (05/26/2024 10:16 AM EDT): Initially presented to the ED after recent discharge home with reports of worsening dementia and inability to manage care at home. PMH significant for bipolar disorder, on Abilify, Jardine and Remeron at baseline According to SW documentation: She wants to return home with her family while waiting for disposition options. Her son disagrees and is currently states if she returns home with his family, she will eventually stop taking her meds, causing untoward behavior. She will start smoking, which they do not want in their home. Son endorses she should not live alone, as she historically has had SI when living independently. RNCM and SW attempting placement. She needs [facility] for LTC or other community services. [facility] application pending a home sale in [place]. SW requested pt be evaluated by PT for possible discharge to rest home with 2nd floor room, and OT to determine capacity- MoCA scored 26/30 which is normal. Assessment & Plan (05/25/2024 11:25 AM EDT): Initially presented to the ED after recent discharge home with reports of worsening dementia and inability to manage care at home. PMH significant for bipolar disorder, on Abilify, Jardine and Remeron at baseline According to SW documentation: She wants to return home with her family while waiting for disposition options. Her son disagrees and is currently states if she returns home with his family, she will eventually stop taking her meds, causing untoward behavior. She will start smoking, which they do not want in their home. Son endorses she should not live alone, as she historically has had SI when living independently. RNCM and SW attempting placement. She needs [facility] for LTC or other community services. [facility] application pending a home sale in [place]. COLLEEN requested pt be evaluated by PT for possible discharge to rest home with 2nd floor room, and OT to determine capacity- MoCA scored 26/30 which is normal. Assessment & Plan (05/24/2024 10:41 AM EDT): Initially presented to the ED after recent discharge home with reports of worsening dementia and inability to manage care at home. PMH significant for bipolar disorder, on Abilify, Jardine and Remeron at baseline According to SW documentation: She wants to return home with her family while waiting for disposition options. Her son disagrees and is currently states if she returns home with his family, she will eventually stop taking her meds, causing untoward behavior. She will start smoking, which they do not want in their home. Son endorses she should not live alone, as she historically has had SI when living independently. RNCM and SW attempting placement. She needs [facility] for LTC or other community services. [facility] application pending a home sale in [place]. SW requested pt be evaluated by PT for possible discharge to rest home with 2nd floor room, and OT to determine capacity- MoCA scored 26/30 which is normal. Assessment & Plan (05/23/2024 12:16 PM EDT): Initially presented to the ED after recent discharge home with reports of worsening dementia and inability to manage care at home. PMH significant for bipolar disorder, on Abilify, Jardine and Remeron at baseline According to SW documentation: She wants to return home with her family while waiting for disposition options. Her son disagrees and is currently states if she returns home with his family, she will eventually stop taking her meds, causing untoward behavior. She will start smoking, which they do not want in their home. Son endorses she should not live alone, as she historically has had SI when living independently. RNCM and SW attempting placement. She needs [facility] for LTC or other community services. [facility] application pending a home sale in [place]. COLLEEN requested pt be evaluated by PT for possible discharge to rest home with 2nd floor room, and OT to determine capacity- MoCA scored 26/30 which is normal. Assessment & Plan (05/22/2024 11:25 AM EDT): Initially presented to the ED after recent discharge home with reports of worsening dementia and inability to manage care at home. PMH significant for bipolar disorder, on Abilify, Jardine and Remeron at baseline According to SW documentation: She wants to return home with her family while waiting for disposition options. Her son disagrees and is currently states if she returns home with his family, she will eventually stop taking her meds, causing untoward behavior. She will start smoking, which they do not want in their home. Son endorses she should not live alone, as she historically has had SI when living independently. RNCM and SW attempting placement. She needs [facility] for LTC or other community services. [facility] application pending a home sale in [place]. COLLEEN requested pt be evaluated by PT for possible discharge to rest home with 2nd floor room, and OT to determine capacity- MoCA scored 26/30 which is normal. Assessment & Plan (05/21/2024 10:48 AM EDT): Initially presented to the ED after recent discharge home with reports of worsening dementia and inability to manage care at home. PMH significant for bipolar disorder, on Abilify, Jardine and Remeron at baseline According to SW documentation: She wants to return home with her family while waiting for disposition options. Her son disagrees and is currently states if she returns home with his family, she will eventually stop taking her meds, causing untoward behavior. She will start smoking, which they do not want in their home. Son endorses she should not live alone, as she historically has had SI when living independently. RNCM and SW attempting placement. She needs [facility] for LTC or other community services. [facility] application pending a home sale in [place]. SW requested pt be evaluated by PT for possible discharge to rest home with 2nd floor room, and OT to determine capacity- MoCA scored 26/30 which is normal. Assessment & Plan (05/20/2024 10:40 AM EDT): Initially presented to the ED after recent discharge home with reports of worsening dementia and inability to manage care at home. PMH significant for bipolar disorder, on Abilify, Jardine and Remeron at baseline According to SW documentation: She wants to return home with her family while waiting for disposition options. Her son disagrees and is currently states if she returns home with his family, she will eventually stop taking her meds, causing untoward behavior. She will start smoking, which they do not want in their home. Son endorses she should not live alone, as she historically has had SI when living independently. RNCM and SW attempting placement. She needs [facility] for LTC or other community services. [facility] application pending a home sale in [place]. COLLEEN requested pt be evaluated by PT for possible discharge to rest home with 2nd floor room, and OT to determine capacity- MoCA scored 26/30 which is normal. Assessment & Plan (05/19/2024 11:49 AM EDT): Initially presented to the ED after recent discharge home with reports of worsening dementia and inability to manage care at home. PMH significant for bipolar disorder, on Abilify, Jardine and Remeron at baseline According to SW documentation: She wants to return home with her family while waiting for disposition options. Her son disagrees and is currently states if she returns home with his family, she will eventually stop taking her meds, causing untoward behavior. She will start smoking, which they do not want in their home. Son endorses she should not live alone, as she historically has had SI when living independently. RNCM and SW attempting placement. She needs [facility] for LTC or other community services. [facility] application pending a home sale in [place]. SW requested pt be evaluated by PT for possible discharge to rest home with 2nd floor room, and OT to determine capacity- MoCA scored 26/30 which is normal. Assessment & Plan (05/16/2024 4:09 PM EDT): Initially presented to the ED after recent discharge home with reports of worsening dementia and inability to manage care at home. PMH significant for bipolar disorder, on Abilify, Jardine and Remeron at baseline According to SW documentation: She wants to return home with her family while waiting for disposition options. Her son disagrees and is currently states if she returns home with his family, she will eventually stop taking her meds, causing untoward behavior. She will start smoking, which they do not want in their home. Son endorses she should not live alone, as she historically has had SI when living independently. RNCM and SW attempting placement. She needs [facility] for LTC or other community services. [facility] application pending a home sale in [place]. SW requested pt be evaluated by PT for possible discharge to rest home with 2nd floor room, and OT to determine capacity- MoCA scored 26/30 which is normal. Assessment & Plan (05/15/2024 4:37 PM EDT): Initially presented to the ED after recent discharge home with reports of worsening dementia and inability to manage care at home. PMH significant for bipolar disorder, on Abilify, Jardine and Remeron at baseline According to SW documentation: She wants to return home with her family while waiting for disposition options. Her son disagrees and is currently states if she returns home with his family, she will eventually stop taking her meds, causing untoward behavior. She will start smoking, which they do not want in their home. Son endorses she should not live alone, as she historically has had SI when living independently. RNCM and SW attempting placement. She needs [facility] for LTC or other community services. [facility] application pending a home sale in [place]. COLLEEN requested pt be evaluated by PT for possible discharge to rest home with 2nd floor room, and OT to determine capacity- MoCA scored 26/30 which is normal. Assessment & Plan (05/14/2024 11:02 AM EDT): Initially presented to the ED after recent discharge home with reports of worsening dementia and inability to manage care at home. PMH significant for bipolar disorder, on Abilify, Jardine and Remeron at baseline According to COLLEEN documentation: She wants to return home with her family while waiting for disposition options. Her son disagrees and is currently states if she returns home with his family, she will eventually stop taking her meds, causing untoward behavior. She will start smoking, which they do not want in their home. Son endorses she should not live alone, as she historically has had SI when living independently. RNCM and SW attempting placement. She needs [facility] for LTC or other community services. [facility] application pending a home sale in [place]. COLLEEN requested pt be evaluated by PT for possible discharge to rest home with 2nd floor room, and OT to determine capacity- MoCA scored 26/30 which is normal. Assessment & Plan (05/13/2024 2:42 PM EDT): Initially presented to the ED after recent discharge home with reports of worsening dementia and inability to manage care at home. PMH significant for bipolar disorder, on Abilify, Jardine and Remeron at baseline According to COLLEEN documentation: She wants to return home with her family while waiting for disposition options. Her son disagrees and is currently states if she returns home with his family, she will eventually stop taking her meds, causing untoward behavior. She will start smoking, which they do not want in their home. Son endorses she should not live alone, as she historically has had SI when living independently. RNCM and SW attempting placement. She needs [facility] for LTC or other community services. [facility] application pending a home sale in [place]. COLLEEN requested pt be evaluated by PT for possible discharge to rest home with 2nd floor room, and OT to determine capacity- MoCA scored 26/30 which is normal. Assessment & Plan (05/12/2024 8:27 AM EDT): Initially presented to the ED after recent discharge home with reports of worsening dementia and inability to manage care at home. PMH significant for bipolar disorder, on Abilify, Jardine and Remeron at baseline According to SW documentation: She wants to return home with her family while waiting for disposition options. Her son disagrees and is currently states if she returns home with his family, she will eventually stop taking her meds, causing untoward behavior. She will start smoking, which they do not want in their home. Son endorses she should not live alone, as she historically has had SI when living independently. RNCM and SW attempting placement. She needs [facility] for LTC or other community services. [facility] application pending a home sale in [place]. COLLEEN requested pt be evaluated by PT for possible discharge to rest home with 2nd floor room, and OT to determine capacity- MoCA scored 26/30 which is normal. Assessment & Plan (05/11/2024 9:10 AM EDT): Initially presented to the ED after recent discharge home with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 foul-smelling with brownish discharge on presentation, completed 7 days of Levaquin. Afebrile, no leukocytosis on initial labs, wound cultures grew multiple organisms. Appreciate Wound RN evaluation. Seen by bench handrosanna Amezcua for eval and also for tx of painful calluses 06/26/24 Manually debride nails x 10 Manually debride lesions x 2 Will follow as needed Evaluated by Dr. Elias on 06/26/24 for right foot plantar second metatarsal head had a 1 x 1.5 cm severe tyloma noted. No surrounding erythema and no sign of cellulitis or portal opening. Faint signs of dry hemorrhage within the central portion of the lesion. Lesion and hyperkeratotic tissue was debrided before patient tolerance would not allow further treatment. Assessment & Plan (08/24/2024 2:21 PM EST): Chronic left ankle ulceration, Wound found to be extremely foul-smelling with brownish discharge on presentation, completed 7 days of Levaquin. Afebrile, no leukocytosis on initial labs, wound cultures grew multiple organisms. Appreciate Wound RN evaluation. Seen by bench hand Goldie for eval and also for tx of painful calluses 06/26/24 Manually debride nails x 10 Manually debride lesions x 2 Will follow as needed Evaluated by Dr. Elias on 06/26/24 for right foot plantar second metatarsal head had a 1 x 1.5 cm severe tyloma noted. No surrounding erythema and no sign of cellulitis or portal opening. Faint signs of dry hemorrhage within the central portion of the lesion. Lesion and hyperkeratotic tissue was debrided before patient tolerance would not allow further treatment. Assessment & Plan (08/23/2024 7:11 AM EST): Chronic left ankle ulceration, Wound found to be extremely foul-smelling with brownish discharge on presentation, completed 7 days of Levaquin. Afebrile, no leukocytosis on initial labs, wound cultures grew multiple organisms. Appreciate Wound RN evaluation. Seen by bench hand Goldie for eval and also for tx of painful calluses 06/26/24 Manually debride nails x 10 Manually debride lesions x 2 Will follow as needed Evaluated by Dr. Elias on 06/26/24 for right foot plantar second metatarsal head had a 1 x 1.5 cm severe tyloma noted. No surrounding erythema and no sign of cellulitis or portal opening. Faint signs of dry hemorrhage within the central portion of the lesion. Lesion and hyperkeratotic tissue was debrided before patient tolerance would not allow further treatment. Assessment & Plan (08/22/2024 7:22 AM EST): Chronic left ankle ulceration, Wound found to be extremely foul-smelling with brownish discharge on presentation, completed 7 days of Levaquin. Afebrile, no leukocytosis on initial labs, wound cultures grew multiple organisms. Appreciate Wound RN evaluation. Seen by bench hand Goldie for eval and also for tx of painful calluses 06/26/24 Manually debride nails x 10 Manually debride lesions x 2 Will follow as needed Evaluated by Dr. Elias on 06/26/24 for right foot plantar second metatarsal head had a 1 x 1.5 cm severe tyloma noted. No surrounding erythema and no sign of cellulitis or portal opening. Faint signs of dry hemorrhage within the central portion of the lesion. Lesion and hyperkeratotic tissue was debrided before patient tolerance would not allow further treatment. Assessment & Plan (08/21/2024 1:36 PM EST): Chronic left ankle ulceration, Wound found to be extremely foul-smelling with brownish discharge on presentation, completed 7 days of Levaquin. Afebrile, no leukocytosis on initial labs, wound cultures grew multiple organisms. Appreciate Wound RN evaluation. Seen by bench hand Goldie for eval and also for tx of painful calluses 06/26/24 Manually debride nails x 10 Manually debride lesions x 2 Will follow as needed Evaluated by Dr. Elias on 06/26/24 for right foot plantar second metatarsal head had a 1 x 1.5 cm severe tyloma noted. No surrounding erythema and no sign of cellulitis or portal opening. Faint signs of dry hemorrhage within the central portion of the lesion. Lesion and hyperkeratotic tissue was debrided before patient tolerance would not allow further treatment. Assessment & Plan (08/20/2024 5:47 PM EST): Chronic left ankle ulceration, Wound found to be extremely foul-smelling with brownish discharge on presentation, completed 7 days of Levaquin. Afebrile, no leukocytosis on initial labs, wound cultures grew multiple organisms. Appreciate Wound RN evaluation. Seen by bench handrosanna Amezcua for eval and also for tx of painful calluses 06/26/24 Manually debride nails x 10 Manually debride lesions x 2 Will follow as needed Evaluated by Dr. Elias on 06/26/24 for right foot plantar second metatarsal head had a 1 x 1.5 cm severe tyloma noted. No surrounding erythema and no sign of cellulitis or portal opening. Faint signs of dry hemorrhage within the central portion of the lesion. Lesion and hyperkeratotic tissue was debrided before patient tolerance would not allow further treatment. Assessment & Plan (08/19/2024 2:46 PM EST): Chronic left ankle ulceration, Wound found to be extremely foul-smelling with brownish discharge on presentation, completed 7 days of Levaquin. Afebrile, no leukocytosis on initial labs, wound cultures grew multiple organisms. Appreciate Wound RN evaluation. Seen by bench hand Goldie for eval and also for tx of painful calluses 06/26/24 Manually debride nails x 10 Manually debride lesions x 2 Will follow as needed Evaluated by Dr. Elias on 06/26/24 for right foot plantar second metatarsal head had a 1 x 1.5 cm severe tyloma noted. No surrounding erythema and no sign of cellulitis or portal opening. Faint signs of dry hemorrhage within the central portion of the lesion. Lesion and hyperkeratotic tissue was debrided before patient tolerance would not allow further treatment. Assessment & Plan (08/18/2024 12:45 PM EST): Chronic left ankle ulceration, Wound found to be extremely foul-smelling with brownish discharge on presentation, completed 7 days of Levaquin. Afebrile, no leukocytosis on initial labs, wound cultures grew multiple organisms. Appreciate Wound RN evaluation. Seen by bench hand Goldie for eval and also for tx of painful calluses 06/26/24 Manually debride nails x 10 Manually debride lesions x 2 Will follow as needed Evaluated by Dr. Elias on 06/26/24 for right foot plantar second metatarsal head had a 1 x 1.5 cm severe tyloma noted. No surrounding erythema and no sign of cellulitis or portal opening. Faint signs of dry hemorrhage within the central portion of the lesion. Lesion and hyperkeratotic tissue was debrided before patient tolerance would not allow further treatment. Assessment & Plan (08/17/2024 10:44 AM EST): Chronic left ankle ulceration, Wound found to be extremely foul-smelling with brownish discharge on presentation, completed 7 days of Levaquin. Afebrile, no leukocytosis on initial labs, wound cultures grew multiple organisms. Appreciate Wound RN evaluation. Seen by bench hand Goldie for eval and also for tx of painful calluses 06/26/24 Manually debride nails x 10 Manually debride lesions x 2 Will follow as needed Evaluated by Dr. Elias on 06/26/24 for right foot plantar second metatarsal head had a 1 x 1.5 cm severe tyloma noted. No surrounding erythema and no sign of cellulitis or portal opening. Faint signs of dry hemorrhage within the central portion of the lesion. Lesion and hyperkeratotic tissue was debrided before patient tolerance would not allow further treatment. Assessment & Plan (08/16/2024 7:08 AM EST): Chronic left ankle ulceration, Wound found to be extremely foul-smelling with brownish discharge on presentation, completed 7 days of Levaquin. Afebrile, no leukocytosis on initial labs, wound cultures grew multiple organisms. Appreciate Wound RN evaluation. Seen by bench hand Goldie for eval and also for tx of painful calluses 06/26/24 Manually debride nails x 10 Manually debride lesions x 2 Will follow as needed Evaluated by Dr. Elias on 06/26/24 for right foot plantar second metatarsal head had a 1 x 1.5 cm severe tyloma noted. No surrounding erythema and no sign of cellulitis or portal opening. Faint signs of dry hemorrhage within the central portion of the lesion. Lesion and hyperkeratotic tissue was debrided before patient tolerance would not allow further treatment. Assessment & Plan (08/15/2024 9:42 AM EST): Chronic left ankle ulceration, Wound found to be extremely foul-smelling with brownish discharge on presentation, completed 7 days of Levaquin. Afebrile, no leukocytosis on initial labs, wound cultures grew multiple organisms. Appreciate Wound RN evaluation. Seen by bench handrosanna Amezcua for eval and also for tx of painful calluses 06/26/24 Manually debride nails x 10 Manually debride lesions x 2 Will follow as needed Evaluated by Dr. Elias on 06/26/24 for right foot plantar second metatarsal head had a 1 x 1.5 cm severe tyloma noted. No surrounding erythema and no sign of cellulitis or portal opening. Faint signs of dry hemorrhage within the central portion of the lesion. Lesion and hyperkeratotic tissue was debrided before patient tolerance would not allow further treatment. Assessment & Plan (08/14/2024 2:45 PM EST): Chronic left ankle ulceration, Wound found to be extremely foul-smelling with brownish discharge on presentation, completed 7 days of Levaquin. Afebrile, no leukocytosis on initial labs, wound cultures grew multiple organisms. Appreciate Wound RN evaluation. Seen by bench hand Goldie for eval and also for tx of painful calluses 06/26/24 Manually debride nails x 10 Manually debride lesions x 2 Will follow as needed Evaluated by Dr. Elias on 06/26/24 for right foot plantar second metatarsal head had a 1 x 1.5 cm severe tyloma noted. No surrounding erythema and no sign of cellulitis or portal opening. Faint signs of dry hemorrhage within the central portion of the lesion. Lesion and hyperkeratotic tissue was debrided before patient tolerance would not allow further treatment. Noted metatarsal joint swelling worse on the left. She finished 5 days course of prednisone. Continue with Voltaren gel as needed. No new changes as of July 21, patient denied any increasing pain, fever. Assessment & Plan (08/13/2024 3:26 PM EST): Chronic left ankle ulceration, Wound found to be extremely foul-smelling with brownish discharge on presentation, completed 7 days of Levaquin. Afebrile, no leukocytosis on initial labs, wound cultures grew multiple organisms. Appreciate Wound RN evaluation. Seen by bench hand Goldie for eval and also for tx of painful calluses 06/26/24 Manually debride nails x 10 Manually debride lesions x 2 Will follow as needed Evaluated by Dr. Elias on 06/26/24 for right foot plantar second metatarsal head had a 1 x 1.5 cm severe tyloma noted. No surrounding erythema and no sign of cellulitis or portal opening. Faint signs of dry hemorrhage within the central portion of the lesion. Lesion and hyperkeratotic tissue was debrided before patient tolerance would not allow further treatment. Noted metatarsal joint swelling worse on the left. She finished 5 days course of prednisone. Continue with Voltaren gel as needed. No new changes as of July 21, patient denied any increasing pain, fever. Assessment & Plan (08/12/2024 1:23 PM EST): Chronic left ankle ulceration, Wound found to be extremely foul-smelling with brownish discharge on presentation, completed 7 days of Levaquin. Afebrile, no leukocytosis on initial labs, wound cultures grew multiple organisms. Appreciate Wound RN evaluation. Seen by bench hand Goldie for eval and also for tx of painful calluses 06/26/24 Manually debride nails x 10 Manually debride lesions x 2 Will follow as needed Evaluated by Dr. Elias on 06/26/24 for right foot plantar second metatarsal head had a 1 x 1.5 cm severe tyloma noted. No surrounding erythema and no sign of cellulitis or portal opening. Faint signs of dry hemorrhage within the central portion of the lesion. Lesion and hyperkeratotic tissue was debrided before patient tolerance would not allow further treatment. Noted metatarsal joint swelling worse on the left. She finished 5 days course of prednisone. Continue with Voltaren gel as needed. No new changes as of July 21, patient denied any increasing pain, fever. Assessment & Plan (08/07/2024 2:41 PM EST): Chronic left ankle ulceration, Wound found to be extremely foul-smelling with brownish discharge on presentation, completed 7 days of Levaquin. Afebrile, no leukocytosis on initial labs, wound cultures grew multiple organisms. Appreciate Wound RN evaluation. Seen by bench hand Goldie for eval and also for tx of painful calluses 06/26/24 Manually debride nails x 10 Manually debride lesions x 2 Will follow as needed Evaluated by Dr. Elias on 06/26/24 for right foot plantar second metatarsal head had a 1 x 1.5 cm severe tyloma noted. No surrounding erythema and no sign of cellulitis or portal opening. Faint signs of dry hemorrhage within the central portion of the lesion. Lesion and hyperkeratotic tissue was debrided before patient tolerance would not allow further treatment. Noted metatarsal joint swelling worse on the left. She finished 5 days course of prednisone. Continue with Voltaren gel as needed. No new changes as of July 21, patient denied any increasing pain, fever. Assessment & Plan (08/06/2024 1:35 PM EST): Chronic left ankle ulceration, Wound found to be extremely foul-smelling with brownish discharge on presentation, completed 7 days of Levaquin. Afebrile, no leukocytosis on initial labs, wound cultures grew multiple organisms. Appreciate Wound RN evaluation. Seen by bench hand Goldie for eval and also for tx of painful calluses 06/26/24 Manually debride nails x 10 Manually debride lesions x 2 Will follow as needed Evaluated by Dr. Elias on 06/26/24 for right foot plantar second metatarsal head had a 1 x 1.5 cm severe tyloma noted. No surrounding erythema and no sign of cellulitis or portal opening. Faint signs of dry hemorrhage within the central portion of the lesion. Lesion and hyperkeratotic tissue was debrided before patient tolerance would not allow further treatment. Noted metatarsal joint swelling worse on the left. She finished 5 days course of prednisone. Continue with Voltaren gel as needed. No new changes as of July 21, patient denied any increasing pain, fever. Assessment & Plan (08/02/2024 3:57 PM EST): Chronic left ankle ulceration, Wound found to be extremely foul-smelling with brownish discharge on presentation, completed 7 days of Levaquin. Afebrile, no leukocytosis on initial labs, wound cultures grew multiple organisms. Appreciate Wound RN evaluation. Seen by bench hand Goldie for eval and also for tx of painful calluses 06/26/24 Manually debride nails x 10 Manually debride lesions x 2 Will follow as needed Evaluated by Dr. Elias on 06/26/24 for right foot plantar second metatarsal head had a 1 x 1.5 cm severe tyloma noted. No surrounding erythema and no sign of cellulitis or portal opening. Faint signs of dry hemorrhage within the central portion of the lesion. Lesion and hyperkeratotic tissue was debrided before patient tolerance would not allow further treatment. Noted metatarsal joint swelling worse on the left. She finished 5 days course of prednisone. Continue with Voltaren gel as needed. No new changes as of July 21, patient denied any increasing pain, fever. Assessment & Plan (07/29/2024 11:30 AM EST): Chronic left ankle ulceration, Wound found to be extremely foul-smelling with brownish discharge on presentation, completed 7 days of Levaquin. Afebrile, no leukocytosis on initial labs, wound cultures grew multiple organisms. Appreciate Wound RN evaluation. Seen by bench hand Goldie for eval and also for tx of painful calluses 06/26/24 Manually debride nails x 10 Manually debride lesions x 2 Will follow as needed Evaluated by Dr. Elias on 06/26/24 for right foot plantar second metatarsal head had a 1 x 1.5 cm severe tyloma noted. No surrounding erythema and no sign of cellulitis or portal opening. Faint signs of dry hemorrhage within the central portion of the lesion. Lesion and hyperkeratotic tissue was debrided before patient tolerance would not allow further treatment. Noted metatarsal joint swelling worse on the left. She finished 5 days course of prednisone. Continue with Voltaren gel as needed. No new changes as of July 21, patient denied any increasing pain, fever. Assessment & Plan (07/21/2024 2:40 PM EST): Chronic left ankle ulceration, Wound found to be extremely foul-smelling with brownish discharge on presentation, completed 7 days of Levaquin. Afebrile, no leukocytosis on initial labs, wound cultures grew multiple organisms. Appreciate Wound RN evaluation. Seen by bench hand Goldie for eval and also for tx of painful calluses 06/26/24 Manually debride nails x 10 Manually debride lesions x 2 Will follow as needed Evaluated by Dr. Elias on 06/26/24 for right foot plantar second metatarsal head had a 1 x 1.5 cm severe tyloma noted. No surrounding erythema and no sign of cellulitis or portal opening. Faint signs of dry hemorrhage within the central portion of the lesion. Lesion and hyperkeratotic tissue was debrided before patient tolerance would not allow further treatment. Noted metatarsal joint swelling worse on the left. She finished 5 days course of prednisone. Continue with Voltaren gel as needed. No new changes as of July 21, patient denied any increasing pain, fever. Assessment & Plan (07/20/2024 11:24 AM EST): Chronic left ankle ulceration, Wound found to be extremely foul-smelling with brownish discharge on presentation, completed 7 days of Levaquin. Afebrile, no leukocytosis on initial labs, wound cultures grew multiple organisms. Appreciate Wound RN evaluation. Seen by bench hand Goldie for eval and also for tx of painful calluses 06/26/24 Manually debride nails x 10 Manually debride lesions x 2 Will follow as needed Evaluated by Dr. Elias on 06/26/24 for right foot plantar second metatarsal head had a 1 x 1.5 cm severe tyloma noted. No surrounding erythema and no sign of cellulitis or portal opening. Faint signs of dry hemorrhage within the central portion of the lesion. Lesion and hyperkeratotic tissue was debrided before patient tolerance would not allow further treatment. Noted metatarsal joint swelling worse on the left. She finished 5 days course of prednisone. Continue with Voltaren gel as needed. Assessment & Plan (07/19/2024 3:22 PM EST): Chronic left ankle ulceration, Wound found to be extremely foul-smelling with brownish discharge on presentation, completed 7 days of Levaquin. Afebrile, no leukocytosis on initial labs, wound cultures grew multiple organisms. Appreciate Wound RN evaluation. Seen by bench hand Goldie for eval and also for tx of painful calluses 06/26/24 Manually debride nails x 10 Manually debride lesions x 2 Will follow as needed Evaluated by Dr. Elias on 06/26/24 for right foot plantar second metatarsal head had a 1 x 1.5 cm severe tyloma noted. No surrounding erythema and no sign of cellulitis or portal opening. Faint signs of dry hemorrhage within the central portion of the lesion. Lesion and hyperkeratotic tissue was debrided before patient tolerance would not allow further treatment. Noted metatarsal joint swelling worse on the left. She finished 5 days course of prednisone. Continue with Voltaren gel as needed. Assessment & Plan (07/18/2024 2:58 PM EST): Chronic left ankle ulceration, Wound found to be extremely foul-smelling with brownish discharge on presentation, completed 7 days of Levaquin. Afebrile, no leukocytosis on initial labs, wound cultures grew multiple organisms. Appreciate Wound RN evaluation. Seen by bench hand Goldie for eval and also for tx of painful calluses 06/26/24 Manually debride nails x 10 Manually debride lesions x 2 Will follow as needed Evaluated by Dr. Elias on 06/26/24 for right foot plantar second metatarsal head had a 1 x 1.5 cm severe tyloma noted. No surrounding erythema and no sign of cellulitis or portal opening. Faint signs of dry hemorrhage within the central portion of the lesion. Lesion and hyperkeratotic tissue was debrided before patient tolerance would not allow further treatment. Noted metatarsal joint swelling worse on the left. She finished 5 days course of prednisone. Continue with Voltaren gel as needed. Assessment & Plan (07/17/2024 9:34 AM EST): Chronic left ankle ulceration, Wound found to be extremely foul-smelling with brownish discharge on presentation, completed 7 days of Levaquin. Afebrile, no leukocytosis on initial labs, wound cultures grew multiple organisms. Appreciate Wound RN evaluation. Seen by bench hand Goldie for eval and also for tx of painful calluses 06/26/24 Manually debride nails x 10 Manually debride lesions x 2 Will follow as needed Evaluated by Dr. Elias on 06/26/24 for right foot plantar second metatarsal head had a 1 x 1.5 cm severe tyloma noted. No surrounding erythema and no sign of cellulitis or portal opening. Faint signs of dry hemorrhage within the central portion of the lesion. Lesion and hyperkeratotic tissue was debrided before patient tolerance would not allow further treatment. Noted metatarsal joint swelling worse on the left. She finished 5 days course of prednisone. Continue with Voltaren gel as needed. Assessment & Plan (07/16/2024 10:45 AM EST): Chronic left ankle ulceration, Wound found to be extremely foul-smelling with brownish discharge on presentation, completed 7 days of Levaquin. Afebrile, no leukocytosis on initial labs, wound cultures grew multiple organisms. Appreciate Wound RN evaluation. Seen by bench hand Goldie for eval and also for tx of painful calluses 06/26/24 Manually debride nails x 10 Manually debride lesions x 2 Will follow as needed Evaluated by Dr. Elias on 06/26/24 for right foot plantar second metatarsal head had a 1 x 1.5 cm severe tyloma noted. No surrounding erythema and no sign of cellulitis or portal opening. Faint signs of dry hemorrhage within the central portion of the lesion. Lesion and hyperkeratotic tissue was debrided before patient tolerance would not allow further treatment. Noted metatarsal joint swelling worse on the left. She finished 5 days course of prednisone. Continue with Voltaren gel as needed. Assessment & Plan (07/15/2024 12:54 PM EST): Chronic left ankle ulceration, Wound found to be extremely foul-smelling with brownish discharge on presentation, completed 7 days of Levaquin. Afebrile, no leukocytosis on initial labs, wound cultures grew multiple organisms. Appreciate Wound RN evaluation. Seen by bench hand Goldie for eval and also for tx of painful calluses 06/26/24 Manually debride nails x 10 Manually debride lesions x 2 Will follow as needed Evaluated by Dr. Elias on 06/26/24 for right foot plantar second metatarsal head had a 1 x 1.5 cm severe tyloma noted. No surrounding erythema and no sign of cellulitis or portal opening. Faint signs of dry hemorrhage within the central portion of the lesion. Lesion and hyperkeratotic tissue was debrided before patient tolerance would not allow further treatment. Noted metatarsal joint swelling worse on the left. She finished 5 days course of prednisone. Continue with Voltaren gel as needed. Assessment & Plan (07/14/2024 2:20 PM EST): Chronic left ankle ulceration, Wound found to be extremely foul-smelling with brownish discharge on presentation, completed 7 days of Levaquin. Afebrile, no leukocytosis on initial labs, wound cultures grew multiple organisms. Appreciate Wound RN evaluation. Seen by bench hand Goldie for eval and also for tx of painful calluses 06/26/24 Manually debride nails x 10 Manually debride lesions x 2 Will follow as needed Evaluated by Dr. Elias on 06/26/24 for right foot plantar second metatarsal head had a 1 x 1.5 cm severe tyloma noted. No surrounding erythema and no sign of cellulitis or portal opening. Faint signs of dry hemorrhage within the central portion of the lesion. Lesion and hyperkeratotic tissue was debrided before patient tolerance would not allow further treatment. Noted metatarsal joint swelling worse on the left. She was started on a 5-day course of prednisone Assessment & Plan (07/13/2024 1:06 PM EDT): Chronic left ankle ulceration, Wound found to be extremely foul-smelling with brownish discharge on presentation, completed 7 days of Levaquin. Afebrile, no leukocytosis on initial labs, wound cultures grew multiple organisms. Appreciate Wound RN evaluation. See by bench hand Goldie for eval and also for tx of painful calluses 06/26/24 Manually debride nails x 10 Manually debride lesions x 2 Will follow as needed Evaluated by Dr. Elias on 06/26/24 for right foot plantar second metatarsal head had a 1 x 1.5 cm severe tyloma noted. No surrounding erythema and no sign of cellulitis or portal opening. Faint signs of dry hemorrhage within the central portion of the lesion. Lesion and hyperkeratotic tissue was debrided before patient tolerance would not allow further treatment. Noted metatarsal joint swelling worse on the left. She was started on a 5-day course of prednisone Assessment & Plan (07/10/2024 11:53 AM EDT): Chronic left ankle ulceration, Wound found to be extremely foul-smelling with brownish discharge on presentation, completed 7 days of Levaquin. Afebrile, no leukocytosis on initial labs, wound cultures grew multiple organisms. Appreciate Wound RN evaluation. See by bench hand Jedrzynski for eval and also for tx of painful calluses 06/26/24 Manually debride nails x 10 Manually debride lesions x 2 Will follow as needed Evaluated by Dr. Elias on 06/26/24 for right foot plantar second metatarsal head had a 1 x 1.5 cm severe tyloma noted. No surrounding erythema and no sign of cellulitis or portal opening. Faint signs of dry hemorrhage within the central portion of the lesion. Lesion and hyperkeratotic tissue was debrided before patient tolerance would not allow further treatment. Noted metatarsal joint swelling worse on the left. Will start 5-day course of prednisone Assessment & Plan (07/04/2024 12:42 PM EDT): Chronic left ankle ulceration, Wound found to be extremely foul-smelling with brownish discharge on presentation, completed 7 days of Levaquin. Afebrile, no leukocytosis on initial labs, wound cultures grew multiple organisms. Appreciate Wound RN evaluation. See by bench hand Goldie for eval and also for tx of painful calluses 06/26/24 Manually debride nails x 10 Manually debride lesions x 2 Will follow as needed Evaluated by Dr. Elias on 06/26/24 for right foot plantar second metatarsal head had a 1 x 1.5 cm severe tyloma noted. No surrounding erythema and no sign of cellulitis or portal opening. Faint signs of dry hemorrhage within the central portion of the lesion. Lesion and hyperkeratotic tissue was debrided before patient tolerance would not allow further treatment. Assessment & Plan (07/03/2024 11:25 AM EDT): Chronic left ankle ulceration, Wound found to be extremely foul-smelling with brownish discharge on presentation, completed 7 days of Levaquin. Afebrile, no leukocytosis on initial labs, wound cultures grew multiple organisms. Appreciate Wound RN evaluation. See by bench handrosanna Amezcua for eval and also for tx of painful calluses 06/26/24 Manually debride nails x 10 Manually debride lesions x 2 Will follow as needed Evaluated by Dr. Elias on 06/26/24 for right foot plantar second metatarsal head had a 1 x 1.5 cm severe tyloma noted. No surrounding erythema and no sign of cellulitis or portal opening. Faint signs of dry hemorrhage within the central portion of the lesion. Lesion and hyperkeratotic tissue was debrided before patient tolerance would not allow further treatment. Assessment & Plan (07/02/2024 11:22 AM EDT): Chronic left ankle ulceration, Wound found to be extremely foul-smelling with brownish discharge on presentation, completed 7 days of Levaquin. Afebrile, no leukocytosis on initial labs, wound cultures grew multiple organisms. Appreciate Wound RN evaluation. See by bench hand Goldie for eval and also for tx of painful calluses 06/26/24 Manually debride nails x 10 Manually debride lesions x 2 Will follow as needed Evaluated by Dr. Elias on 06/26/24 for right foot plantar second metatarsal head had a 1 x 1.5 cm severe tyloma noted. No surrounding erythema and no sign of cellulitis or portal opening. Faint signs of dry hemorrhage within the central portion of the lesion. Lesion and hyperkeratotic tissue was debrided before patient tolerance would not allow further treatment. Assessment & Plan (07/01/2024 7:36 AM EDT): Chronic left ankle ulceration, Wound found to be extremely foul-smelling with brownish discharge on presentation, completed 7 days of Levaquin. Afebrile, no leukocytosis on initial labs, wound cultures grew multiple organisms. Appreciate Wound RN evaluation. See by bench handrosanna Amezcua for eval and also for tx of painful calluses 06/26/24 Manually debride nails x 10 Manually debride lesions x 2 Will follow as needed Evaluated by Dr. Elias on 06/26/24 for right foot plantar second metatarsal head had a 1 x 1.5 cm severe tyloma noted. No surrounding erythema and no sign of cellulitis or portal opening. Faint signs of dry hemorrhage within the central portion of the lesion. Lesion and hyperkeratotic tissue was debrided before patient tolerance would not allow further treatment. Assessment & Plan (06/30/2024 9:30 AM EDT): Chronic left ankle ulceration, Wound found to be extremely foul-smelling with brownish discharge on presentation, completed 7 days of Levaquin. Afebrile, no leukocytosis on initial labs, wound cultures grew multiple organisms. Appreciate Wound RN evaluation. See by bench hand Goldie for eval and also for tx of painful calluses 06/26/24 Manually debride nails x 10 Manually debride lesions x 2 Will follow as needed Evaluated by Dr. Elias on 06/26/24 for right foot plantar second metatarsal head had a 1 x 1.5 cm severe tyloma noted. No surrounding erythema and no sign of cellulitis or portal opening. Faint signs of dry hemorrhage within the central portion of the lesion. Lesion and hyperkeratotic tissue was debrided before patient tolerance would not allow further treatment. Assessment & Plan (06/29/2024 2:36 PM EDT): Chronic left ankle ulceration, Wound found to be extremely foul-smelling with brownish discharge on presentation, completed 7 days of Levaquin. Afebrile, no leukocytosis on initial labs, wound cultures grew multiple organisms. Appreciate Wound RN evaluation. See by bench hand Goldie for eval and also for tx of painful calluses 06/26/24 Manually debride nails x 10 Manually debride lesions x 2 Will follow as needed Assessment & Plan (06/08/2024 6:04 PM EDT): Chronic left ankle ulceration, Wound found to be extremely foul-smelling with brownish discharge on presentation, completed 7 days of Levaquin. Afebrile, no leukocytosis on initial labs, wound cultures grew multiple organisms. Appreciate Wound RN evaluation. Treatment changed to Melgisorb plus with gauze/roll gauze daily. Assessment & Plan (06/02/2024 4:49 PM EDT): Chronic left ankle ulceration, Wound found to be extremely foul-smelling with brownish discharge on presentation, completed 7 days of Levaquin. Afebrile, no leukocytosis on initial labs, wound cultures grew multiple organisms. Appreciate Wound RN evaluation. Treatment changed to Melgisorb plus with gauze/roll gauze daily. Assessment & Plan (06/01/2024 3:22 PM EDT): Chronic left ankle ulceration, Wound found to be extremely foul-smelling with brownish discharge on presentation, completed 7 days of Levaquin. Afebrile, no leukocytosis on initial labs, wound cultures grew multiple organisms. Appreciate Wound RN evaluation. Treatment changed to Melgisorb plus with gauze/roll gauze daily. Assessment & Plan (05/31/2024 2:45 PM EDT): Chronic left ankle ulceration, Wound found to be extremely foul-smelling with brownish discharge on presentation, completed 7 days of Levaquin. Afebrile, no leukocytosis on initial labs, wound cultures grew multiple organisms. Appreciate Wound RN evaluation. Treatment changed to Melgisorb plus with gauze/roll gauze daily. Assessment & Plan (05/26/2024 10:16 AM EDT): Chronic left ankle ulceration, Wound found to be extremely foul-smelling with brownish discharge on presentation, completed 7 days of Levaquin. Afebrile, no leukocytosis on initial labs, wound cultures grew multiple organisms. Appreciate Wound RN evaluation. Treatment changed to Melgisorb plus with gauze/roll gauze daily. Assessment & Plan (05/25/2024 11:25 AM EDT): Chronic left ankle ulceration, Wound found to be extremely foul-smelling with brownish discharge on presentation, completed 7 days of Levaquin. Afebrile, no leukocytosis on initial labs, wound cultures grew multiple organisms. Appreciate Wound RN evaluation. Treatment changed to Melgisorb plus with gauze/roll gauze daily. Assessment & Plan (05/24/2024 10:41 AM EDT): Chronic left ankle ulceration, Wound found to be extremely foul-smelling with brownish discharge on presentation, completed 7 days of Levaquin. Afebrile, no leukocytosis on initial labs, wound cultures grew multiple organisms. Appreciate Wound RN evaluation. Treatment changed to Melgisorb plus with gauze/roll gauze daily. Assessment & Plan (05/23/2024 12:15 PM EDT): Chronic left ankle ulceration, Wound found to be extremely foul-smelling with brownish discharge on presentation, completed 7 days of Levaquin. Afebrile, no leukocytosis on initial labs, wound cultures grew multiple organisms. Appreciate Wound RN evaluation. Treatment changed to Melgisorb plus with gauze/roll gauze daily. Assessment & Plan (05/22/2024 11:25 AM EDT): Chronic left ankle ulceration, Wound found to be extremely foul-smelling with brownish discharge on presentation, completed 7 days of Levaquin. Afebrile, no leukocytosis on initial labs, wound cultures grew multiple organisms. Appreciate Wound RN evaluation. Treatment changed to Melgisorb plus with gauze/roll gauze daily. Assessment & Plan (05/21/2024 10:48 AM EDT): Chronic left ankle ulceration, Wound found to be extremely foul-smelling with brownish discharge on presentation, completed 7 days of Levaquin. Afebrile, no leukocytosis on initial labs, wound cultures grew multiple organisms. Appreciate Wound RN evaluation. Treatment changed to Melgisorb plus with gauze/roll gauze daily. Assessment & Plan (05/20/2024 10:40 AM EDT): Chronic left ankle ulceration, Wound found to be extremely foul-smelling with brownish discharge on presentation, completed 7 days of Levaquin. Afebrile, no leukocytosis on initial labs, wound cultures grew multiple organisms. Appreciate Wound RN evaluation. Treatment changed to Melgisorb plus with gauze/roll gauze daily. Assessment & Plan (05/19/2024 11:50 AM EDT): Chronic left ankle ulceration, Wound found to be extremely foul-smelling with brownish discharge on presentation. Afebrile, no leukocytosis on initial labs. Appreciate Wound RN evaluation. Wound C&S growing multiple organisms. Treatment changed to Melgisorb plus with gauze/roll gauze daily. C&S wound pos Serratia marcesens, sens to Levaquin. Completed 7 days Levaquin 500mg PO daily Many other organisms needing to be identified, including gm pos. Explained the indication for antibx and she agrees to comply. Assessment & Plan (05/17/2024 3:02 PM EDT): Chronic left ankle ulceration, Wound found to be extremely foul-smelling with brownish discharge on presentation. Afebrile, no leukocytosis on initial labs. Appreciate Wound RN evaluation. Wound C&S growing multiple organisms. Treatment changed to Melgisorb plus with gauze/roll gauze daily. C&S wound pos Serratia marcesens, sens to Levaquin. Completed 7 days Levaquin 500mg PO daily Many other organisms needing to be identified, including gm pos. Explained the indication for antibx and she agrees to comply. Assessment & Plan (05/14/2024 11:03 AM EDT): Chronic left ankle ulceration, Wound found to be extremely foul-smelling with brownish discharge on presentation. Afebrile, no leukocytosis on initial labs. Appreciate Wound RN evaluation. Wound C&S growing multiple organisms. Treatment changed to Melgisorb plus with gauze/roll gauze daily. C&S wound pos Serratia marcesens, sens to Levaquin. Started Levaquin 500mg PO daily for 7 days. Many other organisms needing to be identified, including gm pos. Explained the indication for antibx and she agrees to comply. Assessment & Plan (05/13/2024 2:42 PM EDT): Chronic left ankle ulceration, Wound found to be extremely foul-smelling with brownish discharge on presentation. Afebrile, no leukocytosis on initial labs. Appreciate Wound RN evaluation. Wound C&S growing multiple organisms. Treatment changed to Melgisorb plus with gauze/roll gauze daily. C&S wound pos Serratia marcesens, sens to Levaquin. Started Levaquin 500mg PO daily for 7 days. Many other organisms needing to be identified, including gm pos. Explained the indication for antibx and she agrees to comply. Assessment & Plan (05/12/2024 8:54 AM EDT): Chronic left ankle ulceration, Wound found to be extremely foul-smelling with brownish discharge on presentation. Afebrile, no leukocytosis on initial labs. Appreciate Wound RN evaluation. Wound C&S growing multiple organisms. Treatment changed to Melgisorb plus with gauze/roll gauze daily. C&S wound pos Serratia marcesens, sens to Levaquin. Started Levaquin 500mg PO daily for 7 days. Many other organisms needing to be identified, including gm pos. Explained the indication for antibx and she agrees to comply. Assessment & Plan (05/11/2024 9:10 AM EDT): Chronic left ankle ulceration, Wound found to be extremely foul-smelling with brownish discharge on presentation. Afebrile, no leukocytosis on initial labs. Appreciate Wound RN evaluation. Wound C&S growing multiple organisms. Treatment changed to Melgisorb plus with gauze/roll gauze daily. Assessment & Plan (05/10/2024 8:48 AM EDT): Chronic left ankle ulceration, Wound found to be extremely foul-smelling with brownish discharge on presentation. Afebrile, no leukocytosis on initial labs. Appreciate Wound RN evaluation. Wound C&S pending. Treatment changed to Melgisorb plus with gauze/roll gauze daily. Assessment & Plan (05/08/2024 1:44 PM EDT): Chronic left ankle ulceration, Wound found to be extremely foul-smelling with brownish discharge on presentation. Afebrile, no leukocytosis on initial labs. Appreciate Wound RN evaluation and treatment---> today there's a slight increase of erythema. Wound culture ordered. Assessment & Plan (05/07/2024 4:30 PM EDT): Chronic left ankle ulceration, Wound found to be extremely foul-smelling with brownish discharge on presentation. Afebrile, no leukocytosis on initial labs. Appreciate Wound RN evaluation and treatment. Completed Augmentin 875/125mg BID. Assessment & Plan (05/06/2024 1:43 PM EDT): Continue to monitor Assessment & Plan (05/01/2024 2:58 PM EDT): Chronic left ankle ulceration, Wound found to be extremely foul-smelling with brownish discharge on presentation. Afebrile, no leukocytosis on initial labs. Appreciate Wound RN evaluation and treatment. Completed Augmentin 875/125mg BID. Assessment & Plan (04/29/2024 2:35 PM EDT): Chronic left ankle ulceration, Wound found to be extremely foul-smelling with brownish discharge on presentation. Afebrile, no leukocytosis on initial labs. Appreciate Wound RN evaluation and treatment. Completed Augmentin 875/125mg BID. Assessment & Plan (04/28/2024 12:03 PM EDT): Chronic left ankle ulceration, Wound found to be extremely foul-smelling with brownish discharge on presentation. Afebrile, no leukocytosis on initial labs. Appreciate Wound RN evaluation and treatment. Completed Augmentin 875/125mg BID. Assessment & Plan (04/27/2024 10:24 AM EDT): Chronic left ankle ulceration, Wound found to be extremely foul-smelling with brownish discharge on presentation. Afebrile, no leukocytosis on initial labs. Appreciate Wound RN evaluation and treatment. Completed Augmentin 875/125mg BID. Assessment & Plan (04/26/2024 11:29 AM EDT): Chronic left ankle ulceration, Wound found to be extremely foul-smelling with brownish discharge on presentation. Afebrile, no leukocytosis on initial labs. Appreciate Wound RN evaluation and treatment. Completed Augmentin 875/125mg BID. Assessment & Plan (04/25/2024 3:28 PM EDT): Chronic left ankle ulceration: She apparently had dressing changed on ankle wound approximately 2 days [employer]. Wound found to be extremely foul-smelling with brownish discharge on presentation. Afebrile, no leukocytosis on initial labs. Appreciate Wound RN evaluation and treatment. Refused another attempt at IV insertion. Completed Augmentin 875/125mg BID. Assessment & Plan (04/24/2024 1:21 PM EDT): Chronic left ankle ulceration: She apparently had dressing changed on ankle wound approximately 2 days [employer]. Wound found to be extremely foul-smelling with brownish discharge on presentation. Afebrile, no leukocytosis on initial labs. Appreciate Wound RN evaluation and treatment. Refused another attempt at IV insertion. Completed Augmentin 875/125mg BID. Assessment & Plan (04/23/2024 2:37 PM EDT): Chronic left ankle ulceration: She apparently had dressing changed on ankle wound approximately 2 days [employer]. Wound found to be extremely foul-smelling with brownish discharge on presentation. Afebrile, no leukocytosis on initial labs. Appreciate Wound RN evaluation and treatment. Refused another attempt at IV insertion. Completed Augmentin 875/125mg BID. Vanco previously stopped. Assessment & Plan (04/22/2024 3:56 PM EDT): Chronic left ankle ulceration: She apparently had dressing changed on ankle wound approximately 2 days [employer]. Wound found to be extremely foul-smelling with brownish discharge on presentation. Afebrile, no leukocytosis on initial labs. Appreciate Wound RN evaluation and treatment. Refused another attempt at IV insertion. Completed Augmentin 875/125mg BID. Vanco previously stopped. Assessment & Plan (04/21/2024 11:43 AM EDT): Chronic left ankle ulceration: She apparently had dressing changed on ankle wound approximately 2 days [employer]. Wound found to be extremely foul-smelling with brownish discharge on presentation. Afebrile, no leukocytosis on initial labs. Appreciate Wound RN evaluation and treatment. Refused another attempt at IV insertion. Completed Augmentin 875/125mg BID. Vanco previously stopped. Assessment & Plan (04/20/2024 7:45 AM EDT): Chronic left ankle ulceration: She apparently had dressing changed on ankle wound approximately 2 days [employer]. Wound found to be extremely foul-smelling with brownish discharge on presentation. Afebrile, no leukocytosis on initial labs. Appreciate Wound RN evaluation and treatment. Refused another attempt at IV insertion. Completed Augmentin 875/125mg BID. Vanco previously stopped. Assessment & Plan (04/19/2024 7:33 AM EDT): Chronic left ankle ulceration: She apparently had dressing changed on ankle wound approximately 2 days [employer]. Wound found to be extremely foul-smelling with brownish discharge on presentation. Afebrile, no leukocytosis on initial labs. Appreciate Wound RN evaluation and treatment. Refused another attempt at IV insertion. Completed Augmentin 875/125mg BID. Vanco previously stopped. Assessment & Plan (04/18/2024 9:32 AM EDT): Chronic left ankle ulceration: She apparently had dressing changed on ankle wound approximately 2 days [employer]. Wound found to be extremely foul-smelling with brownish discharge on presentation. Afebrile, no leukocytosis on initial labs. Appreciate Wound RN evaluation and treatment. Refused another attempt at IV insertion. Completed Augmentin 875/125mg BID. Vanco previously stopped. Assessment & Plan (04/15/2024 11:21 AM EDT): Chronic left ankle ulceration: She apparently had dressing changed on ankle wound approximately 2 days [employer]. Wound found to be extremely foul-smelling with brownish discharge on presentation. Afebrile, no leukocytosis on initial labs. Appreciate Wound RN evaluation and treatment. Refused another attempt at IV insertion. Continue with Augmentin 875/125mg BID, with which she indicates she will compliant. Vanco previously stopped. Assessment & Plan (04/13/2024 11:18 AM EDT): Chronic left ankle ulceration: She apparently had dressing changed on ankle wound approximately 2 days [employer]. Wound found to be extremely foul-smelling with brownish discharge on presentation. Afebrile, no leukocytosis on initial labs. Appreciate Wound RN evaluation and treatment. Refused another attempt at IV insertion. Continue with Augmentin 875/125mg BID, with which she indicates she will compliant. Vanco previously stopped. Assessment & Plan (04/11/2024 9:22 AM EDT): Chronic left ankle ulceration: She apparently had dressing changed on ankle wound approximately 2 days [employer] REC[employer]. Wound found to be extremely foul-smelling with brownish discharge on presentation. Afebrile, no leukocytosis on initial labs. Appreciate Wound RN evaluation and treatment. Refused another attempt at IV insertion. Changed to Augmentin 875/125mg BID, with which she indicates she will compliant. Vanco previously stopped. Underweight 03/27/2024 Assessment & Plan (03/31/2024 12:59 PM EDT): Assessment & Plan (03/30/2024 1:53 PM EDT): Assessment & Plan (03/29/2024 9:24 AM EDT): Assessment & Plan (03/28/2024 10:49 AM EDT): Assessment & Plan (03/27/2024 10:37 AM EDT): Behavioral change 03/22/2024 Assessment & Plan (03/31/2024 12:59 PM EDT): Patient presents from home with reports of dementia and increased behavioral and agitation issues Patient reportedly stopped taking psych medications for several weeks Prior to presentation, she had a confrontational interaction at the [employer] requiring police presence. Son states he is unable to care for patient at home due to increased aggression and noncompliance with care, looking for LTC placement She had episode of aggressive behavior towards staff members last night 03/26, called security. -Continue home psych medications and monitor behaviors -May require one-to-one observation due to risk of elopement -Reorient as able -Maintain fall precautions Assessment & Plan (03/30/2024 1:53 PM EDT): Patient presents from home with reports of dementia and increased behavioral and agitation issues Patient reportedly stopped taking psych medications for several weeks Prior to presentation, she had a confrontational interaction at the bank requiring police presence. Son states he is unable to care for patient at home due to increased aggression and noncompliance with care, looking for LTC placement She had episode of aggressive behavior towards staff members last night 03/26, called security. -Continue home psych medications and monitor behaviors -May require one-to-one observation due to risk of elopement -Reorient as able -Maintain fall precautions Assessment & Plan (03/29/2024 9:24 AM EDT): Patient presents from home with reports of dementia and increased behavioral and agitation issues Patient reportedly stopped taking psych medications for several weeks Prior to presentation, she had a confrontational interaction at the bank requiring police presence. Son states he is unable to care for patient at home due to increased aggression and noncompliance with care, looking for LTC placement She had episode of aggressive behavior towards staff members last night 03/26, called security. -Continue home psych medications and monitor behaviors -May require one-to-one observation due to risk of elopement -Reorient as able -Maintain fall precautions Assessment & Plan (03/28/2024 10:49 AM EDT): Patient presents from home with reports of dementia and increased behavioral and agitation issues Patient reportedly stopped taking psych medications for several weeks Prior to presentation, she had a confrontational interaction at the bank requiring police presence. Son states he is unable to care for patient at home due to increased aggression and noncompliance with care, looking for LTC placement She had episode of aggressive behavior towards staff members last night 03/26, called security. -Continue home psych medications and monitor behaviors -May require one-to-one observation due to risk of elopement -Reorient as able -Maintain fall precautions Assessment & Plan (03/27/2024 10:40 AM EDT): Patient presents from home with reports of dementia and increased behavioral and agitation issues Patient reportedly stopped taking psych medications for several weeks Prior to presentation, she had a confrontational interaction at the bank requiring police presence. Son states he is unable to care for patient at home due to increased aggression and noncompliance with care, looking for LTC placement She had episode of aggressive behavior towards staff members last night 03/26, called security. -Continue home psych medications and monitor behaviors -May require one-to-one observation due to risk of elopement -Reorient as able -Maintain fall precautions Assessment & Plan (03/26/2024 11:55 AM EDT): Patient presents from home with reports of dementia and increased behavioral and agitation issues Patient reportedly stopped taking psych medications for several weeks Prior to presentation, she had a confrontational interaction at the [facility] requiring police presence. Son states he is unable to care for patient at home due to increased aggression and noncompliance with care, looking for LTC placement -Continue home psych medications and monitor behaviors -May require one-to-one observation due to risk of elopement -Reorient as able -Maintain fall precautions Assessment & Plan (03/25/2024 11:04 AM EDT): Patient presents from home with reports of dementia and increased behavioral and agitation issues Patient reportedly stopped taking psych medications for several weeks Prior to presentation, she had a confrontational interaction at the [facility] requiring police presence. Son states he is unable to care for patient at home due to increased aggression and noncompliance with care, looking for LTC placement -Continue home psych medications and monitor behaviors -May require one-to-one observation due to risk of elopement -Reorient as able -Maintain fall precautions Assessment & Plan (03/24/2024 11:40 AM EDT): Patient presents from home with reports of dementia and increased behavioral and agitation issues Patient reportedly stopped taking psych medications for several weeks Prior to presentation, she had a confrontational interaction at the [facility] requiring police presence. Son states he is unable to care for patient at home due to increased aggression and noncompliance with care, looking for LTC placement -Continue home psych medications and monitor behaviors -May require one-to-one observation due to risk of elopement -Reorient as able -Maintain fall precautions Assessment & Plan (03/23/2024 11:36 AM EDT): Patient presents from home with reports of dementia and increased behavioral and agitation issues Patient reportedly stopped taking psych medications for several weeks Prior to presentation, she had a confrontational interaction at the [facility] requiring police presence. Son states he is unable to care for patient at home due to increased aggression and noncompliance with care, looking for LTC placement -Continue home psych medications and monitor behaviors -May require one-to-one observation due to risk of elopement -Reorient as able -Maintain fall precautions Assessment & Plan (03/22/2024 1:07 PM EDT): Patient presents from home with reports of dementia and increased behavioral and agitation issues Patient reportedly stopped taking psych medications for several weeks Prior to presentation, she had a confrontational interaction at the [facility] requiring police presence. Son states he is unable to care for patient at home due to increased aggression and noncompliance with care, looking for LTC placement -Continue home psych medications and monitor behaviors -May require one-to-one observation due to risk of elopement -Reorient as able -Maintain fall precautions Adult celiac disease 03/05/2024 Assessment & Plan (03/31/2024 12:59 PM EDT): Patient reports on and off loose stools associated with bowel incontinence. She was diagnosed with celiac disease 2 years ago followed gluten-free diet with improvement and now started eating regular diet and symptoms restarted. She denies any abdominal pain fever chills, CBC CMP within normal limits. C. difficile negative on this admission. Started on gluten-free diet with improvement in diarrhea Continue PRN Immodium Assessment & Plan (03/30/2024 1:52 PM EDT): Patient reports on and off loose stools associated with bowel incontinence. She was diagnosed with celiac disease 2 years ago followed gluten-free diet with improvement and now started eating regular diet and symptoms restarted. She denies any abdominal pain fever chills, CBC CMP within normal limits. C. difficile negative on this admission. Started on gluten-free diet with improvement in diarrhea Continue PRN Immodium Assessment & Plan (03/29/2024 9:25 AM EDT): Patient reports on and off loose stools associated with bowel incontinence. She was diagnosed with celiac disease 2 years ago followed gluten-free diet with improvement and now started eating regular diet and symptoms restarted. She denies any abdominal pain fever chills, CBC CMP within normal limits. C. difficile negative on this admission. Started on gluten-free diet with improvement in diarrhea Continue PRN Immodium Assessment & Plan (03/28/2024 10:48 AM EDT): Patient reports on and off loose stools associated with bowel incontinence. She was diagnosed with celiac disease 2 years ago followed gluten-free diet with improvement and now started eating regular diet and symptoms restarted. She denies any abdominal pain fever chills, CBC CMP within normal limits. C. difficile negative on this admission. Started on gluten-free diet Continue PRN Immodium Arthralgia of both hands 03/05/2024 Assessment & Plan (03/31/2024 12:59 PM EDT): Severe osteoarthritic changes of both hands, complaint of shoulder joint pain, L TM joint pain Started on as needed ibuprofen Continue Tylenol as needed Assessment & Plan (03/30/2024 1:52 PM EDT): Severe osteoarthritic changes of both hands, complaint of shoulder joint pain, L TM joint pain Started on as needed ibuprofen Continue Tylenol as needed Assessment & Plan (03/29/2024 9:24 AM EDT): Severe osteoarthritic changes of both hands, complaint of shoulder joint pain, L TM joint pain Started on as needed ibuprofen Continue Tylenol as needed Assessment & Plan (03/28/2024 10:49 AM EDT): Severe osteoarthritic changes of both hands, complaint of shoulder joint pain, L TM joint pain Started on as needed ibuprofen Continue Tylenol as needed Assessment & Plan (03/27/2024 10:40 AM EDT): Severe osteoarthritic changes of both hands, complaint of shoulder joint pain, L TM joint pain Started on as needed ibuprofen Continue Tylenol as needed Assessment & Plan (03/26/2024 11:56 AM EDT): Severe osteoarthritic changes of both hands, complaint of shoulder joint pain, L TM joint pain Started on as needed ibuprofen Continue Tylenol as needed Arthralgia of foot 03/05/2024 At risk for falls 03/05/2024 Assessment & Plan (11/21/2024 10:56 AM EDT): She sustained mechanical fall with head strike recently 11/11/24. Head CT negative for acute abnormality, C-Spine negative for fracture or subluxation. Hip Xrays negative for acute process. Assessment & Plan (11/20/2024 1:06 PM EDT): FALL Risk: She sustained mechanical fall with head strike recently. She reported dizziness and felt her legs give out. Head CT negative for acute abnormality, C-Spine negative for fracture or subluxation. Hip Xrays negative for acute process. Assessment & Plan (11/19/2024 4:11 PM EDT): FALL Risk: She sustained mechanical fall with head strike recently. She reported dizziness and felt her legs give out. Head CT negative for acute abnormality, C-Spine negative for fracture or subluxation. Hip Xrays negative for acute process. Assessment & Plan (11/18/2024 12:27 PM EDT): FALL Risk: She sustained mechanical fall with head strike recently. She reported dizziness and felt her legs give out. Head CT negative for acute abnormality, C-Spine negative for fracture or subluxation. Hip Xrays negative for acute process. Keep on FALL precautions. Assessment & Plan (11/17/2024 8:26 AM EDT): FALL Risk: She sustained mechanical fall with head strike recently. She reported dizziness and felt her legs give out. Head CT negative for acute abnormality, C-Spine negative for fracture or subluxation. Hip Xrays negative for acute process. Keep on FALL precautions. Assessment & Plan (11/15/2024 8:52 AM EST): Patient sustained mechanical fall on Monday afternoon. She reports dizziness and felt her legs give out. +head strike not on any AC. Head CT negative for acute abnormality, C-Spine negative for fracture or subluxation. Hip Xrays negative for acute process. Keep on fall precautions. Assessment & Plan (11/14/2024 11:48 AM EST): Patient sustained mechanical fall on Monday. She reports dizziness and felt her legs give out. +head strike not on any AC. Head CT negative for acute abnormality, C-Spine negative for fracture or subluxation. Hip Xrays negative for acute process. Keep on fall precautions. Assessment & Plan (2024 11:48 AM EST): Patient sustained mechanical fall on Monday. She reports dizziness and felt her legs give out. +head strike not on any AC. Head CT negative for acute abnormality, C-Spine negative for fracture or subluxation. Hip Xrays negative for acute process Ortho BP negative Fall risk Assessment & Plan (2024 12:53 AM EST): Patient sustained mechanical fall on Monday. She reports dizziness and felt her legs give out. +head strike not on any AC. Head CT negative for acute abnormality, C-Spine negative for fracture or subluxation. 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 Assessment & Plan (11/20/2024 1:07 PM EDT): Continue Hydroxychloroquine Continue Diclofenac gel to bilateral feet. Assessment & Plan (11/19/2024 4:11 PM EDT): Noted documentation of RF+ and anti-CCP +, No official diagnosis of rheumatoid arthritis. 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 Hand films were obtained on 04/11 following a fall. She was started on a short course of Prednisone, which has been discontinued. The clinical picture is consistent with rheumatoid arthritis. Off Gabapentin (originally prescribed because her bilateral foot pain was initially thought to be related to neuropathy. She did not benefit from gabapentin) Continue Hydroxychloroquine Continue Diclofenac gel to bilateral feet. Assessment & Plan (11/18/2024 12:28 PM EDT): Noted documentation of RF+ and anti-CCP +, No official diagnosis of rheumatoid arthritis. 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 Hand films were obtained on 04/11 following a fall. She was started on a short course of Prednisone, which has been discontinued. The clinical picture is consistent with rheumatoid arthritis. Off Gabapentin (originally prescribed because her bilateral foot pain was initially thought to be related to neuropathy. She did not benefit from gabapentin) Continue Hydroxychloroquine Continue Diclofenac gel to bilateral feet. Assessment & Plan (11/17/2024 8:27 AM EDT): Noted documentation of RF+ and anti-CCP +, No official diagnosis of rheumatoid arthritis. 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 Hand films were obtained on 04/11 following a fall. She was started on a short course of Prednisone, which has been discontinued. The clinical picture is consistent with rheumatoid arthritis. Off Gabapentin (originally prescribed because her bilateral foot pain was initially thought to be related to neuropathy. She did not benefit from gabapentin) Continue Hydroxychloroquine Continue Diclofenac gel to b/l feet Assessment & Plan (11/15/2024 8:52 AM EST): Noted documentation of RF+ and anti-CCP +, No official diagnosis of rheumatoid arthritis. 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 Hand films were obtained on 04/11 following a fall. She was started on a short course of Prednisone, which has been discontinued. The clinical picture is consistent with rheumatoid arthritis. Off Gabapentin (originally prescribed because her bilateral foot pain was initially thought to be related to neuropathy. She did not benefit from gabapentin) Continue Hydroxychloroquine Continue Diclofenac gel to b/l feet Assessment & Plan (11/14/2024 11:49 AM EST): Noted documentation of RF+ and anti-CCP +, No official diagnosis of rheumatoid arthritis. 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 Hand films were obtained on 04/11 following a fall. She was started on a short course of Prednisone, which has been discontinued. The clinical picture is consistent with rheumatoid arthritis. Off Gabapentin (originally prescribed because her bilateral foot pain was initially thought to be related to neuropathy. She did not benefit from gabapentin) Continue Hydroxychloroquine Continue Diclofenac gel to b/l feet Assessment & Plan (2024 11:48 AM EST): Noted documentation of RF+ and anti-CCP +, No official diagnosis of rheumatoid arthritis. 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 Hand films were obtained on 04/11 following a fall. She was started on a short course of Prednisone, which has been discontinued. The clinical picture is consistent with rheumatoid arthritis. Off Gabapentin (originally prescribed because her bilateral foot pain was initially thought to be related to neuropathy. She did not benefit from gabapentin) Continue Hydroxychloroquine Continue Diclofenac gel to b/l feet Follow up with Rheumatology outpatient Assessment & Plan (2024 12:50 AM EST): Noted documentation of RF+ and anti-CCP +, No official diagnosis of rheumatoid arthritis. 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 Hand films were obtained on 04/11 following a fall. She was started on a short course of Prednisone, which has been discontinued. The clinical picture is consistent with rheumatoid arthritis. Off Gabapentin (originally prescribed because her bilateral foot pain was initially thought to be related to neuropathy. She did not benefit from gabapentin) Continue Hydroxychloroquine Continue Diclofenac gel to b/l feet Follow up with Rheumatology outpatient Assessment & Plan (11/11/2024 11:22 AM EST): Noted documentation of RF+ and anti-CCP +, No official diagnosis of rheumatoid arthritis. 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 Hand films were obtained on 04/11 following a fall. She was started on a short course of Prednisone, which has been discontinued. The clinical picture is consistent with rheumatoid arthritis. Off Gabapentin (originally prescribed because her bilateral foot pain was initially thought to be related to neuropathy. She did not benefit from gabapentin) Continue Hydroxychloroquine Continue Diclofenac gel to b/l feet Follow up with Rheumatology outpatient Assessment & Plan (11/10/2024 9:39 AM EST): Noted documentation of RF+ and anti-CCP +, No official diagnosis of rheumatoid arthritis. 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 Hand films were obtained on 04/11 following a fall. She was started on a short course of Prednisone, which has been discontinued. The clinical picture is consistent with rheumatoid arthritis. Off Gabapentin (originally prescribed because her bilateral foot pain was initially thought to be related to neuropathy. She did not benefit from gabapentin) Continue Hydroxychloroquine Continue Diclofenac gel to b/l feet Follow up with Rheumatology outpatient Assessment & Plan (11/09/2024 10:43 AM EST): Noted documentation of RF+ and anti-CCP +, No official diagnosis of rheumatoid arthritis. 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 Hand films were obtained on 04/11 following a fall. She was started on a short course of Prednisone, which has been discontinued. The clinical picture is consistent with rheumatoid arthritis. Off Gabapentin (originally prescribed because her bilateral foot pain was initially thought to be related to neuropathy. She did not benefit from gabapentin) Continue Hydroxychloroquine Continue Diclofenac gel to b/l feet Assessment & Plan (11/08/2024 10:32 AM EST): Noted documentation of RF+ and anti-CCP +, No official diagnosis of rheumatoid arthritis. 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 Hand films were obtained on 04/11 following a fall. She was started on a short course of Prednisone, which has been discontinued. The clinical picture is consistent with rheumatoid arthritis. - Continue Hydroxychloroquine, started on 07/13/24. - Continue Diclofenac gel to b/l feet. - Off Gabapentin (originally prescribed because her bilateral foot pain was initially thought to be related to neuropathy. She did not benefit from gabapentin) . Assessment & Plan (11/07/2024 9:14 AM EST): Noted documentation of RF+ and anti-CCP +, No official diagnosis of rheumatoid arthritis. 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 Hand films were obtained on 04/11 following a fall. She was started on a short course of Prednisone, which has been discontinued. The clinical picture is consistent with rheumatoid arthritis. - Continue Hydroxychloroquine, started on 07/13/24. - Continue Diclofenac gel to b/l feet. - Off Gabapentin (originally prescribed because her bilateral foot pain was initially thought to be related to neuropathy. She did not benefit from gabapentin) . Assessment & Plan (11/06/2024 1:28 PM EST): Noted documentation of RF+ and anti-CCP +, No official diagnosis of rheumatoid arthritis. 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 Hand films were obtained on 04/11 following a fall. She was started on a short course of Prednisone, which has been discontinued. The clinical picture is consistent with rheumatoid arthritis. - Continue Hydroxychloroquine, started on 07/13/24. - Continue Diclofenac gel to b/l feet. - Off Gabapentin (originally prescribed because her bilateral foot pain was initially thought to be related to neuropathy. She did not benefit from gabapentin) . Assessment & Plan (10/31/2024 4:48 PM EST): Noted documentation of RF+ and anti-CCP +, No official diagnosis of rheumatoid arthritis. 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 Hand films were obtained on 04/11 following a fall. She was started on a short course of Prednisone, which has been discontinued. The clinical picture is consistent with rheumatoid arthritis. Continue Hydroxychloroquine, started on 07/13/24. Continue Diclofenac gel. Reportedly on a trial of Gabapentin, but was stopped. No longer on her MAR. Reported as having an allergic reaction. Assessment & Plan (10/30/2024 1:39 PM EST): Noted documentation of RF+ and anti-CCP +, No official diagnosis of rheumatoid arthritis. 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 Hand films were obtained on 04/11 following a fall. She was started on a short course of Prednisone, which has been discontinued. The clinical picture is consistent with rheumatoid arthritis. Continue Hydroxychloroquine, started on 07/13/24. Continue Diclofenac gel. Reportedly on a trial of Gabapentin, but was stopped. No longer on her MAR. Reported as having an allergic reaction. Assessment & Plan (10/29/2024 5:05 PM EST): Noted documentation of RF+ and anti-CCP +, No official diagnosis of rheumatoid arthritis. 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 Hand films were obtained on 04/11 following a fall. She was started on a short course of Prednisone, which has been discontinued. The clinical picture is consistent with rheumatoid arthritis. Continue Hydroxychloroquine, started on 07/13/24. Continue Diclofenac gel. Reportedly on a trial of Gabapentin, but was stopped. No longer on her MAR. Reported as having an allergic reaction. Assessment & Plan (10/28/2024 10:09 AM EST): Noted documentation of RF+ and anti-CCP +, No official diagnosis of rheumatoid arthritis. 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 Hand films were obtained on 04/11 following a fall. She was started on a short course of Prednisone, which has been discontinued. The clinical picture is consistent with rheumatoid arthritis. Continue Hydroxychloroquine, started on 07/13/24. Continue Diclofenac gel. Reportedly on a trial of Gabapentin, but was stopped. No longer on her MAR. Reported as having an allergic reaction. Assessment & Plan (10/27/2024 7:24 AM EST): Noted documentation of RF+ and anti-CCP +, No official diagnosis of rheumatoid arthritis. 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 Hand films were obtained on 04/11 following a fall. She was started on a short course of Prednisone, which has been discontinued. The clinical picture is consistent with rheumatoid arthritis. Continue Hydroxychloroquine, started on 07/13/24. Continue Diclofenac gel. Reportedly on a trial of Gabapentin, but was stopped. No longer on her MAR. Reported as having an allergic reaction. Assessment & Plan (10/26/2024 8:23 AM EST): Noted documentation of RF+ and anti-CCP +, No official diagnosis of rheumatoid arthritis. 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 Hand films were obtained on 04/11 following a fall. She was started on a short course of Prednisone, which has been discontinued. The clinical picture is consistent with rheumatoid arthritis. Continue Hydroxychloroquine, started on 07/13/24. Continue Diclofenac gel. Reportedly on a trial of Gabapentin, but was stopped. No longer on her MAR. Reported as having an allergic reaction. Assessment & Plan (10/24/2024 9:34 AM EST): Noted documentation of RF+ and anti-CCP +, No official diagnosis of rheumatoid arthritis. 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 Hand films were obtained on 04/11 following a fall. She was started on a short course of Prednisone, which has been discontinued. The clinical picture is consistent with rheumatoid arthritis. Continue Hydroxychloroquine, started on 07/13/24. Continue Diclofenac gel. Reportedly on a trial of Gabapentin, but was stopped. No longer on her MAR. Assessment & Plan (10/23/2024 8:32 AM EST): Noted documentation of RF+ and anti-CCP +, No official diagnosis of rheumatoid arthritis. 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 Hand films were obtained on 04/11 following a fall. She was started on a short course of prednisone, which has been discontinued. The clinical picture is consistent with rheumatoid arthritis. Continue Hydroxychloroquine, started on 07/13/24. Continue Diclofenac gel. No longer on Gabapentin trial. Assessment & Plan (10/13/2024 11:56 AM EST): Noted documentation of RF+ and anti-CCP +, No official diagnosis of rheumatoid arthritis. 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 Hand films were obtained on 04/11 following a fall. She was started on a short course of prednisone, which has been discontinued. The clinical picture is consistent with rheumatoid arthritis. - Continue Hydroxychloroquine, started on 07/13/24. - Diclofenac gel to b/l feet resumed - trial of Gabapentin 100 3 times a day for what sounds like neuropathy related pain started 10/12/24 Assessment & Plan (10/12/2024 11:33 AM EST): Noted documentation of RF+ and anti-CCP +, No official diagnosis of rheumatoid arthritis. 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 Hand films were obtained on 04/11 following a fall. She was started on a short course of prednisone, which has been discontinued. The clinical picture is consistent with rheumatoid arthritis. - Continue Hydroxychloroquine, started on 07/13/24. - resume Diclofenac gel - trial of Gabapentin 100 3 times a day for what sounds like neuropathy related pain Assessment & Plan (10/11/2024 10:56 AM EST): Noted documentation of RF+ and anti-CCP +, No official diagnosis of rheumatoid arthritis. 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 Hand films were obtained on 04/11 following a fall. She was started on a short course of prednisone, which has been discontinued. The clinical picture is consistent with rheumatoid arthritis. - Continue Hydroxychloroquine and Diclofenac gel, started on 07/13/24. Assessment & Plan (10/10/2024 11:14 AM EST): Noted documentation of RF+ and anti-CCP +, No official diagnosis of rheumatoid arthritis. 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 Hand films were obtained on 04/11 following a fall. She was started on a short course of prednisone, which has been discontinued. The clinical picture is consistent with rheumatoid arthritis. Continue Hydroxychloroquine and Diclofenac gel, started on 07/13/24. Pain in her hands and feet has improved. Assessment & Plan (10/09/2024 3:07 PM EST): Noted documentation of RF+ and anti-CCP +, No official diagnosis of rheumatoid arthritis. 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 Hand films were obtained on 04/11 following a fall. She was started on a short course of prednisone, which has been discontinued. The clinical picture is consistent with rheumatoid arthritis. Continue Hydroxychloroquine and Diclofenac gel, started on 07/13/24. Pain in her hands and feet has improved. Assessment & Plan (10/08/2024 3:21 PM EST): Noted documentation of RF+ and anti-CCP +, No official diagnosis of rheumatoid arthritis. 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 Hand films were obtained on 04/11 following a fall. She was started on a short course of prednisone, which has been discontinued. The clinical picture is consistent with rheumatoid arthritis. Continue Hydroxychloroquine and Diclofenac gel, started on 07/13/24. Pain in her hands and feet has improved. Assessment & Plan (10/07/2024 5:08 PM EST): Noted documentation of RF+ and anti-CCP +, No official diagnosis of rheumatoid arthritis. 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 Hand films were obtained on 04/11 following a fall. She was started on a short course of prednisone, which has been discontinued. The clinical picture is consistent with rheumatoid arthritis. Continue Hydroxychloroquine and Diclofenac gel, started on 07/13/24. Pain in her hands and feet has improved. Assessment & Plan (10/06/2024 12:34 PM EST): Noted documentation of RF+ and anti-CCP +, No official diagnosis of rheumatoid arthritis. 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 Hand films were obtained on 04/11 following a fall. She was started on a short course of prednisone, which has been discontinued. The clinical picture is consistent with rheumatoid arthritis. Continue Hydroxychloroquine and Diclofenac gel, started on 07/13/24. Pain in her hands and feet has improved. Assessment & Plan (10/05/2024 3:13 PM EST): Noted documentation of RF+ and anti-CCP +, No official diagnosis of rheumatoid arthritis. 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 Hand films were obtained on 04/11 following a fall. She was started on a short course of prednisone, which has been discontinued. The clinical picture is consistent with rheumatoid arthritis. Continue Hydroxychloroquine and Diclofenac gel, started on 07/13/24. Pain in her hands and feet has improved. Assessment & Plan (10/04/2024 7:50 AM EST): Noted documentation of RF+ and anti-CCP +, No official diagnosis of rheumatoid arthritis. 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 Hand films were obtained on 04/11 following a fall. She was started on a short course of prednisone, which has been discontinued. The clinical picture is consistent with rheumatoid arthritis. Continue Hydroxychloroquine and Diclofenac gel, started on 07/13/24. Pain in her hands and feet has improved. Assessment & Plan (09/26/2024 1:09 PM EST): Noted documentation of RF+ and anti-CCP +, No official diagnosis of rheumatoid arthritis. 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 Hand films were obtained on 04/11 following a fall. She was started on a short course of prednisone, which has been discontinued. The clinical picture is consistent with rheumatoid arthritis. Continue Hydroxychloroquine and Diclofenac gel, started on 07/13/24. Pain in her hands and feet has improved. Assessment & Plan (09/25/2024 4:31 PM EST): Noted documentation of RF+ and anti-CCP +, No official diagnosis of rheumatoid arthritis. 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 Hand films were obtained on 04/11 following a fall. She was started on a short course of prednisone, which has been discontinued. The clinical picture is consistent with rheumatoid arthritis. Continue Hydroxychloroquine and Diclofenac gel, started on 07/13/24. Pain in her hands and feet has improved. Assessment & Plan (09/24/2024 4:23 PM EST): Noted documentation of RF+ and anti-CCP +, No official diagnosis of rheumatoid arthritis. 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 Hand films were obtained on 04/11 following a fall. She was started on a short course of prednisone, which has been discontinued. The clinical picture is consistent with rheumatoid arthritis. Continue Hydroxychloroquine and Diclofenac gel, started on 07/13/24. Pain in her hands and feet has improved. Assessment & Plan (09/23/2024 4:37 PM EST): Noted documentation of RF+ and anti-CCP +, No official diagnosis of rheumatoid arthritis. 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 Hand films were obtained on 04/11 following a fall. She was started on a short course of prednisone, which has been discontinued. The clinical picture is consistent with rheumatoid arthritis. Continue Hydroxychloroquine and Diclofenac gel, started on 07/13/24. Pain in her hands and feet has improved. Assessment & Plan (09/15/2024 12:45 PM EST): Noted documentation of RF+ and anti-CCP +, No official diagnosis of rheumatoid arthritis. 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 Hand films were obtained on 04/11 following a fall. She was started on a short course of prednisone, which has been discontinued. The clinical picture is consistent with rheumatoid arthritis. Continue Hydroxychloroquine and Diclofenac gel, started on 07/13/24. Pain in her hands and feet has improved. Assessment & Plan (09/14/2024 12:00 PM EST): Noted documentation of RF+ and anti-CCP +, No official diagnosis of rheumatoid arthritis. 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 Hand films were obtained on 04/11 following a fall. She was started on a short course of prednisone, which has been discontinued. The clinical picture is consistent with rheumatoid arthritis. Continue Hydroxychloroquine and Diclofenac gel, started on 07/13/24. Pain in her hands and feet has improved. Assessment & Plan (09/13/2024 1:00 PM EST): Noted documentation of RF+ and anti-CCP +, No official diagnosis of rheumatoid arthritis. 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 Hand films were obtained on 04/11 following a fall. She was started on a short course of prednisone, which has been discontinued. The clinical picture is consistent with rheumatoid arthritis. Continue Hydroxychloroquine and Diclofenac gel, started on 07/13/24. Pain in her hands and feet has improved. Assessment & Plan (09/12/2024 11:53 AM EST): Noted documentation of RF+ and anti-CCP +, No official diagnosis of rheumatoid arthritis. 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 Hand films were obtained on 04/11 following a fall. She was started on a short course of prednisone, which has been discontinued. The clinical picture is consistent with rheumatoid arthritis. Continue Hydroxychloroquine and Diclofenac gel, started on 07/13/24. Pain in her hands and feet has improved. Assessment & Plan (09/11/2024 1:40 PM EST): Noted documentation of RF+ and anti-CCP +, No official diagnosis of rheumatoid arthritis. 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 Hand films were obtained on 04/11 following a fall. She was started on a short course of prednisone, which has been discontinued. The clinical picture is consistent with rheumatoid arthritis. Continue Hydroxychloroquine and Diclofenac gel, started on 07/13/24. Pain in her hands and feet has improved. Assessment & Plan (09/10/2024 12:56 PM EST): Noted documentation of RF+ and anti-CCP +, No official diagnosis of rheumatoid arthritis. 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 Hand films were obtained on 04/11 following a fall. She was started on a short course of prednisone, which has been discontinued. The clinical picture is consistent with rheumatoid arthritis. Continue Hydroxychloroquine and Diclofenac gel, started on 07/13/24. Pain in her hands and feet has improved. Assessment & Plan (09/09/2024 11:51 AM EST): Noted documentation of RF+ and anti-CCP + No official diagnosis of rheumatoid arthritis. 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 Hand films were obtained on 04/11/2023 following a fall. She was started on a short course of prednisone, which has been discontinued The clinical picture is consistent with rheumatoid arthritis. Continue Hydroxychloroquine and Diclofenac gel, started on 07/13/24. Pain in her hands and feet has improved. Assessment & Plan (09/05/2024 1:51 PM EST): Noted documentation of RF+ and anti-CCP + No official diagnosis of rheumatoid arthritis. 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 Hand films were obtained on 04/11/2023 following a fall. She was started on a short course of prednisone, which has been discontinued The clinical picture is consistent with rheumatoid arthritis. Continue Hydroxychloroquine and Diclofenac gel, started on 07/13/24. Pain in her hands and feet has improved. Assessment & Plan (09/04/2024 1:37 PM EST): Noted documentation of RF+ and anti-CCP + No official diagnosis of rheumatoid arthritis. 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 Hand films were obtained on 04/11/2023 following a fall. She was started on a short course of prednisone, which has been discontinued The clinical picture is consistent with rheumatoid arthritis. Continue Hydroxychloroquine and Diclofenac gel, started on 07/13/24. Pain in her hands and feet has improved. Assessment & Plan (08/28/2024 1:43 PM EST): Noted documentation of RF+ and anti-CCP + No official diagnosis of rheumatoid arthritis. 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 Hand films were obtained on 04/11/2023 following a fall. She was started on a short course of prednisone, which has been discontinued The clinical picture is consistent with rheumatoid arthritis. Continue Hydroxychloroquine and Diclofenac gel, started on 07/13/24. Pain in her hands and feet has improved. Assessment & Plan (08/27/2024 2:11 PM EST): Noted documentation of RF+ and anti-CCP + No official diagnosis of rheumatoid arthritis. 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 Hand films were obtained on 04/11/2023 following a fall. She was started on a short course of prednisone, which has been discontinued The clinical picture is consistent with rheumatoid arthritis. Continue Hydroxychloroquine and Diclofenac gel, started on 07/13/24. Pain in her hands and feet has improved. Assessment & Plan (08/26/2024 12:54 PM EST): Noted documentation of RF+ and anti-CCP + No official diagnosis of rheumatoid arthritis. 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 Hand films were obtained on 04/11/2023 following a fall. She was started on a short course of prednisone, which has been discontinued The clinical picture is consistent with rheumatoid arthritis. Continue Hydroxychloroquine and Diclofenac gel, started on 07/13/24. Pain in her hands and feet has improved. Assessment & Plan (08/25/2024 9:25 AM EST): Noted documentation of RF+ and anti-CCP + No official diagnosis of rheumatoid arthritis. 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 Hand films were obtained on 04/11/2023 following a fall. She was started on a short course of prednisone, which has been discontinued The clinical picture is consistent with rheumatoid arthritis. Continue Hydroxychloroquine and Diclofenac gel, started on 07/13/24. Pain in her hands and feet has improved. Assessment & Plan (08/24/2024 2:21 PM EST): Noted documentation of RF+ and anti-CCP + No official diagnosis of rheumatoid arthritis. 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 Hand films were obtained on 04/11/2023 following a fall. She was started on a short course of prednisone, which has been discontinued The clinical picture is consistent with rheumatoid arthritis. Continue Hydroxychloroquine and Diclofenac gel, started on 07/13/24. Pain in her hands and feet has improved. Assessment & Plan (08/23/2024 7:09 AM EST): Noted documentation of RF+ and anti-CCP + No official diagnosis of rheumatoid arthritis. 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 Hand films were obtained on 04/11/2023 following a fall. She was started on a short course of prednisone, which has been discontinued The clinical picture is consistent with rheumatoid arthritis. Continue Hydroxychloroquine and Diclofenac gel, started on 07/13/24. Pain in her hands and feet has improved. Assessment & Plan (08/22/2024 7:21 AM EST): Noted documentation of RF+ and anti-CCP + No official diagnosis of rheumatoid arthritis. 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 Hand films were obtained on 04/11/2023 following a fall. She was started on a short course of prednisone, which has been discontinued The clinical picture is consistent with rheumatoid arthritis. Continue Hydroxychloroquine and Diclofenac gel, started on 07/13/24. Pain in her hands and feet has improved. Assessment & Plan (08/21/2024 1:35 PM EST): Noted documentation of RF+ and anti-CCP + No official diagnosis of rheumatoid arthritis. 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 Hand films were obtained on 04/11/2023 following a fall. She was started on a short course of prednisone, which has been discontinued The clinical picture is consistent with rheumatoid arthritis. Continue Hydroxychloroquine and Diclofenac gel, started on 07/13/24. Pain in her hands and feet has improved. Assessment & Plan (08/20/2024 5:47 PM EST): Noted documentation of RF+ and anti-CCP + No official diagnosis of rheumatoid arthritis. 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 Hand films were obtained on 04/11/2023 following a fall. She was started on a short course of prednisone, which has been discontinued The clinical picture is consistent with rheumatoid arthritis. Continue Hydroxychloroquine and Diclofenac gel, started on 07/13/24. Pain in her hands and feet has improved. Assessment & Plan (08/19/2024 2:46 PM EST): Noted documentation of RF+ and anti-CCP + No official diagnosis of rheumatoid arthritis. 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 Hand films were obtained on 04/11/2023 following a fall. She was started on a short course of prednisone, which has been discontinued The clinical picture is consistent with rheumatoid arthritis. Continue Hydroxychloroquine and Diclofenac gel, started on 07/13/24. Pain in her hands and feet has improved. Assessment & Plan (08/18/2024 12:45 PM EST): Noted documentation of RF+ and anti-CCP + No official diagnosis of rheumatoid arthritis. 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 Hand films were obtained on 04/11/2023 following a fall. She was started on a short course of prednisone, which has been discontinued The clinical picture is consistent with rheumatoid arthritis. Continue Hydroxychloroquine and Diclofenac gel, started on 07/13/24. Pain in her hands and feet has improved. Assessment & Plan (08/17/2024 10:44 AM EST): Noted documentation of RF+ and anti-CCP + No official diagnosis of rheumatoid arthritis. 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 Hand films were obtained on 04/11/2023 following a fall. She was started on a short course of prednisone, which has been discontinued The clinical picture is consistent with rheumatoid arthritis. Continue Hydroxychloroquine and Diclofenac gel, started on 07/13/24. Pain in her hands and feet has improved. Assessment & Plan (08/16/2024 7:07 AM EST): Noted documentation of RF+ and anti-CCP + No official diagnosis of rheumatoid arthritis. 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 Hand films were obtained on 04/11/2023 following a fall. She was started on a short course of prednisone, which has been discontinued The clinical picture is consistent with rheumatoid arthritis. Continue Hydroxychloroquine and Diclofenac gel, started on 07/13/24. Pain in her hands and feet has improved. Assessment & Plan (08/15/2024 9:40 AM EST): Noted documentation of RF+ and anti-CCP + No official diagnosis of rheumatoid arthritis. 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 Hand films were obtained on 04/11/2023 following a fall. She was started on a short course of prednisone, which has been discontinued The clinical picture is consistent with rheumatoid arthritis. Continue Hydroxychloroquine and Diclofenac gel, started on 07/13/24. Pain in her hands and feet has improved. 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 She was started on a short course of prednisone, which has been discontinued The clinical picture is consistent with rheumatoid arthritis. I started patient on hydroxychloroquine and diclofenac gel on 07/13/24 The pain in her hands and feet has improved, she had no complaints on July 21. She will need bilateral hand films as an outpatient Continue hydroxychloroquine 200 mg p.o. daily Continue diclofenac gel twice daily (scheduled) rather than as needed. She will need follow-up with rheumatology as she may benefit from the use of methotrexate or Enbrel. Her CBC, BUN, creatinine, and LFTs were essentially normal. Hepatitis B and C antibodies were not detected. 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 She was started on a short course of prednisone, which has been discontinued The clinical picture is consistent with rheumatoid arthritis. I started patient on hydroxychloroquine and diclofenac gel on 07/13/24 The pain in her hands and feet has improved, she had no complaints on July 21. She will need bilateral hand films as an outpatient Continue hydroxychloroquine 200 mg p.o. daily Continue diclofenac gel twice daily (scheduled) rather than as needed. She will need follow-up with rheumatology as she may benefit from the use of methotrexate or Enbrel. Her CBC, BUN, creatinine, and LFTs were essentially normal. Hepatitis B and C antibodies were not detected. 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 She was started on a short course of prednisone, which has been discontinued The clinical picture is consistent with rheumatoid arthritis. I started patient on hydroxychloroquine and diclofenac gel on 07/13/24 The pain in her hands and feet has improved, she had no complaints on July 21. She will need bilateral hand films as an outpatient Continue hydroxychloroquine 200 mg p.o. daily Continue diclofenac gel twice daily (scheduled) rather than as needed. She will need follow-up with rheumatology as she may benefit from the use of methotrexate or Enbrel. Her CBC, BUN, creatinine, and LFTs were essentially normal. Hepatitis B and C antibodies were not detected. 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 She was started on a short course of prednisone, which has been discontinued The clinical picture is consistent with rheumatoid arthritis. I started patient on hydroxychloroquine and diclofenac gel on 07/13/24 The pain in her hands and feet has improved, she had no complaints on July 21. She will need bilateral hand films as an outpatient Continue hydroxychloroquine 200 mg p.o. daily Continue diclofenac gel twice daily (scheduled) rather than as needed. She will need follow-up with rheumatology as she may benefit from the use of methotrexate or Enbrel. Her CBC, BUN, creatinine, and LFTs were essentially normal. Hepatitis B and C antibodies were not detected. 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 She was started on a short course of prednisone, which has been discontinued The clinical picture is consistent with rheumatoid arthritis. I started patient on hydroxychloroquine and diclofenac gel on 07/13/24 The pain in her hands and feet has improved, she had no complaints on July 21. She will need bilateral hand films as an outpatient Continue hydroxychloroquine 200 mg p.o. daily Continue diclofenac gel twice daily (scheduled) rather than as needed. She will need follow-up with rheumatology as she may benefit from the use of methotrexate or Enbrel. Her CBC, BUN, creatinine, and LFTs were essentially normal. Hepatitis B and C antibodies were not detected. 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 She was started on a short course of prednisone, which has been discontinued The clinical picture is consistent with rheumatoid arthritis. I started patient on hydroxychloroquine and diclofenac gel on 07/13/24 The pain in her hands and feet has improved, she had no complaints on July 21. She will need bilateral hand films as an outpatient Continue hydroxychloroquine 200 mg p.o. daily Continue diclofenac gel twice daily (scheduled) rather than as needed. She will need follow-up with rheumatology as she may benefit from the use of methotrexate or Enbrel. Her CBC, BUN, creatinine, and LFTs were essentially normal. Hepatitis B and C antibodies were not detected. 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 She was started on a short course of prednisone, which has been discontinued The clinical picture is consistent with rheumatoid arthritis. I started patient on hydroxychloroquine and diclofenac gel on 07/13/24 The pain in her hands and feet has improved, she had no complaints on July 21. She will need bilateral hand films as an outpatient Continue hydroxychloroquine 200 mg p.o. daily Continue diclofenac gel twice daily (scheduled) rather than as needed. She will need follow-up with rheumatology as she would benefit from the use of methotrexate or Enbrel. Her CBC, BUN, creatinine, and LFTs were essentially normal. Hepatitis B and C antibodies were not detected. 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 She was started on a short course of prednisone, which has been discontinued The clinical picture is consistent with rheumatoid arthritis. I started patient on hydroxychloroquine and diclofenac gel on 07/13/24 The pain in her hands and feet has improved She will need bilateral hand films as an outpatient Continue hydroxychloroquine 200 mg p.o. daily Continue diclofenac gel twice daily (scheduled) rather than as needed. She will need follow-up with rheumatology as she would benefit from the use of methotrexate or Enbrel. Her CBC, BUN, creatinine, and LFTs were essentially normal. Hepatitis B and C antibodies were not detected. 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 She was started on a short course of prednisone, which has been discontinued The clinical picture is consistent with rheumatoid arthritis. I started patient on hydroxychloroquine and diclofenac gel on 07/13/24 The pain in her hands and feet has improved She will need bilateral hand films Continue hydroxychloroquine 200 mg p.o. daily Continue diclofenac gel twice daily (scheduled) rather than as needed. She will need follow-up with rheumatology as she would benefit from the use of methotrexate or Enbrel. Her CBC, BUN, creatinine, and LFTs were essentially normal. Hepatitis B and C antibodies were not detected. 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 She was started on a short course of prednisone, which has been discontinued The clinical picture is consistent with rheumatoid arthritis. I started patient on hydroxychloroquine and diclofenac gel on 07/13/24 The pain in her hands and feet has improved She will need bilateral hand films Continue hydroxychloroquine 200 mg p.o. daily Continue diclofenac gel twice daily (scheduled) rather than as needed. She will need follow-up with rheumatology as she would benefit from the use of methotrexate or Enbrel. Her CBC, BUN, creatinine, and LFTs were essentially normal. Hepatitis B and C antibodies were not detected. 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 She was started on a short course of prednisone, which has been discontinued The clinical picture is consistent with rheumatoid arthritis. I started patient on hydroxychloroquine on 07/13/24 She will need bilateral hand films Continue hydroxychloroquine 200 mg p.o. daily Continue diclofenac gel twice daily (scheduled) rather than as needed. She will need follow-up with rheumatology as she would benefit from the use of methotrexate or Enbrel. Her CBC, BUN, creatinine, and LFTs were essentially normal. Hepatitis B and C antibodies were not detected. 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 She was started on a short course of prednisone, which has been discontinued The clinical picture is consistent with rheumatoid arthritis. I started patient on hydroxychloroquine on 07/13/24 She will need bilateral hand films Continue hydroxychloroquine 200 mg p.o. daily Make diclofenac gel twice daily (scheduled) rather than as needed. She will need follow-up with rheumatology as she would benefit from the use of methotrexate or Enbrel. Her CBC, BUN, creatinine, and LFTs were essentially normal. Hepatitis B and C antibodies were not detected. Assessment & Plan (07/15/2024 12:54 PM EST): Noted documentation of RF+ and anti-CCP + Patient doesn't have an official diagnosis of rheumatoid arthritis She has bilateral hand rheumatoid deformities with ulnar deviation consistent with rheumatoid arthritis She does have metatarsal swelling and tenderness Hand films were obtained on 04/11/2023 following a fall. She was started on a short course of prednisone, and the dose was reduced. The clinical picture is consistent with rheumatoid arthritis. She will need bilateral hand films Start hydroxychloroquine 200 mg p.o. daily Continue prednisone 20 mg p.o. daily for 2 more days She will need follow-up with rheumatology as she would benefit from the use of methotrexate Check CBC, CMP, and a viral hepatitis panel (normal) prior to initiation of methotrexate Assessment & Plan (07/14/2024 2:19 PM EST): Noted documentation of RF+ and anti-CCP + Patient doesn't have an official diagnosis of rheumatoid arthritis She has bilateral hand rheumatoid deformities with ulnar deviation consistent with rheumatoid arthritis She does have metatarsal swelling and tenderness Hand films were obtained on 04/11/2023 following a fall. She was started on a short course of prednisone, and the dose was reduced. The clinical picture is consistent with rheumatoid arthritis. She will need bilateral hand films Start hydroxychloroquine 200 mg p.o. daily Continue prednisone 20 mg p.o. daily for 2 more days She will need follow-up with rheumatology as she would benefit from the use of methotrexate Check CBC, CMP, and a viral hepatitis panel prior to initiation of methotrexate Assessment & Plan (07/13/2024 1:05 PM EDT): Noted documentation of RF+ and anti-CCP + Patient doesn't have an official diagnosis of rheumatoid arthritis She has bilateral hand rheumatoid deformities with ulnar deviation consistent with rheumatoid arthritis She does have metatarsal swelling and tenderness Hand films were obtained on 04/11/2023 following a fall. She was started on a short course of prednisone, and the dose was reduced. The clinical picture is consistent with rheumatoid arthritis. She will need bilateral hand films Start hydroxychloroquine 200 mg p.o. daily Continue prednisone 20 mg p.o. daily for 2 more days She will need follow-up with rheumatology as she would benefit from the use of methotrexate I will check CBC, CMP, and a viral hepatitis panel prior to initiation of methotrexate Assessment & Plan (07/12/2024 5:58 PM EDT): Noted documentation of RF+ and anti-CCP + Patient doesn't have an official diagnosis She does have metatarsal swelling and tenderness Continue short course of steroids, decrease dose given changes in mentation on it Assessment & Plan (07/11/2024 9:59 AM EDT): Noted documentation of RF+ and anti-CCP + Patient doesn't have an official diagnosis She does have metatarsal swelling and tenderness Start short course of steroids Iron deficiency anemia mackenzie noriega to inadequate dietary iron intake 09/20/2023 Assessment & Plan (11/08/2023 2:27 PM EST): Chronic anemia. No evidence of active blood loss Iron saturation- 15 Continue iron supplements and vitamin B12 supplements Severe vitamin B12 deficiency, B12 level less than 200 Recieved IM injections for 5 days, last dose 09/25/23, followed by an oral supplement. Assessment & Plan (11/07/2023 12:02 PM EST): Chronic anemia. No evidence of active blood loss Iron saturation- 15 Continue iron supplements Severe vitamin B12 deficiency, B12 level less than 200 Recieved IM injections for 5 days, last dose 09/25/23, followed by an oral supplement. CBC am labs for monitoring Assessment & Plan (11/06/2023 2:18 PM EST): Chronic anemia. No evidence of active blood loss Iron saturation- 15 Continue iron supplements Severe vitamin B12 deficiency, B12 level less than 200 Recieved IM injections for 5 days, last dose 09/25/23, followed by an oral supplement. CBC stable Assessment & Plan (11/05/2023 3:27 PM EST): Chronic anemia. No evidence of active blood loss Iron saturation- 15 Continue iron supplements Severe vitamin B12 deficiency, B12 level less than 200 Recieved IM injections for 5 days, last dose 09/25/23, followed by an oral supplement. CBC stable Assessment & Plan (11/04/2023 12:48 PM EST): Chronic anemia. No evidence of active blood loss Iron saturation- 15 Continue iron supplements Severe vitamin B12 deficiency, B12 level less than 200 Recieved IM injections for 5 days, last dose 09/25/23, followed by an oral supplement. CBC stable Assessment & Plan (11/01/2023 1:25 PM EST): Chronic anemia. No evidence of active blood loss Iron saturation- 15 Continue iron supplements Severe vitamin B12 deficiency, B12 level less than 200 Recieved IM injections for 5 days, last dose 09/25/23, followed by an oral supplement. CBC stable Assessment & Plan (10/31/2023 4:54 PM EST): Chronic anemia. No evidence of active blood loss Iron saturation- 15 Continue iron supplements Severe vitamin B12 deficiency, B12 level less than 200 Recieved IM injections for 5 days, last dose 09/25/23, followed by an oral supplement. CBC stable Assessment & Plan (10/30/2023 3:42 PM EST): Chronic anemia. No evidence of active blood loss Iron saturation- 15 Continue iron supplements Severe vitamin B12 deficiency, B12 level less than 200 Recieved IM injections for 5 days, last dose 09/25/23, followed by an oral supplement. Assessment & Plan (10/26/2023 3:08 PM EST): Chronic anemia. No evidence of active blood loss Iron saturation- 15 Continue iron supplements Severe vitamin B12 deficiency, B12 level less than 200 Recieved IM injections for 5 days, last dose 09/25/23, followed by an oral supplement. Assessment & Plan (10/25/2023 4:48 PM EST): Chronic anemia. No evidence of active blood loss Iron saturation- 15 Continue iron supplements Severe vitamin B12 deficiency, B12 level less than 200 Recieved IM injections for 5 days, last dose 09/25/23, followed by an oral supplement. Assessment & Plan (10/24/2023 12:37 PM EST): Chronic anemia. No evidence of active blood loss Iron saturation- 15 Continue iron supplements Severe vitamin B12 deficiency, B12 level less than 200 Recieved IM injections for 5 days, last dose 09/25/23, followed by an oral supplement. Assessment & Plan (10/23/2023 1:36 PM EST): Chronic anemia. No evidence of active blood loss Iron saturation- 15 Continue iron supplements Severe vitamin B12 deficiency, B12 level less than 200 Recieved IM injections for 5 days, last dose 09/25/23, followed by an oral supplement. Assessment & Plan (10/22/2023 10:26 AM EST): Chronic anemia. No evidence of active blood loss Iron saturation- 15 Continue iron supplements Severe vitamin B12 deficiency, B12 level less than 200 Recieved IM injections for 5 days, last dose 09/25/23, followed by an oral supplement. Assessment & Plan (10/21/2023 2:14 PM EST): Chronic anemia. No evidence of active blood loss Iron saturation- 15 Continue iron supplements Severe vitamin B12 deficiency, B12 level less than 200 Recieved IM injections for 5 days, last dose 09/25/23, followed by an oral supplement. Assessment & Plan (10/20/2023 5:02 PM EST): Chronic anemia. No evidence of active blood loss Iron saturation- 15 Continue iron supplements Severe vitamin B12 deficiency, B12 level less than 200 Recieved IM injections for 5 days, last dose 09/25/23, followed by an oral supplement. Assessment & Plan (10/19/2023 11:14 AM EST): Chronic anemia. No evidence of active blood loss Iron saturation- 15 Continue iron supplements Severe vitamin B12 deficiency, B12 level less than 200 Recieved IM injections for 5 days, last dose 09/25/23, followed by an oral supplement. Assessment & Plan (10/18/2023 10:24 AM EST): Chronic anemia. No evidence of active blood loss Iron saturation- 15 Continue iron supplements Severe vitamin B12 deficiency, B12 level less than 200 Recieved IM injections for 5 days, last dose 09/25/23, followed by an oral supplement. Assessment & Plan (10/17/2023 10:23 AM EST): Chronic anemia. No evidence of active blood loss Iron saturation- 15 Continue iron supplements Severe vitamin B12 deficiency, B12 level less than 200 Recieved IM injections for 5 days, last dose 09/25/23, followed by an oral supplement. Assessment & Plan (10/16/2023 11:28 AM EST): Chronic anemia. No evidence of active blood loss Iron saturation- 15 Continue iron supplements Severe vitamin B12 deficiency, B12 level less than 200 Recieved IM injections for 5 days, last dose 09/25/23, followed by an oral supplement. Assessment & Plan (10/15/2023 10:06 AM EST): Chronic anemia. No evidence of active blood loss Iron saturation- 15 Continue iron supplements Severe vitamin B12 deficiency, B12 level less than 200 Recieved IM injections for 5 days, last dose 09/25/23, followed by an oral supplement. Assessment & Plan (10/14/2023 10:00 AM EST): Chronic anemia. No evidence of active blood loss Iron saturation- 15 Continue iron supplements Severe vitamin B12 deficiency, B12 level less than 200 Recieved IM injections for 5 days, last dose 09/25/23, followed by an oral supplement. Assessment & Plan (10/13/2023 11:56 AM EST): Chronic anemia. No evidence of active blood loss Iron saturation- 15 Continue iron supplements Severe vitamin B12 deficiency, B12 level less than 200 Recieved IM injections for 5 days, last dose 09/25/23, followed by an oral supplement. Assessment & Plan (10/12/2023 2:34 PM EST): Chronic anemia. No evidence of active blood loss Iron saturation- 15 Continue iron supplements Severe vitamin B12 deficiency, B12 level less than 200 Recieved IM injections for 5 days, last dose 09/25/23, followed by an oral supplement. Assessment & Plan (10/11/2023 11:26 AM EST): Chronic anemia. No evidence of active blood loss Iron saturation- 15 Continue iron supplements Severe vitamin B12 deficiency, B12 level less than 200 Recieved IM injections for 5 days, last dose 09/25/23. On oral supplement after. Assessment & Plan (10/09/2023 10:56 AM EST): Chronic anemia. No evidence of active blood loss Iron saturation- 15 Continue iron supplements Severe vitamin B12 deficiency, B12 level less than 200 Recieved IM injections for 5 days, last dose 09/25/23. On oral supplement after. Assessment & Plan (10/08/2023 9:43 AM EST): Chronic anemia. No evidence of active blood loss Iron saturation- 15 Continue iron supplements Severe vitamin B12 deficiency, B12 level less than 200 Recieved IM injections for 5 days, last dose 09/25/23. On oral supplement after. Assessment & Plan (10/07/2023 10:02 AM EST): Chronic anemia. No evidence of active blood loss Iron saturation- 15 Continue iron supplements Severe vitamin B12 deficiency, B12 level less than 200 Recieved IM injections for 5 days, last dose 09/25/23. On oral supplement after. Assessment & Plan (10/06/2023 9:58 AM EST): Chronic anemia. No evidence of active blood loss Iron saturation- 15 Continue iron supplements Severe vitamin B12 deficiency, B12 level less than 200 Recieved IM injections for 5 days, last dose 09/25/23. On oral supplement after. Assessment & Plan (10/05/2023 11:29 AM EST): Chronic anemia. No evidence of active blood loss Iron saturation- 15 Continue iron supplements Severe vitamin B12 deficiency, B12 level less than 200 Recieved IM injections for 5 days, last dose 09/25/23. On oral supplement after. Assessment & Plan (10/04/2023 11:29 AM EST): Chronic anemia. No evidence of active blood loss Iron saturation- 15 Continue iron supplements Severe vitamin B12 deficiency, B12 level less than 200 Recieved IM injections for 5 days, last dose 09/25/23. On oral supplement after. Assessment & Plan (10/03/2023 10:09 AM EST): Chronic anemia. No evidence of active blood loss Iron saturation- 15 Continue iron supplements Severe vitamin B12 deficiency, B12 level less than 200 Recieved IM injections for 5 days, last dose 09/25/23. On oral supplement after. Assessment & Plan (10/02/2023 9:23 AM EST): Chronic anemia. No evidence of active blood loss Iron saturation- 15 Continue iron supplements Severe vitamin B12 deficiency, B12 level less than 200 Recieved IM injections for 5 days, last dose 09/25/23. On oral supplement after. Assessment & Plan (10/01/2023 8:53 AM EST): Chronic anemia. No evidence of active blood loss Iron saturation- 15 Continue iron supplements Severe vitamin B12 deficiency, B12 level less than 200 Recieved IM injections for 5 days, last dose 09/25/23. On oral supplement after. Assessment & Plan (09/30/2023 9:48 AM EST): Chronic anemia. No evidence of active blood loss Iron saturation- 15 Continue iron supplements Severe vitamin B12 deficiency, B12 level less than 200 Recieved IM injections for 5 days, last dose 09/25/23. On oral supplement after. Assessment & Plan (09/29/2023 11:44 AM EST): Chronic anemia. No evidence of active blood loss Iron saturation- 15 Continue iron supplements Severe vitamin B12 deficiency, B12 level less than 200 Recieved IM injections for 5 days, last dose 09/25/23. On oral supplement after. Assessment & Plan (09/28/2023 12:06 PM EST): Chronic anemia. No evidence of active blood loss Iron saturation- 15 Continue iron supplements Severe vitamin B12 deficiency, B12 level less than 200 Recieved IM injections for 5 days, last dose 09/25/23. On oral supplement after. Patient refusing to take her medications Assessment & Plan (09/27/2023 11:53 AM EST): Chronic anemia. No evidence of active blood loss Iron saturation- 15 Continue iron supplements Severe vitamin B12 deficiency, B12 level less than 200 Recieved IM injections for 5 days, last dose 09/25/23. On oral supplement after. Patient refusing to take her medications Assessment & Plan (09/26/2023 10:18 AM EST): Chronic anemia. No evidence of active blood loss Iron saturation- 15 Continue iron supplements Severe vitamin B12 deficiency, B12 level less than 200 Started on IM injections for 5 days, last dose 09/25/23. Will start oral supplement after. Patient refusing to take her medications Assessment & Plan (09/25/2023 3:30 PM EST): Chronic anemia. No evidence of active blood loss Iron saturation- 15 Continue iron supplements Severe vitamin B12 deficiency, B12 level less than 200 Started on IM injections for 5 days, last dose 09/25/23. Will start oral supplement after. Patient refusing to take her medications Assessment & Plan (09/24/2023 10:52 AM EST): Chronic anemia. No evidence of active blood loss Iron saturation- 15 Continue iron supplements Severe vitamin B12 deficiency, B12 level less than 200 Started on IM injections for 5 days, last dose 09/25/23. Will start oral supplement after. Patient refusing to take her medications Assessment & Plan (09/22/2023 11:08 AM EST): Chronic anemia. No evidence of active blood loss Iron saturation- 15 Continue iron supplements Severe vitamin B12 deficiency, B12 level less than 200 Started on IM injections for 5 days Patient refusing to take her medications Assessment & Plan (09/21/2023 11:12 AM EST): Chronic anemia. No evidence of active blood loss Iron saturation- 15 Continue iron supplements Severe vitamin B12 deficiency, B12 level less than 200 Started on IM injections for 5 days Assessment & Plan (09/20/2023 11:52 AM EST): Chronic anemia. No evidence of active blood loss Iron saturation- 15 Continue iron supplements Will check B12 level. Hypotension 09/01/2023 Assessment & Plan (11/08/2023 2:27 PM EST): Patient's blood pressure was soft with systolic in 80s to 90s. Her SBP is now in the 90s-100s. She is eating well. She remains asymptomatic. She denies any dizziness, chest pain or palpitations. Blood pressure is being measured with the appropriate cuff for her size (Pediatric cuff), as she has BMI of 16 Euvolemic On Midodrine 10 mg 3 times daily. Last orthostatic vitals were OK Assessment & Plan (11/07/2023 12:01 PM EST): Blood pressure is being measured with the appropriate cuff for her size (Pediatric cuff), as she has BMI of 16 Bps remain stable On Midodrine 10 mg 3 times daily. Assessment & Plan (11/06/2023 2:17 PM EST): Blood pressure is being measured with the appropriate cuff for her size (Pediatric cuff), as she has BMI of 16 Bps remain stable On Midodrine 10 mg 3 times daily. Assessment & Plan (11/05/2023 3:27 PM EST): Blood pressure is being measured with the appropriate cuff for her size (Pediatric cuff), as she has BMI of 16 Bps remain stable On Midodrine 10 mg 3 times daily. Assessment & Plan (11/04/2023 12:48 PM EST): Blood pressure is being measured with the appropriate cuff for her size (Pediatric cuff), as she has BMI of 16 Bps remain stable On Midodrine 10 mg 3 times daily. Assessment & Plan (11/01/2023 1:25 PM EST): Blood pressure is being measured with the appropriate cuff for her size (Pediatric cuff), as she has BMI of 16 Bps remain stable On Midodrine 10 mg 3 times daily. Assessment & Plan (10/31/2023 4:53 PM EST): Blood pressure is being measured with the appropriate cuff for her size (Pediatric cuff), as she has BMI of 16 Bps remain stable On Midodrine 10 mg 3 times daily. Assessment & Plan (10/30/2023 3:41 PM EST): Patient's blood pressure was soft with systolic in 80s to 90s. Her SBP is now in the 90s-100s. She is eating well. She remains asymptomatic. She denies any dizziness, chest pain or palpitations. Blood pressure is being measured with the appropriate cuff for her size (Pediatric cuff), as she has BMI of 16Euvolemic On Midodrine 10 mg 3 times daily. Last orthostatic vitals were OK Assessment & Plan (10/27/2023 2:24 PM EST): Patient's blood pressure was soft with systolic in 80s to 90s. Her SBP is now in the 90s-100s. She is eating well. She remains asymptomatic. She denies any dizziness, chest pain or palpitations. Blood pressure is being measured with the appropriate cuff for her size (Pediatric cuff), as she has BMI of 16 Euvolemic On Midodrine 10 mg 3 times daily. Last orthostatic vitals were OK Assessment & Plan (10/25/2023 4:48 PM EST): Bps remain at baseline. No complaint of dizziness or chest pain On Midodrine 10 mg 3 times daily. Assessment & Plan (10/24/2023 12:36 PM EST): Bps remain at baseline. No complaint of dizziness or chest pain On Midodrine 10 mg 3 times daily. Assessment & Plan (10/23/2023 1:36 PM EST): Bps remain at baseline. No complaint of dizziness or chest pain On Midodrine 10 mg 3 times daily. Last orthostatic vitals were OK Assessment & Plan (10/22/2023 10:26 AM EST): Patient's blood pressure was soft with systolic in 80s to 90s. Her SBP is now in the 90s-100s. She is eating well. She remains asymptomatic. She denies any dizziness, chest pain or palpitations. Blood pressure is being measured with the appropriate cuff for her size (Pediatric cuff), as she has BMI of 16 Does not appear to be volume depleted as she has good oral intake. On Midodrine 10 mg 3 times daily. Last orthostatic vitals were OK Assessment & Plan (10/21/2023 2:14 PM EST): Patient's blood pressure was soft with systolic in 80s to 90s. Her SBP is now in the 90s-100s. She is eating well. She remains asymptomatic. She denies any dizziness, chest pain or palpitations. Blood pressure is being measured with the appropriate cuff for her size (Pediatric cuff), as she has BMI of 16 Does not appear to be volume depleted as she has good oral intake. On Midodrine 10 mg 3 times daily. Last orthostatic vitals were OK Assessment & Plan (10/20/2023 5:02 PM EST): Patient's blood pressure was soft with systolic in 80s to 90s. Her SBP is now in the 90s-100s. She is eating well. She remains asymptomatic. She denies any dizziness, chest pain or palpitations. Blood pressure is being measured with the appropriate cuff for her size (Pediatric cuff), as she has BMI of 16 Does not appear to be volume depleted as she has good oral intake. On Midodrine 10 mg 3 times daily. Last orthostatic vitals were OK Assessment & Plan (10/19/2023 11:14 AM EST): Patient's blood pressure was soft with systolic in 80s to 90s. Her SBP is now in the 90s-100s. She is eating well. She remains asymptomatic, denies any dizziness, chest pain palpitations. Blood pressure is being measured with the appropriate cuff for her size (Pediatric cuff), as she has BMI of 16 Does not appear to be volume depleted as she has good oral intake. On Midodrine 10 mg 3 times daily. Last orthostatic vitals were OK Assessment & Plan (10/18/2023 10:24 AM EST): Patient's blood pressure was soft with systolic in 80s to 90s. Her SBP is now in the 90s-100s. She is eating well. She remains asymptomatic, denies any dizziness, chest pain palpitations. Blood pressure is being measured with the appropriate cuff for her size (Pediatric cuff), as she has BMI of 16 Does not appear to be volume depleted as she has good oral intake. On Midodrine 10 mg 3 times daily. Last orthostatic vitals were OK Assessment & Plan (10/17/2023 10:22 AM EST): Patient's blood pressure was soft with systolic in 80s to 90s. Her SBP is now in the 90s-100s. She is eating well. She remains asymptomatic, denies any dizziness, chest pain palpitations. Blood pressure is being measured with the appropriate cuff for her size (Pediatric cuff), as she has BMI of 16 Does not appear to be volume depleted as she has good oral intake. On Midodrine 10 mg 3 times daily. Last orthostatic vitals were OK Assessment & Plan (10/16/2023 11:28 AM EST): Patient's blood pressure was soft with systolic in 80s to 90s. Her SBP is now in the 90s-100s. She is eating well. She remains asymptomatic, denies any dizziness, chest pain palpitations. Blood pressure is being measured with the appropriate cuff for her size (Pediatric cuff), as she has BMI of 16 Does not appear to be volume depleted as she has good oral intake. On Midodrine 10 mg 3 times daily. Last orthostatic vitals were OK Assessment & Plan (10/15/2023 10:06 AM EST): Patient's blood pressure was soft with systolic in 80s to 90s. Her SBP is now in the 90s-100s. She is eating well. She remains asymptomatic, denies any dizziness, chest pain palpitations. Blood pressure is being measured with the appropriate cuff for her size (Pediatric cuff), as she has BMI of 16 Does not appear to be volume depleted as she has good oral intake. On Midodrine 10 mg 3 times daily. Last orthostatic vitals were OK Assessment & Plan (10/14/2023 10:00 AM EST): Patient's blood pressure was soft with systolic in 80s to 90s. Her SBP is now in the 90s-100s. She is eating well. She remains asymptomatic, denies any dizziness, chest pain palpitations. Blood pressure is being measured with the appropriate cuff for her size (Pediatric cuff), as she has BMI of 16 Does not appear to be volume depleted as she has good oral intake. On Midodrine 10 mg 3 times daily. Last orthostatic vitals were OK Assessment & Plan (10/13/2023 11:56 AM EST): Patient's blood pressure was soft with systolic in 80s to 90s. Her SBP is now in the 90s-100s. She is eating well. She remains asymptomatic, denies any dizziness, chest pain palpitations. Blood pressure is being measured with the appropriate cuff for her size (Pediatric cuff), as she has BMI of 16 Does not appear to be volume depleted as she has good oral intake. On Midodrine 10 mg 3 times daily. Last orthostatic vitals were OK Assessment & Plan (10/12/2023 2:33 PM EST): Patient's blood pressure was soft with systolic in 80s to 90s. Her SBP is now in the 90s-100s. She is eating well. She remains asymptomatic, denies any dizziness, chest pain palpitations. Blood pressure is being measured with the appropriate cuff for her size (Pediatric cuff), as she has BMI of 16 Does not appear to be volume depleted as she has good oral intake. On Midodrine 10 mg 3 times daily. Orthostatic vitals negative Assessment & Plan (10/11/2023 11:26 AM EST): Patient blood pressure was soft with systolic in 80s to 90s. Her SBP is now in the 90s-100s. She is eating well. She remains asymptomatic, denies any dizziness, chest pain palpitations. Blood pressure is being measured with the appropriate cuff for her size (Pediatric cuff), as she has BMI of 16 Does not appear to be volume depleted as she has good oral intake. On Midodrine 10 mg 3 times daily. Orthostatic vitals negative Assessment & Plan (10/09/2023 10:56 AM EST): Patient blood pressure was soft with systolic in 80s to 90s. Her SBP is now in the 90s-100s. She is eating well. She remains asymptomatic, denies any dizziness, chest pain palpitations. Blood pressure is being measured with the appropriate cuff for her size (Pediatric cuff), as she has BMI of 16 Does not appear to be volume depleted as she has good oral intake. On Midodrine 10 mg 3 times daily. Orthostatic vitals negative Assessment & Plan (10/08/2023 9:43 AM EST): Patient blood pressure was soft with systolic in 80s to 90s. Her SBP is now in the 90s-100s. She is eating well. She remains asymptomatic, denies any dizziness, chest pain palpitations. Blood pressure is being measured with the appropriate cuff for her size (Pediatric cuff), as she has BMI of 16 Does not appear to be volume depleted as she has good oral intake. On Midodrine 10 mg 3 times daily. Orthostatic vitals negative Assessment & Plan (10/07/2023 10:02 AM EST): Patient blood pressure was soft with systolic in 80s to 90s. Her SBP is now in the 90s-100s. She is eating well. She remains asymptomatic, denies any dizziness, chest pain palpitations. Blood pressure is being measured with the appropriate cuff for her size (Pediatric cuff), as she has BMI of 16 Does not appear to be volume depleted as she has good oral intake. On Midodrine 10 mg 3 times daily. Orthostatic vitals negative Assessment & Plan (10/06/2023 9:58 AM EST): Patient blood pressure was soft with systolic in 80s to 90s. Her SBP is now in the 90s-100s. She is eating well. She remains asymptomatic, denies any dizziness, chest pain palpitations. Blood pressure is being measured with the appropriate cuff for her size (Pediatric cuff), as she has BMI of 16 Does not appear to be volume depleted as she has good oral intake. On Midodrine 10 mg 3 times daily. Orthostatic vitals negative Assessment & Plan (10/05/2023 11:29 AM EST): Patient blood pressure was soft with systolic in 80s to 90s. Her SBP is now in the 90s-100s. She is eating well. She remains asymptomatic, denies any dizziness, chest pain palpitations. Blood pressure is being measured with the appropriate cuff for her size (Pediatric cuff), as she has BMI of 16 Does not appear to be volume depleted as she has good oral intake. On Midodrine 10 mg 3 times daily. Orthostatic vitals negative Assessment & Plan (10/04/2023 11:29 AM EST): Patient blood pressure was soft with systolic in 80s to 90s. Her SBP is now in the 90s-100s. She is eating well. She remains asymptomatic, denies any dizziness, chest pain palpitations. Blood pressure is being measured with the appropriate cuff for her size (Pediatric cuff), as she has BMI of 16 Does not appear to be volume depleted as she has good oral intake. On Midodrine 10 mg 3 times daily. Orthostatic vitals negative Assessment & Plan (10/03/2023 10:09 AM EST): Patient blood pressure was soft with systolic in 80s to 90s. Her SBP is now in the 90s-100s. She is eating well. She remains asymptomatic, denies any dizziness, chest pain palpitations. Blood pressure is being measured with the appropriate cuff for her size (Pediatric cuff), as she has BMI of 16 Does not appear to be volume depleted as she has good oral intake. On Midodrine 10 mg 3 times daily. Orthostatic vitals negative Assessment & Plan (10/02/2023 9:22 AM EST): Patient blood pressure was soft with systolic in 80s to 90s. Her SBP is now in the 90s-100s. She is eating well. She remains asymptomatic, denies any dizziness, chest pain palpitations. Blood pressure is being measured with the appropriate cuff for her size (Pediatric cuff), as she has BMI of 16 Does not appear to be volume depleted as she has good oral intake. On Midodrine 10 mg 3 times daily. Orthostatic vitals negative Assessment & Plan (10/01/2023 8:53 AM EST): Patient blood pressure was soft with systolic in 80s to 90s. Her SBP is now in the 90s-100s. She is eating well. She remains asymptomatic, denies any dizziness, chest pain palpitations. Blood pressure is being measured with the appropriate cuff for her size (Pediatric cuff), as she has BMI of 16 Does not appear to be volume depleted as she has good oral intake. On Midodrine 10 mg 3 times daily. Orthostatic vitals negative Assessment & Plan (09/30/2023 9:48 AM EST): Patient blood pressure was soft with systolic in 80s to 90s. Her SBP is now in the 90s-100s. She is eating well. She remains asymptomatic, denies any dizziness, chest pain palpitations. Blood pressure is being measured with the appropriate cuff for her size (Pediatric cuff), as she has BMI of 16 Does not appear to be volume depleted as she has good oral intake. On Midodrine 10 mg 3 times daily. Orthostatic vitals negative Assessment & Plan (09/29/2023 11:43 AM EST): Patient blood pressure was soft with systolic in 80s to 90s. Her SBP is now in the 90s-100s. She is eating well. She remains asymptomatic, denies any dizziness, chest pain palpitations. Blood pressure is being measured with the appropriate cuff for her size (Pediatric cuff), as she has BMI of 16 Does not appear to be volume depleted as she has good oral intake. On Midodrine 10 mg 3 times daily. Orthostatic vitals negative Assessment & Plan (09/28/2023 12:06 PM EST): Patient blood pressure was soft with systolic in 80s to 90s. Her SBP is now in the 90s-100s. She is eating well. She remains asymptomatic, denies any dizziness, chest pain palpitations. Blood pressure is being measured with the appropriate cuff for her size (Pediatric cuff), as she has BMI of 16 Does not appear to be volume depleted as she has good oral intake. On Midodrine 10 mg 3 times daily. Orthostatic vitals negative Assessment & Plan (09/27/2023 11:52 AM EST): Patient blood pressure was soft with systolic in 80s to 90s. Her SBP is now in the 90s-100s. She is eating well. She remains asymptomatic, denies any dizziness, chest pain palpitations. Blood pressure is being measured with the appropriate cuff for her size (Pediatric cuff), as she has BMI of 16 Does not appear to be volume depleted as she has good oral intake. On Midodrine 10 mg 3 times daily. Orthostatic vitals negative Assessment & Plan (09/26/2023 10:18 AM EST): Patient blood pressure was soft with systolic in 80s to 90s. Her SBP is now in the 90s-100s. She is eating well. She remains asymptomatic, denies any dizziness, chest pain palpitations. Blood pressure is being measured with the appropriate cuff for her size (Pediatric cuff), as she has BMI of 16 Does not appear to be volume depleted as she has good oral intake. On Midodrine 10 mg 3 times daily. Orthostatic vitals negative Assessment & Plan (09/25/2023 3:30 PM EST): Patient blood pressure was soft with systolic in 80s to 90s. Her SBP is now in the 90s-100s. She is eating well. She remains asymptomatic, denies any dizziness, chest pain palpitations. Blood pressure is being measured with the appropriate cuff for her size (Pediatric cuff), as she has BMI of 16 Does not appear to be volume depleted as she has good oral intake. On Midodrine 10 mg 3 times daily. Orthostatic vitals negative Assessment & Plan (09/24/2023 10:50 AM EST): Patient blood pressure was soft with systolic in 80s to 90s. Her SBP is now in the 90s-100s. She is eating well. She remains asymptomatic, denies any dizziness, chest pain palpitations. Blood pressure is being measured with the appropriate cuff for her size (Pediatric cuff), as she has BMI of 16 Does not appear to be volume depleted as she has good oral intake. On Midodrine 10 mg 3 times daily. Orthostatic vitals negative Assessment & Plan (09/22/2023 11:07 AM EST): Patient blood pressure was soft with systolic in 80s to 90s. Her SBP is now in the 90s-100s. She is eating well. She remains asymptomatic, denies any dizziness, chest pain palpitations. Blood pressure is being measured with the appropriate cuff for her size (Pediatric cuff), as she has BMI of 16 Does not appear to be volume depleted as she has good oral intake. On Midodrine 10 mg 3 times daily. Orthostatic vitals negative Assessment & Plan (09/21/2023 11:11 AM EST): Patient blood pressure was soft with systolic in 80s to 90s. Her SBP is now in the 90s-100s. She is eating well. She remains asymptomatic, denies any dizziness, chest pain palpitations. Blood pressure is being measured with the appropriate cuff for her size (Pediatric cuff), as she has BMI of 16 Does not appear to be volume depleted as she has good oral intake. On Midodrine 10 mg 3 times daily. Orthostatic vitals negative Assessment & Plan (09/20/2023 11:51 AM EST): Patient blood pressure was soft with systolic in 80s to 90s. Her SBP is now in the 90s-100s. She is eating well. She remains asymptomatic, denies any dizziness, chest pain palpitations. Blood pressure is being measured with the appropriate cuff for her size (Pediatric cuff), as she has BMI of 16 Does not appear to be volume depleted as she has good oral intake. On Midodrine 10 mg 3 times daily. Orthostatic vitals negative Assessment & Plan (09/19/2023 5:04 PM EST): Patient blood pressure was soft with systolic in 80s to 90s. Her SBP is now in the 90s-100s. She is eating well. She remains asymptomatic, denies any dizziness, chest pain palpitations. Blood pressure is being measured with the appropriate cuff for her size (Pediatric cuff), as she has BMI of 16 Does not appear to be volume depleted as she has good oral intake. On Midodrine 10 mg 3 times daily. Orthostatic vitals negative Assessment & Plan (09/19/2023 7:41 AM EST): Patient blood pressure was soft with systolic in 80s to 90s. Her SBP is now in the 90s-100s. She is eating well. She remains asymptomatic, denies any dizziness, chest pain palpitations. Blood pressure is being measured with the appropriate cuff for her size (Pediatric cuff), as she has BMI of 16 Does not appear to be volume depleted as she has good oral intake. On Midodrine 10 mg 3 times daily. Orthostatic vitals negative Assessment & Plan (09/17/2023 4:05 PM EST): Patient blood pressure was soft with systolic in 80s to 90s. Her SBP is now in the 90s-100s. She is eating well. She remains asymptomatic, denies any dizziness, chest pain palpitations. Blood pressure is being measured with the appropriate cuff for her size (Pediatric cuff), as she has BMI of 16 Does not appear to be volume depleted as she has good oral intake. On Midodrine 10 mg 3 times daily. Orthostatic vitals negative Assessment & Plan (09/16/2023 4:13 PM EST): Patient blood pressure was soft with systolic in 80s to 90s. Her SBP is now in the 90s-100s. She is eating well. She remains asymptomatic, denies any dizziness, chest pain palpitations. Blood pressure is being measured with the appropriate cuff for her size (Pediatric cuff), as she has BMI of 16 Does not appear to be volume depleted as she has good oral intake. On Midodrine 10 mg 3 times daily. Orthostatic vitals negative Assessment & Plan (09/15/2023 2:21 PM EST): Patient blood pressure was soft with systolic in 80s to 90s. Her SBP is now in the 90s-100s. She is eating well. She remains asymptomatic, denies any dizziness, chest pain palpitations. Blood pressure is being measured with the appropriate cuff for her size (Pediatric cuff), as she has BMI of 16 Does not appear to be volume depleted as she has good oral intake. On Midodrine 10 mg 3 times daily. Orthostatic vitals negative Assessment & Plan (09/14/2023 11:52 AM EST): Patient blood pressure was soft with systolic in 80s to 90s. Her SBP is now in the 90s-100s. She is eating well. She remains asymptomatic, denies any dizziness, chest pain palpitations. Blood pressure is being measured with the appropriate cuff for her size (Pediatric cuff), as she has BMI of 16 Does not appear to be volume depleted as she has good oral intake. On Midodrine 10 mg 3 times daily. Orthostatic vitals negative Assessment & Plan (09/13/2023 3:59 PM EST): Patient blood pressure was soft with systolic in 80s to 90s. Her SBP is now in the 90s-100s. She is eating well. She remains asymptomatic, denies any dizziness, chest pain palpitations. Blood pressure is being measured with the appropriate cuff for her size (Pediatric cuff), as she has BMI of 16 Does not appear to be volume depleted as she has good oral intake. On Midodrine 10 mg 3 times daily. Orthostatic vitals negative Assessment & Plan (09/12/2023 6:18 PM EST): Patient blood pressure was soft with systolic in 80s to 90s. Her SBP is now in the 90s-100s. She is eating well. She remains asymptomatic, denies any dizziness, chest pain palpitations. Blood pressure is being measured with the appropriate cuff for her size (Pediatric cuff), as she has BMI of 16 Does not appear to be volume depleted as she has good oral intake. On Midodrine 10 mg 3 times daily. Orthostatic vitals negative Assessment & Plan (09/11/2023 3:41 PM EST): Patient blood pressure has been soft systolic in 80s to 90s, she remains asymptomatic, denies any dizziness chest pain palpitations. Blood pressure was measured with appropriate cuff for her size (pediatric cuff) as she has BMI of 15 Does not appear to be volume depleted as she has good oral intake. Midodrine 10 mg 3 times daily. Remains BP soft even after starting midodrine and orthostatic vitals negative, she is asymptomatic Assessment & Plan (09/10/2023 5:47 PM EST): Patient blood pressure has been soft systolic in 80s to 90s, she remains asymptomatic, denies any dizziness chest pain palpitations. Blood pressure was measured with appropriate cuff for her size (pediatric cuff) as she has BMI of 15 Does not appear to be volume depleted as she has good oral intake. Midodrine 10 mg 3 times daily. Remains BP soft even after starting midodrine and orthostatic vitals negative, she is asymptomatic Assessment & Plan (09/09/2023 5:34 PM EST): Patient blood pressure has been soft systolic in 80s to 90s, she remains asymptomatic, denies any dizziness chest pain palpitations. Blood pressure was measured with appropriate cuff for her size (pediatric cuff) as she has BMI of 15 Does not appear to be volume depleted as she has good oral intake. Midodrine 10 mg 3 times daily. Remains BP soft even after starting midodrine and orthostatic vitals negative, she is asymptomatic Assessment & Plan (09/08/2023 12:52 PM EST): Patient blood pressure has been soft systolic in 80s to 90s, she remains asymptomatic, denies any dizziness chest pain palpitations. Blood pressure was measured with appropriate cuff for her size (pediatric cuff) as she has BMI of 15 Does not appear to be volume depleted as she has good oral intake. Midodrine 10 mg 3 times daily. Remains BP soft even after starting midodrine and orthostatic vitals negative, she is asymptomatic Assessment & Plan (09/07/2023 2:30 PM EST): Patient blood pressure has been soft systolic in 80s to 90s, she remains asymptomatic, denies any dizziness chest pain palpitations. Blood pressure was measured with appropriate cuff for her size (pediatric cuff) as she has BMI of 15 Does not appear to be volume depleted as she has good oral intake. Increased midodrine to 10 mg 3 times daily. Remains BP soft even after starting midodrine and orthostatic vitals negative, she is asymptomatic Assessment & Plan (09/06/2023 6:55 PM EST): Patient blood pressure has been soft systolic in 80s to 90s, she remains asymptomatic, denies any dizziness chest pain palpitations. Blood pressure was measured with appropriate cuff for her size (pediatric cuff) as she has BMI of 15 Does not appear to be volume depleted as she has good oral intake. Started on midodrine 5 mg 3 times daily. Remains BP soft even after starting midodrine and orthostatic vitals negative, she is asymptomatic Assessment & Plan (09/05/2023 10:37 AM EST): Patient blood pressure has been soft systolic in 80s to 90s, she remains asymptomatic, denies any dizziness chest pain palpitations. Blood pressure was measured with appropriate cuff for her size (pediatric cuff) as she has BMI of 15 Does not appear to be volume depleted as she has good oral intake. Started on midodrine 5 mg 3 times daily. Remains BP soft even after starting midodrine and orthostatic vitals negative, she is asymptomatic Assessment & Plan (09/04/2023 11:12 AM EST): Patient blood pressure has been soft systolic in 80s to 90s, she remains asymptomatic, denies any dizziness chest pain palpitations. Blood pressure was measured with appropriate cuff for her size (pediatric cuff) as she has BMI of 15 Does not appear to be volume depleted as she has good oral intake. Started on midodrine 5 mg 3 times daily. Remains BP soft even after starting midodrine and orthostatic vitals negative, she is asymptomatic Assessment & Plan (09/03/2023 10:46 AM EST): Patient blood pressure has been soft systolic in 80s to 90s, she remains asymptomatic, denies any dizziness chest pain palpitations. Blood pressure was measured with appropriate cuff for her size (pediatric cuff) as she has BMI of 15 Does not appear to be volume depleted as she has good oral intake. Started on midodrine 5 mg 3 times daily. Remains BP soft even after starting midodrine and orthostatic vitals negative, she is asymptomatic Assessment & Plan (09/02/2023 10:42 AM EST): Patient blood pressure has been soft systolic in 80s to 90s, she remains asymptomatic, denies any dizziness chest pain palpitations. Blood pressure was measured with appropriate cuff for her size (pediatric cuff) as she has BMI of 15 Does not appear to be volume depleted as she has good oral intake. Started on midodrine 5 mg 3 times daily. Remains BP soft, will check orthostatic vitals Assessment & Plan (09/01/2023 12:17 PM EST): Patient blood pressure has been soft systolic in 80s to 90s, she remains asymptomatic, denies any dizziness chest pain palpitations. Blood pressure was measured with appropriate cuff for her size (pediatric cuff) as she has BMI of 15 Does not appear to be volume depleted as she has good oral intake. Started on midodrine 5 mg 3 times daily. Mild cognitive impairment 08/28/2023 Assessment & Plan (03/31/2024 12:59 PM EDT): Patient with a worsening of dementia with behavioral issues agitation and aggressive behavior admitted for further evaluation. MOCA done on 03/20/2024 scored 20/30 indicative of Mild Cognitive Impairment - Reorient as able - One-to-one observation for risk of elopement -Maintain fall precautions Assessment & Plan (03/30/2024 1:53 PM EDT): Patient with a worsening of dementia with behavioral issues agitation and aggressive behavior admitted for further evaluation. MOCA done on 03/20/2024 scored 20/30 indicative of Mild Cognitive Impairment - Reorient as able - One-to-one observation for risk of elopement -Maintain fall precautions Assessment & Plan (03/29/2024 9:24 AM EDT): Patient with a worsening of dementia with behavioral issues agitation and aggressive behavior admitted for further evaluation. MOCA done on 03/20/2024 scored 20/30 indicative of Mild Cognitive Impairment - Reorient as able - One-to-one observation for risk of elopement -Maintain fall precautions Assessment & Plan (03/28/2024 10:49 AM EDT): Patient with a worsening of dementia with behavioral issues agitation and aggressive behavior admitted for further evaluation. MOCA done on 03/20/2024 scored 20/30 indicative of Mild Cognitive Impairment - Reorient as able - One-to-one observation for risk of elopement -Maintain fall precautions Assessment & Plan (03/27/2024 10:37 AM EDT): Patient with a worsening of dementia with behavioral issues agitation and aggressive behavior admitted for further evaluation. MOCA done on 03/20/2024 scored 20/30 indicative of Mild Cognitive Impairment - Reorient as able - One-to-one observation for risk of elopement -Maintain fall precautions Assessment & Plan (03/26/2024 11:29 AM EDT): Patient with a worsening of dementia with behavioral issues agitation and aggressive behavior admitted for further evaluation. MOCA done on 03/20/2024 scored 20/30 indicative of Mild Cognitive Impairment - Reorient as able - One-to-one observation for risk of elopement -Maintain fall precautions Assessment & Plan (03/25/2024 11:03 AM EDT): Patient with a worsening of dementia with behavioral issues agitation and aggressive behavior admitted for further evaluation. MOCA done on 03/20/2024 scored 20/30 indicative of Mild Cognitive Impairment - Reorient as able - One-to-one observation for risk of elopement -Maintain fall precautions Assessment & Plan (03/24/2024 11:40 AM EDT): Patient with a worsening of dementia with behavioral issues agitation and aggressive behavior admitted for further evaluation. MOCA done on 03/20/2024 scored 20/30 indicative of Mild Cognitive Impairment - Reorient as able - One-to-one observation for risk of elopement -Maintain fall precautions Assessment & Plan (03/23/2024 11:36 AM EDT): Patient with a worsening of dementia with behavioral issues agitation and aggressive behavior admitted for further evaluation. MOCA done on 03/20/2024 scored 20/30 indicative of Mild Cognitive Impairment - Reorient as able - One-to-one observation for risk of elopement -Maintain fall precautions Assessment & Plan (03/22/2024 1:03 PM EDT): Patient with a worsening of dementia with behavioral issues agitation and aggressive behavior admitted for further evaluation. MOCA done on 03/20/2024 scored 20/30 indicative of Mild Cognitive Impairment - Reorient as able - One-to-one observation for risk of elopement -Maintain fall precautions Assessment & Plan (03/19/2024 2:35 PM EDT): - Reorient as able - One-to-one observation for risk of elopement Assessment & Plan (11/08/2023 2:27 PM EST): MoCa scored 20 out of 30, consistent with mild cognitive impairment Currently being discharged home with VNA services Assessment & Plan (11/07/2023 12:01 PM EST): MoCa scored 20 out of 30, consistent with mild cognitive impairment Pending placement as family is not able to take care of her at home Assessment & Plan (11/06/2023 2:17 PM EST): MoCa scored 20 out of 30, consistent with mild cognitive impairment Pending placement as family is not able to take care of her at home Assessment & Plan (11/05/2023 3:27 PM EST): MoCa scored 20 out of 30, consistent with mild cognitive impairment Pending placement as family is not able to take care of her at home Assessment & Plan (11/04/2023 12:48 PM EST): MoCa scored 20 out of 30, consistent with mild cognitive impairment Pending placement as family is not able to take care of her at home Assessment & Plan (11/01/2023 1:25 PM EST): MoCa scored 20 out of 30, consistent with mild cognitive impairment Pending placement as family is not able to take care of her at home Assessment & Plan (10/31/2023 4:53 PM EST): MoCa scored 20 out of 30, consistent with mild cognitive impairment Pending placement as family is not able to take care of her at home Assessment & Plan (10/30/2023 3:41 PM EST): MoCa scored 20 out of 30, consistent with mild cognitive impairment Pending placement as family is not able to take care of her at home Assessment & Plan (10/27/2023 2:24 PM EST): MoCa scored 20 out of 30, consistent with mild cognitive impairment Pending placement as family is not able to take care of her at home Assessment & Plan (10/25/2023 4:48 PM EST): MoCa scored 20 out of 30, consistent with mild cognitive impairment Pending placement as family is not able to take care of her at home Assessment & Plan (10/24/2023 12:35 PM EST): MoCa scored 20 out of 30, consistent with mild cognitive impairment Pending placement as family is not able to take care of her at home Assessment & Plan (10/23/2023 1:34 PM EST): MoCa scored 20 out of 30, consistent with mild cognitive impairment Pending placement as family is not able to take care of her at home Assessment & Plan (10/22/2023 10:24 AM EST): MoCa scored 20 out of 30, consistent with mild cognitive impairment Pending placement as family is not able to take care of her at home Assessment & Plan (10/21/2023 2:12 PM EST): MoCa scored 20 out of 30, consistent with mild cognitive impairment Pending placement as family is not able to take care of her at home Assessment & Plan (10/20/2023 5:01 PM EST): MoCa scored 20 out of 30, consistent with mild cognitive impairment Pending placement as family is not able to take care of her at home Assessment & Plan (10/19/2023 11:14 AM EST): MoCa scored 20 out of 30, consistent with mild cognitive impairment Pending placement as family is not able to take care of her at home Assessment & Plan (10/18/2023 10:24 AM EST): MoCa scored 20 out of 30, consistent with mild cognitive impairment Pending placement as family is not able to take care of her at home Assessment & Plan (10/17/2023 10:22 AM EST): MoCa scored 20 out of 30, consistent with mild cognitive impairment Pending placement as family is not able to take care of her at home Assessment & Plan (10/16/2023 11:27 AM EST): MoCa scored 20 out of 30, consistent with mild cognitive impairment Pending placement as family is not able to take care of her at home Assessment & Plan (10/15/2023 10:05 AM EST): MoCa scored 20 out of 30, consistent with mild cognitive impairment Pending placement as family is not able to take care of her at home Assessment & Plan (10/14/2023 10:00 AM EST): MoCa scored 20 out of 30, consistent with mild cognitive impairment Pending placement as family is not able to take care of her at home Assessment & Plan (10/13/2023 11:55 AM EST): MoCa scored 20 out of 30, consistent with mild cognitive impairment Pending placement as family is not able to take care of her at home Assessment & Plan (10/12/2023 2:33 PM EST): MoCa scored 20 out of 30, consistent with mild cognitive impairment Pending placement as family is not able to take care of her at home Assessment & Plan (10/11/2023 11:25 AM EST): MoCa scored 20 out of 30, consistent with mild cognitive impairment Pending placement as family is not able to take care of her at home Assessment & Plan (10/10/2023 9:19 AM EST): MoCa scored 20 out of 30, consistent with mild cognitive impairment Pending placement as family is not able to take care of her at home Assessment & Plan (10/09/2023 10:56 AM EST): MoCa scored 20 out of 30, consistent with mild cognitive impairment Pending placement as family is not able to take care of her at home Assessment & Plan (10/08/2023 9:43 AM EST): MoCa scored 20 out of 30, consistent with mild cognitive impairment Pending placement as family is not able to take care of her at home Assessment & Plan (10/07/2023 10:02 AM EST): MoCa scored 20 out of 30, consistent with mild cognitive impairment Pending placement as family is not able to take care of her at home Assessment & Plan (10/06/2023 9:57 AM EST): MoCa scored 20 out of 30, consistent with mild cognitive impairment Pending placement as family is not able to take care of her at home Assessment & Plan (10/05/2023 11:28 AM EST): MoCa scored 20 out of 30, consistent with mild cognitive impairment Pending placement as family is not able to take care of her at home Assessment & Plan (10/04/2023 11:29 AM EST): MoCa scored 20 out of 30, consistent with mild cognitive impairment Pending placement as family is not able to take care of her at home Assessment & Plan (10/03/2023 10:09 AM EST): MoCa scored 20 out of 30, consistent with mild cognitive impairment Pending placement as family is not able to take care of her at home Assessment & Plan (10/02/2023 9:22 AM EST): MoCa scored 20 out of 30, consistent with mild cognitive impairment Pending placement as family is not able to take care of her at home Assessment & Plan (10/01/2023 8:53 AM EST): MoCa scored 20 out of 30, consistent with mild cognitive impairment Pending placement as family is not able to take care of her at home Assessment & Plan (09/30/2023 9:48 AM EST): MoCa scored 20 out of 30, consistent with mild cognitive impairment Pending placement as family is not able to take care of her at home Assessment & Plan (09/29/2023 11:43 AM EST): MoCa scored 20 out of 30, consistent with mild cognitive impairment Pending placement as family is not able to take care of her at home Assessment & Plan (09/28/2023 12:06 PM EST): MoCa scored 20 out of 30, consistent with mild cognitive impairment Pending placement as family is not able to take care of her at home Assessment & Plan (09/27/2023 11:52 AM EST): MoCa scored 20 out of 30, consistent with mild cognitive impairment Pending placement as family is not able to take care of her at home Assessment & Plan (09/26/2023 10:17 AM EST): MoCa scored 20 out of 30, consistent with mild cognitive impairment Pending placement as family is not able to take care of her at home Assessment & Plan (09/25/2023 3:30 PM EST): MoCa scored 20 out of 30, consistent with mild cognitive impairment Pending placement as family is not able to take care of her at home Assessment & Plan (09/24/2023 10:50 AM EST): MoCa scored 20 out of 30, consistent with mild cognitive impairment Pending placement as family is not able to take care of her at home Assessment & Plan (09/23/2023 10:16 AM EST): MoCa scored 20 out of 30, consistent with mild cognitive impairment Pending placement as family is not able to take care of her at home Assessment & Plan (09/22/2023 11:07 AM EST): MoCa scored 20 out of 30, consistent with mild cognitive impairment Pending placement as family is not able to take care of her at home Assessment & Plan (09/21/2023 11:10 AM EST): MoCa scored 20 out of 30, consistent with mild cognitive impairment Pending placement as family is not able to take care of her at home Assessment & Plan (09/20/2023 11:51 AM EST): MoCa scored 20 out of 30, consistent with mild cognitive impairment Pending placement as family is not able to take care of her at home Assessment & Plan (09/19/2023 5:04 PM EST): MoCa scored 20 out of 30, consistent with mild cognitive impairment Pending placement as family is not able to take care of her at home Assessment & Plan (09/19/2023 7:41 AM EST): MoCa scored 20 out of 30, consistent with mild cognitive impairment Pending placement as family is not able to take care of her at home Assessment & Plan (09/17/2023 4:05 PM EST): MoCa scored 20 out of 30, consistent with mild cognitive impairment Pending placement as family is not able to take care of her at home Assessment & Plan (09/16/2023 4:13 PM EST): MoCa scored 20 out of 30, consistent with mild cognitive impairment Pending placement as family is not able to take care of her at home Assessment & Plan (09/15/2023 2:21 PM EST): MoCa scored 20 out of 30, consistent with mild cognitive impairment Pending placement as family is not able to take care of her at home Assessment & Plan (09/14/2023 11:52 AM EST): MoCa scored 20 out of 30, consistent with mild cognitive impairment Pending placement as family is not able to take care of her at home Assessment & Plan (09/13/2023 3:59 PM EST): MoCa scored 20 out of 30, consistent with mild cognitive impairment Pending placement as family is not able to take care of her at home Assessment & Plan (09/12/2023 6:16 PM EST): MoCa scored 20 out of 30, consistent with mild cognitive impairment Pending placement as family is not able to take care of her at home Assessment & Plan (09/11/2023 3:41 PM EST): MoCa scored 20 out of 30, consistent with mild cognitive impairment Pending placement as family is not able to take care of her at home Assessment & Plan (09/10/2023 5:47 PM EST): MoCa scored 20 out of 30, consistent with mild cognitive impairment Pending placement as family is not able to take care of her at home Assessment & Plan (09/09/2023 5:34 PM EST): MoCa scored 20 out of 30, consistent with mild cognitive impairment Pending placement as family is not able to take care of her at home Assessment & Plan (09/08/2023 12:52 PM EST): MoCa scored 20 out of 30, consistent with mild cognitive impairment Pending placement as family is not able to take care of her at home Assessment & Plan (09/07/2023 2:30 PM EST): MoCa scored 20 out of 30, consistent with mild cognitive impairment Pending placement as family is not able to take care of her at home Assessment & Plan (09/06/2023 6:55 PM EST): MoCa scored 20 out of 30 today consistent with mild cognitive impairment Pending placement as family is not able to take care of her at home Assessment & Plan (09/05/2023 10:37 AM EST): MoCa scored 20 out of 30 denoting mild cognitive impairment Pending placement as family is not able to care for at home. Assessment & Plan (09/04/2023 11:12 AM EST): MoCa scored 20 out of 30 denoting mild cognitive impairment Pending placement as family is not able to care for at home. Assessment & Plan (09/03/2023 10:46 AM EST): MoCa scored 20 out of 30 denoting mild cognitive impairment Pending placement as family is not able to care for at home. Assessment & Plan (09/02/2023 11:07 AM EST): MoCa scored 20 out of 30 denoting mild cognitive impairment Pending placement as family is not able to care for at home. Assessment & Plan (09/01/2023 12:15 PM EST): MoCa scored 20 out of 30 denoting mild cognitive impairment Pending placement as family is not able to care for at home. Assessment & Plan (08/31/2023 12:30 PM EST): MoCa scored 20 out of 30 denoting mild cognitive impairment Pending placement as family is not able to care for at home. Assessment & Plan (08/30/2023 11:25 AM EST): MoCa scored 20 out of 30 denoting mild cognitive impairment Pending placement as family is not able to care for at home. Assessment & Plan (08/29/2023 10:24 AM EST): MoCa scored 20 out of 30 denoting mild cognitive impairment Pending placement as family is not able to care for at home. Assessment & Plan (08/28/2023 12:09 PM EST): MoCa scored 20 out of 30 denoting mild cognitive impairment Pending placement as family is not able to care for at home. Severe protein-calorie malnutrition 08/25/2023 Assessment & Plan (11/21/2024 10:57 AM EDT): Patient had severe malnutrition. BMI improved to 20.74 (from 17). Continue gluten free diet due to underlying Celiac disease along with nutritional supplements. Assessment & Plan (11/20/2024 1:07 PM EDT): Patient had severe malnutrition. BMI improved to 20.74 (from 17). Continue gluten free diet due to underlying Celiac disease along with nutritional supplements. Assessment & Plan (11/19/2024 4:12 PM EDT): Patient had severe malnutrition. She had diarrhea while on regular diet. BMI improved to 20.74 (from 17). Continue gluten free diet due to underlying Celiac disease along with nutritional supplements. Assessment & Plan (11/18/2024 12:32 PM EDT): Patient had severe malnutrition. She had diarrhea while on regular diet. BMI improved to 20.74 (from 17). Continue gluten free diet due to underlying Celiac disease along with nutritional supplements. Assessment & Plan (11/17/2024 8:27 AM EDT): Malnutrition: Evaluated by registered dietitian and she was diagnosed with severe malnutrition. She had diarrhea while on regular diet. BMI improved to 20.74 (from 17). Continue gluten free diet due to underlying Celiac disease along with nutritional supplements. Assessment & Plan (11/15/2024 8:51 AM EST): Evaluated by registered dietitian and she was diagnosed with severe malnutrition. She had diarrhea while on regular diet. BMI improved to 20.74 (from 17). Continue gluten free diet due to underlying Celiac disease along with nutritional supplements. Assessment & Plan (11/14/2024 11:48 AM EST): Evaluated by registered dietitian and she was diagnosed with severe malnutrition. She had diarrhea while on regular diet. BMI improved to 20.74 (from 17). Continue gluten free diet due to underlying Celiac disease along with nutritional supplements. Assessment & Plan (2024 11:48 AM EST): Evaluated by registered dietitian and she was diagnosed with severe malnutrition. She had diarrhea while on regular diet. BMI improved to 20.74 (from 17). Continue gluten free diet due to underlying Celiac disease along with nutritional supplements. Assessment & Plan (2024 12:50 AM EST): Evaluated by registered dietitian and she was diagnosed with severe malnutrition. She had diarrhea while on regular diet. BMI improved to 20.74 (from 17). Continue gluten free diet due to underlying Celiac disease along with nutritional supplements. Assessment & Plan (11/11/2024 11:22 AM EST): Evaluated by registered dietitian and she was diagnosed with severe malnutrition. She had diarrhea while on regular diet. BMI improved to 20.74 (from 17). Continue gluten free diet due to underlying Celiac disease along with nutritional supplements. Assessment & Plan (11/10/2024 9:39 AM EST): Evaluated by registered dietitian and she was diagnosed with severe malnutrition. She had diarrhea while on regular diet. BMI improved to 20.74 (from 17). Continue gluten free diet due to underlying Celiac disease along with nutritional supplements. Assessment & Plan (11/09/2024 10:42 AM EST): Evaluated by registered dietitian and she was diagnosed with severe malnutrition. She had diarrhea while on regular diet. BMI improved to 20.74 (from 17). Continue gluten free diet due to underlying Celiac disease along with nutritional supplements. Assessment & Plan (11/08/2024 10:31 AM EST): Evaluated by registered dietitian and she was diagnosed with severe malnutrition. She had diarrhea while on regular diet. BMI improved to 20.74 (from 17). Continue gluten free diet due to underlying Celiac disease along with nutritional supplements. Assessment & Plan (11/07/2024 9:14 AM EST): Evaluated by registered dietitian and she was diagnosed with severe malnutrition. She had diarrhea while on regular diet. BMI improved to 20.74 (from 17). Continue gluten free diet due to underlying Celiac disease along with nutritional supplements. Assessment & Plan (11/06/2024 1:27 PM EST): Evaluated by registered dietitian and she was diagnosed with severe malnutrition. She had diarrhea while on regular diet. BMI improved to 20.74 (from 17). Continue gluten free diet due to underlying Celiac disease along with nutritional supplements. Assessment & Plan (10/31/2024 4:48 PM EST): Protein/Calorie Malnutrition: BMI 17, evaluated by registered dietitian and she was diagnosed with severe malnutrition. She had diarrhea while on regular diet. BMI improved to 20.74. Continue gluten free diet due to underlying Celiac disease. Continue nutritional supplements. Assessment & Plan (10/30/2024 1:39 PM EST): Protein/Calorie Malnutrition: BMI 17, evaluated by registered dietitian and she was diagnosed with severe malnutrition. She had diarrhea while on regular diet. BMI improved to 20.74. Continue gluten free diet due to underlying Celiac disease. Continue nutritional supplements. Assessment & Plan (10/29/2024 5:05 PM EST): Protein/Calorie Malnutrition: BMI 17, evaluated by registered dietitian and she was diagnosed with severe malnutrition. She had diarrhea while on regular diet. BMI improved to 20.74. Continue gluten free diet due to underlying Celiac disease. Continue nutritional supplements. Assessment & Plan (10/28/2024 10:09 AM EST): Protein/Calorie Malnutrition: BMI 17, evaluated by registered dietitian and she was diagnosed with severe malnutrition. She had diarrhea while on regular diet. BMI improved to 20.74. Continue gluten free diet due to underlying Celiac disease. Continue nutritional supplements. Assessment & Plan (10/27/2024 7:24 AM EST): Protein/Calorie Malnutrition: BMI 17, evaluated by registered dietitian and she was diagnosed with severe malnutrition. She had diarrhea while on regular diet. BMI improved to 20.74. Continue gluten free diet due to underlying Celiac disease. Continue nutritional supplements. Assessment & Plan (10/26/2024 8:24 AM EST): Protein/Calorie Malnutrition: BMI 17, evaluated by registered dietitian and she was diagnosed with severe malnutrition. She had diarrhea while on regular diet. BMI improved to 20.74. Continue gluten free diet due to underlying Celiac disease. Continue nutritional supplements. Assessment & Plan (10/24/2024 9:34 AM EST): Protein/Calorie Malnutrition: BMI 17, evaluated by registered dietitian and she was diagnosed with severe malnutrition. She had diarrhea while on regular diet. BMI improved to 20.74. Continue gluten free diet due to underlying Celiac disease. Continue nutritional supplements. Assessment & Plan (10/23/2024 8:33 AM EST): Protein/Calorie Malnutrition: BMI 17, evaluated by registered dietitian and she was diagnosed with severe malnutrition. She had diarrhea while on regular diet. BMI improved to 20.74. Continue gluten free diet due to underlying Celiac disease. Continue nutritional supplements. Assessment & Plan (10/13/2024 11:55 AM EST): Protein/Calorie Malnutrition: BMI 17, evaluated by registered dietitian and she was diagnosed with severe malnutrition. She had diarrhea while on regular diet. - Continue gluten free diet due to underlying Celiac disease. - Continue nutritional supplements. Assessment & Plan (10/12/2024 11:32 AM EST): Protein/Calorie Malnutrition: BMI 17, evaluated by registered dietitian and she was diagnosed with severe malnutrition. She had diarrhea while on regular diet. - Continue gluten free diet due to underlying Celiac disease. - Continue nutritional supplements. Assessment & Plan (10/11/2024 10:56 AM EST): Protein/Calorie Malnutrition: BMI 17, evaluated by registered dietitian and she was diagnosed with severe malnutrition. She had diarrhea while on regular diet. - Continue gluten free diet due to underlying Celiac disease. - Continue nutritional supplements. Assessment & Plan (10/10/2024 11:14 AM EST): Protein/Calorie Malnutrition: BMI 17, evaluated by registered dietitian and she was diagnosed with severe malnutrition. She had diarrhea while on regular diet. Continue gluten free diet due to underlying Celiac disease. Continue nutritional supplements. Assessment & Plan (10/09/2024 3:03 PM EST): Protein/Calorie Malnutrition: BMI 17, evaluated by registered dietitian and she was diagnosed with severe malnutrition. She had diarrhea while on regular diet. Continue gluten free diet due to underlying Celiac disease. Continue nutritional supplements. Assessment & Plan (10/08/2024 3:21 PM EST): Protein/Calorie Malnutrition: BMI 17, evaluated by registered dietitian and she was diagnosed with severe malnutrition. She had diarrhea while on regular diet. Continue gluten free diet due to underlying Celiac disease. Continue nutritional supplements. She is gaining weight, BMI now 20.12 Assessment & Plan (10/07/2024 5:08 PM EST): Protein/Calorie Malnutrition: BMI 17, evaluated by registered dietitian and she was diagnosed with severe malnutrition. She had diarrhea while on regular diet. Continue gluten free diet due to underlying Celiac disease. Continue nutritional supplements. She is gaining weight, BMI now 20.12 Assessment & Plan (10/06/2024 12:34 PM EST): Protein/Calorie Malnutrition: BMI 17, evaluated by registered dietitian and she was diagnosed with severe malnutrition. She had diarrhea while on regular diet. Continue gluten free diet due to underlying Celiac disease. Continue nutritional supplements. She is gaining weight, BMI now 20.12 Assessment & Plan (10/05/2024 3:13 PM EST): Protein/Calorie Malnutrition: BMI 17, evaluated by registered dietitian and she was diagnosed with severe malnutrition. She had diarrhea while on regular diet. Continue gluten free diet due to underlying Celiac disease. Continue nutritional supplements. She is gaining weight, BMI now 20.12 Assessment & Plan (09/26/2024 1:09 PM EST): Protein/Calorie Malnutrition: BMI 17, evaluated by registered dietitian and she was diagnosed with severe malnutrition. She had diarrhea while on regular diet. Continue gluten free diet due to underlying Celiac disease. Continue nutritional supplements. She is gaining weight, BMI now 20.12 Assessment & Plan (09/25/2024 4:31 PM EST): Protein/Calorie Malnutrition: BMI 17, evaluated by registered dietitian and she was diagnosed with severe malnutrition. She had diarrhea while on regular diet. Continue gluten free diet due to underlying Celiac disease. Continue nutritional supplements. She is gaining weight, BMI now 20.12 Assessment & Plan (09/24/2024 4:23 PM EST): Protein/Calorie Malnutrition: BMI 17, evaluated by registered dietitian and she was diagnosed with severe malnutrition. She had diarrhea while on regular diet. Continue gluten free diet due to underlying Celiac disease. Continue nutritional supplements. She is gaining weight, BMI now 18.84. Assessment & Plan (09/23/2024 4:37 PM EST): Protein/Calorie Malnutrition: BMI 17, evaluated by registered dietitian and she was diagnosed with severe malnutrition. She had diarrhea while on regular diet. Continue gluten free diet due to underlying Celiac disease. Continue nutritional supplements. She is gaining weight, BMI now 18.84. Assessment & Plan (09/15/2024 12:45 PM EST): Protein/Calorie Malnutrition: BMI 17, evaluated by registered dietitian and she was diagnosed with severe malnutrition. She had diarrhea while on regular diet. Continue gluten free diet due to underlying Celiac disease. Continue nutritional supplements. She is gaining weight, BMI now 18.84. Assessment & Plan (09/14/2024 12:00 PM EST): Protein/Calorie Malnutrition: BMI 17, evaluated by registered dietitian and she was diagnosed with severe malnutrition. She had diarrhea while on regular diet. Continue gluten free diet due to underlying Celiac disease. Continue nutritional supplements. She is gaining weight, BMI now 18.84. Assessment & Plan (09/13/2024 1:00 PM EST): Protein/Calorie Malnutrition: BMI 17, evaluated by registered dietitian and she was diagnosed with severe malnutrition. She had diarrhea while on regular diet. Continue gluten free diet due to underlying Celiac disease. Continue nutritional supplements. She is gaining weight, BMI now 18.84. Assessment & Plan (09/12/2024 11:53 AM EST): Protein/Calorie Malnutrition: BMI 17, evaluated by registered dietitian and she was diagnosed with severe malnutrition. She had diarrhea while on regular diet. Continue gluten free diet due to underlying Celiac disease. Continue nutritional supplements. She is gaining weight, BMI now 18.84. Assessment & Plan (09/11/2024 1:40 PM EST): Protein/Calorie Malnutrition: BMI 17, evaluated by registered dietitian and she was diagnosed with severe malnutrition. She had diarrhea while on regular diet. Continue gluten free diet due to underlying Celiac disease. Continue nutritional supplements. She is gaining weight, BMI now 18.84. Assessment & Plan (09/10/2024 12:55 PM EST): Protein/Calorie Malnutrition: BMI 17, evaluated by registered dietitian and she was diagnosed with severe malnutrition. She had diarrhea while on regular diet. Continue gluten free diet due to underlying Celiac disease. Continue nutritional supplements. She is gaining weight, BMI now 18.84. Assessment & Plan (09/09/2024 11:52 AM EST): Protein/Calorie Malnutrition: BMI 17, evaluated by registered dietitian and she was diagnosed with severe malnutrition. She had diarrhea while on regular diet. Continue gluten free diet due to underlying Celiac disease. Continue nutritional supplements. She is gaining weight, BMI now 18.84. Assessment & Plan (09/08/2024 2:25 PM EST): Protein/Calorie Malnutrition: BMI 17, evaluated by registered dietitian and she was diagnosed with severe malnutrition. She had diarrhea while on regular diet. Continue gluten free diet due to underlying Celiac disease. Continue nutritional supplements. She is gaining weight, BMI now 18.84. Assessment & Plan (09/05/2024 1:51 PM EST): Protein/Calorie Malnutrition: BMI 17, evaluated by registered dietitian and she was diagnosed with severe malnutrition. She had diarrhea while on regular diet. Continue gluten free diet due to underlying Celiac disease. Continue nutritional supplements. She is gaining weight, BMI now 18.84. Assessment & Plan (09/04/2024 1:37 PM EST): Protein/Calorie Malnutrition: BMI 17, evaluated by registered dietitian and she was diagnosed with severe malnutrition. She had diarrhea while on regular diet. Continue gluten free diet due to underlying Celiac disease. Continue nutritional supplements. She is gaining weight, BMI now 18.84. Assessment & Plan (08/30/2024 8:02 AM EST): Protein/Calorie Malnutrition: BMI 17, evaluated by registered dietitian and she was diagnosed with severe malnutrition. She had diarrhea while on regular diet. Continue gluten free diet due to underlying Celiac disease. Continue nutritional supplements. She is gaining weight, BMI now 18.67. Assessment & Plan (08/29/2024 7:30 AM EST): Protein/Calorie Malnutrition: BMI 17, evaluated by registered dietitian and she was diagnosed with severe malnutrition. She had diarrhea while on regular diet. Continue gluten free diet due to underlying Celiac disease. Continue nutritional supplements. She is gaining weight, BMI now 18.67. Assessment & Plan (08/28/2024 1:43 PM EST): Protein/Calorie Malnutrition: BMI 17, evaluated by registered dietitian and she was diagnosed with severe malnutrition. She had diarrhea while on regular diet. Continue gluten free diet due to underlying Celiac disease. Continue nutritional supplements. She is gaining weight, BMI now 18.67. Assessment & Plan (08/27/2024 2:11 PM EST): Protein/Calorie Malnutrition: BMI 17, evaluated by registered dietitian and she was diagnosed with severe malnutrition. She had diarrhea while on regular diet. Continue gluten free diet due to underlying Celiac disease. Continue nutritional supplements. She is gaining weight, BMI now 18.67. Assessment & Plan (08/26/2024 12:54 PM EST): Protein/Calorie Malnutrition: BMI 17, evaluated by registered dietitian and she was diagnosed with severe malnutrition. She had diarrhea while on regular diet. Continue gluten free diet due to underlying Celiac disease. Continue nutritional supplements. She is gaining weight, BMI now 18.67. Assessment & Plan (08/25/2024 9:25 AM EST): Protein/Calorie Malnutrition: BMI 17, evaluated by registered dietitian and she was diagnosed with severe malnutrition. She had diarrhea while on regular diet. Continue gluten free diet due to underlying Celiac disease. Continue nutritional supplements. She is gaining weight, BMI now 18.67. Assessment & Plan (08/24/2024 2:21 PM EST): Protein/Calorie Malnutrition: BMI 17, evaluated by registered dietitian and she was diagnosed with severe malnutrition. She had diarrhea while on regular diet. Continue gluten free diet due to underlying Celiac disease. Continue nutritional supplements. She is gaining weight, BMI now 18.67. Assessment & Plan (08/23/2024 7:09 AM EST): Protein/Calorie Malnutrition: BMI 17, evaluated by registered dietitian and she was diagnosed with severe malnutrition. She had diarrhea while on regular diet. Continue gluten free diet due to underlying Celiac disease. Continue nutritional supplements. She is gaining weight, BMI now 18.67. Assessment & Plan (08/22/2024 7:22 AM EST): Protein/Calorie Malnutrition: BMI 17, evaluated by registered dietitian and she was diagnosed with severe malnutrition. She had diarrhea while on regular diet. Continue gluten free diet due to underlying Celiac disease. Continue nutritional supplements. She is gaining weight- BMI now 18.67. Assessment & Plan (08/21/2024 1:35 PM EST): Protein/Calorie Malnutrition: BMI 17, evaluated by registered dietitian and she was diagnosed with severe malnutrition. She had diarrhea while on regular diet. Continue gluten free diet due to underlying Celiac disease. Continue nutritional supplements. She is gaining weight- BMI now 18.67. Assessment & Plan (08/20/2024 5:47 PM EST): Protein/Calorie Malnutrition: BMI 17, evaluated by registered dietitian and she was diagnosed with severe malnutrition. She had diarrhea while on regular diet. Continue gluten free diet due to underlying Celiac disease. Continue nutritional supplements. She is gaining weight- BMI now 18.67. Assessment & Plan (08/19/2024 2:46 PM EST): Protein/Calorie Malnutrition: BMI 17, evaluated by registered dietitian and she was diagnosed with severe malnutrition. She had diarrhea while on regular diet. Continue gluten free diet due to underlying Celiac disease. Continue nutritional supplements. She is gaining weight- BMI now 18.67. Assessment & Plan (08/18/2024 12:45 PM EST): Protein/Calorie Malnutrition: BMI 17, evaluated by registered dietitian and she was diagnosed with severe malnutrition. She had diarrhea while on regular diet. Continue gluten free diet due to underlying Celiac disease. Continue nutritional supplements. She is gaining weight- BMI now 18.67. Assessment & Plan (08/17/2024 10:44 AM EST): Protein/Calorie Malnutrition: BMI 17, evaluated by registered dietitian and she was diagnosed with severe malnutrition. She had diarrhea while on regular diet. Continue gluten free diet due to underlying Celiac disease. Continue nutritional supplements. She is gaining weight- BMI now 18.67. Assessment & Plan (08/16/2024 7:07 AM EST): Protein/Calorie Malnutrition: BMI 17, evaluated by registered dietitian and she was diagnosed with severe malnutrition. She had diarrhea while on regular diet. Continue gluten free diet due to underlying Celiac disease. Continue nutritional supplements. She is gaining weight- BMI now 18.67. Assessment & Plan (08/15/2024 9:40 AM EST): Protein/Calorie Malnutrition: BMI 17, evaluated by registered dietitian and she was diagnosed with severe malnutrition. She had diarrhea while on regular diet. Continue gluten free diet due to underlying Celiac disease. Continue nutritional supplements. She is gaining weight- BMI now 18.67. Assessment & Plan (08/14/2024 2:45 PM EST): Protein/Calorie Malnutrition: BMI 17, evaluated by registered dietitian and she was diagnosed with severe malnutrition. She had diarrhea while on regular diet. Continue gluten free diet due to underlying Celiac disease. Continue nutritional supplements She is gaining weight- BMI now 18.67 Assessment & Plan (08/13/2024 3:26 PM EST): Protein/Calorie Malnutrition: BMI 17, evaluated by registered dietitian and she was diagnosed with severe malnutrition. She had diarrhea while on regular diet. Continue gluten free diet due to underlying Celiac disease. Continue nutritional supplements She is gaining weight- BMI now 18.67 Assessment & Plan (08/12/2024 1:22 PM EST): Protein/Calorie Malnutrition: BMI 17, evaluated by registered dietitian and she was diagnosed with severe malnutrition. She had diarrhea while on regular diet. Continue gluten free diet due to underlying Celiac disease. Continue nutritional supplements She is gaining weight- BMI now 18.67 Assessment & Plan (08/11/2024 1:05 PM EST): Protein/Calorie Malnutrition: BMI 17, evaluated by registered dietitian and she was diagnosed with severe malnutrition. She had diarrhea while on regular diet. Continue gluten free diet due to underlying Celiac disease. Continue nutritional supplements She is gaining weight Assessment & Plan (08/10/2024 11:28 AM EST): Protein/Calorie Malnutrition: BMI 17, evaluated by registered dietitian and she was diagnosed with severe malnutrition. She had diarrhea while on regular diet. Continue gluten free diet due to underlying Celiac disease. Continue nutritional supplements She is gaining weight Assessment & Plan (08/07/2024 2:40 PM EST): Protein/Calorie Malnutrition: BMI 17, evaluated by registered dietitian and she was diagnosed with severe malnutrition. She had diarrhea while on regular diet. Continue gluten free diet due to underlying Celiac disease. Continue nutritional supplements She is gaining weight Assessment & Plan (08/06/2024 1:35 PM EST): Protein/Calorie Malnutrition: BMI 17, evaluated by registered dietitian and she was diagnosed with severe malnutrition. She had diarrhea while on regular diet. Continue gluten free diet due to underlying Celiac disease. Continue nutritional supplements She is gaining weight Assessment & Plan (08/04/2024 3:49 PM EST): Protein/Calorie Malnutrition: BMI 17, evaluated by registered dietitian and she was diagnosed with severe malnutrition. She had diarrhea while on regular diet. Continue gluten free diet due to underlying Celiac disease. Continue nutritional supplements She is gaining weight Assessment & Plan (07/29/2024 11:26 AM EST): Protein/Calorie Malnutrition: BMI 17, evaluated by registered dietitian and she was diagnosed with severe malnutrition. She had diarrhea while on regular diet. Continue gluten free diet due to underlying Celiac disease. Continue nutritional supplements She is gaining weight Assessment & Plan (07/21/2024 2:39 PM EST): Protein/Calorie Malnutrition: BMI 17, evaluated by registered dietitian and she was diagnosed with severe malnutrition. Continue gluten free diet due to underlying celiac disease; she has diarrhea while on regular diet. Level Of Malnutrition: Severe Malnutrition in setting of chronic disease. Continue regular/gluten free diet and nutritional supplements Assessment & Plan (07/20/2024 11:24 AM EST): Protein/Calorie Malnutrition: BMI 17, evaluated by registered dietitian and she was diagnosed with severe malnutrition. Continue gluten free diet due to underlying celiac disease; she has diarrhea while on regular diet. Level Of Malnutrition: Severe Malnutrition in setting of chronic disease. Continue regular/gluten free diet and nutritional supplements Assessment & Plan (07/19/2024 3:22 PM EST): Protein/Calorie Malnutrition: BMI 17, evaluated by registered dietitian and she was diagnosed with severe malnutrition. Continue gluten free diet due to underlying celiac disease; she has diarrhea while on regular diet. Level Of Malnutrition: Severe Malnutrition in setting of chronic disease. Continue regular/gluten free diet. Assessment & Plan (07/18/2024 2:58 PM EST): Protein/Calorie Malnutrition: BMI 17, evaluated by registered dietitian and she was diagnosed with severe malnutrition. Continue gluten free diet due to underlying celiac disease; she has diarrhea while on regular diet. Level Of Malnutrition: Severe Malnutrition in setting of chronic disease. Continue regular/gluten free diet. Assessment & Plan (07/17/2024 9:34 AM EST): Protein/Calorie Malnutrition: BMI 17, evaluated by registered dietitian and she was diagnosed with severe malnutrition. Continue gluten free diet due to underlying celiac disease; she has diarrhea while on regular diet. Level Of Malnutrition: Severe Malnutrition in setting of chronic disease. Continue regular/gluten free diet. Assessment & Plan (07/16/2024 10:45 AM EST): Protein/Calorie Malnutrition: BMI 17, evaluated by registered dietitian and she was diagnosed with severe malnutrition. Continue gluten free diet due to underlying celiac disease; she has diarrhea while on regular diet. Level Of Malnutrition: Severe Malnutrition in setting of chronic disease. Continue regular/gluten free diet. Assessment & Plan (07/15/2024 12:54 PM EST): Protein/Calorie Malnutrition: BMI 17, evaluated by registered dietitian and she was diagnosed with severe malnutrition. Continue gluten free diet due to underlying celiac disease; she has diarrhea while on regular diet. Level Of Malnutrition: Severe Malnutrition in setting of chronic disease. Continue regular/gluten free diet. Assessment & Plan (07/14/2024 2:19 PM EST): Protein/Calorie Malnutrition: BMI 17, evaluated by registered dietitian and she was diagnosed with severe malnutrition. Continue gluten free diet due to underlying celiac disease; she has diarrhea while on regular diet. Level Of Malnutrition: Severe Malnutrition in setting of chronic disease. Continue regular/gluten free diet. Assessment & Plan (07/13/2024 1:05 PM EDT): Protein/Calorie Malnutrition: BMI 17, evaluated by registered dietitian and she was diagnosed with severe malnutrition. Continue gluten free diet due to underlying celiac disease; she has diarrhea while on regular diet. Level Of Malnutrition: Severe Malnutrition in setting of chronic disease. Continue regular/gluten free diet. Assessment & Plan (07/12/2024 5:57 PM EDT): Protein/Calorie Malnutrition: BMI 17, evaluated by registered dietitian and she was diagnosed with severe malnutrition. Continue gluten free diet due to underlying celiac disease; she has diarrhea while on regular diet. Level Of Malnutrition: Severe Malnutrition in setting of chronic disease. Continue regular/gluten free diet. Assessment & Plan (07/11/2024 9:58 AM EDT): Protein/Calorie Malnutrition: BMI 17, evaluated by registered dietitian and she was diagnosed with severe malnutrition. Continue gluten free diet due to underlying celiac disease; she has diarrhea while on regular diet. Level Of Malnutrition: Severe Malnutrition in setting of chronic disease. Continue regular/gluten free diet. Assessment & Plan (07/10/2024 11:53 AM EDT): Protein/Calorie Malnutrition: BMI 17, evaluated by registered dietitian and she was diagnosed with severe malnutrition. Continue gluten free diet due to underlying celiac disease; she has diarrhea while on regular diet. Level Of Malnutrition: Severe Malnutrition in setting of chronic disease. Continue regular/gluten free diet. Assessment & Plan (07/09/2024 6:04 PM EDT): Protein/Calorie Malnutrition: BMI 17, evaluated by registered dietitian and she was diagnosed with severe malnutrition. Continue gluten free diet due to underlying celiac disease; she has diarrhea while on regular diet. Level Of Malnutrition: Severe Malnutrition in setting of chronic disease. Continue regular/gluten free diet. Assessment & Plan (07/08/2024 4:11 PM EDT): Protein/Calorie Malnutrition: BMI 17, evaluated by registered dietitian and she was diagnosed with severe malnutrition. Continue gluten free diet due to underlying celiac disease; she has diarrhea while on regular diet. Level Of Malnutrition: Severe Malnutrition in setting of chronic disease. Continue regular/gluten free diet. Assessment & Plan (07/06/2024 10:19 AM EDT): Protein/Calorie Malnutrition: BMI 17, evaluated by registered dietitian and she was diagnosed with severe malnutrition. Continue gluten free diet due to underlying celiac disease; she has diarrhea while on regular diet. Level Of Malnutrition: Severe Malnutrition in setting of chronic disease. Continue regular/gluten free diet. Assessment & Plan (07/05/2024 12:38 PM EDT): Protein/Calorie Malnutrition: BMI 17, evaluated by registered dietitian and she was diagnosed with severe malnutrition. Continue gluten free diet due to underlying celiac disease; she has diarrhea while on regular diet. Level Of Malnutrition: Severe Malnutrition in setting of chronic disease. Continue regular/gluten free diet. Assessment & Plan (07/04/2024 12:42 PM EDT): Protein/Calorie Malnutrition: BMI 17, evaluated by registered dietitian and she was diagnosed with severe malnutrition. Continue gluten free diet due to underlying celiac disease; she has diarrhea while on regular diet. Level Of Malnutrition: Severe Malnutrition in setting of chronic disease. Continue regular/gluten free diet. Assessment & Plan (07/03/2024 11:25 AM EDT): Protein/Calorie Malnutrition: BMI 17, evaluated by registered dietitian and she was diagnosed with severe malnutrition. Continue gluten free diet due to underlying celiac disease; she has diarrhea while on regular diet. Level Of Malnutrition: Severe Malnutrition in setting of chronic disease. Continue regular/gluten free diet. Assessment & Plan (07/02/2024 11:21 AM EDT): Protein/Calorie Malnutrition: BMI 17, evaluated by registered dietitian and she was diagnosed with severe malnutrition. Continue gluten free diet due to underlying celiac disease; she has diarrhea while on regular diet. Level Of Malnutrition: Severe Malnutrition in setting of chronic disease. Continue regular/gluten free diet. Assessment & Plan (07/01/2024 7:36 AM EDT): Protein/Calorie Malnutrition: BMI 17, evaluated by registered dietitian and she was diagnosed with severe malnutrition. Continue gluten free diet due to underlying celiac disease; she has diarrhea while on regular diet. Level Of Malnutrition: Severe Malnutrition in setting of chronic disease. Continue regular/gluten free diet. Assessment & Plan (06/30/2024 9:25 AM EDT): Protein/Calorie Malnutrition: BMI 17, evaluated by registered dietitian and she was diagnosed with severe malnutrition. Continue gluten free diet due to underlying celiac disease; she has diarrhea while on regular diet. Level Of Malnutrition: Severe Malnutrition in setting of chronic disease. Continue regular/gluten free diet. Assessment & Plan (06/22/2024 3:17 PM EDT): Protein/Calorie Malnutrition: BMI 17, evaluated by registered dietitian and she is diagnosed with severe malnutrition. Continue gluten free diet due to underlying celiac disease; she has diarrhea while on regular diet. Level Of Malnutrition: Severe Malnutrition in setting of chronic disease. Continue regular/gluten free diet. Assessment & Plan (06/08/2024 6:04 PM EDT): Protein/Calorie Malnutrition: BMI 17, evaluated by registered dietitian and she is diagnosed with severe malnutrition. Continue gluten free diet due to underlying celiac disease; she has diarrhea while on regular diet. Level Of Malnutrition: Severe Malnutrition in setting of chronic disease. Continue regular/gluten free diet. Assessment & Plan (06/02/2024 4:49 PM EDT): Protein/Calorie Malnutrition: BMI 17, evaluated by registered dietitian and she is diagnosed with severe malnutrition. Continue gluten free diet due to underlying celiac disease; she has diarrhea while on regular diet. Level Of Malnutrition: Severe Malnutrition in setting of chronic disease. Continue regular/gluten free diet. Assessment & Plan (06/01/2024 3:22 PM EDT): Protein/Calorie Malnutrition: BMI 17, evaluated by registered dietitian and she is diagnosed with severe malnutrition. Continue gluten free diet due to underlying celiac disease; she has diarrhea while on regular diet. Level Of Malnutrition: Severe Malnutrition in setting of chronic disease. Continue regular/gluten free diet. Assessment & Plan (05/31/2024 2:45 PM EDT): Protein/Calorie Malnutrition: BMI 17, evaluated by registered dietitian and she is diagnosed with severe malnutrition. Continue gluten free diet due to underlying celiac disease; she has diarrhea while on regular diet. Level Of Malnutrition: Severe Malnutrition in setting of chronic disease. Continue regular/gluten free diet. Assessment & Plan (05/26/2024 10:16 AM EDT): Protein/Calorie Malnutrition: BMI 17, evaluated by registered dietitian and she is diagnosed with severe malnutrition. Continue gluten free diet due to underlying celiac disease; she has diarrhea while on regular diet. Level Of Malnutrition: Severe Malnutrition in setting of chronic disease. Continue regular/gluten free diet. Assessment & Plan (05/25/2024 11:25 AM EDT): Protein/Calorie Malnutrition: BMI 17, evaluated by registered dietitian and she is diagnosed with severe malnutrition. Continue gluten free diet due to underlying celiac disease; she has diarrhea while on regular diet. Level Of Malnutrition: Severe Malnutrition in setting of chronic disease. Continue regular/gluten free diet. Assessment & Plan (05/24/2024 10:42 AM EDT): Protein/Calorie Malnutrition: BMI 17, evaluated by registered dietitian and she is diagnosed with severe malnutrition. Continue gluten free diet due to underlying celiac disease; she has diarrhea while on regular diet. Level Of Malnutrition: Severe Malnutrition in setting of chronic disease. Continue regular/gluten free diet. Assessment & Plan (05/23/2024 12:16 PM EDT): Protein/Calorie Malnutrition: BMI 17, evaluated by registered dietitian and she is diagnosed with severe malnutrition. Continue gluten free diet due to underlying celiac disease; she has diarrhea while on regular diet. Level Of Malnutrition: Severe Malnutrition in setting of chronic disease. Continue regular/gluten free diet. Assessment & Plan (05/22/2024 11:26 AM EDT): Protein/Calorie Malnutrition: BMI 17, evaluated by registered dietitian and she is diagnosed with severe malnutrition. Continue gluten free diet due to underlying celiac disease; she has diarrhea while on regular diet. Level Of Malnutrition: Severe Malnutrition in setting of chronic disease. Continue regular/gluten free diet. Assessment & Plan (05/21/2024 10:48 AM EDT): Protein/Calorie Malnutrition: BMI 17, evaluated by registered dietitian and she is diagnosed with severe malnutrition. Continue gluten free diet due to underlying celiac disease; she has diarrhea while on regular diet. Level Of Malnutrition: Severe Malnutrition in setting of chronic disease. Continue regular/gluten free diet. Assessment & Plan (05/20/2024 10:41 AM EDT): Protein/Calorie Malnutrition: BMI 17, evaluated by registered dietitian and she is diagnosed with severe malnutrition. Continue gluten free diet due to underlying celiac disease; she has diarrhea while on regular diet. Level Of Malnutrition: Severe Malnutrition in setting of chronic disease. Continue regular/gluten free diet. Assessment & Plan (05/19/2024 11:49 AM EDT): Protein/Calorie Malnutrition: BMI 17, evaluated by registered dietitian and she is diagnosed with severe malnutrition. Continue gluten free diet due to underlying celiac disease; she has diarrhea while on regular diet. Level Of Malnutrition: Severe Malnutrition in setting of chronic disease. Continue regular/gluten free diet. Assessment & Plan (05/16/2024 4:09 PM EDT): Protein/Calorie Malnutrition: BMI 17, evaluated by registered dietitian and she is diagnosed with severe malnutrition. Continue gluten free diet due to underlying celiac disease; she has diarrhea while on regular diet. Level Of Malnutrition: Severe Malnutrition in setting of chronic disease. Continue regular/gluten free diet. Assessment & Plan (05/15/2024 4:36 PM EDT): Protein/Calorie Malnutrition: BMI 17, evaluated by registered dietitian and she is diagnosed with severe malnutrition. Continue gluten free diet due to underlying celiac disease; she has diarrhea while on regular diet. Level Of Malnutrition: Severe Malnutrition in setting of chronic disease. Continue regular/gluten free diet. Assessment & Plan (05/14/2024 11:02 AM EDT): Protein/Calorie Malnutrition: BMI 17, evaluated by registered dietitian and she is diagnosed with severe malnutrition. Continue gluten free diet due to underlying celiac disease; she has diarrhea while on regular diet. Level Of Malnutrition: Severe Malnutrition in setting of chronic disease. Continue regular/gluten free diet. May take up to six weeks being strictly gluten free to have improvements. She will benefit from reminders and reinforcement about this. Declines ONS at this time. Assessment & Plan (05/13/2024 2:41 PM EDT): Protein/Calorie Malnutrition: BMI 17, evaluated by registered dietitian and she is diagnosed with severe malnutrition. Continue gluten free diet due to underlying celiac disease; she has diarrhea while on regular diet. Level Of Malnutrition: Severe Malnutrition in setting of chronic disease. Continue regular/gluten free diet. May take up to six weeks being strictly gluten free to have improvements. She will benefit from reminders and reinforcement about this. Declines ONS at this time. Assessment & Plan (05/12/2024 8:27 AM EDT): Protein/Calorie Malnutrition: BMI 17, evaluated by registered dietitian and she is diagnosed with severe malnutrition. Continue gluten free diet due to underlying celiac disease; she has diarrhea while on regular diet. Level Of Malnutrition: Severe Malnutrition in setting of chronic disease. Continue regular/gluten free diet. May take up to six weeks being strictly gluten free to have improvements. She will benefit from reminders and reinforcement about this. Declines ONS at this time. Assessment & Plan (05/11/2024 9:09 AM EDT): Protein/Calorie Malnutrition: BMI 17, evaluated by registered dietitian and she is diagnosed with severe malnutrition. Continue gluten free diet due to underlying celiac disease; she has diarrhea while on regular diet. Level Of Malnutrition: Severe Malnutrition in setting of chronic disease. Continue regular/gluten free diet. May take up to six weeks being strictly gluten free to have improvements. She will benefit from reminders and reinforcement about this. Declines ONS at this time. Assessment & Plan (05/10/2024 8:46 AM EDT): Protein/Calorie Malnutrition: BMI 17, evaluated by registered dietitian and she is diagnosed with severe malnutrition. Continue gluten free diet due to underlying celiac disease; she has diarrhea while on regular diet. Level Of Malnutrition: Severe Malnutrition in setting of chronic disease. Continue regular/gluten free diet. May take up to six weeks being strictly gluten free to have improvements. She will benefit from reminders and reinforcement about this. Declines ONS at this time Assessment & Plan (05/09/2024 12:03 PM EDT): Protein/Calorie Malnutrition: BMI 17, evaluated by registered dietitian and she is diagnosed with severe malnutrition. Continue gluten free diet due to underlying celiac disease; she has diarrhea while on regular diet. Level Of Malnutrition: Severe Malnutrition in setting of chronic disease. Continue regular/gluten free diet. May take up to six weeks being strictly gluten free to have improvements. She will benefit from reminders and reinforcement about this. Declines ONS at this time Assessment & Plan (05/08/2024 1:43 PM EDT): Patient BMI 17, evaluated by registered dietitian and she is diagnosed with severe malnutrition. Continue gluten free diet due to underlying celiac disease patient has diarrhea prior while on regular diet. NUTRITION NOTE Level Of Malnutrition: Severe Malnutrition Malnutrition present on admission?: Yes Malnutrition in the Context of Chronic Illness Energy Intake (% of estimated energy requirement): <75% for >/equal 1 month Loss of Body Fat: Severe Loss of Muscle Mass: Severe Interventions / Recommendations: Cont regular/gluten free diet (d/t celiac) Patient is willing to try gluten free diet in hopes that her Bms will improve, d/w her that it may take up to six weeks being strictly gluten free to have improvements. She will benefit from reminders and reinforcement about this. Declines ONS at this time RD follow up prn Assessment & Plan (05/07/2024 4:29 PM EDT): Patient BMI 17, evaluated by registered dietitian and she is diagnosed with severe malnutrition. Continue gluten free diet due to underlying celiac disease patient has diarrhea prior while on regular diet. NUTRITION NOTE Level Of Malnutrition: Severe Malnutrition Malnutrition present on admission?: Yes Malnutrition in the Context of Chronic Illness Energy Intake (% of estimated energy requirement): <75% for >/equal 1 month Loss of Body Fat: Severe Loss of Muscle Mass: Severe Interventions / Recommendations: Cont regular/gluten free diet (d/t celiac) Patient is willing to try gluten free diet in hopes that her Bms will improve, d/w her that it may take up to six weeks being strictly gluten free to have improvements. She will benefit from reminders and reinforcement about this. Declines ONS at this time RD follow up prn Assessment & Plan (05/06/2024 1:42 PM EDT): Patient BMI 17, evaluated by registered dietitian and she is diagnosed with severe malnutrition. Continue gluten free diet due to underlying celiac disease patient has diarrhea prior while on regular diet. NUTRITION NOTE Level Of Malnutrition: Severe Malnutrition Malnutrition present on admission?: Yes Malnutrition in the Context of Chronic Illness Energy Intake (% of estimated energy requirement): <75% for >/equal 1 month Loss of Body Fat: Severe Loss of Muscle Mass: Severe Interventions / Recommendations: Cont regular/gluten free diet (d/t celiac) Patient is willing to try gluten free diet in hopes that her Bms will improve, d/w her that it may take up to six weeks being strictly gluten free to have improvements. She will benefit from reminders and reinforcement about this. Declines ONS at this time RD follow up prn Assessment & Plan (05/01/2024 2:57 PM EDT): Patient BMI 17, evaluated by registered dietitian and she is diagnosed with severe malnutrition. Continue gluten free diet due to underlying celiac disease patient has diarrhea prior while on regular diet. NUTRITION NOTE Level Of Malnutrition: Severe Malnutrition Malnutrition present on admission?: Yes Malnutrition in the Context of Chronic Illness Energy Intake (% of estimated energy requirement): <75% for >/equal 1 month Loss of Body Fat: Severe Loss of Muscle Mass: Severe Interventions / Recommendations: Cont regular/gluten free diet (d/t celiac) Patient is willing to try gluten free diet in hopes that her Bms will improve, d/w her that it may take up to six weeks being strictly gluten free to have improvements. She will benefit from reminders and reinforcement about this. Declines ONS at this time RD follow up prn Assessment & Plan (04/29/2024 2:35 PM EDT): Patient BMI 17, evaluated by registered dietitian and she is diagnosed with severe malnutrition. Continue gluten free diet due to underlying celiac disease patient has diarrhea prior while on regular diet. NUTRITION NOTE Level Of Malnutrition: Severe Malnutrition Malnutrition present on admission?: Yes Malnutrition in the Context of Chronic Illness Energy Intake (% of estimated energy requirement): <75% for >/equal 1 month Loss of Body Fat: Severe Loss of Muscle Mass: Severe Interventions / Recommendations: Cont regular/gluten free diet (d/t celiac) Patient is willing to try gluten free diet in hopes that her Bms will improve, d/w her that it may take up to six weeks being strictly gluten free to have improvements. She will benefit from reminders and reinforcement about this. Declines ONS at this time RD follow up prn Assessment & Plan (04/28/2024 12:04 PM EDT): Patient BMI 17, evaluated by registered dietitian and she is diagnosed with severe malnutrition. Continue gluten free diet due to underlying celiac disease patient has diarrhea prior while on regular diet. NUTRITION NOTE Level Of Malnutrition: Severe Malnutrition Malnutrition present on admission?: Yes Malnutrition in the Context of Chronic Illness Energy Intake (% of estimated energy requirement): <75% for >/equal 1 month Loss of Body Fat: Severe Loss of Muscle Mass: Severe Interventions / Recommendations: Cont regular/gluten free diet (d/t celiac) Patient is willing to try gluten free diet in hopes that her Bms will improve, d/w her that it may take up to six weeks being strictly gluten free to have improvements. She will benefit from reminders and reinforcement about this. Declines ONS at this time RD follow up prn Assessment & Plan (04/27/2024 10:24 AM EDT): Patient BMI 17, evaluated by registered dietitian and she is diagnosed with severe malnutrition. Continue gluten free diet due to underlying celiac disease patient has diarrhea prior while on regular diet. NUTRITION NOTE Level Of Malnutrition: Severe Malnutrition Malnutrition present on admission?: Yes Malnutrition in the Context of Chronic Illness Energy Intake (% of estimated energy requirement): <75% for >/equal 1 month Loss of Body Fat: Severe Loss of Muscle Mass: Severe Interventions / Recommendations: Cont regular/gluten free diet (d/t celiac) Patient is willing to try gluten free diet in hopes that her Bms will improve, d/w her that it may take up to six weeks being strictly gluten free to have improvements. She will benefit from reminders and reinforcement about this. Declines ONS at this time RD follow up prn Assessment & Plan (04/26/2024 11:33 AM EDT): Patient BMI 17, evaluated by registered dietitian and she is diagnosed with severe malnutrition. Continue gluten free diet due to underlying celiac disease patient has diarrhea prior while on regular diet. NUTRITION NOTE Level Of Malnutrition: Severe Malnutrition Malnutrition present on admission?: Yes Malnutrition in the Context of Chronic Illness Energy Intake (% of estimated energy requirement): <75% for >/equal 1 month Loss of Body Fat: Severe Loss of Muscle Mass: Severe Interventions / Recommendations: Cont regular/gluten free diet (d/t celiac) Patient is willing to try gluten free diet in hopes that her Bms will improve, d/w her that it may take up to six weeks being strictly gluten free to have improvements. She will benefit from reminders and reinforcement about this. Declines ONS at this time RD follow up prn Assessment & Plan (11/08/2023 2:27 PM EST): Patient met criteria for severe protein energy malnutrition. She would benefit from nutritional supplements in between meals. BMI-15.94 Gross evidence of muscle and fat atrophy Assessment & Plan (11/07/2023 12:01 PM EST): Patient met criteria for severe protein energy malnutrition. She would benefit from nutritional supplements in between meals. BMI-15.94 Gross evidence of muscle and fat atrophy Assessment & Plan (11/06/2023 2:17 PM EST): Patient met criteria for severe protein energy malnutrition. She would benefit from nutritional supplements in between meals. BMI-15.94 Gross evidence of muscle and fat atrophy Assessment & Plan (11/05/2023 3:27 PM EST): Patient met criteria for severe protein energy malnutrition. She would benefit from nutritional supplements in between meals. BMI-15.94 Gross evidence of muscle and fat atrophy Assessment & Plan (11/04/2023 12:48 PM EST): Patient met criteria for severe protein energy malnutrition. She would benefit from nutritional supplements in between meals. BMI-15.94 Gross evidence of muscle and fat atrophy Assessment & Plan (11/01/2023 1:25 PM EST): Patient met criteria for severe protein energy malnutrition. She would benefit from nutritional supplements in between meals. BMI-15.94 Gross evidence of muscle and fat atrophy Assessment & Plan (10/31/2023 4:53 PM EST): Patient met criteria for severe protein energy malnutrition. She would benefit from nutritional supplements in between meals. BMI-15.94 Gross evidence of muscle and fat atrophy Assessment & Plan (10/30/2023 3:41 PM EST): Patient met criteria for severe protein energy malnutrition. She would benefit from nutritional supplements in between meals. BMI-15.94 Gross evidence of muscle and fat atrophy Assessment & Plan (10/26/2023 3:08 PM EST): Patient met criteria for severe protein energy malnutrition. She would benefit from nutritional supplements in between meals. BMI-15.94 Gross evidence of muscle and fat atrophy Assessment & Plan (10/25/2023 4:48 PM EST): RD recommends Regular diet Weekly weight BMI 15.94 Assessment & Plan (10/24/2023 12:36 PM EST): RD recommends Regular diet Weekly weight BMI 15.94 Assessment & Plan (10/23/2023 1:33 PM EST): Assessment & Plan (10/22/2023 10:26 AM EST): Patient met criteria for severe protein energy malnutrition. She would benefit from nutritional supplements in between meals. BMI-15.94 Gross evidence of muscle and fat atrophy Assessment & Plan (10/21/2023 2:12 PM EST): Patient met criteria for severe protein energy malnutrition. She would benefit from nutritional supplements in between meals. BMI-15.94 Gross evidence of muscle and fat atrophy Assessment & Plan (10/20/2023 5:01 PM EST): Patient met criteria for severe protein energy malnutrition. She would benefit from nutritional supplements in between meals. BMI-15.94 Gross evidence of muscle and fat atrophy Assessment & Plan (10/19/2023 11:14 AM EST): Patient met criteria for severe protein energy malnutrition. She would benefit from nutritional supplements in between meals. BMI-15.94 Gross evidence of muscle and fat loss Assessment & Plan (10/18/2023 10:24 AM EST): Patient met criteria for severe protein energy malnutrition. She would benefit from nutritional supplements in between meals. BMI-15.94 Gross evidence of muscle and fat loss Assessment & Plan (10/17/2023 10:22 AM EST): Patient met criteria for severe protein energy malnutrition. She would benefit from nutritional supplements in between meals. BMI-15.94 Gross evidence of muscle and fat loss Assessment & Plan (10/16/2023 11:27 AM EST): Patient met criteria for severe protein energy malnutrition. She would benefit from nutritional supplements in between meals. BMI-15.94 Gross evidence of muscle and fat loss Assessment & Plan (10/15/2023 10:06 AM EST): Patient met criteria for severe protein energy malnutrition. She would benefit from nutritional supplements in between meals. BMI-15.94 Gross evidence of muscle and fat loss Assessment & Plan (10/14/2023 10:00 AM EST): Patient met criteria for severe protein energy malnutrition. She would benefit from nutritional supplements in between meals. BMI-15.94 Gross evidence of muscle and fat loss Assessment & Plan (10/13/2023 11:55 AM EST): Patient met criteria for severe protein energy malnutrition. She would benefit from nutritional supplements in between meals. BMI-15.94 Gross evidence of muscle and fat loss Assessment & Plan (10/12/2023 2:33 PM EST): Patient met criteria for severe protein energy malnutrition. She would benefit from nutritional supplements in between meals. BMI-15.94 Gross evidence of muscle and fat loss Assessment & Plan (10/11/2023 11:26 AM EST): Patient met criteria for severe protein energy malnutrition. She would benefit from nutritional supplements in between meals. BMI-15 Gross evidence of muscle and fat loss Assessment & Plan (10/09/2023 10:56 AM EST): Patient met criteria for severe protein energy malnutrition. She would benefit from nutritional supplements in between meals. BMI-15 Gross evidence of muscle and fat loss Assessment & Plan (10/08/2023 9:43 AM EST): Patient met criteria for severe protein energy malnutrition. She would benefit from nutritional supplements in between meals. BMI-15 Gross evidence of muscle and fat loss Assessment & Plan (10/07/2023 10:02 AM EST): Patient met criteria for severe protein energy malnutrition. She would benefit from nutritional supplements in between meals. BMI-15 Gross evidence of muscle and fat loss Assessment & Plan (10/06/2023 9:58 AM EST): Patient met criteria for severe protein energy malnutrition. She would benefit from nutritional supplements in between meals. BMI-15 Gross evidence of muscle and fat loss Assessment & Plan (10/05/2023 11:29 AM EST): Patient met criteria for severe protein energy malnutrition. She would benefit from nutritional supplements in between meals. BMI-15 Gross evidence of muscle and fat loss Assessment & Plan (10/04/2023 11:29 AM EST): Patient met criteria for severe protein energy malnutrition. She would benefit from nutritional supplements in between meals. BMI-15 Gross evidence of muscle and fat loss Assessment & Plan (10/03/2023 10:09 AM EST): Patient met criteria for severe protein energy malnutrition. She would benefit from nutritional supplements in between meals. BMI-15 Gross evidence of muscle and fat loss Assessment & Plan (10/02/2023 9:22 AM EST): Patient met criteria for severe protein energy malnutrition. She would benefit from nutritional supplements in between meals. BMI-15 Gross evidence of muscle and fat loss Assessment & Plan (10/01/2023 8:53 AM EST): Patient met criteria for severe protein energy malnutrition. She would benefit from nutritional supplements in between meals. BMI-15 Gross evidence of muscle and fat loss Assessment & Plan (09/30/2023 9:48 AM EST): Patient met criteria for severe protein energy malnutrition. She would benefit from nutritional supplements in between meals. BMI-15 Gross evidence of muscle and fat loss Assessment & Plan (09/29/2023 11:43 AM EST): Patient met criteria for severe protein energy malnutrition. She would benefit from nutritional supplements in between meals. BMI-15 Gross evidence of muscle and fat loss Assessment & Plan (09/28/2023 12:06 PM EST): Patient met criteria for severe protein energy malnutrition. She would benefit from nutritional supplements in between meals. BMI-15 Gross evidence of muscle and fat loss Assessment & Plan (09/27/2023 11:52 AM EST): Patient met criteria for severe protein energy malnutrition. She would benefit from nutritional supplements in between meals. BMI-15 Gross evidence of muscle and fat loss Assessment & Plan (09/26/2023 10:18 AM EST): Patient met criteria for severe protein energy malnutrition. She would benefit from nutritional supplements in between meals. BMI-15 Gross evidence of muscle and fat loss Assessment & Plan (09/25/2023 3:30 PM EST): Patient met criteria for severe protein energy malnutrition. She would benefit from nutritional supplements in between meals. BMI-15 Gross evidence of muscle and fat loss Assessment & Plan (09/24/2023 10:50 AM EST): Patient met criteria for severe protein energy malnutrition. She would benefit from nutritional supplements in between meals. BMI-15 Gross evidence of muscle and fat loss Assessment & Plan (09/22/2023 11:07 AM EST): Patient met criteria for severe protein energy malnutrition. She would benefit from nutritional supplements in between meals. BMI-15 Gross evidence of muscle and fat loss Assessment & Plan (09/21/2023 11:11 AM EST): Patient met criteria for severe protein energy malnutrition. She would benefit from nutritional supplements in between meals. BMI-15 Gross evidence of muscle and fat loss Assessment & Plan (09/20/2023 11:51 AM EST): Patient met criteria for severe protein energy malnutrition. She would benefit from nutritional supplements in between meals. BMI-15 Gross evidence of possible fat loss Assessment & Plan (09/19/2023 5:04 PM EST): Patient met criteria for severe protein energy malnutrition. She would benefit from nutritional supplements in between meals. Assessment & Plan (09/19/2023 7:41 AM EST): Patient met criteria for severe protein energy malnutrition. She would benefit from nutritional supplements in between meals. Assessment & Plan (09/17/2023 4:05 PM EST): Patient met criteria for severe protein energy malnutrition. She would benefit from nutritional supplements in between meals. Assessment & Plan (09/16/2023 4:13 PM EST): Patient met criteria for severe protein energy malnutrition. She would benefit from nutritional supplements in between meals. Assessment & Plan (09/15/2023 2:21 PM EST): Patient met criteria for severe protein energy malnutrition. She would benefit from nutritional supplements in between meals. Assessment & Plan (09/14/2023 11:52 AM EST): Patient met criteria for severe protein energy malnutrition. She would benefit from nutritional supplements in between meals. Assessment & Plan (09/13/2023 3:59 PM EST): Patient met criteria for severe protein energy malnutrition. She would benefit from nutritional supplements in between meals. Assessment & Plan (09/12/2023 6:16 PM EST): Patient met criteria for severe protein energy malnutrition. She would benefit from nutritional supplements in between meals. Assessment & Plan (09/11/2023 3:41 PM EST): Patient met criteria for severe protein energy malnutrition. She would benefit from nutritional supplements in between meals. Assessment & Plan (09/10/2023 5:47 PM EST): Patient met criteria for severe protein energy malnutrition. She would benefit from nutritional supplements in between meals. Assessment & Plan (09/09/2023 5:34 PM EST): Patient met criteria for severe protein energy malnutrition. She would benefit from nutritional supplements in between meals. Assessment & Plan (09/08/2023 12:52 PM EST): Patient met criteria for severe protein energy malnutrition. She would benefit from nutritional supplements in between meals. Assessment & Plan (09/07/2023 2:30 PM EST): Patient met criteria for severe protein energy malnutrition. She would benefit from nutritional supplements in between meals. Assessment & Plan (09/06/2023 6:54 PM EST): Patient met criteria for severe protein energy malnutrition. She would benefit from nutritional supplements in between meals. Assessment & Plan (09/05/2023 10:37 AM EST): BMI 15 Obtained nutrition consult- no need of protein supplements since the patient has good oral intake. Assessment & Plan (09/04/2023 11:12 AM EST): BMI 15 Obtained nutrition consult- no need of protein supplements since the patient has good oral intake. Assessment & Plan (09/03/2023 10:46 AM EST): BMI 15 Obtained nutrition consult- no need of protein supplements since the patient has good oral intake. Assessment & Plan (09/02/2023 11:07 AM EST): BMI 15 Obtained nutrition consult- no need of protein supplements since the patient has good oral intake. Assessment & Plan (09/01/2023 12:16 PM EST): BMI 15 Obtained nutrition consult- no need of protein supplements since the patient has good oral intake. Assessment & Plan (08/31/2023 12:30 PM EST): Continue multivitamin, zinc, vitamin C. Ensure max protein strawberry 1 time per day per patient request BMI 15 Appreciate nutrition consult Assessment & Plan (08/30/2023 11:25 AM EST): Continue multivitamin, zinc, vitamin C. Ensure max protein strawberry 1 time per day per patient request BMI 15 Appreciate nutrition consult Assessment & Plan (08/29/2023 10:24 AM EST): Continue multivitamin, zinc, vitamin C. Ensure max protein strawberry 1 time per day per patient request BMI 15 Appreciate nutrition consult Assessment & Plan (08/26/2023 10:37 AM EST): Continue multivitamin, zinc, vitamin C. Ensure max protein strawberry 1 time per day per patient request BMI 15 Appreciate nutrition consult Assessment & Plan (08/25/2023 4:15 PM EST): Continue multivitamin, zinc, vitamin C. Ensure max protein strawberry 1 time per day per patient request BMI 15 Appreciate nutrition consult Affective psychosis, bipolar 08/22/2023 Assessment & Plan (11/21/2024 10:39 AM EDT): Pt appears to be more irritable during the morning before breakfast. She is pleasant after she has had breakfast. Today patient is pleasant and cooperative. Continue Abilify, Jardine, and Remeron. Assessment & Plan (11/20/2024 1:05 PM EDT): Pt appears to be more irritable during the morning before breakfast. She is pleasant after she has had breakfast. Continue Abilify, Jardine, and Remeron. Assessment & Plan (11/19/2024 4:11 PM EDT): Pt appears to be more irritable during the morning times. She refused exam this am. Continue Abilify, Jardine, and Remeron. Assessment & Plan (11/18/2024 12:22 PM EDT): Pt appears to be more irritable during the morning times. She refused exam this am. Continue Abilify, Jardine, and Remeron. Assessment & Plan (11/17/2024 8:24 AM EDT): BPD: No behavioral issues observed on exam or reported by staff. Continue Abilify, Jardine, and Remeron. Assessment & Plan (11/15/2024 8:51 AM EST): Continue Abilify, Jardine, and Remeron. Assessment & Plan (11/14/2024 11:47 AM EST): Continue Abilify, Jardine, and Remeron. Assessment & Plan (2024 11:48 AM EST): Patient has been calm and cooperative with care. Trazodone was discontinued. Continue Abilify, Jardine, and Remeron. Assessment & Plan (2024 12:50 AM EST): Patient has been calm and cooperative with care. Trazodone was discontinued. Continue Abilify, Jardine, and Remeron. Assessment & Plan (11/11/2024 11:21 AM EST): Patient has been calm and cooperative with care. Trazodone was discontinued. Continue Abilify, Jardine, and Remeron. Assessment & Plan (11/10/2024 9:39 AM EST): Patient has been calm and cooperative with care. Trazodone was discontinued. Continue Abilify, Jardine, and Remeron. Assessment & Plan (11/09/2024 10:41 AM EST): Patient has been calm and cooperative with care. Trazodone was discontinued. Continue Abilify, Jardine, and Remeron. Assessment & Plan (11/08/2024 10:31 AM EST): Continue Abilify, Jardine, and Remeron. Trazodone has been discontinued. Assessment & Plan (11/07/2024 9:14 AM EST): Continue Abilify, Jardine, and Remeron. Trazodone has been discontinued. Assessment & Plan (11/06/2024 1:26 PM EST): Continue Abilify, Jardine, and Remeron. Trazodone has been discontinued. Assessment & Plan (10/31/2024 4:47 PM EST): Continue Abilify, Jardine, and Remeron. Trazodone has been discontinued. Lithuim level 1.1 on 10/23/24. Assessment & Plan (10/30/2024 1:39 PM EST): Continue Abilify, Jardine, and Remeron. Trazodone has been discontinued. Lithuim level 1.1 on 10/23/24. Assessment & Plan (10/29/2024 5:04 PM EST): Continue Abilify, Jardine, and Remeron. Trazodone has been discontinued. Lithuim level 1.1 on 10/23/24. Assessment & Plan (10/28/2024 10:07 AM EST): Continue Abilify, Jardine, and Remeron. Trazodone has been discontinued. Lithuim level 1.1 on 10/23/24. Assessment & Plan (10/27/2024 7:23 AM EST): BPD: Continue Abilify, Jardine, and Remeron. Trazodone has been discontinued. Li level 1.1 on 10/23/24. Assessment & Plan (10/26/2024 8:22 AM EST): BPD: Continue Abilify, Jardine, and Remeron. Trazodone has been discontinued. Li level 1.1 on 10/23/24. Assessment & Plan (10/24/2024 9:32 AM EST): BPD: Continue Abilify, Jardine, and Remeron. Trazodone has been discontinued. Assessment & Plan (10/23/2024 8:28 AM EST): BPD: Continue Abilify, Jardine, and Remeron. Trazodone has been discontinued. Assessment & Plan (10/13/2024 11:55 AM EST): Continue Abilify, Jardine, and Remeron. Trazodone has been discontinued. Assessment & Plan (10/12/2024 11:32 AM EST): Continue Abilify, Jardine, and Remeron. Trazodone has been discontinued. Assessment & Plan (10/11/2024 10:55 AM EST): Continue Abilify, Jardine, and Remeron. Trazodone has been discontinued. Assessment & Plan (10/10/2024 11:14 AM EST): Continue Abilify, Jardine, and Remeron. Trazodone has been discontinued. Assessment & Plan (10/09/2024 3:03 PM EST): Continue Abilify, Jardine, and Remeron. Trazodone has been discontinued. Assessment & Plan (10/08/2024 3:20 PM EST): Continue Abilify, Jardine, and Remeron. Trazodone has been discontinued. Assessment & Plan (10/07/2024 5:08 PM EST): Continue Abilify, Jardine, and Remeron. Trazodone has been discontinued. Patient is requesting to see a therapist- Psych to check in with pt. No acute concern per pt. She is frustrated with prolonged admission. Assessment & Plan (10/06/2024 12:33 PM EST): Continue Abilify, Jardine, and Remeron. Trazodone has been discontinued. Patient is requesting to see a therapist-can request psych consultation given the patient's concerns and history of BPD Assessment & Plan (10/05/2024 3:12 PM EST): Continue Abilify, Jardine, and Remeron. Trazodone has been discontinued. Assessment & Plan (10/04/2024 7:43 AM EST): Continue Abilify, Jardine, and Remeron. Trazodone has been discontinued. Assessment & Plan (09/26/2024 1:08 PM EST): Continue Abilify, Jardine, and Remeron. Trazodone has been discontinued. Assessment & Plan (09/25/2024 4:30 PM EST): Continue Abilify, Jardine, and Remeron. Trazodone has been discontinued. Assessment & Plan (09/24/2024 4:19 PM EST): Continue Abilify, Jardine, and Remeron. Trazodone has been discontinued. Assessment & Plan (09/16/2024 11:33 AM EST): Continue Abilify, Jardine, and Remeron. Trazodone has been discontinued. Assessment & Plan (09/14/2024 12:00 PM EST): PMH significant for bipolar disorder. Calm and cooperative with care Currently controlled with Abilify, Jardine, and Remeron. Trazodone has been discontinued during admission Assessment & Plan (09/13/2024 12:56 PM EST): PMH significant for bipolar disorder. Calm and cooperative with care Currently controlled with Abilify, Jardine, and Remeron. Trazodone has been discontinued during admission Assessment & Plan (09/12/2024 11:54 AM EST): PMH significant for bipolar disorder. Calm and cooperative with care Currently controlled with Abilify, Jardine, and Remeron. Trazodone has been discontinued during admission Assessment & Plan (09/11/2024 1:40 PM EST): PMH significant for bipolar disorder. Calm and cooperative with care Currently controlled with Abilify, Jardine, and Remeron. Trazodone has been discontinued during admission Assessment & Plan (09/10/2024 12:54 PM EST): PMH significant for bipolar disorder. Calm and cooperative with care Currently controlled with Abilify, Jardine, and Remeron. Trazodone has been discontinued during admission Assessment & Plan (09/09/2024 11:51 AM EST): PMH significant for bipolar disorder. Calm and cooperative with care Currently controlled with Abilify, Jardine, and Remeron. Trazodone has been discontinued during admission Assessment & Plan (09/08/2024 2:25 PM EST): PMH significant for bipolar disorder. Calm and cooperative with care Currently controlled with Abilify, Jardine, and Remeron. Trazodone has been discontinued during admission Assessment & Plan (09/07/2024 6:25 PM EST): PMH significant for bipolar disorder. Calm and cooperative with care - Currently controlled with Abilify, Jardine, and Remeron. - Tradzodone has been discontinued during admission Assessment & Plan (09/04/2024 1:36 PM EST): PMH significant for bipolar disorder. Currently controlled with Abilify, Jardine, and Remeron. Tradzodone has been discontinued during admission Assessment & Plan (08/30/2024 8:02 AM EST): PMH significant for bipolar disorder. Currently controlled with Abilify, Jardine and Remeron. A follow-up lithium level was elevated at 1.2-1.4 on 07/14/24 and Li was held at that time. Jardine level trended down to 0.2 after holding Jardine x 3 days Currently maintained on Jardine ER 450mg PO at HS. Mood stable, cooperative on exam, awaiting placement. Follow-up lithium level trended up to 0.5 on 07/27/24 Level 1.0 on 08/17/24 Follow electrolytes and lithium level in 3 weeks. Discontinued Trazodone on 08/18/24 per patient's request. Psychiatry to follow. Assessment & Plan (08/29/2024 7:26 AM EST): PMH significant for bipolar disorder. Currently controlled with Abilify, Jardine and Remeron. A follow-up lithium level was elevated at 1.2-1.4 on 07/14/24 and Li was held at that time. Jardine level trended down to 0.2 after holding Jardine x 3 days Currently maintained on Jardine ER 450mg PO at HS. Mood stable, cooperative on exam, awaiting placement. Follow-up lithium level trended up to 0.5 on 07/27/24 Level 1.0 on 08/17/24 Follow electrolytes and lithium level in 3 weeks. Discontinued Trazodone on 08/18/24 per patient's request. Psychiatry to follow. Assessment & Plan (08/28/2024 1:42 PM EST): PMH significant for bipolar disorder. Currently controlled with Abilify, Jardine, Trazodone and Remeron. A follow-up lithium level was elevated at 1.2-1.4 on 07/14/24 and Li was held at that time. Jardine level trended down to 0.2 after holding Jardine x 3 days Currently maintained on Jardine ER 450mg PO at HS. Mood stable, cooperative on exam, awaiting placement. Follow-up lithium level trended up to 0.5 on 07/27/24 Level 1.0 on 08/17/24 Follow electrolytes and lithium level on 09/07 (need to be ordered) Discontinued Trazodone on 08/18/24 per patient's request. Psychiatry to follow. Assessment & Plan (08/27/2024 2:10 PM EST): PMH significant for bipolar disorder. Currently controlled with Abilify, Jardine, Trazodone and Remeron. A follow-up lithium level was elevated at 1.2-1.4 on 07/14/24 and Li was held at that time. Jardine level trended down to 0.2 after holding Jardine x 3 days Currently maintained on Jardine ER 450mg PO at HS. Mood stable, cooperative on exam, awaiting placement. Follow-up lithium level trended up to 0.5 on 07/27/24 Level 1.0 on 08/17/24 Follow electrolytes and lithium level in 3 weeks. Discontinued Trazodone on 08/18/24 per patient's request. Psychiatry to follow. Assessment & Plan (08/26/2024 12:53 PM EST): PMH significant for bipolar disorder. Currently controlled with Abilify, Jardine, Trazodone and Remeron. A follow-up lithium level was elevated at 1.2-1.4 on 07/14/24 and Li was held at that time. Jardine level trended down to 0.2 after holding Jardine x 3 days Currently maintained on Jardine ER 450mg PO at HS. Mood stable, cooperative on exam, awaiting placement. Follow-up lithium level trended up to 0.5 on 07/27/24 Level 1.0 on 08/17/24 Follow electrolytes and lithium level in 3 weeks. Discontinued Trazodone on 08/18/24 per patient's request. Psychiatry to follow. Assessment & Plan (08/25/2024 9:21 AM EST): PMH significant for bipolar disorder. Currently controlled with Abilify, Jardine, Trazodone and Remeron. A follow-up lithium level was elevated at 1.2-1.4 on 07/14/24 and Li was held at that time. Jardine level trended down to 0.2 after holding Jardine x 3 days Currently maintained on Jardine ER 450mg PO at HS. Mood stable, cooperative on exam, awaiting placement. Follow-up lithium level trended up to 0.5 on 07/27/24 Level 1.0 on 08/17/24 Follow electrolytes and lithium level in 3 weeks. Discontinued Trazodone on 08/18/24 per patient's request. Psychiatry to follow. Assessment & Plan (08/23/2024 7:08 AM EST): PMH significant for bipolar disorder. Currently controlled with Abilify, Jardine, Trazodone and Remeron. A follow-up lithium level was elevated at 1.2-1.4 on 07/14/24 and Li was held at that time. Jardine level trended down to 0.2 after holding Jardine x 3 days Currently maintained on Jardine ER 450mg PO at HS. Mood stable, cooperative on exam, awaiting placement. Follow-up lithium level trended up to 0.5 on 07/27/24 Level 1.0 on 08/17/24 Follow electrolytes and lithium level in 3 weeks. Discontinued Trazodone on 08/18/24 per patient's request. Psychiatry to follow. Assessment & Plan (08/22/2024 7:20 AM EST): PMH significant for bipolar disorder. Currently controlled with Abilify, Jardine, Trazodone and Remeron. A follow-up lithium level was elevated at 1.2-1.4 on 07/14/24 and Li was held at that time. Jardine level trended down to 0.2 after holding Jardine x 3 days Currently maintained on Jardine ER 450mg PO at HS. Mood stable, cooperative on exam, awaiting placement. Follow-up lithium level trended up to 0.5 on 07/27/24 Level 1.0 on 08/17/24 Follow electrolytes and lithium level in 3 weeks. Discontinued Trazodone on 08/18/24 per patient's request. Psychiatry to follow. Assessment & Plan (08/21/2024 1:34 PM EST): PMH significant for bipolar disorder. Currently controlled with Abilify, Jardine, Trazodone and Remeron. A follow-up lithium level was elevated at 1.2-1.4 on 07/14/24 and Li was held at that time. Jardine level trended down to 0.2 after holding Jardine x 3 days Currently maintained on Jardine ER 450mg PO at HS. Mood stable, cooperative on exam, awaiting placement. Follow-up lithium level trended up to 0.5 on 07/27/24 --> 1.0 on 08/17/24 Follow electrolytes and lithium level in 3 weeks. Discontinued trazodone on 08/18/24 per patient's request Psychiatry to follow. Assessment & Plan (08/20/2024 5:47 PM EST): PMH significant for bipolar disorder. Currently controlled with Abilify, Jardine, Trazodone and Remeron. A follow-up lithium level was elevated at 1.2-1.4 on 07/14/24 and Li was held at that time. Jardine level trended down to 0.2 after holding Jardine x 3 days Currently maintained on Jardine ER 450mg PO at HS. Mood stable, cooperative on exam, awaiting placement. Follow-up lithium level trended up to 0.5 on 07/27/24 --> 1.0 on 08/17/24 Follow electrolytes and lithium level in 3 weeks. Discontinued trazodone on 08/18/24 per patient's request Psychiatry to follow. Assessment & Plan (08/19/2024 2:45 PM EST): PMH significant for bipolar disorder. Currently controlled with Abilify, Jardine, Trazodone and Remeron. A follow-up lithium level was elevated at 1.2-1.4 on 07/14/24 and Li was held at that time. Jardine level trended down to 0.2 after holding Jardine x 3 days Currently maintained on Jardine ER 450mg PO at HS. Mood stable, cooperative on exam, awaiting placement. Follow-up lithium level trended up to 0.5 on 07/27/24 --> 1.0 on 08/17/24 Follow electrolytes and lithium level in 3 weeks. Discontinued trazodone on 08/18/24 per patient's request Psychiatry to follow. Assessment & Plan (08/18/2024 12:45 PM EST): PMH significant for bipolar disorder. Currently controlled with Abilify, Jardine, Trazodone and Remeron. A follow-up lithium level was elevated at 1.2-1.4 on 07/14/24 and Li was held at that time. Jardine level trended down to 0.2 after holding Jardine x 3 days Currently maintained on Jardine ER 450mg PO at HS. Mood stable, cooperative on exam, awaiting placement. Follow-up lithium level trended up to 0.5 on 07/27/24 --> 1.0 on 08/17/24 Follow electrolytes and lithium level in 3 weeks. Discontinue trazodone per patient's request Psychiatry to follow. Assessment & Plan (08/17/2024 10:42 AM EST): PMH significant for bipolar disorder. Currently controlled with Abilify, Jardine, Trazodone and Remeron. A follow-up lithium level was elevated at 1.2-1.4 on 07/14/24 and Li was held at that time. Jardine level trended down to 0.2 after holding Jardine x 3 days Currently maintained on Jardine ER 450mg PO at HS. Mood stable, cooperative on exam, awaiting placement. Follow-up lithium level trended up to 0.5 on 07/27/24 --> 1.0 on 08/17/24 Follow electrolytes and lithium level in 3 weeks. Psychiatry to follow. Assessment & Plan (08/16/2024 7:07 AM EST): PMH significant for bipolar disorder. Currently controlled with Abilify, Jardine, Trazodone and Remeron. A follow-up lithium level was elevated at 1.2-1.4 on 07/14/24 and Li was held at that time. Jardine level was 0.9 on 08/15/23. Currently maintained on Jardine ER 450mg PO at HS. Mood stable, cooperative on exam, awaiting placement. Follow electrolytes and lithium level. To be drawn 08/17 with repeat TSH. Psychiatry to follow. Assessment & Plan (08/15/2024 9:36 AM EST): PMH significant for bipolar disorder. Currently controlled with Abilify, Jardine, Trazodone and Remeron. A follow-up lithium level was elevated at 1.2-1.4 on 07/14/24 and Li was held at that time. Jardine level was 0.9 on 08/15/23. Currently maintained on Li ER 450mg PO at HS. Mood stable, cooperative on exam, awaiting placement. Follow electrolytes and lithium level. To be drawn 08/17 with Repeat TSH. Psychiatry to follow Assessment & Plan (08/14/2024 2:45 PM EST): Patient has a known history of bipolar disorder. Continue Abilify, Jardine and Remeron. Her Jardine level was 0.9 on 08/15/23 Mood stable, cooperative on exam, awaiting placement. A follow-up lithium level was elevated at 1.2-1.4 on 07/14/24. She was maintained on Jardine ER 600 mg p.o. nightly, which was held. Repeat lithium level 0.2 on 07/19/24 Her lithium was resumed at a dose of 450 mg p.o. nightly, and her follow-up lithium level 0.5 on 07/27/24 Continue Jardine at a dose of 450 mg p.o. nightly Follow electrolytes and lithium level. To be drawn 08/17 with Repeat TSH Psychiatry to follow Assessment & Plan (08/13/2024 3:26 PM EST): Patient has a known history of bipolar disorder. Continue Abilify, Jardine and Remeron. Her Jardine level was 0.9 on 08/15/23 Mood stable, cooperative on exam, awaiting placement. A follow-up lithium level was elevated at 1.2-1.4 on 07/14/24. She was maintained on Jardine ER 600 mg p.o. nightly, which was held. Repeat lithium level 0.2 on 07/19/24 Her lithium was resumed at a dose of 450 mg p.o. nightly, and her follow-up lithium level 0.5 on 07/27/24 Continue Jardine at a dose of 450 mg p.o. nightly Follow electrolytes and lithium level. To be drawn 08/17 with Repeat TSH Psychiatry to follow Assessment & Plan (08/12/2024 1:21 PM EST): Patient has a known history of bipolar disorder. Continue Abilify, Jardine and Remeron. Her Jardine level was 0.9 on 08/15/23 Mood stable, cooperative on exam, awaiting placement. A follow-up lithium level was elevated at 1.2-1.4 on 07/14/24. She was maintained on Jardine ER 600 mg p.o. nightly, which was held. Repeat lithium level 0.2 on 07/19/24 Her lithium was resumed at a dose of 450 mg p.o. nightly, and her follow-up lithium level 0.5 on 07/27/24 Continue Jardine at a dose of 450 mg p.o. nightly Follow electrolytes and lithium level. To be drawn 08/17 with Repeat TSH Psychiatry to follow Assessment & Plan (08/10/2024 11:28 AM EST): Patient has a known history of bipolar disorder. Continue Abilify, Jardine and Remeron. Her Jardine level was 0.9 on 08/15/23 Mood stable, cooperative on exam, awaiting placement. A follow-up lithium level was elevated at 1.2-1.4 on 07/14/24. She was maintained on Jardine ER 600 mg p.o. nightly, which was held. Repeat lithium level 0.2 on 07/19/24 Her lithium was resumed at a dose of 450 mg p.o. nightly, and her follow-up lithium level 0.5 on 07/27/24 Continue Jardine at a dose of 450 mg p.o. nightly Follow electrolytes and lithium level. Psychiatry to follow Assessment & Plan (08/09/2024 2:13 PM EST): Patient has a known history of bipolar disorder. Continue Abilify, Jardine and Remeron. Her Jardine level was 0.9 on 08/15/23 Mood stable, cooperative on exam, awaiting placement. A follow-up lithium level was elevated at 1.2-1.4 on 07/14/24. She was maintained on Jardine ER 600 mg p.o. nightly, which was held. Repeat lithium level 0.2 on 07/19/24 Her lithium was resumed at a dose of 450 mg p.o. nightly, and her follow-up lithium level 0.5 on 07/27/24 Continue Jardine at a dose of 450 mg p.o. nightly Follow electrolytes and lithium level. Psychiatry to follow Assessment & Plan (08/08/2024 4:42 PM EST): Patient has a known history of bipolar disorder. Continue Abilify, Jardine and Remeron. Her Jardine level was 0.9 on 08/15/23 Mood stable, cooperative on exam, awaiting placement. A follow-up lithium level was elevated at 1.2-1.4 on 07/14/24. She was maintained on Jardine ER 600 mg p.o. nightly, which was held. Repeat lithium level 0.2 on 07/19/24 Her lithium was resumed at a dose of 450 mg p.o. nightly, and her follow-up lithium level 0.5 on 07/27/24 Continue Jardine at a dose of 450 mg p.o. nightly Follow electrolytes and lithium level. Psychiatry to follow Assessment & Plan (08/07/2024 2:40 PM EST): Patient has a known history of bipolar disorder. Continue Abilify, Jardine and Remeron. Her Jardine level was 0.9 on 08/15/23 Mood stable, cooperative on exam, awaiting placement. A follow-up lithium level was elevated at 1.2-1.4 on 07/14/24. She was maintained on Jardine ER 600 mg p.o. nightly, which was held. Repeat lithium level 0.2 on 07/19/24 Her lithium was resumed at a dose of 450 mg p.o. nightly, and her follow-up lithium level 0.5 on 07/27/24 Continue Jardine at a dose of 450 mg p.o. nightly Follow electrolytes and lithium level. Psychiatry to follow Assessment & Plan (08/06/2024 1:32 PM EST): Patient has a known history of bipolar disorder. Continue Abilify, Jardine and Remeron. Her Jardine level was 0.9 on 08/15/23 Mood stable, cooperative on exam, awaiting placement. A follow-up lithium level was elevated at 1.2-1.4 on 07/14/24. She was maintained on Jardine ER 600 mg p.o. nightly, which was held. Repeat lithium level 0.2 on 07/19/24 Her lithium was resumed at a dose of 450 mg p.o. nightly, and her follow-up lithium level 0.5 on 07/27/24 Continue Jardine at a dose of 450 mg p.o. nightly Follow electrolytes and lithium level. Psychiatry to follow Assessment & Plan (08/05/2024 11:25 AM EST): Patient has a known history of bipolar disorder. Continue Abilify, Jardine and Remeron. Her Jardine level was 0.9 on 08/15/23 Mood stable, cooperative on exam, awaiting placement. A follow-up lithium level was elevated at 1.2-1.4 on 07/14/24. She was maintained on Jardine ER 600 mg p.o. nightly, which was held. Repeat lithium level 0.2 on 07/19/24 Her lithium was resumed at a dose of 450 mg p.o. nightly, and her follow-up lithium level 0.5 on 07/27/24 Continue Jardine at a dose of 450 mg p.o. nightly Follow electrolytes and lithium level. Psychiatry to follow Assessment & Plan (08/04/2024 3:49 PM EST): Patient has a known history of bipolar disorder. Continue Abilify, Jardine and Remeron. Her Jardine level was 0.9 on 08/15/23 Mood stable, cooperative on exam, awaiting placement. A follow-up lithium level was elevated at 1.2-1.4 on 07/14/24. She was maintained on Jardine ER 600 mg p.o. nightly, which was held. Repeat lithium level 0.2 on 07/19/24 Her lithium was resumed at a dose of 450 mg p.o. nightly, and her follow-up lithium level 0.5 on 07/27/24 Continue Jardine at a dose of 450 mg p.o. nightly Follow electrolytes and lithium level. Psychiatry to follow Assessment & Plan (08/03/2024 4:14 PM EST): Patient has a known history of bipolar disorder. Continue Abilify, Jardine and Remeron. Her Jardine level was 0.9 on 08/15/23 Mood stable, cooperative on exam, awaiting placement. A follow-up lithium level was elevated at 1.2-1.4 on 07/14/24. She was maintained on Jardine ER 600 mg p.o. nightly, which was held. Repeat lithium level 0.2 on 07/19/24 Her lithium was resumed at a dose of 450 mg p.o. nightly, and her follow-up lithium level 0.5 on 07/27/24 Continue Jardine at a dose of 450 mg p.o. nightly Follow electrolytes and lithium level. Psychiatry to follow Assessment & Plan (08/02/2024 3:57 PM EST): Patient has a known history of bipolar disorder. Continue Abilify, Jardine and Remeron. Her Jardine level was 0.9 on 08/15/23 Mood stable, cooperative on exam, awaiting placement. A follow-up lithium level was elevated at 1.2-1.4 on 07/14/24. She was maintained on Jardine ER 600 mg p.o. nightly, which was held. Repeat lithium level 0.2 on 07/19/24 Her lithium was resumed at a dose of 450 mg p.o. nightly, and her follow-up lithium level 0.5 on 07/27/24 Continue Jardine at a dose of 450 mg p.o. nightly Follow electrolytes and lithium level. Psychiatry to follow Assessment & Plan (08/01/2024 8:29 AM EST): Patient has a known history of bipolar disorder. Continue Abilify, Jardine and Remeron. Her Jardine level was 0.9 on 08/15/23 Mood stable, cooperative on exam, awaiting placement. A follow-up lithium level was elevated at 1.2-1.4 on 07/14/24. She was maintained on Jardine ER 600 mg p.o. nightly, which was held. Repeat lithium level 0.2 on 07/19/24 Her lithium was resumed at a dose of 450 mg p.o. nightly, and her follow-up lithium level 0.5 on 07/27/24 Continue Jardine at a dose of 450 mg p.o. nightly Follow electrolytes and lithium level. Psychiatry to follow Assessment & Plan (07/30/2024 11:35 AM EST): Patient has a known history of bipolar disorder. Continue Abilify, Jardine and Remeron. Her Jardine level was 0.9 on 08/15/23 Mood stable, cooperative on exam, awaiting placement. A follow-up lithium level was elevated at 1.2-1.4 on 07/14/24. She was maintained on Jardine ER 600 mg p.o. nightly, which was held. Repeat lithium level 0.2 on 07/19/24 Her lithium was resumed at a dose of 450 mg p.o. nightly, and her follow-up lithium level 0.5 on 07/27/24 Continue Jardine at a dose of 450 mg p.o. nightly Follow electrolytes and lithium level. Psychiatry to follow Assessment & Plan (07/29/2024 11:18 AM EST): Patient has a known history of bipolar disorder. Continue Abilify, Jardine and Remeron. Her Jardine level was 0.9 on 08/15/23 Mood stable, cooperative on exam, awaiting placement. A follow-up lithium level was elevated at 1.2-1.4 on 07/14/24. She was maintained on Jardine ER 600 mg p.o. nightly, which was held. Repeat lithium level 0.2 on 07/19/24 Her lithium was resumed at a dose of 450 mg p.o. nightly, and her follow-up lithium level 0.5 on 07/27/24 Continue Jardine at a dose of 450 mg p.o. nightly Follow electrolytes and lithium level. Psychiatry to follow Assessment & Plan (07/21/2024 2:39 PM EST): BPD: Continue Abilify, Jardine and Remeron. Her last lithium level 0.9 on 08/15/23 Mood stable, cooperative on exam, awaiting placement. A follow-up lithium level was elevated on 07/14/24 at 1.4. Repeat lithium level was 1.2 1 hour prior to medication administration. She was maintained on Jardine ER 600 mg p.o. nightly I held her lithium for 2 days. Repeat lithium level 0.2 Resume Jardine at a dose of 450 mg p.o. nightly Repeat BMP and lithium level in 1 week on 07/27/24 @ 7-8 pm. The target lithium level is ~ 0.8-1.0 Will see if psychiatry can see her again this week she was very tearful but denies any hallucinations, suicidality. Was communicated to show if Christi but it is not urgent that she be seen today. Assessment & Plan (07/20/2024 11:23 AM EST): BPD: Continue Abilify, Jardine and Remeron. Her last lithium level 0.9 on 08/15/23 Mood stable, cooperative on exam, awaiting placement. A follow-up lithium level was elevated on 07/14/24 at 1.4. Repeat lithium level was 1.2 1 hour prior to medication administration. She was maintained on Jardine ER 600 mg p.o. nightly I held her lithium for 2 days. Repeat lithium level 0.2 Resume Jardine at a dose of 450 mg p.o. nightly Repeat lithium level in 1 week on 07/27/24 @ 7-8 pm. The target lithium level is ~ 0.8-1.0 Assessment & Plan (07/19/2024 3:21 PM EST): BPD: Continue Abilify, Jardine and Remeron. Her last lithium level 0.9 on 08/15/23 Mood stable, cooperative on exam, awaiting placement. A follow-up lithium level was elevated on 07/14/24 at 1.4. Repeat lithium level 1.2 1 hour prior to medication administration. She is on lithium ER 600 mg p.o. nightly Held lithium x 2 days Repeat lithium level on 07/19/24 @ 7-8 pm Resume lithium once her lithium level < 0.8 Assessment & Plan (07/18/2024 2:57 PM EST): BPD: Continue Abilify, Jardine and Remeron. Her last lithium level 0.9 on 08/15/23 Mood stable, cooperative on exam, awaiting placement. A follow-up lithium level was elevated on 07/14/24 at 1.4. Repeat lithium level 1.2 1 hour prior to medication administration. She is on lithium ER 600 mg p.o. nightly Held lithium x 2 days Repeat lithium level on 07/19/24 @ 7-8 pm Resume lithium once her lithium level < 0.8 Assessment & Plan (07/17/2024 9:34 AM EST): BPD: Continue Abilify, Jardine and Remeron. Her last lithium level 0.9 on 08/15/23 Mood stable, cooperative on exam, awaiting placement. A follow-up lithium level was elevated on 07/14/24 at 1.4. Repeat lithium level 1.2 1 hour prior to medication administration. She is on lithium ER 600 mg p.o. nightly Hold lithium x 2 days Repeat lithium level on 07/19/24 @ 7-8 pm Resume lithium once her lithium level < 0.8 Assessment & Plan (07/16/2024 10:40 AM EST): BPD: Continue Abilify, Jardine and Remeron. Her last lithium level 0.9 on 08/15/23 Mood stable, cooperative on exam, awaiting placement. A follow-up lithium level was elevated on 07/14/24 at 1.4. Repeat lithium level 1.2 1 hour prior to medication administration. She is on lithium ER 600 mg p.o. nightly Hold lithium x 2 days Repeat lithium level on 07/19/24 @ 7-8 pm Resume lithium once her lithium level < 0.8 Assessment & Plan (07/15/2024 12:55 PM EST): BPD: Continue Abilify, Jardine and Remeron. Her last lithium level 0.9 on 08/15/23 Mood stable, cooperative on exam, awaiting placement. Jardine level elevated but lab need to be drawn 1 hour prior to medication administration., Therefore will repeat lithium level tonight at 2000 as the patient takes her lithium at 2100. Assessment & Plan (07/14/2024 2:19 PM EST): BPD: Continue Abilify, Jardine and Remeron. Her last lithium level 0.9 on 08/15/23 Mood stable, cooperative on exam, awaiting placement. Repeat lithium level on 07/14/24 Assessment & Plan (07/13/2024 1:01 PM EDT): BPD: Continue Abilify, Jardine and Remeron. Her last lithium level 0.9 on 08/15/23 Mood stable, cooperative on exam, awaiting placement. Repeat lithium level on 07/14/24 Assessment & Plan (07/12/2024 5:57 PM EDT): BPD: Continue Abilify, Jardine and Remeron. Mood stable, cooperative on exam, awaiting placement. Assessment & Plan (07/11/2024 9:58 AM EDT): BPD: Continue Abilify, Jardine and Remeron. Mood stable, cooperative on exam, awaiting placement. Assessment & Plan (07/10/2024 11:53 AM EDT): BPD: Continue Abilify, Jardine and Remeron. Mood stable, cooperative on exam, awaiting placement. Assessment & Plan (07/09/2024 6:04 PM EDT): BPD: Continue Abilify, Jardine and Remeron. Mood stable, cooperative on exam, awaiting placement. Assessment & Plan (07/08/2024 4:11 PM EDT): BPD: Continue Abilify, Jardine and Remeron. Mood stable, cooperative on exam, awaiting placement. Assessment & Plan (07/07/2024 3:45 PM EDT): BPD: Continue Abilify, Jardine and Remeron. Mood stable, cooperative on exam, awaiting placement. Assessment & Plan (07/06/2024 10:19 AM EDT): BPD: Continue Abilify, Jardine and Remeron. Mood stable, cooperative on exam, awaiting placement. Assessment & Plan (07/05/2024 12:38 PM EDT): BPD: Continue Abilify, Jardine and Remeron. Mood stable, cooperative on exam, awaiting placement. Assessment & Plan (07/04/2024 12:42 PM EDT): BPD: Continue Abilify, Jardine and Remeron. Mood stable, cooperative on exam, awaiting placement. Assessment & Plan (07/03/2024 11:25 AM EDT): BPD: Continue Abilify, Jardine and Remeron. Mood stable, cooperative on exam, awaiting placement. Assessment & Plan (07/02/2024 11:20 AM EDT): BPD: Continue Abilify, Jardine and Remeron. Mood stable, cooperative on exam, awaiting placement. Assessment & Plan (07/01/2024 7:35 AM EDT): BPD: Continue Abilify, Jardine and Remeron. Mood stable, cooperative on exam, awaiting placement. Assessment & Plan (06/30/2024 9:12 AM EDT): BPD: Continue Abilify, Jardine and Remeron. Mood stable, cooperative on exam, awaiting placement. Assessment & Plan (06/22/2024 3:17 PM EDT): Continue Abilify, Jardine and Remeron. Mood stable, cooperative on exam, awaiting placement. Assessment & Plan (06/08/2024 6:04 PM EDT): Continue Abilify, Jardine and Remeron. Mood stable, cooperative on exam, awaiting placement. Assessment & Plan (06/02/2024 4:49 PM EDT): Continue Abilify, Jardine and Remeron. Mood stable, cooperative on exam, awaiting placement. Assessment & Plan (06/01/2024 3:22 PM EDT): Continue Abilify, Jardine and Remeron. Mood stable, cooperative on exam, awaiting placement. Assessment & Plan (05/31/2024 2:46 PM EDT): Continue Abilify, Jardine and Remeron. Mood stable, cooperative on exam, awaiting placement. Assessment & Plan (05/26/2024 10:16 AM EDT): Continue Abilify, Jardine and Remeron. Mood stable, cooperative on exam, awaiting placement. Assessment & Plan (05/25/2024 11:25 AM EDT): Continue Abilify, Jardine and Remeron. Mood stable, cooperative on exam, awaiting placement. Assessment & Plan (05/24/2024 10:42 AM EDT): Continue Abilify, Jardine and Remeron. Mood stable, cooperative on exam, awaiting placement. Assessment & Plan (05/23/2024 12:16 PM EDT): Continue Abilify, Jardine and Remeron. Mood stable, cooperative on exam, awaiting placement. Assessment & Plan (05/22/2024 11:26 AM EDT): Continue Abilify, Jardine and Remeron. Mood stable, cooperative on exam, awaiting placement. Assessment & Plan (05/21/2024 10:48 AM EDT): Continue Abilify, Jardine and Remeron. Mood stable, cooperative on exam, awaiting placement. Assessment & Plan (05/20/2024 10:44 AM EDT): Continue Abilify, Jardine and Remeron. Mood stable, cooperative on exam, awaiting placement. Assessment & Plan (05/19/2024 11:49 AM EDT): BPD: Continue Abilify, Jardine and Remeron. Mood stable, cooperative on exam, awaiting placement. Assessment & Plan (05/16/2024 4:09 PM EDT): BPD: Continue Abilify, Jardine and Remeron. Mood stable, cooperative on exam, awaiting placement. Assessment & Plan (05/15/2024 4:37 PM EDT): BPD: Continue Abilify, Jardine and Remeron. Mood stable, cooperative on exam, awaiting placement. Assessment & Plan (05/14/2024 11:02 AM EDT): BPD: Continue Abilify, Jardine and Remeron. Mood stable, cooperative on exam, awaiting placement. Assessment & Plan (05/13/2024 2:41 PM EDT): BPD: Continue Abilify, Jardine and Remeron. Mood stable, cooperative on exam, awaiting placement. Assessment & Plan (05/12/2024 8:25 AM EDT): BPD: Continue Abilify, Jardine and Remeron. Mood stable, cooperative on exam, awaiting placement. Assessment & Plan (05/11/2024 9:09 AM EDT): BPD: Continue Abilify, Jardine and Remeron. Mood stable, cooperative on exam, awaiting placement. Assessment & Plan (05/10/2024 8:46 AM EDT): BPD: Continue Abilify, Jardine and Remeron. Mood stable, cooperative on exam, awaiting placement. Assessment & Plan (05/09/2024 12:00 PM EDT): BPD: Continue Abilify, Jardine and Remeron. Mood stable, cooperative on exam, awaiting placement. Assessment & Plan (05/08/2024 1:43 PM EDT): BPD: Continue Abilify, Jardine and Remeron. Mood stable, cooperative on exam, awaiting placement. Assessment & Plan (05/07/2024 4:29 PM EDT): BPD: Continue Abilify, Jardine and Remeron. Mood stable, cooperative on exam, awaiting placement. Assessment & Plan (05/06/2024 1:42 PM EDT): Continue Abilify, Jardine and Remeron. Mood stable, cooperative on exam, awaiting placement. Assessment & Plan (05/05/2024 9:38 AM EDT): BPD: Continue Abilify, Jardine and Remeron. Mood stable, cooperative on exam, awaiting placement. Assessment & Plan (05/02/2024 8:23 AM EDT): BPD: Continue Abilify, Jardine and Remeron. Mood stable, cooperative on exam, awaiting placement. Assessment & Plan (04/29/2024 2:35 PM EDT): BPD: Continue Abilify, Jardine and Remeron. Mood stable, cooperative on exam, no behavioral issues overnight Assessment & Plan (04/28/2024 12:04 PM EDT): BPD: Continue Abilify, Jardine and Remeron. Mood stable, cooperative on exam, no behavioral issues overnight Assessment & Plan (04/27/2024 10:24 AM EDT): BPD: Continue Abilify, Jardine and Remeron. Mood stable, cooperative on exam, no behavioral issues overnight Assessment & Plan (04/26/2024 11:31 AM EDT): BPD: Continue Abilify, Jardine and Remeron. Mood stable, cooperative on exam, no behavioral issues overnight Assessment & Plan (04/25/2024 3:27 PM EDT): BPD: Continue Abilify, Jardine and Remeron. Mood stable, cooperative on exam. Reported to have intermittent episodes of agitation and confusion. Assessment & Plan (04/24/2024 1:20 PM EDT): BPD: Continue Abilify, Jardine and Remeron. Mood stable, cooperative on exam. Reported to have intermittent episodes of agitation and confusion. Assessment & Plan (04/23/2024 2:37 PM EDT): BPD: Continue Abilify, Jardine and Remeron. Mood stable, cooperative on exam. Reported to have intermittent episodes of agitation and confusion. Assessment & Plan (04/22/2024 3:55 PM EDT): BPD: Continue Abilify, Jardine and Remeron. Mood stable, cooperative on exam. Reported to have intermittent episodes of agitation and confusion. Assessment & Plan (04/21/2024 11:43 AM EDT): BPD: Continue Abilify, Jardine and Remeron. Mood stable, cooperative on exam. Reported to have intermittent episodes of agitation and confusion. Assessment & Plan (04/20/2024 7:45 AM EDT): BPD: Continue Abilify, Jardine and Remeron. Mood stable, cooperative on exam. Reported to have intermittent episodes of agitation and confusion. Assessment & Plan (04/18/2024 9:30 AM EDT): BPD: Continue Abilify, Jardine and Remeron. Mood stable, cooperative on exam. Reported to have intermittent episodes of agitation and confusion. Assessment & Plan (04/15/2024 11:21 AM EDT): BPD: Continue Abilify, Jardine and Remeron. Mood stable, cooperative on exam. Reported to have intermittent episodes of agitation and confusion. Assessment & Plan (04/14/2024 8:55 AM EDT): BPD: Continue Abilify, Jardine and Remeron. Mood stable, cooperative on exam. Reported to have intermittent episodes of agitation and confusion. Assessment & Plan (04/13/2024 11:16 AM EDT): BPD: Continue Abilify, Jardine and Remeron. Mood stable, cooperative on exam. Reported to have intermittent episodes of agitation and confusion. Assessment & Plan (04/12/2024 8:36 AM EDT): BPD: Continue Abilify, Jardine and Remeron. Mood stable, cooperative on exam. Reported to have intermittent episodes of agitation and confusion. Assessment & Plan (04/11/2024 9:17 AM EDT): BPD: Continue Abilify, Jardine and Remeron. Mood stable, cooperative on exam. Assessment & Plan (03/31/2024 12:59 PM EDT): Patient on lithium, mirtazapine, aripiprazole, trazodone at baseline-likely noncompliant with medications at home She had episode of aggressive behavior towards staff members last night 03/26, called security. -Continue above home medications -Psych input appreciated--> does not meet criteria for section 12 a Assessment & Plan (03/30/2024 1:53 PM EDT): Patient on lithium, mirtazapine, aripiprazole, trazodone at baseline-likely noncompliant with medications at home She had episode of aggressive behavior towards staff members last night 03/26, called security. -Continue above home medications -Psych input appreciated--> does not meet criteria for section 12 a Assessment & Plan (03/29/2024 9:24 AM EDT): Patient on lithium, mirtazapine, aripiprazole, trazodone at baseline-likely noncompliant with medications at home She had episode of aggressive behavior towards staff members last night 03/26, called security. -Continue above home medications -Psych input appreciated--> does not meet criteria for section 12 a Assessment & Plan (03/28/2024 10:49 AM EDT): Patient on lithium, mirtazapine, aripiprazole, trazodone at baseline-likely noncompliant with medications at home She had episode of aggressive behavior towards staff members last night 03/26, called security. -Continue above home medications -Psych input appreciated--> does not meet criteria for section 12 a Assessment & Plan (03/27/2024 10:39 AM EDT): Patient on lithium, mirtazapine, aripiprazole, trazodone at baseline-likely noncompliant with medications at home She had episode of aggressive behavior towards staff members last night 03/26, called security. -Continue above home medications -Psych input appreciated--> does not meet criteria for section 12 a Assessment & Plan (03/26/2024 11:54 AM EDT): Patient on lithium, mirtazapine, aripiprazole, trazodone at baseline-likely noncompliant with medications at home -Continue above home medications -Psych input appreciated--> does not meet criteria for section 12 a Assessment & Plan (03/25/2024 11:04 AM EDT): Patient on lithium, mirtazapine, aripiprazole, trazodone at baseline-likely noncompliant with medications at home -Continue above home medications -Psych input appreciated--> does not meet criteria for section 12 a Assessment & Plan (03/24/2024 11:40 AM EDT): Patient on lithium, mirtazapine, aripiprazole, trazodone at baseline-likely noncompliant with medications at home -Continue above home medications -Psych input appreciated--> does not meet criteria for section 12 a Assessment & Plan (03/23/2024 11:36 AM EDT): Patient on lithium, mirtazapine, aripiprazole, trazodone at baseline-likely noncompliant with medications at home -Continue above home medications -Psych input appreciated--> does not meet criteria for section 12 a Assessment & Plan (03/22/2024 1:04 PM EDT): Patient on lithium, mirtazapine, aripiprazole, trazodone at baseline-likely noncompliant with medications at home -Continue above home medications -Psych input appreciated--> does not meet criteria for section 12 a Assessment & Plan (03/19/2024 2:34 PM EDT): Patient on lithium, mirtazapine, risperidone, trazodone at baseline -Continue home medications -May need psych eval if continues to have behavioral issues Assessment & Plan (11/08/2023 2:26 PM EST): Presented from home with altered mental status. She lives with her son. She is confused but appropriate, cooperative with care. Her mood has been stable, easily redirectable. Cleared by psych from section 12 -Continue home dose Risperdal 0.5mg daily, Jardine ER 450mg at bedtime, Remeron 15mg at bedtime and Trazodone 50mg HS PRN For sleep. Assessment & Plan (11/07/2023 12:01 PM EST): Presented from home with altered mental status. She lives with her son. She is confused but appropriate, cooperative with care. Her mood has been stable, easily redirectable. Cleared by psych from section 12 -Continue home dose Risperdal 0.5mg daily, Jardine ER 450mg at bedtime, Remeron 15mg at bedtime and Trazodone 50mg HS PRN For sleep. -Psych following -SW following Awaiting placement to [facility]TC Patient is stable from medical standpoint. She is awaiting placement. [facility] application is pending. Continue risperidone, mirtazapine, trazodone, and lithium. Assessment & Plan (11/06/2023 2:17 PM EST): Presented from home with altered mental status. She lives with her son. She is confused but appropriate, cooperative with care. Her mood has been stable, easily redirectable. Cleared by psych from section 12 -Continue home dose Risperdal 0.5mg daily, Jardine ER 450mg at bedtime, Remeron 15mg at bedtime and Trazodone 50mg HS PRN For sleep. -Psych following -SW following Awaiting placement to LTC Patient is stable from medical standpoint. She is awaiting placement. [facility] application is pending. Continue risperidone, mirtazapine, trazodone, and lithium. Assessment & Plan (11/05/2023 3:27 PM EST): Presented from home with altered mental status. She lives with her son. She is confused but appropriate, cooperative with care. Her mood has been stable, easily redirectable. Cleared by psych from section 12 -Continue home dose Risperdal 0.5mg daily, Jardine ER 450mg at bedtime, Remeron 15mg at bedtime and Trazodone 50mg HS PRN For sleep. -Psych following -SW following Awaiting placement to LTC Patient is stable from medical standpoint. She is awaiting placement. [facility] application is pending. Continue risperidone, mirtazapine, trazodone, and lithium. Assessment & Plan (11/04/2023 12:48 PM EST): Presented from home with altered mental status. She lives with her son. She is confused but appropriate, cooperative with care. Her mood has been stable, easily redirectable. Cleared by psych from section 12 -Continue home dose Risperdal 0.5mg daily, Jardine ER 450mg at bedtime, Remeron 15mg at bedtime and Trazodone 50mg HS PRN For sleep. -Psych following -SW following Awaiting placement to LTC Patient is stable from medical standpoint. She is awaiting placement. [facility] application is pending. Continue risperidone, mirtazapine, trazodone, and lithium. Assessment & Plan (11/01/2023 1:25 PM EST): Presented from home with altered mental status. She lives with her son. She is confused but appropriate, cooperative with care. Her mood has been stable, easily redirectable. Cleared by psych from section 12 -Continue home dose Risperdal 0.5mg daily, Jardine ER 450mg at bedtime, Remeron 15mg at bedtime and Trazodone 50mg HS PRN For sleep. -Psych following -SW following Awaiting placement to LTC Patient is stable from medical standpoint. She is awaiting placement. [facility] application is pending. Continue risperidone, mirtazapine, trazodone, and lithium. Assessment & Plan (10/31/2023 4:53 PM EST): Presented from home with altered mental status. She lives with her son. She is confused but appropriate, cooperative with care. Her mood has been stable, easily redirectable. Cleared by psych from section 12 -Continue home dose Risperdal 0.5mg daily, Jardine ER 450mg at bedtime, Remeron 15mg at bedtime and Trazodone 50mg HS PRN For sleep. -Psych following -SW following Awaiting placement to LTC Patient is stable from medical standpoint. She is awaiting placement. [facility] application is pending. Continue risperidone, mirtazapine, trazodone, and lithium. Assessment & Plan (10/30/2023 3:40 PM EST): Presented from home with altered mental status. She lives with her son. She is confused but appropriate, cooperative with care. Her mood has been stable, easily redirectable. Cleared by psych from section 12 -Continue home dose Risperdal 0.5mg daily, Jardine ER 450mg at bedtime, Remeron 15mg at bedtime and Trazodone 50mg HS PRN For sleep. -Psych following -SW following Awaiting placement to LTC Patient is stable from medical standpoint. She is awaiting placement. [facility] application is pending. Continue risperidone, mirtazapine, trazodone, and lithium. Assessment & Plan (11/08/2023 11:33 AM EST): Presented from home with altered mental status. She lives with her son. She is confused but appropriate, cooperative with care. Her mood has been stable, easily redirectable. Cleared by psych from section 12 -Continue home dose Risperdal 0.5mg daily, Jardine ER 450mg at bedtime, Remeron 15mg at bedtime and Trazodone 50mg HS PRN For sleep. -Psych following -SW following Awaiting placement to LTC Assessment & Plan (10/25/2023 4:48 PM EST): Cleared of psych from section 12 Awaiting placement to LTC Continues on home medications for BPD Psych following SW following MoCa completed showing mild cognitive impairment Assessment & Plan (10/24/2023 12:35 PM EST): Cleared of psych from section 12 Awaiting placement to LTC Continues on home medications for BPD Psych following SW following MoCa completed showing mild cognitive impairment Assessment & Plan (10/23/2023 1:33 PM EST): Cleared of psych from section 12 Awaiting placement to LTC Continues on home medications for BPD Psych following SW following OT to perform MoCA Assessment & Plan (10/22/2023 10:25 AM EST): Presented from home with altered mental status. She lives with her son. She is confused but appropriate, cooperative with care. Her mood has been stable, easily redirectable. Cleared by psych from section 12 -Continue home dose Risperdal 0.5mg daily, Jardine ER 450mg at bedtime, Remeron 15mg at bedtime and Trazodone 50mg HS PRN For sleep. -Psych following -SW following Awaiting placement to [facility]TC Patient is stable from medical standpoint. She is awaiting placement. [facility] application is pending. Continue risperidone, mirtazapine, trazodone, and lithium. Assessment & Plan (10/21/2023 2:12 PM EST): Presented from home with altered mental status. She lives with her son. She is confused but appropriate, cooperative with care. Her mood has been stable, easily redirectable. Cleared by psych from section 12 -Continue home dose Jardine ER 450mg at bedtime. -Continue home dose Trazodone 50mg HS PRN For sleep. -Continue home dose Risperdal 0.5mg every day. -Continue Remeron 15mg at bedtime -Psych following -SW following Awaiting placement to [facility]TC Patient is stable from medical standpoint. She is awaiting placement. [facility] application is pending. Continue risperidone, mirtazapine, trazodone, and lithium. Assessment & Plan (10/20/2023 5:01 PM EST): Presented from home with altered mental status. She lives with her son. She is confused but appropriate, cooperative with care. Her mood has been stable, easily redirectable. Cleared by psych from section 12 -Continue home dose Jardine ER 450mg at bedtime. -Continue home dose Trazodone 50mg HS PRN For sleep. -Continue home dose Risperdal 0.5mg every day. -Continue Remeron 15mg at bedtime -Psych following -SW following Awaiting placement to [facility]TC Patient is stable from medical standpoint. She is awaiting placement. [facility] application is pending. Continue risperidone, mirtazapine, trazodone, and lithium. Assessment & Plan (10/19/2023 11:14 AM EST): Presented from home with altered mental status. She lives with her son. She is confused but appropriate, cooperative with care. Her mood has been stable, easily redirectable. Cleared by psych from section 12 -Continue home dose Jardine ER 450mg at bedtime. -Continue home dose Trazodone 50mg HS PRN For sleep. -Continue home dose Risperdal 0.5mg every day. -Continue Remeron 15mg at bedtime -Psych following -SW following Awaiting placement to [facility]TC Patient is stable from medical standpoint. She is awaiting placement. [facility] application is pending. Continue risperidone, mirtazapine, trazodone, and lithium. Assessment & Plan (10/18/2023 10:23 AM EST): Presented from home with altered mental status. She lives with her son. She is confused but appropriate, cooperative with care. Her mood has been stable, easily redirectable. Cleared by psych from section 12 -Continue home dose Jardine ER 450mg at bedtime. -Continue home dose Trazodone 50mg HS PRN For sleep. -Continue home dose Risperdal 0.5mg every day. -Continue Remeron 15mg at bedtime -Psych following -SW following Awaiting placement to [facility]TC Patient is stable from medical standpoint. She is awaiting placement. [facility] application is pending. Continue risperidone, mirtazapine, trazodone, and lithium. Assessment & Plan (10/17/2023 10:22 AM EST): Presented from home with altered mental status. She lives with her son. She is confused but appropriate, cooperative with care. Her mood has been stable, easily redirectable. Cleared by psych from section 12 -Continue home dose Jardine ER 450mg at bedtime. -Continue home dose Trazodone 50mg HS PRN For sleep. -Continue home dose Risperdal 0.5mg every day. -Continue Remeron 15mg at bedtime -Psych following -SW following Awaiting placement to [facility]TC Patient is stable from medical standpoint. She is awaiting placement. [facility] application is pending. Continue risperidone, mirtazapine, trazodone, and lithium. Assessment & Plan (10/16/2023 11:27 AM EST): Presented from home with altered mental status. She lives with her son. She is confused but appropriate, cooperative with care. Her mood has been stable, easily redirectable. Cleared by psych from section 12 -Continue home dose Jardine ER 450mg at bedtime. -Continue home dose Trazodone 50mg HS PRN For sleep. -Continue home dose Risperdal 0.5mg every day. -Continue Remeron 15mg at bedtime -Psych following -SW following Awaiting placement to [facility]TC Patient is stable from medical standpoint. She is awaiting placement. [facility] application is pending. Continue risperidone, mirtazapine, trazodone, and lithium. Assessment & Plan (10/15/2023 10:05 AM EST): Presented from home with altered mental status. She lives with her son. She is confused but appropriate, cooperative with care. Her mood has been stable, easily redirectable. Cleared by psych from section 12 -Continue home dose Jardine ER 450mg at bedtime. -Continue home dose Trazodone 50mg HS PRN For sleep. -Continue home dose Risperdal 0.5mg every day. -Continue Remeron 15mg at bedtime -Psych following -SW following Awaiting placement to [facility]TC Patient is stable from medical standpoint. She is awaiting placement. [facility] application is pending. Continue risperidone, mirtazapine, trazodone, and lithium. Assessment & Plan (10/14/2023 10:00 AM EST): Presented from home with altered mental status. She lives with her son. She is confused but appropriate, cooperative with care. Her mood has been stable, easily redirectable. Cleared by psych from section 12 -Continue home dose Jardine ER 450mg at bedtime. -Continue home dose Trazodone 50mg HS PRN For sleep. -Continue home dose Risperdal 0.5mg every day. -Continue Remeron 15mg at bedtime -Psych following -SW following Awaiting placement to [facility]TC Patient is stable from medical standpoint. She is awaiting placement. [facility] application is pending. Continue risperidone, mirtazapine, trazodone, and lithium. Assessment & Plan (10/13/2023 11:55 AM EST): Presented from home with altered mental status. She lives with her son. She is confused but appropriate, cooperative with care. Her mood has been stable, easily redirectable. Cleared by psych from section 12 -Continue home dose Jardine ER 450mg at bedtime. -Continue home dose Trazodone 50mg HS PRN For sleep. -Continue home dose Risperdal 0.5mg every day. -Continue Remeron 15mg at bedtime -Psych following -SW following Awaiting placement to [facility]TC Patient is stable from medical standpoint. She is awaiting placement. [facility] application is pending. Continue risperidone, mirtazapine, trazodone, and lithium. Assessment & Plan (10/12/2023 2:33 PM EST): Presented from home with altered mental status. She lives with her son. She is confused but appropriate, cooperative with care. Her mood has been stable, easily redirectable. Cleared by psych from section 12 -Continue home dose Jardine ER 450mg at bedtime. -Continue home dose Trazodone 50mg HS PRN For sleep. -Continue home dose Risperdal 0.5mg every day. -Continue Remeron 15mg at bedtime -Psych following -SW following Awaiting placement to [facility]TC Patient is stable from medical standpoint. She is awaiting placement. [facility] application is pending. Continue risperidone, mirtazapine, trazodone, and lithium. Assessment & Plan (10/11/2023 11:25 AM EST): Presents from home with altered mental status, lives with son. She is confused but appropriate, cooperate with care. Her mood has been stable, easily redirectable. cleared of psych from section 12 -Continue home dose Jardine ER 450mg at bedtime. -Continue home dose Trazodone 50mg HS PRN For sleep. -Continue home dose Risperdal 0.5mg every day. -Continue Remeron 15mg at bedtime -Psych following -SW following Awaiting placement to [facility]TC Patient is stable from medical standpoint. She is awaiting placement. [facility] application is pending. Continue risperidone, mirtazapine, trazodone, and lithium. Assessment & Plan (10/10/2023 9:19 AM EST): Presents from home with altered mental status, lives with son. She is confused but appropriate, cooperate with care. Her mood has been stable, easily redirectable. cleared of psych from section 12 -Continue home dose Jardine ER 450mg at bedtime. -Continue home dose Trazodone 50mg HS PRN For sleep. -Continue home dose Risperdal 0.5mg every day. -Continue Remeron 15mg at bedtime -Psych following -SW following Awaiting placement to [facility]TC Patient is stable from medical standpoint. She is awaiting placement. [facility] application is pending. Continue risperidone, mirtazapine, trazodone, and lithium. Assessment & Plan (10/09/2023 10:56 AM EST): Presents from home with altered mental status, lives with son. She is confused but appropriate, cooperate with care. Her mood has been stable, easily redirectable. cleared of psych from section 12 -Continue home dose Jardine ER 450mg at bedtime. -Continue home dose Trazodone 50mg HS PRN For sleep. -Continue home dose Risperdal 0.5mg every day. -Continue Remeron 15mg at bedtime -Psych following -SW following Awaiting placement to [facility]TC Patient is stable from medical standpoint. She is awaiting placement. [facility] application is pending. Continue risperidone, mirtazapine, trazodone, and lithium. Assessment & Plan (10/08/2023 9:43 AM EST): Presents from home with altered mental status, lives with son. She is confused but appropriate, cooperate with care. Her mood has been stable, easily redirectable. cleared of psych from section 12 -Continue home dose Jardine ER 450mg at bedtime. -Continue home dose Trazodone 50mg HS PRN For sleep. -Continue home dose Risperdal 0.5mg every day. -Continue Remeron 15mg at bedtime -Psych following -SW following Awaiting placement to [facility]TC Patient is stable from medical standpoint. She is awaiting placement. [facility] application is pending. Continue risperidone, mirtazapine, trazodone, and lithium. Assessment & Plan (10/07/2023 10:02 AM EST): Presents from home with altered mental status, lives with son. She is confused but appropriate, cooperate with care. Her mood has been stable, easily redirectable. cleared of psych from section 12 -Continue home dose Jardine ER 450mg at bedtime. -Continue home dose Trazodone 50mg HS PRN For sleep. -Continue home dose Risperdal 0.5mg every day. -Continue Remeron 15mg at bedtime -Psych following -SW following Awaiting placement to [facility]TC Patient is stable from medical standpoint. She is awaiting placement. [facility] application is pending. Continue risperidone, mirtazapine, trazodone, and lithium. Assessment & Plan (10/06/2023 9:56 AM EST): Presents from home with altered mental status, lives with son. She is confused but appropriate, cooperate with care. Her mood has been stable, easily redirectable. cleared of psych from section 12 -Continue home dose Jardine ER 450mg at bedtime. -Continue home dose Trazodone 50mg HS PRN For sleep. -Continue home dose Risperdal 0.5mg every day. -Continue Remeron 15mg at bedtime -Psych following -SW following Awaiting placement to [facility]TC Patient is stable from medical standpoint. She is awaiting placement. [facility] application is pending. Continue risperidone, mirtazapine, trazodone, and lithium. Assessment & Plan (10/05/2023 11:28 AM EST): Presents from home with altered mental status, lives with son. She is confused but appropriate, cooperate with care. Her mood has been stable, easily redirectable. cleared of psych from section 12 -Continue home dose Jardine ER 450mg at bedtime. -Continue home dose Trazodone 50mg HS PRN For sleep. -Continue home dose Risperdal 0.5mg every day. -Continue Remeron 15mg at bedtime -Psych following -SW following Awaiting placement to [facility] Patient is stable from medical standpoint. She is awaiting placement. [facility] application is pending. Continue risperidone, mirtazapine, trazodone, and lithium. Assessment & Plan (10/04/2023 11:29 AM EST): Presents from home with altered mental status, lives with son. She is confused but appropriate, cooperate with care. Her mood has been stable, easily redirectable. cleared of psych from section 12 -Continue home dose Jardine ER 450mg at bedtime. -Continue home dose Trazodone 50mg HS PRN For sleep. -Continue home dose Risperdal 0.5mg every day. -Continue Remeron 15mg at bedtime -Psych following -SW following Awaiting placement to [facility] Patient is stable from medical standpoint. She is awaiting placement. [facility] application is pending. Continue risperidone, mirtazapine, trazodone, and lithium. Assessment & Plan (10/03/2023 10:09 AM EST): Presents from home with altered mental status, lives with son. She is confused but appropriate, cooperate with care. Her mood has been stable, easily redirectable. cleared of psych from section 12 -Continue home dose Jardine ER 450mg at bedtime. -Continue home dose Trazodone 50mg HS PRN For sleep. -Continue home dose Risperdal 0.5mg every day. -Continue Remeron 15mg at bedtime -Psych following -SW following Awaiting placement to [facility] Patient is stable from medical standpoint. She is awaiting placement. [facility] application is pending. Continue risperidone, mirtazapine, trazodone, and lithium. Assessment & Plan (10/02/2023 9:22 AM EST): Presents from home with altered mental status, lives with son. She is confused but appropriate, cooperate with care. Her mood has been stable, easily redirectable. cleared of psych from section 12 -Continue home dose Jardine ER 450mg at bedtime. -Continue home dose Trazodone 50mg HS PRN For sleep. -Continue home dose Risperdal 0.5mg every day. -Continue Remeron 15mg at bedtime -Psych following -SW following Awaiting placement to [facility] Patient is stable from medical standpoint. She is awaiting placement. [facility] application is pending. Continue risperidone, mirtazapine, trazodone, and lithium. Assessment & Plan (10/01/2023 8:53 AM EST): Presents from home with altered mental status, lives with son. She is confused but appropriate, cooperate with care. Her mood has been stable, easily redirectable. cleared of psych from section 12 -Continue home dose Jardine ER 450mg at bedtime. -Continue home dose Trazodone 50mg HS PRN For sleep. -Continue home dose Risperdal 0.5mg every day. -Continue Remeron 15mg at bedtime -Psych following -SW following Awaiting placement to [facility] Patient is stable from medical standpoint. She is awaiting placement. [facility] application is pending. Continue risperidone, mirtazapine, trazodone, and lithium. Assessment & Plan (09/30/2023 9:48 AM EST): Presents from home with altered mental status, lives with son. She is confused but appropriate, cooperate with care. Her mood has been stable, easily redirectable. cleared of psych from section 12 -Continue home dose Jardine ER 450mg at bedtime. -Continue home dose Trazodone 50mg HS PRN For sleep. -Continue home dose Risperdal 0.5mg every day. -Continue Remeron 15mg at bedtime -Psych following -SW following Awaiting placement to [facility] Patient is stable from medical standpoint. She is awaiting placement. [facility] application is pending. Continue risperidone, mirtazapine, trazodone, and lithium. Assessment & Plan (09/29/2023 11:43 AM EST): Presents from home with altered mental status, lives with son. She is confused but appropriate, cooperate with care. Her mood has been stable, easily redirectable. cleared of psych from section 12 -Continue home dose Jardine ER 450mg at bedtime. -Continue home dose Trazodone 50mg HS PRN For sleep. -Continue home dose Risperdal 0.5mg every day. -Continue Remeron 15mg at bedtime -Psych following -SW following Awaiting placement to [facility] Patient is stable from medical standpoint. She is awaiting placement. [facility] application is pending. Continue risperidone, mirtazapine, trazodone, and lithium. Assessment & Plan (09/28/2023 12:06 PM EST): Presents from home with altered mental status, lives with son. She is confused but appropriate, cooperate with care. Her mood has been stable, easily redirectable. cleared of psych from section 12 -Continue home dose Jardine ER 450mg at bedtime. -Continue home dose Trazodone 50mg HS PRN For sleep. -Continue home dose Risperdal 0.5mg every day. -Continue Remeron 15mg at bedtime -Psych following -SW following Awaiting placement to [facility] Patient is stable from medical standpoint. She is awaiting placement. [facility] application is pending. Continue risperidone, mirtazapine, trazodone, and lithium. Assessment & Plan (09/27/2023 11:52 AM EST): Presents from home with altered mental status, lives with son. She is confused but appropriate, cooperate with care. Her mood has been stable, easily redirectable. cleared of psych from section 12 -Continue home dose Jardine ER 450mg at bedtime. -Continue home dose Trazodone 50mg HS PRN For sleep. -Continue home dose Risperdal 0.5mg every day. -Continue Remeron 15mg at bedtime -Psych following -SW following Awaiting placement to [facility] Patient is stable from medical standpoint. She is awaiting placement. [facility] application is pending. Continue risperidone, mirtazapine, trazodone, and lithium. Assessment & Plan (09/26/2023 10:17 AM EST): Presents from home with altered mental status, lives with son. She is confused but appropriate, cooperate with care. Her mood has been stable, easily redirectable. cleared of psych from section 12 Awaiting placement to LTC -Continue home dose Jardine ER 450mg at bedtime. -Continue home dose Trazodone 50mg HS PRN For sleep. -Continue home dose Risperdal 0.5mg every day. -Continue Remeron 15mg at bedtime -Psych following -SW following Patient is stable from medical standpoint. She is awaiting placement. [facility] application is pending. Continue risperidone, mirtazapine, trazodone, and lithium. Assessment & Plan (09/25/2023 3:30 PM EST): Presents from home with altered mental status, lives with son. She is confused but appropriate, cooperate with care. Her mood has been stable, easily redirectable. cleared of psych from section 12 Awaiting placement to LTC -Continue home dose Jardine ER 450mg at bedtime. -Continue home dose Trazodone 50mg HS PRN For sleep. -Continue home dose Risperdal 0.5mg every day. -Continue Remeron 15mg at bedtime -Psych following -SW following Patient is stable from medical standpoint. She is awaiting placement. [facility] application is pending. Continue risperidone, mirtazapine, trazodone, and lithium. Assessment & Plan (09/24/2023 10:50 AM EST): Presents from home with altered mental status, lives with son. She is confused but appropriate, cooperate with care. Her mood has been stable, easily redirectable. cleared of psych from section 12 Awaiting placement to LTC -Continue home dose Jardine ER 450mg at bedtime. -Continue home dose Trazodone 50mg HS PRN For sleep. -Continue home dose Risperdal 0.5mg every day. -Continue Remeron 15mg at bedtime -Psych following -SW following Patient is stable from medical standpoint. She is awaiting placement. [facility] application is pending. Continue risperidone, mirtazapine, trazodone, and lithium. Assessment & Plan (09/23/2023 10:16 AM EST): Presents from home with altered mental status, lives with son. She is confused but appropriate, cooperate with care. Her mood has been stable, easily redirectable. cleared of psych from section 12 Awaiting placement to LTC -Continue home dose Jardine ER 450mg at bedtime. -Continue home dose Trazodone 50mg HS PRN For sleep. -Continue home dose Risperdal 0.5mg every day. -Continue Remeron 15mg at bedtime -Psych following -SW following Patient is stable from medical standpoint. She is awaiting placement. [facility] application is pending. Continue risperidone, mirtazapine, trazodone, and lithium. Assessment & Plan (09/22/2023 11:07 AM EST): Presents from home with altered mental status, lives with son. She is confused but appropriate, cooperate with care. Her mood has been stable, easily redirectable. cleared of psych from section 12 Awaiting placement to LTC -Continue home dose Jardine ER 450mg at bedtime. -Continue home dose Trazodone 50mg HS PRN For sleep. -Continue home dose Risperdal 0.5mg every day. -Continue Remeron 15mg at bedtime -Psych following -SW following Patient is stable from medical standpoint. She is awaiting placement. [facility] application is pending. Continue risperidone, mirtazapine, trazodone, and lithium. Assessment & Plan (09/21/2023 11:10 AM EST): Presents from home with altered mental status, lives with son. She is confused but appropriate, cooperate with care. Her mood has been stable, easily redirectable. cleared of psych from section 12 Awaiting placement to LTC -Continue home dose Jardine ER 450mg at bedtime. -Continue home dose Trazodone 50mg HS PRN For sleep. -Continue home dose Risperdal 0.5mg every day. -Continue Remeron 15mg at bedtime -Psych following -SW following Patient is stable from medical standpoint. She is awaiting placement. [facility] application is pending. Continue risperidone, mirtazapine, trazodone, and lithium. Assessment & Plan (09/20/2023 11:50 AM EST): Presents from home with altered mental status, lives with son. She is confused but appropriate, cooperate with care. Her mood has been stable, easily redirectable. cleared of psych from section 12 Awaiting placement to LTC -Continue home dose Jardine ER 450mg at bedtime. -Continue home dose Trazodone 50mg HS PRN For sleep. -Continue home dose Risperdal 0.5mg every day. -Continue Remeron 15mg at bedtime -Psych following -SW following Patient is stable from medical standpoint. She is awaiting placement. [facility] application is pending. Continue risperidone, mirtazapine, trazodone, and lithium. Assessment & Plan (09/19/2023 5:03 PM EST): Presents from home with altered mental status, lives with son. She is confused but appropriate, cooperate with care. Her mood has been stable, easily redirectable. cleared of psych from section 12 Awaiting placement to LTC -Continue home dose Jardine ER 450mg at bedtime. -Continue home dose Trazodone 50mg HS PRN For sleep. -Continue home dose Risperdal 0.5mg every day. -Continue Remeron 15mg at bedtime -Psych following -SW following Patient is stable from medical standpoint. She is awaiting placement. [facility] application is pending. Continue risperidone, mirtazapine, trazodone, and lithium. Assessment & Plan (09/19/2023 7:40 AM EST): Presents from home with altered mental status, lives with son. She is confused but appropriate, cooperate with care. Her mood has been stable, easily redirectable. cleared of psych from section 12 Awaiting placement to LTC -Continue home dose Jardine ER 450mg at bedtime. -Continue home dose Trazodone 50mg HS PRN For sleep. -Continue home dose Risperdal 0.5mg every day. -Continue Remeron 15mg at bedtime -Psych following -SW following Patient is stable from medical standpoint. She is awaiting placement. [facility] application is pending. Continue risperidone, mirtazapine, trazodone, and lithium. Assessment & Plan (09/17/2023 4:04 PM EST): Presents from home with altered mental status, lives with son. She is confused but appropriate, cooperate with care. Her mood has been stable, easily redirectable. cleared of psych from section 12 Awaiting placement to LTC -Continue home dose Jardine ER 450mg at bedtime. -Continue home dose Trazodone 50mg HS PRN For sleep. -Continue home dose Risperdal 0.5mg every day. -Continue Remeron 15mg at bedtime -Psych following -SW following Patient is stable from medical standpoint. She is awaiting placement. [facility] application is pending. Continue risperidone, mirtazapine, trazodone, and lithium. Assessment & Plan (09/16/2023 4:13 PM EST): Presents from home with altered mental status, lives with son. She is confused but appropriate, cooperate with care. Her mood has been stable, easily redirectable. cleared of psych from section 12 Awaiting placement to LTC -Continue home dose Jardine ER 450mg at bedtime. -Continue home dose Trazodone 50mg HS PRN For sleep. -Continue home dose Risperdal 0.5mg every day. -Continue Remeron 15mg at bedtime -Psych following -SW following Patient is stable from medical standpoint. She is awaiting placement. [facility] application is pending. Continue risperidone, mirtazapine, trazodone, and lithium. Assessment & Plan (09/15/2023 2:20 PM EST): Presents from home with altered mental status, lives with son. She is confused but appropriate, cooperate with care. Her mood has been stable, easily redirectable. cleared of psych from section 12 Awaiting placement to LTC -Continue home dose Jardine ER 450mg at bedtime. -Continue home dose Trazodone 50mg HS PRN For sleep. -Continue home dose Risperdal 0.5mg every day. -Continue Remeron 15mg at bedtime -Psych following -SW following Patient is stable from medical standpoint. She is awaiting placement. [facility] application is pending. Continue risperidone, mirtazapine, trazodone, and lithium. Assessment & Plan (09/14/2023 11:52 AM EST): Presents from home with altered mental status, lives with son. She is confused but appropriate, cooperate with care. Her mood has been stable, easily redirectable. cleared of psych from section 12 Awaiting placement to LTC -Continue home dose Jardine ER 450mg at bedtime. -Continue home dose Trazodone 50mg HS PRN For sleep. -Continue home dose Risperdal 0.5mg every day. -Continue Remeron 15mg at bedtime -Psych following -SW following Patient is stable from medical standpoint. She is awaiting placement. [facility] application is pending. Continue risperidone, mirtazapine, trazodone, and lithium. Assessment & Plan (09/13/2023 3:58 PM EST): Presents from home with altered mental status, lives with son. She is confused but appropriate, cooperate with care. Her mood has been stable, easily redirectable. cleared of psych from section 12 Awaiting placement to LTC -Continue home dose Jardine ER 450mg at bedtime. -Continue home dose Trazodone 50mg HS PRN For sleep. -Continue home dose Risperdal 0.5mg every day. -Continue Remeron 15mg at bedtime -Psych following -SW following Patient is stable from medical standpoint. She is awaiting placement. [facility] application is pending. Continue risperidone, mirtazapine, trazodone, and lithium. Assessment & Plan (09/12/2023 6:15 PM EST): Presents from home with altered mental status, lives with son. She is confused but appropriate, cooperate with care. Her mood has been stable, easily redirectable. cleared of psych from section 12 Awaiting placement to LTC -Continue home dose Jardine ER 450mg at bedtime. -Continue home dose Trazodone 50mg HS PRN For sleep. -Continue home dose Risperdal 0.5mg every day. -Continue Remeron 15mg at bedtime -Psych following -SW following Patient is stable from medical standpoint. She is awaiting placement. [facility] application is pending. Continue risperidone, mirtazapine, trazodone, and lithium. Assessment & Plan (09/11/2023 3:41 PM EST): Presents from home with altered mental status, lives with son. She is confused but appropriate, cooperate with care. Her mood has been stable, easily redirectable. cleared of psych from section 12 Awaiting placement to LTC -Continue home dose Jardine ER 450mg at bedtime. -Continue home dose Trazodone 50mg HS PRN For sleep. -Continue home dose Risperdal 0.5mg every day. -Continue Remeron 15mg at bedtime - Psych following - SW following Patient is stable from medical standpoint. She is awaiting placement. [facility] application is pending. Continue risperidone, mirtazapine, trazodone, and lithium. Assessment & Plan (09/10/2023 5:47 PM EST): Presents from home with altered mental status, lives with son. She is confused but appropriate, cooperate with care. Her mood has been stable, easily redirectable. cleared of psych from section 12 Awaiting placement to LTC -Continue home dose Jardine ER 450mg at bedtime. -Continue home dose Trazodone 50mg HS PRN For sleep. -Continue home dose Risperdal 0.5mg every day. -Continue Remeron 15mg at bedtime - Psych following - SW following Patient is stable from medical standpoint. She is awaiting placement. [facility] application is pending. Continue risperidone, mirtazapine, trazodone, and lithium. Assessment & Plan (09/09/2023 5:34 PM EST): Presents from home with altered mental status, lives with son. She is confused but appropriate, cooperate with care. Her mood has been stable, easily redirectable. cleared of psych from section 12 Awaiting placement to LTC -Continue home dose Jardine ER 450mg at bedtime. -Continue home dose Trazodone 50mg HS PRN For sleep. -Continue home dose Risperdal 0.5mg every day. -Continue Remeron 15mg at bedtime - Psych following - SW following Patient is stable from medical standpoint. She is awaiting placement. [facility] application is pending. Continue risperidone, mirtazapine, trazodone, and lithium. Assessment & Plan (09/08/2023 12:52 PM EST): Presents from home with altered mental status, lives with son. She is confused but appropriate, cooperate with care. Her mood has been stable, easily redirectable. cleared of psych from section 12 Awaiting placement to LTC -Continue home dose Jardine ER 450mg at bedtime. -Continue home dose Trazodone 50mg HS PRN For sleep. -Continue home dose Risperdal 0.5mg every day. -Continue Remeron 15mg at bedtime - Psych following - SW following Patient is stable from medical standpoint. She is awaiting placement. [facility] application is pending. Continue risperidone, mirtazapine, trazodone, and lithium. Assessment & Plan (09/07/2023 2:30 PM EST): Presents from home with altered mental status, lives with son. She is confused but appropriate, cooperate with care. Her mood has been stable, easily redirectable. cleared of psych from section 12 Awaiting placement to LTC -Continue home dose Jardine ER 450mg at bedtime. -Continue home dose Trazodone 50mg HS PRN For sleep. -Continue home dose Risperdal 0.5mg every day. -Continue Remeron 15mg at bedtime - Psych following - SW following Patient is stable from medical standpoint. She is awaiting placement. [facility] application is pending. Continue risperidone, mirtazapine, trazodone, and lithium. Assessment & Plan (09/06/2023 6:52 PM EST): Presents from home with altered mental status, lives with son. She is confused but appropriate, cooperate with care. Her mood has been stable, easily redirectable. cleared of psych from section 12 Awaiting placement to LTC -Continue home dose Jardine ER 450mg at bedtime. -Continue home dose Trazodone 50mg HS PRN For sleep. -Continue home dose Risperdal 0.5mg every day. -Continue Remeron 15mg at bedtime - Psych following - SW following 09/06/23 Patient is stable from medical standpoint. She is awaiting placement. [facility] application is pending. Continue risperidone, mirtazapine, trazodone, and lithium. Assessment & Plan (09/05/2023 10:37 AM EST): Presents from home with altered mental status, lives with son. She is confused but appropriate, cooperate with care. Her mood has been stable, easily redirectable. cleared of psych from section 12 Awaiting placement to LTC -Continue home dose Jardine ER 450mg at bedtime. -Continue home dose Trazodone 50mg HS PRN For sleep. -Continue home dose Risperdal 0.5mg every day. -Continue Remeron 15mg at bedtime - Psych following - SW following Assessment & Plan (09/04/2023 11:12 AM EST): Presents from home with altered mental status, lives with son. She is confused but appropriate. cleared of psych from section 12 Awaiting placement to LTC -Continue home dose Jardine ER 450mg at bedtime. -Continue home dose Trazodone 50mg HS PRN For sleep. -Continue home dose Risperdal 0.5mg every day. -Continue Remeron 15mg at bedtime - Psych following - SW following Assessment & Plan (09/03/2023 10:45 AM EST): Presents from home with altered mental status, lives with son. She is confused but appropriate. cleared of psych from section 12 Awaiting placement to LTC -Continue home dose Jardine ER 450mg at bedtime. -Continue home dose Trazodone 50mg HS PRN For sleep. -Continue home dose Risperdal 0.5mg every day. -Continue Remeron 15mg at bedtime - Psych following - SW following Assessment & Plan (09/02/2023 10:34 AM EST): Presents from home with altered mental status, lives with son. She is confused but appropriate. cleared of psych from section 12 Awaiting placement to LTC -Continue home dose Jardine ER 450mg at bedtime. -Continue home dose Trazodone 50mg HS PRN For sleep. -Continue home dose Risperdal 0.5mg every day. -Continue Remeron 15mg at bedtime - Psych following - SW following Assessment & Plan (09/01/2023 12:15 PM EST): Presents from home with altered mental status, lives with son. She is confused but appropriate. cleared of psych from section 12 Awaiting placement to LTC -Continue home dose Jardine ER 450mg at bedtime. -Continue home dose Trazodone 50mg HS PRN For sleep. -Continue home dose Risperdal 0.5mg every day. -Continue Remeron 15mg at bedtime - Psych following - SW following Assessment & Plan (08/31/2023 12:35 PM EST): Presents from home with altered mental status, lives with son. She is confused but appropriate. cleared of psych from section 12 Awaiting placement to LTC -Continue home dose Jardine ER 450mg at bedtime. -Continue home dose Trazodone 50mg HS PRN For sleep. -Continue home dose Risperdal 0.5mg every day. -Continue Remeron 15mg at bedtime - Psych following - SW following Assessment & Plan (08/30/2023 11:25 AM EST): Presents from home with altered mental status, lives with son. She is confused but appropriate. cleared of psych from section 12 Awaiting placement to LTC - Continues on home medications for BPD - Psych following - SW following Assessment & Plan (08/29/2023 10:23 AM EST): Presents from home with altered mental status, lives with son cleared of psych from section 12 Awaiting placement to LTC - Continues on home medications for BPD - Psych following - SW following Assessment & Plan (08/28/2023 12:08 PM EST): Presents from home with altered mental status, lives with son cleared of psych from section 12 Awaiting placement to LTC - Continues on home medications for BPD - Psych following - SW following Assessment & Plan (08/25/2023 4:14 PM EST): Cleared of psych from section 12 Awaiting placement to LTC Continues on home medications for BPD Psych following SW following MoCa scored 20 out of 30 denoting mild cognitive impairment Assessment & Plan (08/24/2023 5:09 PM EST): Cleared of psych from section 12 Awaiting placement to LTC Continues on home medications for BPD Psych following SW following OT to perform MoCa scored 20 out of 30 denoting mild cognitive impairment Assessment & Plan (08/23/2023 3:00 PM EST): Cleared of psych from section 12 Awaiting placement to LTC Continues on home medications for BPD Psych following SW following OT to perform MoCA Functional diarrhea 07/07/2023 Assessment & Plan (07/12/2023 1:52 PM EDT): Patient noted to have diarrhea, loose watery bowel movements Remained afebrile with no leukocytosis Abdominal examination remained benign Stool for C. difficile toxin-negative, no isolation required Continue probiotics and as needed loperamide Assessment & Plan (07/11/2023 2:20 PM EDT): Patient noted to have diarrhea, loose watery bowel movements Remained afebrile with no leukocytosis Abdominal examination remained benign Stool for C. difficile toxin-negative, no isolation required Continue probiotics and as needed loperamide Assessment & Plan (07/09/2023 2:22 PM EDT): Patient noted to have diarrhea, loose watery bowel movements Remained afebrile with no leukocytosis Abdominal examination remained benign Stool for C. difficile toxin-negative, no isolation required Continue probiotics and as needed loperamide Assessment & Plan (07/07/2023 11:32 AM EDT): Patient noted to have diarrhea, loose watery bowel movements Remained afebrile with no leukocytosis Abdominal examination remained benign Stool for C. difficile toxin-negative, no isolation required Continue probiotics and as needed loperamide Acquired hypothyroidism 07/04/2023 Assessment & Plan (11/21/2024 10:38 AM EDT): Continue with increased Levothyroxine 125 mcg daily.g. TSH 0.420 on 11/12/24 (recheck TSH 6 months from now). Assessment & Plan (11/20/2024 1:06 PM EDT): Continue Levothyroxine 125 mcg daily. TSH 0.420 on 11/12/24, Free T4 and T3 WNL. Assessment & Plan (11/19/2024 4:11 PM EDT): Continue Levothyroxine 125 mcg daily. TSH 0.420, Free T4 and T3 WNL. Assessment & Plan (11/18/2024 12:07 PM EDT): Continue Levothyroxine 125 mcg daily. TSH 0.420, Free T4 and T3 WNL. Assessment & Plan (11/17/2024 8:23 AM EDT): Continue Levothyroxine 125 mcg daily. TSH 0.420, Free T4 and T3 WNL. Assessment & Plan (11/15/2024 8:51 AM EST): Continue Levothyroxine 125 mcg daily. Assessment & Plan (11/14/2024 11:47 AM EST): Continue Levothyroxine 125 mcg daily. Assessment & Plan (2024 11:31 AM EST): TSH 0.420 Continue Levothyroxine 125 mcg daily. Assessment & Plan (2024 12:49 AM EST): TSH 0.420 Continue Levothyroxine 125 mcg daily. Assessment & Plan (11/11/2024 11:21 AM EST): TSH ~2months ago 0.951 Continue Levothyroxine 125 mcg daily. Will put in for recheck in am 11/12/24 Assessment & Plan (11/10/2024 9:39 AM EST): TSH ~2months ago 0.951 Continue Levothyroxine 125 mcg daily. Assessment & Plan (11/09/2024 10:41 AM EST): TSH ~2months ago 0.951 Continue Levothyroxine 125 mcg daily. Assessment & Plan (11/08/2024 10:31 AM EST): Continue Levothyroxine 125 mcg daily. Assessment & Plan (11/07/2024 9:14 AM EST): Continue Levothyroxine 125 mcg daily. Assessment & Plan (11/06/2024 1:25 PM EST): Continue Levothyroxine 125 mcg daily. Assessment & Plan (10/31/2024 4:47 PM EST): Continue Levothyroxine 125 mcg daily. Last TSH 0.951 ~ 2 months ago. Assessment & Plan (10/30/2024 1:39 PM EST): Continue Levothyroxine 125 mcg daily. Last TSH 0.951 ~ 2 months ago. Assessment & Plan (10/29/2024 5:04 PM EST): Continue Levothyroxine 125 mcg daily. Last TSH 0.951 ~ 2 months ago. Assessment & Plan (10/28/2024 10:06 AM EST): Continue Levothyroxine 125 mcg daily. Last TSH 0.951 ~ 2 months ago. Assessment & Plan (10/27/2024 7:23 AM EST): Continue Levothyroxine 125 mcg daily. Last TSH 0.951 ~ 2 months ago. Assessment & Plan (10/26/2024 8:22 AM EST): Continue Levothyroxine 125 mcg daily. Last TSH 0.951 ~ 2 months ago. Assessment & Plan (10/24/2024 9:31 AM EST): Continue Levothyroxine 125 mcg daily. Last TSH 0.951 ~ 2 months ago. Assessment & Plan (10/23/2024 8:28 AM EST): Continue Levothyroxine 125 mcg daily. Last TSH 0.951 ~ 2 months ago. Assessment & Plan (10/13/2024 11:55 AM EST): Continue Levothyroxine 125 mcg daily. Assessment & Plan (10/12/2024 11:32 AM EST): Continue Levothyroxine 125 mcg daily. Assessment & Plan (10/11/2024 10:55 AM EST): Continue Levothyroxine 125 mcg daily. Assessment & Plan (10/10/2024 11:13 AM EST): Continue Levothyroxine 125 mcg daily. Assessment & Plan (10/09/2024 3:02 PM EST): Continue Levothyroxine 125 mcg daily. Assessment & Plan (10/08/2024 3:20 PM EST): Continue Levothyroxine 125 mcg daily. Assessment & Plan (10/07/2024 5:08 PM EST): Continue Levothyroxine 125 mcg daily. Assessment & Plan (10/06/2024 12:32 PM EST): Continue Levothyroxine 125 mcg daily. Assessment & Plan (10/05/2024 3:12 PM EST): Continue Levothyroxine 125 mcg daily. Assessment & Plan (10/04/2024 7:43 AM EST): Continue Levothyroxine 125 mcg daily. Assessment & Plan (09/26/2024 1:07 PM EST): Continue Levothyroxine 125 mcg daily. Assessment & Plan (09/25/2024 4:30 PM EST): Continue Levothyroxine 125 mcg daily. Assessment & Plan (09/24/2024 4:19 PM EST): Continue Levothyroxine 125 mcg daily. Assessment & Plan (09/23/2024 4:37 PM EST): Continue Levothyroxine 125 mcg daily. Assessment & Plan (09/16/2024 11:32 AM EST): Continue Levothyroxine 125 mcg daily. Assessment & Plan (09/14/2024 12:01 PM EST): Hypothyroidism: TSH 0.951 on 08/17/24 (Therapeutic) Continue Levothyroxine 125 mcg daily. Recheck TSH every 4-6 months (12/16/24) Assessment & Plan (09/13/2024 12:56 PM EST): Hypothyroidism: TSH 0.951 on 08/17/24 (Therapeutic) Continue Levothyroxine 125 mcg daily. Recheck TSH every 4-6 months Assessment & Plan (09/12/2024 11:54 AM EST): Hypothyroidism: TSH 0.951 on 08/17/24 (Therapeutic) Continue Levothyroxine 125 mcg daily. Recheck TSH every 4-6 months Assessment & Plan (09/11/2024 1:40 PM EST): Hypothyroidism: TSH 0.951 on 08/17/24 (Therapeutic) Continue Levothyroxine 125 mcg daily. Recheck TSH every 4-6 months Assessment & Plan (09/10/2024 12:54 PM EST): Hypothyroidism: TSH 0.951 on 08/17/24 (Therapeutic) Continue Levothyroxine 125 mcg daily. Recheck TSH every 4-6 months Assessment & Plan (09/09/2024 11:51 AM EST): Hypothyroidism: TSH 0.951 on 08/17/24 (Therapeutic) Continue Levothyroxine 125 mcg daily. Recheck TSH every 4-6 months Assessment & Plan (09/08/2024 2:25 PM EST): Hypothyroidism: TSH 0.951 on 08/17/24 (Therapeutic) Continue Levothyroxine 125 mcg daily. Recheck TSH every 4-6 months Assessment & Plan (09/05/2024 1:50 PM EST): Hypothyroidism: TSH 0.951 on 08/17/24 (Therapeutic) - Continue Levothyroxine 125 mcg daily. - Recheck TSH every 4-6 months Assessment & Plan (09/04/2024 1:34 PM EST): Hypothyroidism: TSH 0.951 on 08/17/24 (Therapeutic) Continue Levothyroxine 125 mcg daily. Recheck TSH every 4-6 months Assessment & Plan (08/30/2024 8:02 AM EST): Assessment & Plan (08/28/2024 1:42 PM EST): Hypothyroidism: TSH 0.951 on 08/17/24 (Therapeutic) Continue Levothyroxine 125 mcg daily. Recheck TSH every 4-6 months Assessment & Plan (08/27/2024 2:10 PM EST): Hypothyroidism: TSH 0.951 on 08/17/24 (Therapeutic) Continue Levothyroxine 125 mcg daily. Recheck TSH every 4-6 months Assessment & Plan (08/26/2024 12:52 PM EST): Hypothyroidism: TSH 0.951 on 08/17/24 (Therapeutic) Continue Levothyroxine 125 mcg daily. Recheck TSH every 4-6 months Assessment & Plan (08/25/2024 9:21 AM EST): Hypothyroidism: TSH 0.951 on 08/17/24 (Therapeutic) Continue Levothyroxine 125 mcg daily. Recheck TSH every 4-6 months Assessment & Plan (08/23/2024 7:08 AM EST): Hypothyroidism: TSH 0.951 on 08/17/24 (Therapeutic) Continue Levothyroxine 125 mcg daily. Recheck TSH every 4-6 months Assessment & Plan (08/22/2024 7:20 AM EST): Hypothyroidism: TSH 0.951 on 08/17/24 (Therapeutic) Continue Levothyroxine 125 mcg daily. Recheck TSH every 4-6 months Assessment & Plan (08/21/2024 1:34 PM EST): Hypothyroidism: TSH 0.951 on 08/17/24 (Therapeutic) Continue Levothyroxine 125 mcg daily. Recheck TSH every 4-6 months Assessment & Plan (08/20/2024 5:47 PM EST): Hypothyroidism: TSH 0.951 on 08/17/24 (Therapeutic) Continue Levothyroxine 125 mcg daily. Recheck TSH every 4-6 months Assessment & Plan (08/19/2024 2:44 PM EST): Hypothyroidism: TSH 0.951 on 08/17/24 (Therapeutic) Continue Levothyroxine 125 mcg daily. Recheck TSH every 4-6 months Assessment & Plan (08/18/2024 12:44 PM EST): Hypothyroidism: TSH 0.951 on 08/17/24 (Therapeutic) Continue Levothyroxine 125 mcg daily. Recheck TSH every 4-6 months Assessment & Plan (08/17/2024 10:39 AM EST): Hypothyroidism: TSH 0.951 on 08/17/24 (Therapeutic) Continue Levothyroxine 125 mcg daily. Recheck TSH every 4-6 months Assessment & Plan (08/16/2024 7:06 AM EST): Hypothyroidism: TSH 0.281 Continue Levothyroxine 125 mcg daily. Recheck TSH on 08/17/24 (ordered). Assessment & Plan (08/15/2024 9:32 AM EST): Hypothyroidism: TSH 0.281 Continue Levothyroxine 125 mcg daily. Recheck TSH on 08/17/24 (ordered) Assessment & Plan (08/14/2024 2:45 PM EST): Hypothyroidism: TSH 0.281 Continue Levothyroxine 125 mcg daily. Recheck TSH on 08/17/24 (ordered) Assessment & Plan (08/13/2024 3:25 PM EST): Hypothyroidism: TSH 0.281 Continue Levothyroxine 125 mcg daily. Recheck TSH on 08/17/24 (ordered) Assessment & Plan (08/12/2024 1:19 PM EST): Hypothyroidism: TSH 0.281 Continue Levothyroxine 125 mcg daily. Recheck TSH on 08/17/24 (ordered) Assessment & Plan (08/11/2024 1:05 PM EST): Hypothyroidism: TSH 0.281 Continue Levothyroxine 125 mcg daily. Recheck TSH on 08/17/24. Assessment & Plan (08/10/2024 11:28 AM EST): Hypothyroidism: TSH 0.281 Continue Levothyroxine 125 mcg daily. Recheck TSH on 08/17/24. Assessment & Plan (08/09/2024 2:13 PM EST): Hypothyroidism: TSH 0.281 Continue Levothyroxine 125 mcg daily. Recheck TSH on 08/17/24. Assessment & Plan (08/08/2024 4:42 PM EST): Hypothyroidism: TSH 0.281 Continue Levothyroxine 125 mcg daily. Recheck TSH on 08/17/24. Assessment & Plan (08/07/2024 2:40 PM EST): Hypothyroidism: TSH 0.281 Continue Levothyroxine 125 mcg daily. Recheck TSH on 08/17/24. Assessment & Plan (08/06/2024 1:32 PM EST): Hypothyroidism: TSH 0.281 Continue Levothyroxine 125 mcg daily. Recheck TSH on 08/17/24. Assessment & Plan (08/05/2024 11:25 AM EST): Hypothyroidism: TSH 0.281 Continue Levothyroxine 125 mcg daily. Recheck TSH on 08/17/24. Assessment & Plan (08/04/2024 3:48 PM EST): Hypothyroidism: TSH 0.281 Continue Levothyroxine 125 mcg daily. Recheck TSH on 08/17/24. Assessment & Plan (08/03/2024 4:14 PM EST): Hypothyroidism: TSH 0.281 Continue Levothyroxine 125 mcg daily. Recheck TSH on 08/17/24. Assessment & Plan (08/02/2024 3:56 PM EST): Hypothyroidism: TSH 0.281 Continue Levothyroxine 125 mcg daily. Recheck TSH on 08/17/24. Assessment & Plan (08/01/2024 2:53 PM EST): Hypothyroidism: TSH 0.281 Continue Levothyroxine 125 mcg daily. Recheck TSH on 08/17/24. Assessment & Plan (07/30/2024 11:35 AM EST): Hypothyroidism: TSH 0.281 Continue Levothyroxine 125 mcg daily. Recheck TSH on 08/17/24. Assessment & Plan (07/29/2024 11:12 AM EST): Hypothyroidism: TSH 0.281 Continue Levothyroxine 125 mcg daily. Recheck TSH on 08/17/24. Assessment & Plan (07/20/2024 11:18 AM EST): Hypothyroidism: TSH 0.281 Continue Levothyroxine 125 mcg daily. Recheck TSH on 08/17/24. Assessment & Plan (07/19/2024 3:21 PM EST): Hypothyroidism: TSH 0.281 Continue Levothyroxine 125 mcg daily. Recheck TSH on 08/17/24. Assessment & Plan (07/18/2024 2:56 PM EST): Hypothyroidism: TSH 0.281 Continue Levothyroxine 125 mcg daily. Recheck TSH on 08/17/24. Assessment & Plan (07/17/2024 9:33 AM EST): Hypothyroidism: TSH 0.281 Continue Levothyroxine 125 mcg daily. Recheck TSH on 08/17/24. Assessment & Plan (07/16/2024 10:37 AM EST): Hypothyroidism: TSH 0.281 Continue Levothyroxine 125 mcg daily. Recheck TSH on 08/17/24. Assessment & Plan (07/15/2024 12:55 PM EST): Hypothyroidism: TSH 0.281 Continue Levothyroxine 125 mcg daily. Recheck TSH in 8 wks (08/17/24). Assessment & Plan (07/14/2024 2:18 PM EST): Hypothyroidism: TSH 0.281 Continue Levothyroxine 125 mcg daily. Recheck TSH in 8 wks (08/17/24). Assessment & Plan (07/13/2024 1:00 PM EDT): Hypothyroidism: TSH 0.281 Continue Levothyroxine 125 mcg daily. Recheck TSH in 8 wks (08/17/24). Assessment & Plan (07/12/2024 5:57 PM EDT): Hypothyroidism: TSH 0.281 Continue Levothyroxine 125 mcg daily. Recheck TSH in 8 wks (08/17/24). Assessment & Plan (07/11/2024 9:57 AM EDT): Hypothyroidism: TSH 0.281 Continue Levothyroxine 125 mcg daily. Recheck TSH in 8 wks (08/17/24). Assessment & Plan (07/10/2024 11:52 AM EDT): Hypothyroidism: TSH 0.281 Continue Levothyroxine 125 mcg daily. Recheck TSH in 8 wks (08/17/24). Assessment & Plan (07/09/2024 6:04 PM EDT): Hypothyroidism: TSH 0.281 Continue Levothyroxine 125 mcg daily. Recheck TSH in 8 wks (08/17/24). Assessment & Plan (07/08/2024 4:11 PM EDT): Hypothyroidism: TSH 0.281 Continue Levothyroxine 125 mcg daily. Recheck TSH in 8 wks (08/17/24). Assessment & Plan (07/07/2024 3:45 PM EDT): Hypothyroidism: TSH 0.281 Continue Levothyroxine 125 mcg daily. Recheck TSH in 8 wks (08/17/24). Assessment & Plan (07/06/2024 10:19 AM EDT): Hypothyroidism: TSH 0.281 Continue Levothyroxine 125 mcg daily. Recheck TSH in 8 wks (08/17/24). Assessment & Plan (07/04/2024 12:42 PM EDT): Hypothyroidism: TSH 0.281 Continue Levothyroxine 125 mcg daily. Recheck TSH in 8 wks (08/17/24). Assessment & Plan (07/03/2024 11:25 AM EDT): Hypothyroidism: TSH 0.281 Continue Levothyroxine 125 mcg daily. Recheck TSH in 8 wks (08/17/24). Assessment & Plan (07/02/2024 11:20 AM EDT): Hypothyroidism: TSH 0.281 Continue Levothyroxine 125 mcg daily. Recheck TSH in 8 wks (08/17/24). Assessment & Plan (07/01/2024 7:35 AM EDT): Hypothyroidism: TSH 0.281 Continue Levothyroxine 125 mcg daily. Recheck TSH in 8 wks (08/17/24). Assessment & Plan (06/30/2024 9:12 AM EDT): Hypothyroidism: TSH 0.281 Continue Levothyroxine 125 mcg daily. Recheck TSH in 8 wks (08/17/24). Assessment & Plan (06/29/2024 2:38 PM EDT): Hypothyroidism: TSH 0.281 - continue with Levothyroxine 125 mcg. - Recheck TSH in 8 wks (08/17/24). Assessment & Plan (06/08/2024 6:03 PM EDT): Hypothyroidism: TSH 20.4 - Levothyroxine increased from 112 mcg to 125 mcg. - Recheck TSH in 8 wks (06/08). Assessment & Plan (06/02/2024 4:48 PM EDT): Hypothyroidism: TSH 20.4 - Levothyroxine increased from 112 mcg to 125 mcg. - Recheck TSH in 8 wks (06/08). Assessment & Plan (06/01/2024 3:22 PM EDT): Hypothyroidism: TSH 20.4 - Levothyroxine increased from 112 mcg to 125 mcg. - Recheck TSH in 8 wks (06/08). Assessment & Plan (05/31/2024 2:46 PM EDT): Hypothyroidism: TSH 20.4 - Levothyroxine increased from 112 mcg to 125 mcg. - Recheck TSH in 8 wks (06/08). Assessment & Plan (05/26/2024 10:16 AM EDT): Hypothyroidism: TSH 20.4 - Levothyroxine increased from 112 mcg to 125 mcg. - Recheck TSH in 8 wks (06/08). Assessment & Plan (05/25/2024 11:25 AM EDT): Hypothyroidism: TSH 20.4 - Levothyroxine increased from 112 mcg to 125 mcg. - Recheck TSH in 8 wks (06/08). Assessment & Plan (05/24/2024 10:42 AM EDT): Hypothyroidism: TSH 20.4 - Levothyroxine increased from 112 mcg to 125 mcg. - Recheck TSH in 8 wks (06/08). Assessment & Plan (05/23/2024 12:16 PM EDT): Hypothyroidism: TSH 20.4 - Levothyroxine increased from 112 mcg to 125 mcg. - Recheck TSH in 8 wks (06/08). Assessment & Plan (05/22/2024 11:26 AM EDT): Hypothyroidism: TSH 20.4 - Levothyroxine increased from 112 mcg to 125 mcg. - Recheck TSH in 8 wks (06/08). Assessment & Plan (05/21/2024 10:48 AM EDT): Hypothyroidism: TSH 20.4 - Levothyroxine increased from 112 mcg to 125 mcg. - Recheck TSH in 8 wks (06/08). Assessment & Plan (05/20/2024 10:44 AM EDT): Hypothyroidism: TSH 20.4 - Levothyroxine increased from 112 mcg to 125 mcg. - Recheck TSH in 8 wks (06/08). Assessment & Plan (05/19/2024 11:49 AM EDT): Hypothyroidism: TSH 20.4 - Levothyroxine increased from 112 mcg to 125 mcg. - Recheck TSH in 8 wks (06/08). Assessment & Plan (05/16/2024 4:08 PM EDT): Hypothyroidism: TSH 20.4 - Levothyroxine increased from 112 mcg to 125 mcg. - Recheck TSH in 8 wks (06/08). Assessment & Plan (05/15/2024 4:35 PM EDT): Hypothyroidism: TSH 20.4 Levothyroxine increased from 112 mcg to 125 mcg. Recheck TSH in 8 wks (06/08). Assessment & Plan (05/14/2024 11:02 AM EDT): Hypothyroidism: TSH 20.4 Levothyroxine increased from 112 mcg to 125 mcg. Recheck TSH in 8 wks (06/08). Assessment & Plan (05/13/2024 2:41 PM EDT): Hypothyroidism: TSH 20.4 Levothyroxine increased from 112 mcg to 125 mcg. Recheck TSH in 8 wks (06/08). Assessment & Plan (05/12/2024 8:25 AM EDT): Hypothyroidism: TSH 20.4 Increased Levothyroxine 112 mcg to 125 mcg. Recheck TSH in 8 wks (06/08). Assessment & Plan (05/11/2024 9:09 AM EDT): Hypothyroidism: TSH 20.4 Increased Levothyroxine 112 mcg to 125 mcg. Recheck TSH in 8 wks (06/08). Assessment & Plan (05/10/2024 8:46 AM EDT): Hypothyroidism: TSH 20.4 Increased Levothyroxine 112 mcg to 125 mcg. Recheck TSH in 8 wks (06/08). Assessment & Plan (05/09/2024 12:00 PM EDT): Hypothyroidism: TSH 20.4 Increased Levothyroxine 112 mcg to 125 mcg. Recheck TSH in 8 wks (06/08). Assessment & Plan (05/08/2024 1:43 PM EDT): Hypothyroidism: TSH 20.4 Increased Levothyroxine 112 mcg to 125 mcg. Recheck TSH in 8 wks (06/08). Assessment & Plan (05/07/2024 4:29 PM EDT): Hypothyroidism: TSH 20.4 Increased Levothyroxine 112 mcg to 125 mcg. Recheck TSH in 8 wks (06/08). Assessment & Plan (05/06/2024 1:41 PM EDT): TSH 20.4 on 04/13/2024. Previously 40.5 on 03/21/2024 Levothyroxine was increased to 125 mcg. Recheck TSH in 8 wks (06/08). Assessment & Plan (05/05/2024 9:38 AM EDT): Hypothyroidism: TSH 20.4 Increased Levothyroxine 112 mcg to 125 mcg. Recheck TSH in 8 wks (06/08). Assessment & Plan (05/01/2024 2:57 PM EDT): Hypothyroidism: TSH 20.4 Increased Levothyroxine 112 mcg to 125 mcg. Recheck TSH in 8 wks (06/08). Assessment & Plan (04/29/2024 2:35 PM EDT): Hypothyroidism: TSH 20.4 Increased Levothyroxine 112 mcg to 125 mcg. Recheck TSH in 8 wks (06/08). Assessment & Plan (04/28/2024 12:04 PM EDT): Hypothyroidism: TSH 20.4 Increased Levothyroxine 112 mcg to 125 mcg. Recheck TSH in 8 wks (06/08). Assessment & Plan (04/27/2024 10:24 AM EDT): Hypothyroidism: TSH 20.4 Increased Levothyroxine 112 mcg to 125 mcg. Recheck TSH in 8 wks (06/08). Assessment & Plan (04/26/2024 11:31 AM EDT): Hypothyroidism: TSH 20.4 Increased Levothyroxine 112 mcg to 125 mcg. Recheck TSH in 8 wks (06/08). Assessment & Plan (04/25/2024 3:27 PM EDT): Hypothyroidism: TSH 20.4 Increased Levothyroxine 112 mcg to 125 mcg. Recheck TSH in 8 wks (06/08). Assessment & Plan (04/24/2024 1:20 PM EDT): Hypothyroidism: TSH 20.4 Increased Levothyroxine 112 mcg to 125 mcg. Recheck TSH in 8 wks (06/08). Assessment & Plan (04/23/2024 2:37 PM EDT): Hypothyroidism: TSH 20.4 Increased Levothyroxine 112 mcg to 125 mcg. Recheck TSH in 8 wks (06/08). Assessment & Plan (04/22/2024 3:54 PM EDT): Hypothyroidism: TSH 20.4 Increased Levothyroxine 112 mcg to 125 mcg. Recheck TSH in 8 wks (06/08). Assessment & Plan (04/21/2024 11:43 AM EDT): Hypothyroidism: TSH 20.4 Increased Levothyroxine 112 mcg to 125 mcg. Recheck TSH in 8 wks (06/08). Assessment & Plan (04/20/2024 7:45 AM EDT): Hypothyroidism: TSH 20.4 Increased Levothyroxine 112 mcg to 125 mcg. Recheck TSH in 8 wks (06/08). Assessment & Plan (04/19/2024 7:33 AM EDT): Hypothyroidism: TSH 20.4 Increased Levothyroxine 112 mcg to 125 mcg. Recheck TSH in 8 wks (06/08). Assessment & Plan (04/18/2024 9:30 AM EDT): Hypothyroidism: TSH 20.4 Increased Levothyroxine 112 mcg to 125 mcg. Recheck TSH in 8 wks (06/08). Assessment & Plan (04/15/2024 11:21 AM EDT): TSH 20.4 Increased levothyroxine 112 mcg to 125 mcg Recheck TSH in 8 wks (06/08) Assessment & Plan (04/13/2024 11:16 AM EDT): TSH 20.4 Increase levothyroxine 112 mcg to 125 mcg starting tomorrow Recheck TSH in 8 wks (06/08) Assessment & Plan (04/12/2024 8:35 AM EDT): Hypothyroidism: Continue Synthroid. TSH 45.0 3 weeks ago, recheck. Assessment & Plan (04/11/2024 9:16 AM EDT): Hypothyroidism: Continue Synthroid. TSH 45.0 3 weeks ago, recheck. Assessment & Plan (03/31/2024 12:59 PM EDT): TSH 45, low T3-T4 levels Pt likely noncompliant with levothyroxine at home -Continue levothyroxine 112 mcg daily for now repeat TSH levels in 4-6 weeks Assessment & Plan (03/30/2024 1:52 PM EDT): TSH 45, low T3-T4 levels Pt likely noncompliant with levothyroxine at home -Continue levothyroxine 112 mcg daily for now repeat TSH levels in 4-6 weeks Assessment & Plan (03/29/2024 9:25 AM EDT): TSH 45, low T3-T4 levels Pt likely noncompliant with levothyroxine at home -Continue levothyroxine 112 mcg daily for now repeat TSH levels in 4-6 weeks Assessment & Plan (03/28/2024 10:49 AM EDT): TSH 45, low T3-T4 levels Pt likely noncompliant with levothyroxine at home -Continue levothyroxine 112 mcg daily for now repeat TSH levels in 4-6 weeks Assessment & Plan (03/27/2024 10:40 AM EDT): TSH 45, low T3-T4 levels Pt likely noncompliant with levothyroxine at home -Continue levothyroxine 112 mcg daily for now repeat TSH levels in 4-6 weeks Assessment & Plan (03/26/2024 11:55 AM EDT): TSH 45, low T3-T4 levels Pt likely noncompliant with levothyroxine at home -Continue levothyroxine 112 mcg daily for now repeat TSH levels in 4-6 weeks Assessment & Plan (03/25/2024 11:04 AM EDT): TSH 45, low T3-T4 levels Pt likely noncompliant with levothyroxine at home -Continue levothyroxine 112 mcg daily for now repeat TSH levels in 4-6 weeks Assessment & Plan (03/24/2024 11:40 AM EDT): TSH 45, low T3-T4 levels Pt likely noncompliant with levothyroxine at home -Continue levothyroxine 112 mcg daily for now repeat TSH levels in 4-6 weeks Assessment & Plan (03/23/2024 11:36 AM EDT): TSH 45, low T3-T4 levels Pt likely noncompliant with levothyroxine at home -Continue levothyroxine 112 mcg daily for now repeat TSH levels in 4-6 weeks Assessment & Plan (03/22/2024 1:08 PM EDT): TSH 45, low T3-T4 levels Pt likely noncompliant with levothyroxine at home -Continue levothyroxine 112 mcg daily for now repeat TSH levels in 4-6 weeks Assessment & Plan (03/19/2024 2:31 PM EDT): -TSH -Continue levothyroxine 112 mcg daily for now Assessment & Plan (11/08/2023 2:26 PM EST): TSH 15.7 on 08/11/23 likely related to nonadherence prior to admission TSH trended down to 11.2 on 09/16/23 Levothyroxine was increased to 112 mcg daily. Repeat TSH level on 10/28/23--> 30.8 Per nursing staff, patient refusing medication at times, has also been known to pocket medications in her mouth Continue current dose of levothyroxine Monitor patient for medication compliance Recommend PCP to recheck TSH in 4 to 6 weeks Assessment & Plan (11/07/2023 12:01 PM EST): TSH 15.7 on 08/11/23 likely related to nonadherence prior to admission TSH trended down to 11.2 on 09/16/23 Levothyroxine was increased to 112 mcg daily. Repeat TSH level on 10/28/23--> 30.8 Repeat on 11/25/23 Occasionally refusing medication at times, has also been known to pocket medications in her mouth. Time changed per patient preference. May help with compliance. Continue current dose of levothyroxine Monitor patient for medication compliance Assessment & Plan (11/06/2023 2:17 PM EST): TSH 15.7 on 08/11/23 likely related to nonadherence prior to admission TSH trended down to 11.2 on 09/16/23 Levothyroxine was increased to 112 mcg daily. Repeat TSH level on 10/28/23--> 30.8 Repeat on 11/25/23 Occasionally refusing medication at times, has also been known to pocket medications in her mouth Continue current dose of levothyroxine Monitor patient for medication compliance Assessment & Plan (11/05/2023 3:26 PM EST): TSH 15.7 on 08/11/23 likely related to nonadherence prior to admission TSH trended down to 11.2 on 09/16/23 Levothyroxine was increased to 112 mcg daily. Repeat TSH level on 10/28/23--> 30.8 Repeat on 11/25/23 Occasionally refusing medication at times, has also been known to pocket medications in her mouth Continue current dose of levothyroxine Monitor patient for medication compliance Assessment & Plan (11/04/2023 12:48 PM EST): TSH 15.7 on 08/11/23 likely related to nonadherence prior to admission TSH trended down to 11.2 on 09/16/23 Levothyroxine was increased to 112 mcg daily. Repeat TSH level on 10/28/23--> 30.8 Repeat on 11/25/23 Occasionally refusing medication at times, has also been known to pocket medications in her mouth Continue current dose of levothyroxine Monitor patient for medication compliance Assessment & Plan (11/01/2023 1:25 PM EST): TSH 15.7 on 08/11/23 likely related to nonadherence prior to admission TSH trended down to 11.2 on 09/16/23 Levothyroxine was increased to 112 mcg daily. Repeat TSH level on 10/28/23--> 30.8 Occasionally refusing medication at times, has also been known to pocket medications in her mouth Continue current dose of levothyroxine Monitor patient for medication compliance Assessment & Plan (10/31/2023 4:53 PM EST): TSH 15.7 on 08/11/23 likely related to nonadherence prior to admission TSH trended down to 11.2 on 09/16/23 Levothyroxine was increased to 112 mcg daily. Repeat TSH level on 10/28/23--> 30.8 Occasionally refusing medication at times, has also been known to pocket medications in her mouth Continue current dose of levothyroxine Monitor patient for medication compliance Assessment & Plan (10/30/2023 3:39 PM EST): TSH 15.7 on 08/11/23 likely related to nonadherence prior to admission TSH trended down to 11.2 on 09/16/23 Levothyroxine was increased to 112 mcg daily. Repeat TSH level on 10/28/23--> 30.8 Occasionally refusing medication at times, has also been known to pocket medications in her mouth Continue current dose of levothyroxine Monitor patient for medication compliance Assessment & Plan (10/28/2023 1:20 PM EST): TSH 15.7 on 08/11/23 likely related to nonadherence prior to admission TSH trended down to 11.2 on 09/16/23 Levothyroxine was increased to 112 mcg daily. Repeat TSH level on 10/28/23--> 30.8 Per nursing staff, patient refusing medication at times, has also been known to pocket medications in her mouth Continue current dose of levothyroxine Monitor patient for medication compliance Assessment & Plan (10/25/2023 4:47 PM EST): Continue home synthroid Assessment & Plan (10/24/2023 12:33 PM EST): Continue home synthroid Assessment & Plan (10/23/2023 1:33 PM EST): Continue home synthroid Assessment & Plan (10/22/2023 10:25 AM EST): TSH 15.7 on 08/11/23 likely related to nonadherence prior to admission TSH trended down to 11.2 on 09/16/23 Levothyroxine was increased to 112 mcg daily. Recheck TSH level on 10/28/23 Assessment & Plan (10/21/2023 2:12 PM EST): TSH 15.7 on 08/11/23 likely related to nonadherence prior to admission TSH trended down to 11.2 on 09/16/23 Increased levothyroxine to 112 mcg daily. Recheck TSH level on 10/28/23 Assessment & Plan (10/20/2023 5:01 PM EST): TSH 15.7 on 08/11/23 likely related to nonadherence prior to admission TSH trended down to 11.2 on 09/16/23 Increased levothyroxine to 112 mcg daily. Recheck TSH level on 10/28/23 Assessment & Plan (10/19/2023 11:13 AM EST): TSH 15.7 on 08/11/23 likely related to nonadherence prior to admission TSH trended down to 11.2 on 09/16/23 Increased levothyroxine to 112 mcg daily. Recheck TSH level on 10/28/23 Assessment & Plan (10/18/2023 10:23 AM EST): TSH 15.7 on 08/11/23 likely related to nonadherence prior to admission TSH trended down to 11.2 on 09/16/23 Increased levothyroxine to 112 mcg daily. Recheck TSH level on 10/28/23 Assessment & Plan (10/17/2023 10:22 AM EST): TSH 15.7 on 08/11/23 likely related to nonadherence prior to admission TSH trended down to 11.2 on 09/16/23 Increased levothyroxine to 112 mcg daily. Recheck TSH level on 10/28/23 Assessment & Plan (10/16/2023 11:27 AM EST): TSH 15.7 on 08/11/23 likely related to nonadherence prior to admission TSH trended down to 11.2 on 09/16/23 Increased levothyroxine to 112 mcg daily. Recheck TSH level on 10/28/23 Assessment & Plan (10/15/2023 10:06 AM EST): TSH 15.7 on 08/11/23 likely related to nonadherence prior to admission TSH trended down to 11.2 on 09/16/23 Increased levothyroxine to 112 mcg daily. Recheck TSH level on 10/28/23 Assessment & Plan (10/14/2023 10:00 AM EST): TSH 15.7 on 08/11/23 likely related to nonadherence prior to admission TSH trended down to 11.2 on 09/16/23 Increased levothyroxine to 112 mcg daily. Recheck TSH level on 10/28/23 Assessment & Plan (10/13/2023 11:55 AM EST): TSH 15.7 on 08/11/23 likely related to nonadherence prior to admission TSH trended down to 11.2 on 09/16/23 Increased levothyroxine to 112 mcg daily. Recheck TSH level on 10/28/23 Assessment & Plan (10/12/2023 2:31 PM EST): TSH 15.7 on 08/11/23 likely related to nonadherence prior to admission TSH trended down to 11.2 on 09/16/23 Increased levothyroxine to 112 mcg daily. Recheck TSH level on 10/28/23 Assessment & Plan (10/11/2023 11:25 AM EST): TSH 15.7 on 08/11/23 likely related to nonadherence prior to admission TSH trended down to 11.2 on 09/16/23 Increased levothyroxine to 112 mcg daily. Recheck TSH level on 10/28/23 Assessment & Plan (10/09/2023 10:56 AM EST): TSH 15.7 on 08/11/23 likely related to nonadherence prior to admission TSH trended down to 11.2 on 09/16/23 Increased levothyroxine to 112 mcg daily. Recheck TSH level on 10/28/23 Assessment & Plan (10/08/2023 9:43 AM EST): TSH 15.7 on 08/11/23 likely related to nonadherence prior to admission TSH trended down to 11.2 on 09/16/23 Increased levothyroxine to 112 mcg daily. Recheck TSH level on 10/28/23 Assessment & Plan (10/07/2023 10:02 AM EST): TSH 15.7 on 08/11/23 likely related to nonadherence prior to admission TSH trended down to 11.2 on 09/16/23 Increased levothyroxine to 112 mcg daily. Recheck TSH level on 10/28/23 Assessment & Plan (10/06/2023 9:58 AM EST): TSH 15.7 on 08/11/23 likely related to nonadherence prior to admission TSH trended down to 11.2 on 09/16/23 Increased levothyroxine to 112 mcg daily. Recheck TSH level on 10/28/23 Assessment & Plan (10/05/2023 11:28 AM EST): TSH 15.7 on 08/11/23 likely related to nonadherence prior to admission TSH trended down to 11.2 on 09/16/23 Increased levothyroxine to 112 mcg daily Assessment & Plan (10/04/2023 11:29 AM EST): TSH 15.7 on 08/11/23 likely related to nonadherence prior to admission TSH trended down to 11.2 on 09/16/23 Increased levothyroxine to 112 mcg daily Assessment & Plan (10/03/2023 10:09 AM EST): TSH 15.7 on 08/11/23 likely related to nonadherence prior to admission TSH trended down to 11.2 on 09/16/23 Increased levothyroxine to 112 mcg daily Assessment & Plan (10/02/2023 9:22 AM EST): TSH 15.7 on 08/11/23 likely related to nonadherence prior to admission TSH trended down to 11.2 on 09/16/23 Increased levothyroxine to 112 mcg daily Assessment & Plan (10/01/2023 8:53 AM EST): TSH 15.7 on 08/11/23 likely related to nonadherence prior to admission TSH trended down to 11.2 on 09/16/23 Increased levothyroxine to 112 mcg daily Assessment & Plan (09/30/2023 9:48 AM EST): TSH 15.7 on 08/11/23 likely related to nonadherence prior to admission TSH trended down to 11.2 on 09/16/23 Increased levothyroxine to 112 mcg daily Assessment & Plan (09/29/2023 11:43 AM EST): TSH 15.7 on 08/11/23 likely related to nonadherence prior to admission TSH trended down to 11.2 on 09/16/23 Increased levothyroxine to 112 mcg daily Assessment & Plan (09/28/2023 12:06 PM EST): TSH 15.7 on 08/11/23 likely related to nonadherence prior to admission TSH trended down to 11.2 on 09/16/23 Increased levothyroxine to 112 mcg daily Assessment & Plan (09/27/2023 11:52 AM EST): TSH 15.7 on 08/11/23 likely related to nonadherence prior to admission TSH trended down to 11.2 on 09/16/23 Increased levothyroxine to 112 mcg daily Assessment & Plan (09/26/2023 10:18 AM EST): TSH 15.7 on 08/11/23 likely related to nonadherence prior to admission TSH trended down to 11.2 on 09/16/23 Increased levothyroxine to 112 mcg daily Assessment & Plan (09/25/2023 3:30 PM EST): TSH 15.7 on 08/11/23 likely related to nonadherence prior to admission TSH trended down to 11.2 on 09/16 Increased levothyroxine to 112 mcg daily Assessment & Plan (09/24/2023 10:50 AM EST): TSH 15.7 on 08/11/23 likely related to nonadherence prior to admission TSH trended down to 11.2 on 09/16 Increased levothyroxine to 112 mcg daily Assessment & Plan (09/23/2023 10:16 AM EST): TSH 15.7 on 08/11/23 likely related to nonadherence prior to admission TSH trended down to 11.2 on 09/16 Increased levothyroxine to 112 mcg daily Assessment & Plan (09/22/2023 11:07 AM EST): TSH 15.7 on 08/11/23 likely related to nonadherence prior to admission TSH trended down to 11.2 on 09/16 Increased levothyroxine to 112 mcg daily Assessment & Plan (09/21/2023 11:10 AM EST): TSH 15.7 on 08/11/23 likely related to nonadherence prior to admission TSH trended down to 11.2 on 09/16 Increased levothyroxine to 112 mcg daily Assessment & Plan (09/20/2023 11:50 AM EST): TSH 15.7 on 08/11/23 likely related to nonadherence prior to admission TSH trended down to 11.2 on 09/16 Increased levothyroxine to 112 mcg daily Assessment & Plan (09/19/2023 5:03 PM EST): TSH 15.7 on 08/11/23 likely related to nonadherence prior to admission TSH trended down to 11.2 on 09/16 Increased levothyroxine to 112 mcg daily Assessment & Plan (09/19/2023 7:40 AM EST): TSH 15.7 on 08/11/23 likely related to nonadherence prior to admission TSH trended down to 11.2 on 09/16 Increased levothyroxine to 112 mcg daily Assessment & Plan (09/17/2023 4:04 PM EST): TSH 15.7 on 08/11/23 likely related to nonadherence prior to admission TSH trended down to 11.2 on 09/16 Increased levothyroxine to 112 mcg daily Assessment & Plan (09/16/2023 4:13 PM EST): TSH 15.7 on 08/11/23 likely related to nonadherence prior to admission TSH trended down to 11.2 on 09/16 Increase levothyroxine to 112 mcg daily Assessment & Plan (09/15/2023 2:22 PM EST): TSH 15.7 on 08/11/23 likely related to nonadherence prior to admission Continue levothyroxine 100 mcg daily Repeat TSH tomorrow and adjust levothyroxine dose accordingly Assessment & Plan (09/14/2023 11:52 AM EST): TSH 15 likely related to nonadherence prior to admission Continue levothyroxine 100 mcg daily Repeat TSH in 4 weeks Assessment & Plan (09/13/2023 3:58 PM EST): TSH 15 likely related to nonadherence prior to admission Continue levothyroxine 100 mcg daily Repeat TSH in 4 weeks Assessment & Plan (09/12/2023 6:15 PM EST): TSH 15 likely related to nonadherence prior to admission Continue levothyroxine 100 mcg daily Repeat TSH in 4-6weeks Assessment & Plan (09/11/2023 3:40 PM EST): TSH 15 likely related to nonadherence prior to admission Continue home Synthroid 100 mcg daily Repeat TSH in 4-6weeks Assessment & Plan (09/10/2023 5:47 PM EST): TSH 15 likely related to nonadherence prior to admission Continue home Synthroid 100 mcg daily Repeat TSH in 4-6weeks Assessment & Plan (09/09/2023 5:34 PM EST): TSH 15 likely related to nonadherence prior to admission Continue home Synthroid 100 mcg daily Repeat TSH in 4-6weeks Assessment & Plan (09/08/2023 12:51 PM EST): TSH 15 likely related to nonadherence prior to admission Continue home Synthroid 100 mcg daily Repeat TSH in 4-6weeks Assessment & Plan (09/07/2023 2:29 PM EST): TSH 15 likely related to nonadherence prior to admission Continue home Synthroid 100 mcg daily Repeat TSH in 4-6weeks Assessment & Plan (09/06/2023 6:53 PM EST): TSH 15 likely related to nonadherence prior to admission Continue home Synthroid 100 mcg daily Repeat TSH in 4-6weeks Assessment & Plan (09/05/2023 10:36 AM EST): TSH 15 likely non compliance prior to admission Continue home Synthroid 100 mcg daily Repeat TSH in 4-6weeks Assessment & Plan (09/04/2023 11:12 AM EST): TSH 15 likely non compliance prior to admission Continue home Synthroid 100 mcg daily Repeat TSH in 4-6weeks Assessment & Plan (09/03/2023 10:45 AM EST): TSH 15 likely non compliance prior to admission Continue home Synthroid 100 mcg daily Repeat TSH in 4-6weeks Assessment & Plan (09/02/2023 10:34 AM EST): TSH 15 likely non compliance prior to admission Continue home Synthroid 100 mcg daily Repeat TSH in 4-6weeks Assessment & Plan (09/01/2023 12:15 PM EST): TSH 15 likely non compliance prior to admission Continue home Synthroid 100 mcg daily Repeat TSH in 4-6weeks Assessment & Plan (08/31/2023 12:30 PM EST): TSH 15 likely non compliance prior to admission Continue home Synthroid 100 mcg daily Repeat TSH in 4-6weeks Assessment & Plan (08/30/2023 11:25 AM EST): Continue home Synthroid 100 mcg daily Assessment & Plan (08/29/2023 10:23 AM EST): Continue home Synthroid 100 mcg daily Assessment & Plan (08/27/2023 11:12 AM EST): Continue home Synthroid 100 mcg daily Assessment & Plan (08/25/2023 4:12 PM EST): Continue home Synthroid Assessment & Plan (08/24/2023 5:07 PM EST): Continue home Synthroid Assessment & Plan (08/22/2023 3:20 PM EST): Continue home synthroid Assessment & Plan (07/12/2023 1:51 PM EDT): continue levothyroxine supplements Assessment & Plan (07/11/2023 2:18 PM EDT): continue levothyroxine supplements Assessment & Plan (07/10/2023 1:21 PM EDT): continue levothyroxine supplements Assessment & Plan (07/09/2023 2:18 PM EDT): continue levothyroxine supplements Assessment & Plan (07/08/2023 2:13 PM EDT): continue levothyroxine supplements Assessment & Plan (07/07/2023 11:30 AM EDT): continue levothyroxine supplements Assessment & Plan (07/06/2023 10:50 AM EDT): continue levothyroxine supplements Assessment & Plan (07/05/2023 9:28 AM EDT): continue levothyroxine supplements Assessment & Plan (07/04/2023 4:42 PM EDT): Continue levothyroxine supplements Other hyperlipidemia 07/04/2023 Assessment & Plan (11/08/2023 2:26 PM EST): Simvastatin was discontinued in view of severe malnutrition Assessment & Plan (11/07/2023 12:01 PM EST): Simvastatin was discontinued in view of severe malnutrition Assessment & Plan (11/06/2023 2:17 PM EST): Simvastatin was discontinued in view of severe malnutrition Assessment & Plan (11/05/2023 3:26 PM EST): Simvastatin was discontinued in view of severe malnutrition Assessment & Plan (11/04/2023 12:48 PM EST): Simvastatin was discontinued in view of severe malnutrition Assessment & Plan (11/01/2023 1:25 PM EST): Simvastatin was discontinued in view of severe malnutrition Assessment & Plan (10/31/2023 4:53 PM EST): Simvastatin was discontinued in view of severe malnutrition Assessment & Plan (10/30/2023 3:39 PM EST): Simvastatin was discontinued in view of severe malnutrition Assessment & Plan (10/26/2023 3:07 PM EST): Simvastatin was discontinued in view of severe malnutrition Assessment & Plan (10/25/2023 4:47 PM EST): Continue home medication Assessment & Plan (10/24/2023 12:33 PM EST): Continue home medication Assessment & Plan (10/23/2023 1:33 PM EST): Continue home medication Assessment & Plan (10/22/2023 10:26 AM EST): Simvastatin was discontinued in view of severe malnutrition Assessment & Plan (10/21/2023 2:12 PM EST): Simvastatin was discontinued in view of severe malnutrition Assessment & Plan (10/20/2023 5:01 PM EST): Simvastatin was discontinued in view of severe malnutrition Assessment & Plan (10/19/2023 11:14 AM EST): Simvastatin was discontinued in view of severe malnutrition Assessment & Plan (10/18/2023 10:23 AM EST): Simvastatin was discontinued in view of severe malnutrition Assessment & Plan (10/17/2023 10:22 AM EST): Simvastatin was discontinued in view of severe malnutrition Assessment & Plan (10/16/2023 11:27 AM EST): Simvastatin was discontinued in view of severe malnutrition Assessment & Plan (10/15/2023 10:06 AM EST): Simvastatin was discontinued in view of severe malnutrition Assessment & Plan (10/14/2023 10:00 AM EST): Simvastatin was discontinued in view of severe malnutrition Assessment & Plan (10/13/2023 11:55 AM EST): Simvastatin was discontinued in view of severe malnutrition Assessment & Plan (10/12/2023 2:31 PM EST): Discontinued statin in view of severe malnutrition Assessment & Plan (10/11/2023 11:26 AM EST): Discontinued statin in view of severe malnutrition Assessment & Plan (10/09/2023 10:56 AM EST): Discontinued statin in view of severe malnutrition Assessment & Plan (10/08/2023 9:43 AM EST): Discontinued statin in view of severe malnutrition Assessment & Plan (10/07/2023 10:02 AM EST): Discontinued statin in view of severe malnutrition Assessment & Plan (10/06/2023 9:58 AM EST): Discontinued statin in view of severe malnutrition Assessment & Plan (10/05/2023 11:28 AM EST): Discontinued statin in view of severe malnutrition Assessment & Plan (10/04/2023 11:29 AM EST): Discontinued statin in view of severe malnutrition Assessment & Plan (10/03/2023 10:09 AM EST): Discontinued statin in view of severe malnutrition Assessment & Plan (10/02/2023 9:22 AM EST): Discontinued statin in view of severe malnutrition Assessment & Plan (10/01/2023 8:53 AM EST): Discontinued statin in view of severe malnutrition Assessment & Plan (09/30/2023 9:48 AM EST): Discontinued statin in view of severe malnutrition Assessment & Plan (09/29/2023 11:43 AM EST): Discontinued statin in view of severe malnutrition Assessment & Plan (09/28/2023 12:06 PM EST): Discontinued statin in view of severe malnutrition Assessment & Plan (09/27/2023 11:52 AM EST): Discontinued statin in view of severe malnutrition Assessment & Plan (09/26/2023 10:18 AM EST): Discontinued statin in view of severe malnutrition Assessment & Plan (09/25/2023 3:30 PM EST): Discontinued statin in view of severe malnutrition Assessment & Plan (09/24/2023 10:50 AM EST): Discontinued statin in view of severe malnutrition Assessment & Plan (09/22/2023 11:07 AM EST): Discontinued statin in view of severe malnutrition Assessment & Plan (09/21/2023 11:10 AM EST): Discontinued statin in view of severe malnutrition Assessment & Plan (09/20/2023 11:50 AM EST): Discontinued statin in view of severe malnutrition Assessment & Plan (09/19/2023 5:03 PM EST): Continue pravastatin Assessment & Plan (09/19/2023 7:40 AM EST): Continue pravastatin Assessment & Plan (09/17/2023 4:04 PM EST): Continue pravastatin Assessment & Plan (09/16/2023 4:13 PM EST): Continue pravastatin Assessment & Plan (09/15/2023 2:20 PM EST): Continue pravastatin Assessment & Plan (09/14/2023 11:52 AM EST): Continue pravastatin Assessment & Plan (09/13/2023 3:58 PM EST): Continue pravastatin Assessment & Plan (09/12/2023 6:16 PM EST): Continue pravastatin Assessment & Plan (09/11/2023 3:40 PM EST): Continue pravastatin Assessment & Plan (09/10/2023 5:47 PM EST): Continue pravastatin Assessment & Plan (09/09/2023 5:34 PM EST): Continue pravastatin Assessment & Plan (09/08/2023 12:52 PM EST): Continue pravastatin Assessment & Plan (09/07/2023 2:30 PM EST): Continue pravastatin Assessment & Plan (09/06/2023 6:53 PM EST): Continue pravastatin Assessment & Plan (09/05/2023 10:37 AM EST): Continue home dose statin -Continue pravastatin 20 mg nightly, interchange for simvastatin 10 mg daily Assessment & Plan (09/04/2023 11:12 AM EST): Continue home dose statin -Continue pravastatin 20 mg nightly, interchange for simvastatin 10 mg daily Assessment & Plan (09/03/2023 10:46 AM EST): Continue home dose statin -Continue pravastatin 20 mg nightly, interchange for simvastatin 10 mg daily Assessment & Plan (09/02/2023 11:07 AM EST): Continue home dose statin -Continue pravastatin 20 mg nightly, interchange for simvastatin 10 mg daily Assessment & Plan (09/01/2023 12:15 PM EST): Continue home dose statin -Continue pravastatin 20 mg nightly, interchange for simvastatin 10 mg daily Assessment & Plan (08/31/2023 12:30 PM EST): Continue home dose statin -Continue pravastatin 20 mg nightly, interchange for simvastatin 10 mg daily Assessment & Plan (08/30/2023 11:25 AM EST): Continue home dose statin -Continue pravastatin 20 mg nightly, interchange for simvastatin 10 mg daily Assessment & Plan (08/29/2023 10:24 AM EST): Continue home dose statin -Continue pravastatin 20 mg nightly, interchange for simvastatin 10 mg daily Assessment & Plan (08/26/2023 10:36 AM EST): Continue home dose statin -Continue pravastatin 20 mg nightly, interchange for simvastatin 10 mg daily Assessment & Plan (08/25/2023 4:13 PM EST): Continue home dose statin Assessment & Plan (08/24/2023 5:07 PM EST): Continue home dose statin Assessment & Plan (08/22/2023 3:20 PM EST): Continue home medication Assessment & Plan (07/12/2023 1:51 PM EDT): Patient appears cachectic, BMI around 15, stopped statin Assessment & Plan (07/11/2023 2:19 PM EDT): Patient appears cachectic, BMI around 15, stopped statin Assessment & Plan (07/09/2023 2:19 PM EDT): Patient appears cachectic, BMI around 15, stopped statin Assessment & Plan (07/07/2023 11:30 AM EDT): Patient appears cachectic, BMI around 15 We will discontinue statin use Assessment & Plan (07/06/2023 10:50 AM EDT): Patient appears cachectic, BMI around 15 We will discontinue statin use Assessment & Plan (07/05/2023 9:29 AM EDT): Patient appears cachectic, BMI around 15 We will discontinue statin use Assessment & Plan (07/04/2023 4:42 PM EDT): Patient appears cachectic We will discontinue statin use Malnutrition 07/04/2023 Assessment & Plan (03/31/2024 12:59 PM EDT): Patient meets criteria for severe protein calorie malnutrition RD input appreciated Interventions / Recommendations: Change diet to soft/easy to chew Add vanilla milkshake and pudding to meals for additional kcal and protein (pt does not like Ensure) Monitor PO intake/wt/labs RD will follow PRN Assessment & Plan (03/30/2024 1:53 PM EDT): Patient meets criteria for severe protein calorie malnutrition RD input appreciated Interventions / Recommendations: Change diet to soft/easy to chew Add vanilla milkshake and pudding to meals for additional kcal and protein (pt does not like Ensure) Monitor PO intake/wt/labs RD will follow PRN Assessment & Plan (03/29/2024 9:24 AM EDT): Patient meets criteria for severe protein calorie malnutrition RD input appreciated Interventions / Recommendations: Change diet to soft/easy to chew Add vanilla milkshake and pudding to meals for additional kcal and protein (pt does not like Ensure) Monitor PO intake/wt/labs RD will follow PRN Assessment & Plan (03/28/2024 10:49 AM EDT): Patient meets criteria for severe protein calorie malnutrition RD input appreciated Interventions / Recommendations: Change diet to soft/easy to chew Add vanilla milkshake and pudding to meals for additional kcal and protein (pt does not like Ensure) Monitor PO intake/wt/labs RD will follow PRN Assessment & Plan (03/27/2024 10:37 AM EDT): Patient meets criteria for severe protein calorie malnutrition RD input appreciated Interventions / Recommendations: Change diet to soft/easy to chew Add vanilla milkshake and pudding to meals for additional kcal and protein (pt does not like Ensure) Monitor PO intake/wt/labs RD will follow PRN Assessment & Plan (03/26/2024 11:29 AM EDT): Patient meets criteria for severe protein calorie malnutrition RD input appreciated Interventions / Recommendations: Change diet to soft/easy to chew Add vanilla milkshake and pudding to meals for additional kcal and protein (pt does not like Ensure) Monitor PO intake/wt/labs RD will follow PRN Assessment & Plan (03/25/2024 11:03 AM EDT): Patient meets criteria for severe protein calorie malnutrition RD input appreciated Interventions / Recommendations: Change diet to soft/easy to chew Add vanilla milkshake and pudding to meals for additional kcal and protein (pt does not like Ensure) Monitor PO intake/wt/labs RD will follow PRN Assessment & Plan (03/24/2024 11:40 AM EDT): Patient meets criteria for severe protein calorie malnutrition RD input appreciated Interventions / Recommendations: Change diet to soft/easy to chew Add vanilla milkshake and pudding to meals for additional kcal and protein (pt does not like Ensure) Monitor PO intake/wt/labs RD will follow PRN Assessment & Plan (03/23/2024 11:36 AM EDT): Patient meets criteria for severe protein calorie malnutrition RD input appreciated Interventions / Recommendations: Change diet to soft/easy to chew Add vanilla milkshake and pudding to meals for additional kcal and protein (pt does not like Ensure) Monitor PO intake/wt/labs RD will follow PRN Assessment & Plan (03/22/2024 1:03 PM EDT): Patient meets criteria for severe protein calorie malnutrition RD input appreciated Interventions / Recommendations: Change diet to soft/easy to chew Add vanilla milkshake and pudding to meals for additional kcal and protein (pt does not like Ensure) Monitor PO intake/wt/labs RD will follow PRN Assessment & Plan (08/24/2023 5:07 PM EST): Diagnosed with severe malnutrition. Continue multivitamin, zinc, vitamin C. Ensure max protein strawberry 1 time per day per patient request BMI 15 Appreciate nutrition consult Assessment & Plan (08/23/2023 3:00 PM EST): Diagnosed with severe malnutrition. Continue multivitamin, zinc, vitamin C. Ensure max protein strawberry 1 time per day per patient request BMI 15 Appreciate nutrition consult Assessment & Plan (07/12/2023 1:51 PM EDT): Patient appeared poorly nourished and cachectic BMI- 15 Gross evidence of muscle and fat loss Seen by weigh and charge worker in the hospital Diagnosed with severe malnutrition Continue daily nutritional supplements and multivitamins. Assessment & Plan (07/11/2023 2:19 PM EDT): Patient appeared poorly nourished and cachectic BMI- 15 Gross evidence of muscle and fat loss Seen by weigh and charge worker in the hospital Diagnosed with severe malnutrition Continue daily nutritional supplements and multivitamins. Assessment & Plan (07/10/2023 1:21 PM EDT): Patient appeared poorly nourished and cachectic BMI- 15 Gross evidence of muscle and fat loss Seen by weigh and charge worker in the hospital Diagnosed with severe malnutrition Continue daily nutritional supplements and multivitamins. Assessment & Plan (07/09/2023 2:22 PM EDT): Patient appeared poorly nourished and cachectic BMI- 15 Gross evidence of muscle and fat loss Seen by weigh and charge worker in the hospital Diagnosed with severe malnutrition Continue daily nutritional supplements and multivitamins. Assessment & Plan (07/08/2023 2:14 PM EDT): Patient appeared poorly nourished and cachectic BMI- 15 Gross evidence of muscle and fat loss Seen by weigh and charge worker in the hospital Diagnosed with severe malnutrition Continue daily nutritional supplements and multivitamins. Assessment & Plan (07/07/2023 11:31 AM EDT): Patient appeared poorly nourished and cachectic BMI- 15 Gross evidence of muscle and fat loss Seen by weigh and charge worker in the hospital Diagnosed with severe malnutrition Continue daily nutritional supplements and multivitamins. Assessment & Plan (07/06/2023 10:51 AM EDT): Patient appeared poorly nourished and cachectic BMI- 15 Gross evidence of muscle and fat loss Seen by weigh and charge worker in the hospital Diagnosed with severe malnutrition Continue daily nutritional supplements and multivitamins. Assessment & Plan (07/05/2023 9:29 AM EDT): Patient appeared poorly nourished and cachectic BMI- 15 Gross evidence of muscle and fat loss Consult weigh and charge worker in the hospital Diagnosed with severe malnutrition Continue daily nutritional supplements. Assessment & Plan (07/04/2023 4:44 PM EDT): Patient appeared poorly nourished and cachectic BMI- 15 Gross evidence of muscle and fat loss Consult weigh and charge worker in the hospital Diagnosed with severe malnutrition Continue daily nutritional supplements. Weakness 07/03/2023 Assessment & Plan (07/12/2023 1:51 PM EDT): Continue to maintain fall precautions Assessment & Plan (07/11/2023 2:19 PM EDT): Continue to maintain fall precautions Assessment & Plan (07/10/2023 1:20 PM EDT): Continue to maintain fall precautions Assessment & Plan (07/09/2023 2:18 PM EDT): Continue to maintain fall precautions Assessment & Plan (07/08/2023 2:13 PM EDT): Continue to maintain fall precautions Assessment & Plan (07/07/2023 11:30 AM EDT): Continue to maintain fall precautions Assessment & Plan (07/06/2023 10:50 AM EDT): Continue to maintain fall precautions Assessment & Plan (07/05/2023 9:28 AM EDT): Continue to maintain fall precautions Assessment & Plan (07/04/2023 4:42 PM EDT): Continue to maintain fall precautions Bipolar disorder, current ep isode manic severe with psychotic features 02/24/2023 Assessment & Plan (07/12/2023 1:51 PM EDT): 78-year-old patient with past medical history significant for bipolar disorder, PTSD, recent discharge from psychiatric hospital brought into the emergency department as patient unable to take care for self at home. Found in squalid conditions. Being followed by psychiatric team Will continue lithium, risperidone and as needed trazodone at nighttime Remeron resumed per psych recommendations Patient inconsistently taking her medications We will continue to monitor patient clinically and continue to encourage med adherence Son plans to take the patient's home to live with him Will need discharge with VNA and to follow up with wound care Assessment & Plan (07/11/2023 1:49 PM EDT): 78-year-old patient with past medical history significant for bipolar disorder, PTSD, recent discharge from psychiatric hospital brought into the emergency department as patient unable to take care of at home. Found in squalid conditions. Being followed by psychiatric team Will continue lithium, risperidone and as needed trazodone at nighttime Remeron resumed per psych recommendations Patient inconsistently taking her medications We will continue to monitor patient clinically and continue to encourage med adherence Son plans to take the patient's home to live with him Will need discharge with VNA and to follow up with wound care Assessment & Plan (07/10/2023 1:20 PM EDT): 78-year-old patient with past medical history significant for bipolar disorder, PTSD, recent discharge from psychiatric hospital brought into the emergency department as patient unable to take care of at home. Found in squalid conditions. Being followed by psychiatric team Will continue lithium, risperidone and as needed trazodone at nighttime Remeron resumed per psych recommendations Patient inconsistently taking her medications We will continue to monitor patient clinically and continue to encourage med adherence Pending placement at this time Assessment & Plan (07/09/2023 2:18 PM EDT): 78-year-old patient with past medical history significant for bipolar disorder, PTSD, recent discharge from psychiatric hospital brought into the emergency department as patient unable to take care of at home. Found in squalid conditions. Being followed by psychiatric team Will continue lithium, risperidone and as needed trazodone at nighttime Remeron resumed per psych recommendations Patient inconsistently taking her medications We will continue to monitor patient clinically and continue to encourage med adherence Assessment & Plan (07/08/2023 2:13 PM EDT): 78-year-old patient with past medical history significant for bipolar disorder, PTSD, recent discharge from psychiatric hospital brought into the emergency department as patient unable to take care of at home. Found in squalid conditions. Being followed by psychiatric team Will continue lithium, risperidone and as needed trazodone at nighttime Remeron resumed per psych recommendations Patient inconsistently taking her medications We will continue to monitor patient clinically and continue to encourage med adherence Assessment & Plan (07/07/2023 11:30 AM EDT): 78-year-old patient with past medical history significant for bipolar disorder, PTSD, recent discharge from psychiatric hospital brought into the emergency department as patient unable to take care of at home. Found in squalid conditions. Being followed by psychiatric team Will continue lithium, risperidone and as needed trazodone at nighttime Remeron resumed per psych recommendations Patient refusing to take her medications We will continue to monitor patient clinically Assessment & Plan (07/06/2023 10:50 AM EDT): 78-year-old patient with past medical history significant for bipolar disorder, PTSD, recent discharge from psychiatric hospital brought into the emergency department as patient unable to take care of at home. Found in squalid conditions. Being followed by psychiatric team Will continue lithium, risperidone and as needed trazodone at nighttime Remeron resumed per psych recommendations Patient refusing to take her medications We will continue to monitor patient clinically Assessment & Plan (07/05/2023 9:28 AM EDT): 78-year-old patient with past medical history significant for bipolar disorder, PTSD, recent discharge from psychiatric hospital brought into the emergency department as patient unable to take care of at home. Found in squalid conditions. Being followed by psychiatric team Will continue lithium, risperidone and as needed trazodone at nighttime Remeron is on hold per psych recommendations We will continue to monitor patient clinically Assessment & Plan (07/04/2023 4:42 PM EDT): 78-year-old patient with past medical history significant for bipolar disorder, PTSD, recent discharge from psychiatric hospital brought into the emergency department as patient unable to take care of at home. Found in squalid conditions. Being followed by psychiatric team Will continue lithium, risperidone and as needed trazodone at nighttime Remeron is on hold per psych recommendations We will continue to monitor patient clinically Resolved Problems Problem Noted Date Diagnosed Date Resolved Date CHF (congestive heart failur e), NYHA class I, acute on chronic, diastolic 07/04/2023 07/04/2023 Open fracture of nasal bone 04/18/2023 07/04/2023 Immunizations Immunization Administration Dates Next Due Influenza, High Dose Seasona l, Quadrivalent PF 07/13/2023(Deferred: Patient Refused) Social History Tobacco Use Types Packs/Day Years Used Date Smoking Tobacco: Every Day Cigarettes Last attempted to quit: 01/09/2023 Smokeless Tobacco: Never Tobacco Cessation:Ready to Q uit: Not Asked; Counseling Given: Not Answered Alcohol Use Standard Drinks/Week Comments Not Currently 0 (1 standard drink = 0.6 oz pur e alcohol) unknown frequency Hunger Vital Sign Answer Date Recorded Within the past 12 months, y ou worried that your food would run out before you got the money to buy more. Never true 04/08/20 24 Within the past 12 months, t he food you bought just didn't last and you didn't have money to get more. Never true 04/08/2024 Transportation Answer Date Recorded In the past 12 months, has l ack of reliable transportation kept you from medical appointments, meetings, work or from getting things needed for daily living? No 04/08/2024 Housing Answer Date Recorded Housing Risk Low 1 04/08/2024 Housing Risk Medium 1 04/08/2024 Housing Risk High Not on file 04/08/2024 What is your living situation today? [facility] 04/08/2024 Comments No Sex and Gender Information Value Date Recorded Sex Assigned at Female 2023 11:39 AM EST Legal Sex Female 10:36 AM EDT Gender Identity Female 02/07/2024 3:19 PM EDT Sexual Orientation Not on file Last Filed Vital Signs Vital Sign Reading Time Taken Comments Blood Pressure 88/56 03/20/2025 11:49 AM EDT Pulse 60 03/20/2025 11:49 AM EDT Temperature 36.7 C (98 F) 03/20/2025 11:49 AM EDT Respiratory Rate 18 03/20/2025 11:49 AM EDT Oxygen Saturation 96% 03/20/2025 11:49 AM EDT Inhaled Oxygen Concentration - - Weight 47.2 kg (104 lb) 03/19/2025 3:19 PM EDT Height 160 cm (5' 3 ) 03/19/2025 3:19 PM EDT Body Mass Index 18.42 03/19/2025 3:19 PM EDT Plan of Treatment Upcoming Encounters Date Type Department Care Team (Late st Contact Info) Description 03/25/2025 1:00 PM EDT Follow-Up [facility] [address] [place] [id number] 03/25/2025 1:45 PM EDT Follow-Up [facility] [address] [place] [id number] Procedures * Due to [place] state law, this organization might not be sharing negative HIV tests. Procedure Name Priority Date/Time Associated Diagnosis Comments DRUG SCREEN, URINE METHADONE/FENTANYL - HH (REFLEX ONLY) STAT 03/19/2025 9:12 PM EDT DRUG SCREEN, URINE (ED-NO REFLEX) - HH STAT 03/19/2025 9:12 PM EDT UA/CULTURE REFLEX STAT 03/19/2025 9:1 2 PM EDT URINALYSIS W/REFLEX TO MICROSCOPIC & CULTURE STAT 03/19/2025 9:12 PM EDT LIPASE STAT 03/19/2025 4:58 PM EDT SALICYLATE LEVEL STAT 03/19/2025 4:58 PM EDT ACETAMINOPHEN LEVEL STAT 03/19/2025 4 :58 PM EDT LITHIUM LEVEL STAT 03/19/2025 4:58 PM EDT ETHANOL STAT 03/19/2025 4:58 PM EDT CBC AUTO DIFFERENTIAL STAT 03/19/2025 4:58 PM EDT COMPREHENSIVE METABOLIC PANEL STAT 03/19/2025 4:58 PM EDT RAPID COVID-19 RNA FOR SURVEILLANCE (ED ONLY) STAT 03/19/2025 4:58 PM EDT US LOWER EXTREMITY VENOUS LEFT STAT 02/21/2025 2:18 PM EDT LACTIC ACID, PLASMA W/ REPEAT STAT 02/21/2025 1:26 PM EDT BASIC METABOLIC PANEL STAT 02/21/2025 1:26 PM EDT CBC AUTO DIFFERENTIAL STAT 02/21/2025 1:26 PM EDT DRUG SCREEN, URINE METHADONE/FENTANYL - HH (REFLEX ONLY) STAT 01/17/2025 4:56 AM EDT MICROSCOPIC URINALYSIS ONLY Routine 01/17/2025 4:56 AM EDT UA/CULTURE REFLEX Routine 01/17/2025 4:5 6 AM EDT DRUG SCREEN, URINE (ED-NO REFLEX) - HH STAT 01/17/2025 4:56 AM EDT URINALYSIS W/REFLEX TO MICROSCOPIC & CULTURE Routine 01/17/2025 4:56 AM EDT URINE CULTURE, ROUTINE Routine 01/17/2025 4:56 AM EDT TSH STAT Add-on 01/16/2025 3:59 PM EDT SALICYLATE LEVEL STAT 01/16/2025 3:59 PM EDT ETHANOL STAT 01/16/2025 3:59 PM EDT ACETAMINOPHEN LEVEL STAT 01/16/2025 3 :59 PM EDT COMPREHENSIVE METABOLIC PANEL STAT 01/16/2025 3:59 PM EDT CBC AUTO DIFFERENTIAL STAT 01/16/2025 3:59 PM EDT COVID-19 PCR FOR SURVEILLANCE OF ASYMPTOMATIC PATIENT STAT 01/16/2025 3:59 PM EDT HEPATITIS PANEL, ACUTE Routine 07/14/2024 6:[address] LUNG CANCER SCREENING 12 MONTHS ANNUAL FOLLOW UP Routine 01/29/2024 11:32 AM EDT Cigarette smoker OCCULT BLOOD (X1), STOOL Routine 04/30/2022 12:27 PM EDT JOSE SCREENING DIGITAL MAMMO Routine 05/07/2021 2:26 PM EDT DEXA BONE DENSITY AXIAL Routine 05/07/2021 2:02 PM EDT from Last 3 Months or Most Recently Relevant to Health Maintenance Results * Due to [place] state law, this organization might not be sharing negative HIV tests. * (ABNORMAL) Urine Drug Screen, Methadone Metabolite and Fentanyl - [place] only (03/19/2025 9:12 PM EDT) Only the most recent of2 resultswithin the time period is included. Fentanyl Screen, Urine Negative Negative 03/20/2025 10:45 AM EDT [facility] Comment: METHOD SENSITIVITY:FENTANYL POSITIVE IF >/=1 NG/ML NOT A CONFIRMATORY TEST --FOR MEDICAL PURPOSES ONLY-- Methadone Metabolite Screen, Urine Positive(A) Negative 03/20/2025 10:45 AM EDT [facility] Comment: METHOD SENSITIVITY:METHADONE METABOLITE POSITIVE IF >/=100 ng/mL NOT A CONFIRMATORY TEST --FOR MEDICAL PURPOSES ONLY-- Urine Voided urine specimen / Unknown Non-Blood Collection / Unknown 03/19/2025 9:12 PM EDT 03/19/2025 9:16 PM EDT us Cielo De La Cruz MD LAB URINE ORDERABLES Final R esult [facility] [address] [place] [address], [place] [phone] * Urine Drug Screen - No Reflex Testing - [place] only (03/19/2025 9:12 PM EDT) Only the most recent of2 resultswithin the time period is included. [facility] Opiate Screen, Urine Negative Negative 03/19/2025 9:[address] [facility] Comment: METHOD SENSITIVITY:OPIATES POSITIVE IF > 300 NG/ML NOT A CONFIRMATORY TEST --FOR MEDICAL PURPOSES ONLY-- Barbiturate Screen, Urine Negative Negative 03/19/2025 9:[address] [facility] Comment: METHOD SENSITIVITY:BARBITURATES POSITIVE IF >/=200 NG/ML NOT A CONFIRMATORY TEST --FOR MEDICAL PURPOSES ONLY-- Amphetamine Screen, Urine Negative Negative 03/19/2025 9:[address] [facility] Comment: METHOD SENSITIVITY:AMPHETAMINES POSITIVE IF >/=1000 NG/ML NOT A CONFIRMATORY TEST --FOR MEDICAL PURPOSES ONLY-- Benzodiazepine Screen, Urine Negative Negative 03/19/2025 9:[address] [facility] Comment: METHOD SENSITIVITY:BENZODIAZEPINES POS IF >/=1OO NG/ML NOT A CONFIRMATORY TEST --FOR MEDICAL PURPOSES ONLY-- Cocaine Screen, Urine Negative Negative 03/19/2025 9:[address] [facility] Comment: METHOD SENSITIVITY:COCAINE POSITIVE IF >/=300 NG/ML NOT A CONFIRMATORY TEST --FOR MEDICAL PURPOSES ONLY-- Cannabinoid Screen, Urine Negative Negative 03/19/2025 9:[address] [facility] Comment: METHOD SENSITIVITY:THC POS IF >/= 50 NG/ML NOT A CONFIRMATORY TEST --FOR MEDICAL PURPOSES ONLY-- Oxycodone Screen, Urine Negative Negative 03/19/2025 9:[address] [facility] Comment: METHOD SENSITIVITY:OXYCODONE POSITIVE IF >300 ng/mL NOT A CONFIRMATORY TEST --FOR MEDICAL PURPOSES ONLY-- Methadone Screen, Urine Negative Negative 03/19/2025 9:[address] [facility] Comment: METHOD SENSITIVITY:METHADONE POSITIVE IF >/=300 ng/mL NOT A CONFIRMATORY TEST --FOR MEDICAL PURPOSES ONLY-- Urine Voided urine specimen / Unknown Non-Blood Collection / Unknown 03/19/2025 9:12 PM EDT 03/19/2025 9:16 PM EDT Cielo De La Cruz MD LAB URINE ORDERABLES Final R esult [facility] [address] [place] [address], [place] [phone] * (ABNORMAL) Urinalysis W/Reflex to Microscopic & Culture (03/19/2025 9:12 PM EDT) Only the most recent of2 resultswithin the time period is included. Color, Urine Yellow Yellow 03/19/2025 9:[address] [facility] Clarity, Urine Clear Clear 03/19/2025 9:[address] [facility] Specific [place], Urine 1.010 1.005 - 1.030 03/19/2025 9:[address] [facility] pH, Urine 6.5 5.0 - 8.0 03/19/2025 9:[address] [facility] Protein, Urine Negative Negative mg/dL 03/19/2025 9:[address] [facility] Glucose, Urine Negative Negative mg/dL 03/19/2025 9:[address] [facility] Ketones, Urine Trace(A) Negative mg/dL 03/19/2025 9:[address] [facility] Bilirubin, Urine Negative Negative 03/19/2025 9:[address] [facility] Blood, Urine Negative Negative 03/19/2025 9:[address] [facility] Nitrite, Urine Negative Negative 03/19/2025 9:[address] [facility] Urobilinogen, Urine 1.0 0.2 - 1.0 E.U./dL 03/19/2025 9:[address] [facility] Leukocyte Esterase, Urine Negative Negative 03/19/2025 9:[address] [facility] Urine Urine specimen collection, clean catch / Unknown Non-Blood Collection / Unknown 03/19/2025 9:12 PM EDT 03/19/2025 9:15 PM EDT Narrative [facility] - 03/19/2025 9:20 PM EDT Microscopic not indicated according to established criteria. Some urinalysis results will not meet the criteria for reflex urine culture although certain urine values may be abnormal. Additional testing can be ordered by the provider if clinically warranted. us Cielo De La Cruz MD LAB URINE ORDERABLES Final R esult [facility] [address] [place] [address], * Rapid COVID-19 for Surveillance - Psych/Admission (03/19/2025 4:58 PM EDT) PCR, SARS CoV-2 RNA Not Detected Not Detected [employer] 03/19/2025 5:[address] [facility] Swab (Nares) Non-Blood Collection / Unknown 03/19/2025 4:58 PM EDT 03/19/2025 5:01 PM EDT Narrative [facility] - 03/19/2025 5:36 PM EDT Methodology: The [employer] GeneXpert CoV-2 assay is For Use Under an Emergency Use Authorization (EUA) Only with [employer]. The CoV-2 assay is a rapid, real-time RT- PCR assay intended for the qualitative detection of RNA from SARS-CoV-2 in specimens collected from individuals suspected of a respiratory viral infection, by their healthcare provider. A positive test result for SARS-CoV-2 indicates that RNA from that virus was detected. A negative test result indicates that RNA virus was not present in the specimen above the limit of detection. Therefore, a negative result does not rule out SARS-CoV-2 infection and should not be used as the sole basis for treatment or other patient management decisions. us Cielo De La Cruz MD LAB BODY FLUIDS AND STOOLS O RDERABLES Final Result [facility] [address] [place] [address], * (ABNORMAL) CBC Auto Differential (03/19/2025 4:58 PM EDT) Only the most recent of3 resultswithin the time period is included. WBC 3.8(L) 4.8 - 10.8 10*3/uL 03/19/2025 5:[address] [facility] RBC 3.99(L) 4.20 - 5.40 10*6/uL 03/19/2025 5:[address] [facility] Hemoglobin 10.8(L) 11.7 - 15.5 g/dL 03/19/2025 5:[address] [facility] Hematocrit 35.2(L) 35.7 - 45.8 % 03/19/2025 5:[address] [facility] MCV 88.2 81.0 - 99.0 fL 03/19/2025 5:[address] [facility] MCH 27.1 26.0 - 34.0 pg 03/19/2025 5:[address] [facility] MCHC 30.7(L) 31.0 - 36.0 g/dL 03/19/2025 5:[address] [facility] RDW 14.9 12.0 - 15.0 % 03/19/2025 5:[address] [facility] RDW Standard Deviation 48.9(H) 36.4 - 46.3 fL 03/19/2025 5:[address] [facility] Platelets 224 140 - 440 10*3/uL 03/19/2025 5:[address] [facility] MPV 10.8 9.4 - 12.3 fL 03/19/2025 5:[address] [facility] Neutrophil % 43.2(L) 50.0 - 75.0 % 03/19/2025 5:[address] [facility] Immature Grans % 0.0 0.0 - 0.9 % 03/19/2025 5:[address] [facility] Lymphocyte % 42.2 20.0 - 44.0 % 03/19/2025 5:[address] [facility] Monocyte % 10.9 0.0 - 14.0 % 03/19/2025 5:[address] [facility] Eosinophil % 3.2 0.0 - 5.0 % 03/19/2025 5:[address] [facility] Basophil % 0.5 0.0 - 2.0 % 03/19/2025 5:[address] [facility] Neutrophil # 1.63(L) 1.80 - 7.70 10*3/uL 03/19/2025 5:[address] [facility] Immature Grans # <0.03 0.00 - 0.03 10*3/uL 03/19/2025 5:[address] [facility] Lymphocyte # 1.60 1.00 - 4.75 10*3/uL 03/19/2025 5:[address] [facility] Monocyte # 0.40 0.00 - 0.60 10*3/uL 03/19/2025 5:[address] [facility] Eosinophil # 0.10 0.00 - 0.80 10*3/uL 03/19/2025 5:[address] [facility] Basophil # <0.03 0.00 - 0.20 10*3/uL 03/19/2025 5:[address] [facility] Blood Structure of peripheral vein / Unknown Venipuncture / Unknown 03/19/2025 4:58 PM EDT 03/19/2025 5:01 PM EDT us Cielo De La Cruz MD LAB BLOOD ORDERABLES Final R esult [facility] [address] [place] [id number], * Lipase (03/19/2025 4:58 PM EDT) Lipase 23 13 - 60 U/L 03/19/2025 5:[address] [facility] Blood Structure of peripheral vein / Unknown Venipuncture / Unknown 03/19/2025 4:58 PM EDT 03/19/2025 5:01 PM EDT us Cielo De La Cruz MD LAB BLOOD ORDERABLES Final R esult [facility] [address] [place] [address], [place] [phone] * Ethanol (03/19/2025 4:58 PM EDT) Only the most recent of2 resultswithin the time period is included. Ethanol <10 mg/dL 03/19/2025 5:[address] [facility] Blood Structure of peripheral vein / Unknown Venipuncture / Unknown 03/19/2025 4:58 PM EDT 03/19/2025 5:01 PM EDT Cielo De La Cruz MD LAB BLOOD ORDERABLES Final R esult Performing Organization Address [facility]/ZIP Co de Phone Number [facility] [address] [place] [phone], * (ABNORMAL) Acetaminophen Level (03/19/2025 4:58 PM EDT) Only the most recent of2 resultswithin the time period is included. Acetaminophen <5.0(L) 10.0 - 30.0 ug/mL 03/19/2025 5:[address] [facility] Comment:Expected Range with Therapeutic Dosin-30 ug/mL Blood Structure of peripheral vein / Unknown Venipuncture / Unknown 03/19/2025 4:58 PM EDT 03/19/2025 5:01 PM EDT Cielo De La Cruz MD LAB BLOOD ORDERABLES Final R esult [facility] [address] [place] [phone], * Salicylate Level (03/19/2025 4:58 PM EDT) Only the most recent of2 resultswithin the time period is included. Salicylate <3 <=29 mg/dL 03/19/2025 5:[address] [facility] Comment:Expected Range with Therapeutic Dosin-30 mg/dL Blood Structure of peripheral vein / Unknown Venipuncture / Unknown 03/19/2025 4:58 PM EDT 03/19/2025 5:01 PM EDT Cielo De La Cruz MD LAB BLOOD ORDERABLES Final R esult Performing Organization Address [facility] Co de Phone Number [facility] [address] [place] [phone], * (ABNORMAL) Jardine Level (03/19/2025 4:58 PM EDT) Jardine 0.1(L) 0.6 - 1.2 mmol/L 03/19/2025 5:[address] [facility] Blood Structure of peripheral vein / Unknown Venipuncture / Unknown 03/19/2025 4:58 PM EDT 03/19/2025 5:01 PM EDT Cielo De La Cruz MD LAB BLOOD ORDERABLES Final R esult Performing Organization Address [facility] de Phone Number [facility] [address] [place] [phone], * (ABNORMAL) Comprehensive Metabolic Panel (03/19/2025 4:58 PM EDT) Only the most recent of2 resultswithin the time period is included. NA 141 136 - 145 mmol/L 03/19/2025 5:[address] [facility] K 4.0 3.5 - 5.1 mmol/L 03/19/2025 5:[address] [facility] Cl 106 98 - 109 mmol/L 03/19/2025 5:[address] [facility] CO2 24 22 - 32 mmol/L 03/19/2025 5:[address] [facility] Anion Gap 15 >=0 03/19/2025 5:[address] [facility] Glucose 73 60 - 99 mg/dL 03/19/2025 5:[address] [facility] Creatinine 0.51 0.50 - 1.12 mg/dL 03/19/2025 5:[address] [facility] Calcium 9.4 8.4 - 10.4 mg/dL 03/19/2025 5:[address] [facility] Total Protein 6.7 6.6 - 8.7 g/dL 03/19/2025 5:[address] [facility] Albumin 3.7 3.5 - 5.0 g/dL 03/19/2025 5:[address] [facility] Bilirubin, Total 0.3 0.2 - 1.0 mg/dL 03/19/2025 5:[address] [facility] Alkaline Phosphatase 115 40 - 129 U/L 03/19/2025 5:[address] [facility] AST 17 0 - 33 U/L 03/19/2025 5:[address] [facility] ALT 7 <=33 U/L 03/19/2025 5:[address] [facility] BUN 15 8 - 23 mg/dL 03/19/2025 5:[address] [facility] eGFR >90 >=60 mL/min/1. 73m2 03/19/2025 5:[address] [facility] Comment:The estimated glomer ular filtration rate (eGFR) is calculated using a new formula developed by the NKF-ASN task force to eliminate race-based correction factors. The new formula uses serum/plasma creatinine, age, and gender to determine eGFR. A value below 60mls/min might indicate kidney disease and will be flagged. For additional information, see Josiah et al, Am J Kidney Dis. 2021;79(2):268- 288, A Unifying Approach for GFR estimation: Recommendations of the NKF-ASN Task Force on Reassessing the Inclusion of Race in Diagnosing Kidney Disease . Globulin, Total 3.0 2.1 - 4.2 g/dL 03/19/2025 5:[address] [facility] A/G Ratio 1.2(L) 1.5 - 3.0 03/19/2025 5:[address] [facility] Blood Structure of peripheral vein / Unknown Venipuncture / Unknown 03/19/2025 4:58 PM EDT 03/19/2025 5:01 PM EDT us Cielo De La Cruz MD LAB BLOOD ORDERABLES Final R esult [facility] [address] [place] [phone], * US Lower Extremity Venous Left (02/21/2025 2:18 PM EDT) Anatomical Region Laterality Modality Lower Extremities Left Ultrasound 02/21/2025 3:06 PM EDT Impressions 02/21/2025 3:08 PM EDT No sonographic evidence for left lower extremity deep vein thrombosis If this radiology report contains a blank impression section, it is an incomplete radiology report. Please contact the interpreting radiologist or applicable radiology division as soon as possible to obtain the completed interpretation. Workstation ID: [id number] Narrative 02/21/2025 3:08 PM EDT EXAMINATION: US LOWER EXTREMITY VENOUS LEFT INDICATION: Left leg pain and swelling, DVT Suspected TECHNIQUE: Multiple grayscale, color Doppler, and spectral Doppler images of the left lower extremity veins were obtained. Graded compression and augmentation of flow were also performed. COMPARISON: 08/22/2024, 02/08/2024 FINDINGS: The left common femoral, femoral, proximal deep femoral (profunda femoris), and popliteal veins demonstrate normal compressibility, Doppler flow, and waveforms without evidence of thrombus. There is normal respiratory variation within the left and right common femoral veins. The left femoral vein/great saphenous vein junction is patent. The left posterior tibial and peroneal veins are patent. No Cartagena's cyst identified in the popliteal fossa Resulting Agency Comment [id number] Procedure Note Jin Munoz MD - 02/21/2025 EXAMINATION: US LOWER EXTREMITY VENOUS LEFT INDICATION: Left leg pain and swelling, DVT Suspected TECHNIQUE: Multiple grayscale, color Doppler, and spectral Doppler imagesof the left lower extremity veins were obtained. Graded compression andaugmentation of flow were also performed. COMPARISON: 08/22/2024, 02/08/2024 FINDINGS: The left common femoral, femoral, proximal deep femoral (profundafemoris), and popliteal veins demonstrate normal compressibility, Dopplerflow, and waveforms without evidence of thrombus. There is normalrespiratory variation within the left and right common femoral veins. Theleft femoral vein/great saphenous vein junction is patent. The left posterior tibial and peroneal veins are patent. No Cartagena's cyst identified in the popliteal fossa IMPRESSION: No sonographic evidence for left lower extremity deep vein thrombosis If this radiology report contains a blank impression section, it is anincomplete radiology report. Please contact the interpreting radiologistor applicable radiology division as soon as possible to obtain thecompleted interpretation. Workstation ID: [id number] Prince Spencer NAJERA IMG US PROCEDURES Final Resu lt * Lactic Acid (w/Repeat if >2) (02/21/2025 1:26 PM EDT) Lactic Acid 0.9 0.5 - 2.0 mmol/L 02/21/2025 1:49 PM EDT [facility] Blood Structure of peripheral vein / Unknown Venipuncture / Unknown 02/21/2025 1:26 PM EDT 02/21/2025 1:30 PM EDT Prince Spencer NAJERA LAB BLOOD ORDERABLES Final R esult [facility] [address] [place] [address] [place] [address], [place] [phone] * (ABNORMAL) BMP - Basic Metabolic Panel (02/21/2025 1:26 PM EDT) NA 138 136 - 145 mmol/L 02/21/2025 1:49 PM EDT [facility] K 4.0 3.5 - 5.1 mmol/L 02/21/2025 1:49 PM EDT [facility] Cl 105 98 - 109 mmol/L 02/21/2025 1:49 PM EDT [facility] CO2 21(L) 22 - 32 mmol/L 02/21/2025 1:49 PM EDT [facility] BUN 12 8 - 23 mg/dL 02/21/2025 1:49 PM EDT [facility] Creatinine 0.49(L) 0.50 - 1.12 mg/dL 02/21/2025 1:49 PM EDT [facility] Glucose 97 60 - 99 mg/dL 02/21/2025 1:49 PM EDT [facility] Calcium 9.0 8.4 - 10.4 mg/dL 02/21/2025 1:49 PM EDT [facility] Anion Gap 16 >=0 02/21/2025 1:49 PM EDT [facility] eGFR >90 >=60 mL/min/1. 73m2 02/21/2025 1:49 PM EDT [facility] Comment:The estimated glomer ular filtration rate (eGFR) is calculated using a new formula developed by the NKF-ASN task force to eliminate race-based correction factors. The new formula uses serum/plasma creatinine, age, and gender to determine eGFR. A value below 60mls/min might indicate kidney disease and will be flagged. For additional information, see Josiah et al, Am J Kidney Dis. 2021;79(2):268- 288, A Unifying Approach for GFR estimation: Recommendations of the NKF-ASN Task Force on Reassessing the Inclusion of Race in Diagnosing Kidney Disease . Blood Structure of peripheral vein / Unknown Venipuncture / Unknown 02/21/2025 1:26 PM EDT 02/21/2025 1:30 PM EDT us Prince Spencer NAJERA LAB BLOOD ORDERABLES Final R esult [facility] [address] [place] [address], [place] [phone] * (ABNORMAL) Microscopic Urinalysis Only (01/17/2025 4:56 AM EDT) RBC, Urine None Seen None Seen, 0-2 /HPF 01/17/2025 5:[address] [facility] WBC, Urine 3-5(A) None Seen, 0-2 /HPF 01/17/2025 5:[address] [facility] Squamous Epithelial Cells, Urine 3-5 /HPF 01/17/2025 5:[address] [facility] Bacteria, Urine None Seen None Seen /HPF 01/17/2025 5:[address] [facility] Urine Urine specimen collection, clean catch / Unknown Non-Blood Collection / Unknown 01/17/2025 4:56 AM EDT 01/17/2025 5:09 AM EDT us Brody Saez MD LAB URINE ORDERABLES Final Resul t Performing Organization Address City/[facility]/ZIP Co de Phone Number [facility] [address] [place] [address], [place] [phone] * Urine Culture, Routine (01/17/2025 4:56 AM EDT) Urine Culture 10,000 100,000 CFU/mL mixed culture; no further workup is indicated. Clinical correlation is recommended. [facility] 01/18/2025 8:16 AM EDT [facility] Urine Urine specimen collection, clean catch / Unknown Non-Blood Collection / Unknown 01/17/2025 4:56 AM EDT 01/17/2025 5:09 AM EDT Brody Saez MD LAB MICROBIOLOGY - GENERAL ORDER DILAN Final Result Performing Organization Address [facility]/ZIP Co de Phone Number [facility] [address] [place] [address], [place] [phone] * COVID-19 PCR for Surveillance of Asymptomatic Patient (01/16/2025 3:59 PM EDT) [facility] PCR, SARS CoV-2 RNA Not Detected Not Detected [employer] 01/16/2025 5:[address] [facility] Swab (Nares) Non-Blood Collection / Unknown 01/16/2025 3:59 PM EDT 01/16/2025 4:23 PM EDT Narrative [facility] - 01/16/2025 5:07 PM EDT Methodology: The [employer] GeneXpert CoV-2 assay is For Use Under an Emergency Use Authorization (EUA) Only with [employer]. The CoV-2 assay is a rapid, real-time RT- PCR assay intended for the qualitative detection of RNA from SARS-CoV-2 in specimens collected from individuals suspected of a respiratory viral infection, by their healthcare provider. A positive test result for SARS-CoV-2 indicates that RNA from that virus was detected. A negative test result indicates that RNA virus was not present in the specimen above the limit of detection. Therefore, a negative result does not rule out SARS-CoV-2 infection and should not be used as the sole basis for treatment or other patient management decisions. Brody Saez MD LAB BODY FLUIDS AND STOOLS ORDER DILAN Final Result Performing Organization Address [facility]/ZIP Co de Phone Number [facility] [address] [place] [address], * (ABNORMAL) TSH (01/16/2025 3:59 PM EDT) Pathologist [facility] TSH 55.260(H) 0.270 - 4.200 uIU/mL 01/16/2025 4:[address] [facility] Comment: Females: 1st trimester 0.150-4.000 IU/mL 2nd trimester 0.310-4.170 IU/mL 3rd trimester 0.380-4.150 IU/mL Blood Structure of peripheral vein / Unknown Venipuncture / Unknown 01/16/2025 3:59 PM EDT 01/16/2025 4:23 PM EDT Brody Saez MD LAB BLOOD ORDERABLES Final Resul t Performing Organization Address City/[facility]/ZIP Co de Phone Number [facility] [address] [place] [address], [place] [phone] * Hepatitis Panel, Acute (07/14/2024 6:49 AM EST) Hepatitis A IgM Antibody Interpretation Nonreactive Nonreactive 07/15/2024 10:[address] [facility] Hepatitis B Core IgM Antibody Interpretation Nonreactive Nonreactive 07/15/2024 10:[address] [facility] Hepatitis B Surface Antigen Interpretation Non-Reactive Non-Reactive 07/15/2024 10:[address] [facility] Hepatitis C Antibody Interpretation Nonreactive Nonreactive 07/15/2024 10:[address] [facility] Blood Structure of peripheral vein / Unknown Venipuncture / Unknown 07/14/2024 6:49 AM EST 07/14/2024 6:56 AM EST us Shravan Carlos MD LAB BLOOD ORDERABLES Final R esult Performing Organization Address City/[facility]/ZIP Co de Phone Number [facility] [address] [place] [address], [place] [phone] * CT Lung Cancer Screening 12 Months Annual Follow Up (01/29/2024 11:32 AM EDT) Anatomical Region Laterality Modality Chest Computed Tomogra phy 01/29/2024 11:4 5 AM EDT Impressions 01/29/2024 11:49 AM EDT Severe pulmonary emphysema. Mild chronic airways disease. No pleural abnormalities, no adenopathy, stable pulmonary nodules. Lung-RADS Category 2: Benign Appearance or Behavior Nodules with a very low likelihood of becoming a clinically active cancer due to size or lack of growth Lung-RADS Category Description 2: Continue annual screening with CT Lung Screening in 12 months Findings under this category can include: Perifissural nodule(s) < 10 mm (524 mm3) Solid nodule(s): < 6 mm (< 113 mm3) new < 4 mm (< 34 mm3) Part solid nodule(s): < 6 mm total diameter (< 113 mm3) on baseline screening Non solid nodule(s) (GGN): <30 mm (<83181 mm3) OR > or equal to 30 mm ( [place] [address] mm3) and unchanged or slowly growing. Category 3 or 4 nodules unchanged for > or equal to 3 months. Modifier No clinically significant or potentially significant findings Schedule lung cancer screening CT/follow-up CT: ----- ----- This report uses Lung RADS version 1.1 (2019) [email or web address] [email or web address] .[email or web address]?la=en If this radiology report contains a blank impression section, it is an incomplete radiology report. Please contact the interpreting radiologist or applicable radiology division as soon as possible to obtain the completed interpretation. Workstation ID: [id number] Up-to-date CT equipment and radiation dose reduction techniques were employed. CTDIvol: .7 mGy. DLP: 23 mGy-cm. Narrative 01/29/2024 11:[address] LUNG CANCER SCREENING 12 MONTHS ANNUAL FOLLOW UP INDICATION: CT lung cancer screening. COMPARISON: Screening CT from 05/09/2022 TECHNIQUE: Non-enhanced chest CT. Images were acquired with helical acquisition and low dose technique. Multiplanar reconstructions including MIP, MinIP and Slab images were reviewed. Note that low dose technique uses a low level of radiation exposure that provides adequate lung detail but limited image quality in the mediastinum and upper abdomen. For radiation dose control at least one of the following techniques was used in this procedure (1) Automated exposure control (2) Adjustment of the mA and/or kV according to patient size (3) Use of iterative reconstruction technique. FINDINGS: BASE OF NECK: Punctate thyroid calcifications (3, 28). LUNGS AND PLEURA: Moderate bilateral apical scarring. Severe upper lobe predominant pulmonary emphysema. Mild thickening and irregularities of the airway gomez. Stable pulmonary nodules, for example in the left upper lobe (2, 62). Severe respiratory motion artifacts at the lung bases. Bandlike atelectasis in the lingula. MEDIASTINUM: Moderate aortic wall calcifications. Borderline diameter of the pulmonary trunk. Moderate coronary calcifications. No abnormalities of the posterior mediastinum. NODES: No adenopathy. UPPER ABDOMEN: No abnormalities of the upper abdomen. BONES/SOFT TISSUES: Mild degenerative vertebral disease. Resulting Agency Comment [id number] Procedure Note Ciro Deleon MD PhD - 01/29/2024 CT LUNG CANCER SCREENING 12 MONTHS ANNUAL FOLLOW UP INDICATION: CT lung cancer screening. COMPARISON: Screening CT from 05/09/2022 TECHNIQUE: Non-enhanced chest CT. Images were acquired with helicalacquisition and low dose technique. Multiplanar reconstructions includingMIP, MinIP and Slab images were reviewed. Note that low dose techniqueuses a low level of radiation exposure that provides adequate lung detailbut limited image quality in the mediastinum and upper abdomen. For radiation dose control at least one of the following techniques wasused in this procedure (1) Automated exposure control (2) Adjustment ofthe mA and/or kV according to patient size (3) Use of iterativereconstruction technique. FINDINGS: BASE OF NECK: Punctate thyroid calcifications (3, 28). LUNGS AND PLEURA: Moderate bilateral apical scarring. Severe upper lobe predominant pulmonary emphysema. Mild thickening and irregularities of the airway gomez. Stable pulmonary nodules, for example in the left upper lobe (2, 62). Severe respiratory motion artifacts at the lung bases. Bandlike atelectasis in the lingula. MEDIASTINUM: Moderate aortic wall calcifications. Borderline diameter of the pulmonary trunk. Moderate coronary calcifications. No abnormalities of the posterior mediastinum. NODES: No adenopathy. UPPER ABDOMEN: No abnormalities of the upper abdomen. BONES/SOFT TISSUES: Mild degenerative vertebral disease. IMPRESSION: Severe pulmonary emphysema. Mild chronic airways disease. No pleuralabnormalities, no adenopathy, stable pulmonary nodules. Lung-RADS Category 2: Benign Appearance or Behavior Nodules with a verylow likelihood of becoming a clinically active cancer due to size or lackof growth Lung-RADS Category Description 2: Continue annual screening with CT Lung Screening in 12 months Findings under this category can include: Perifissural nodule(s) < 10 mm (524 mm3) Solid nodule(s): < 6 mm (< 113 mm3) new < 4 mm (< 34 mm3) Part solid nodule(s): < 6 mm total diameter (< 113 mm3) on baseline screening Non solid nodule(s) (GGN): <30 mm (<91860 mm3) OR > or equal to 30 mm ( [place] 43493 mm3) and unchanged or slowly growing. Category 3 or 4 nodules unchanged for > or equal to 3 months. Modifier No clinically significant or potentially significant findings Schedule lung cancer screening CT/follow-up CT: ----- ----- This report uses Lung RADS version 1.1 (2019) [email or web address] [email or web address] .[email or web address]?la=en If this radiology report contains a blank impression section, it is anincomplete radiology report. Please contact the interpreting radiologistor applicable radiology division as soon as possible to obtain thecompleted interpretation. Workstation ID: [id number] Up-to-date CT equipment and radiation dose reduction techniques wereemployed. CTDIvol: .7 mGy. DLP: 23 mGy-cm. Silverio Urena MD IMG CT PROCEDURES Final Result * Occult Blood (x1), Stool (04/30/2022 12:27 PM EDT) Occult Blood, Stool #1 NEGATIVE NEGATIVE . [facility] Comment:CC: SILVERIO URENA MD 04/30/2022 12:2 7 PM EDT Silverio Urena MD LAB BODY FLUIDS AND STOOLS ORDER DILAN Final Result [facility] * JOSE Screening Digital Mammogram (05/07/2021 2:26 PM EDT) Anatomical Region Laterality Modality Breast Mammography 05/07/2021 1:26 PM EDT Narrative 05/20/2021 11:04 AM EDT DEPARTMENT OF RADIOLOGY Patient: ADAMTISHA Kota Unit #: [id number] Ordering MD: SILVERIO URENA MD : 1950 Procedure: Digital Mammo Screen Age: 70 Location: CAT Exam Date: 05/07/21 Status: REG CLI Room/Bed: Primary MD: SILVERIO URENA MD Patient Order: [id number] Additional Copy: SILVERIO URENA MD - #[id number] - DIGSCRMAM BILATERAL DIGITAL TOMOSYNTHESIS SCREENING MAMMOGRAM WITH CAD: 05/07/2021 CLINICAL: Routine. Digital 2D mammogram, synthesized 2D views and 3D Tomosynthesis views were obtained. Current study was also evaluated with a Computer Aided Detection (CAD) system. Comparison is made to exam dated[facility] The breasts are almost entirely fatty. No significant masses, calcifications, or other findings are seen in either breast. There has been no significant interval change. IMPRESSION: NEGATIVE There is no mammographic evidence of malignancy. A 1 year screening mammogram is recommended. This exam was interpreted at [place]. POI: [place]. Electronically signed by: Clover delatorre/marybeth:05/19/2021 14:34:13 letter sent: A-2 Normal Benign Mammogram BI-RADS: 1 Negative [facility] Procedure Note Clover Eason MD - 06/08/2023 DEPARTMENTOF RADIOLOGY Bria t: TISHA MEDINA Unit #:[id number] Ordering MD: SILVERIO URENA MD :1950 Procedure: Digital Mammo Screen Age:70 Location: CAT ExamDate: 05/07/21 Status: REG CLIRoom/Bed: Primary MD: SILVERIO URENA MD PatientAcct #: [id number] Order:[id number] Additional Copy: SILVERIO URENA MD - #[id number] - DIGSCRMAM BILATERAL DIGITAL TOMOSYNTHESIS SCREENING MAMMOGRAM WITH CAD: 05/07/2021 CLINICAL: Routine. Digital 2D mammogram, synthesized 2D views and 3D Tomosynthesis views were obtained. Current study was also evaluated with a Computer Aided Detection (CAD) system. Comparison is made to exam dated: [facility]. The breasts are almost entirely fatty. No significant masses, calcifications, or other findings are seen in either breast. There has been no significant interval change. IMPRESSION: NEGATIVE There is no mammographic evidence of malignancy. A 1 year screening mammogram is recommended. This exam was interpreted at [facility]. POI: [place]. Electronically signed by: Clover delatorre/marybeth:05/19/2021 14:34:13 letter sent: A-2 Normal Benign Mammogram BI-RADS: 1 Negative [facility] Silverio Urena MD [facility] BI PROCEDURES Final Result * DEXA Bone Density Axial (05/07/2021 2:02 PM EDT) Anatomical Region Laterality Modality Hip, L-spine Bone Densitometr y 05/07/2021 3:32 PM EDT Narrative 05/07/2021 3:38 PM EDT DEPARTMENT OF RADIOLOGY Patient: TISHA MEDINA Unit #: [id number] Ordering MD: SILVERIO URENA MD : 1950 Procedure: DEXA Bone Density Axial Age: 70 Location: CAT Exam Date: 05/07/21 Status: REG CLI Room/Bed: Primary MD: SILVERIO URENA MD Patient Order: DEXABONE Additional Copy: SILVERIO URENA MD - Study: Bone densitometry study. Clinical history: Postmenopausal. Comparison: None available Technique: Dual-energy x-ray absorptiometry was performed on Hologic machine located at [facility]. FINDINGS: Lumbar spine: Bone mineral density: L1-L4 0.76 g/cm2 T score: -2.6, osteoporosis Z score: -0.4 Right proximal femur: Bone mineral density: femoral neck 0.55g/cm2 T score: -2.7, osteoporosis Z score: -0.9 Left proximal femur: Bone mineral density: femoral neck 0.58g/cm2 T score: -2.4, osteopenia Z score: -0.6 IMPRESSION: Overall the patient has osteoporosis in accordance with WHO criteria. [facility]: [place] ELECTRONICALLY SIGNED BY: GWEN HARRIS MD 05/07/2021 3:35 PM Procedure Note Provider, Historical Conversion - 06/08/2023 DEPARTMENTOF RADIOLOGY Bria t: TISHA MEDINA Unit #:[id number] Ordering MD: SILVERIO URENA MD :1950 Procedure: DEXA Bone Density Axial Age:70 Location: CAT ExamDate: 05/07/21 Status: REG CLIRoom/Bed: Primary MD: SILVERIO URENA MD PatientAcct #: [id number] Order:DEXABONE Additional Copy: SILVERIO URENA MD - Study: Bone densitometry study. Clinical history: Postmenopausal. Comparison: None available Technique: Dual-energy x-ray absorptiometry was performed on [employer]omed[employer]ne located at [facility]. FINDINGS: Lumbar spine: Bone mineral density: L1-L4 0.76 g/cm2 T score: -2.6, osteoporosis Z score: -0.4 Right proximal femur: Bone mineral density: femoral neck 0.55g/cm2 T score: -2.7, osteoporosis Z score: -0.9 Left proximal femur: Bone mineral density: femoral neck 0.58g/cm2 T score: -2.4, osteopenia Z score: -0.6 IMPRESSION: Overall the patient has osteoporosis in accordance with WHO criteria. POI: [place] ELECTRONICALLY SIGNED BY: GWEN HARRIS MD 05/07/2021 3:35 PM Silverio Urena MD [facility] DXA PROCEDURES Final Result from Last 3 Months or Most Recently Relevant to Health Maintenance Insurance Ditto MEDICARE HSNO/FREE CARE Advance Directives Documents on File Type Date Recorded Patient Mill Set Up Expl anation Health Care Proxy 01/27/2025 5:39 PM Power of Finger Grip Machine Operator 07/24/2024 12:46 PM Power of Finger Grip Machine Operator 05/30/2024 1:47 PM 09-29 Health Care Proxy 02/26/2023 8:06 AM 01-04 * Full Code (Latest Code Status on File) Date Activated Date Inactivated Comments 04/08/2024 11:33 PM 11/23/2024 8:43 PM * Full Code Date Activated Date Inactivated Comments 03/19/2024 2:13 PM 04/01/2024 6:33 PM * Full Code Date Activated Date Inactivated Comments 08/22/2023 10:22 AM 11/08/2023 7:23 PM * Full Code Date Activated Date Inactivated Comments 07/04/2023 4:33 PM 07/13/2023 8:21 PM * Full Code Date Activated Date Inactivated Comments 02/24/2023 11:30 PM 03/16/2023 7:17 PM Healthcare Agents on File Name Relationship Healthcare Agent Relationshi p Communication Kenny Medina [facility] Health Care Agent Care Teams Agricultural Engineering Technicians Relationship Specialty Start Date End Date Silverio Urena MD [address] [place] [id number] PCP - General Family Medicine 05/18/22
--- NOTE | 2025-03-21 13:51 | ED_ITS ---
HPI - Skin/Abscess/Foreign Bdy General Chief complaint: Extremity Problem Stated complaint: Leg wound Time Seen by Provider: 03/21/25 13:18 Source: patient, EMS and old records reviewed Mode of arrival: EMS Limitations: no limitations History of Present Illness ED Provider: ELIDA BUSTAMANTE narrative: 74 yo female with COPD, bipolar, hypothyroid, anemia, who has had chronic L ankle wound and infection who has been at [place] admitted 03/20 from [facility] she has been refusing meds and then they state they cannot manage her L ankle wound. Patient denies any issues she is just annoyed she is here. States wound has not been changed since arrival. [facility] states they cannot handle her care. She is a section 21. No fevers/chills reported. Onset (ago): year(s) Tetanus up to date: yes Location: LLE Severity: mild Relieving factors: none Exacerbating factors: none Context: none Associated symptoms: denies other symptoms Treatments prior to arrival: bandages Related Data Previous Rx's ?Medication ?Instructions ?Recorded albuterol sulfate 90 mcg/actuation 2 puff inhalation Q 4H PRN dyspnea 02/10/25 aerosol inhaler #8.5 grams ascorbic acid (vitamin C) 500 mg 500 mg PO DAILY 30 da ys #30 tabs 02/10/25 tablet (Vitamin C) cholecalciferol (vitamin D3) 25 25 mcg PO DAILY 30 day s #30 tabs 02/10/25 mcg (1,000 unit) tablet (Vitamin D3) collagenase clostridium histo. 250 1 appl topical GARRY Y 30 days #90 02/10/25 unit/gram topical ointment (Santyl) grams ferrous sulfate 325 mg (65 mg 325 mg PO BID 30 days #6 0 tabs 02/10/25 iron) tablet levothyroxine 150 mcg tablet 150 mcg PO DAILY@0600 30 days #30 02/10/25 tabs lithium carbonate 300 mg tablet 450 mg (1.5 x 300 mg) PO BEDTIME 02/10/25 30 days #45 tabs mirtazapine 15 mg tablet 15 mg PO BEDTIME 30 days #30 tabs 02/10/25 risperidone 0.5 mg tablet 0.5 mg PO BID 30 days #60 ta bs 02/10/25 Allergies Allergy/AdvReac Type Severity Reaction Status Date / Time gluten Allergy Unknown Unknown Verified 03/21/25 12:33 hydrocodone Allergy Unknown Unknown Verified 03/21/25 12:33 propoxyphene Allergy Unknown Unknown Verified 03/21/25 12:33 sulfamethoxazole (From Allergy Unknown Unknown Verified 03/21/25 12:33 Bactrim) trimethoprim (From Bactrim) Allergy Unknown Unknown Verified 03/21/25 12:33 mepilex Allergy Unknown Unknown Uncoded 03/21/25 12:33 Review of Systems 2 Review of Systems: Constitutional : No Fever, No Chills ENT/Mouth : No sore throat, No Rhinorrhea Eyes: No Eye Pain, No Swelling, No Redness Cardiovascular : No Chest Pain, No SOB Respiratory : No Cough, No Sputum Gastrointestinal : No Nausea, No Vomiting, No Diarrhea, No abdominal Pain Genitourinary : No Dysuria, No Hematuria Musculoskeletal : No joint pain, No Myalgias, No Joint Swelling Skin : pos Skin Lesions, positive skin rash Neuro : No Weakness, No Numbness, No Headache All other systems reviewed and are negative FOR[facility]LY [facility], [facility] Past Medical History Attestation statement: The following information was validated with the patient. Source: old records reviewed Medical History Bipolar disorder with psychotic features Social History Social History Household Members: Other Household Members Other:: son Housing: House Do you presently have visiting nurse or other home services: No Comment: 5 minute checks Patient Tobacco Use Status: Former Tobacco user Tobacco use type: Cigarette Advance Directives: Yes Advance Directives Information Provided: Yes Advance Directives on File: Yes Advance Directives Date on File: 02/11/25 service: No Sexual orientation: Straight/Heterosexual Physical Exam 2 Vital Signs: Vital Signs: Last Vital Signs Temp 98.7 F 03/21/25 14:52 Pulse 81 03/21/25 14:52 Resp 16 03/21/25 14:52 BP 107/68 03/21/25 14:52 Pulse Ox 96 03/21/25 14:52 O2 Del Method Room Air 03/21/25 14:52 BMI result Body Mass Index 24.0 Appearance: Alert. Oriented X3. No acute distress. Eyes: Pupils equal, round and reactive to light. ENT: Pharynx normal. Neck: Normal inspection. Neck supple. CVS: Normal heart rate and rhythm. Pulses normal. Respiratory: No respiratory distress. Breath sounds normal. Abdomen: Soft and nontender. Skin: Skin warm and dry. Normal skin color. Normal skin turgor. Extremities: No lower extremity edema. L inner lower leg there is a large yellow ulcer with some mild surrounding erythema and warmth - dressing was yellow vaseline gauze with saturated telfa, she has boot on, she has pulses, no swelling and no pain picture today is the same as from 01/18/25 Neuro: Oriented X 3. No motor deficit. No sensory deficit. CN2-12 intact Course Course Course Narrative: patient refusing further labs and now refusing IV will wait on infl markers and reassess Medical Decision Making Medical Decision Making [facility] Narrative: 74 yo female with COPD, bipolar, hypothyroid, anemia, who has had chronic L ankle wound and infection now here with vaseline dressing should be on santyl daily she has mild signs of infection on arrival will trend infl markers but I think she would be suitable again for oral cephalexin and wound care. No signs of abscess, DVT, necrotizing infection Differential Diagnosis Differential Diagnoses: The differential diagnosis associated with the presentation includes cellulitis, non compliance, venous stasis dermatitis, chronic open wound Admission/Observation Consideration of admission/observation: Escalation of care including admission/observation considered refuses labs and xray her wound is unchanged from 01/18 pictures including redness will start on santyl daily dressings and cephalexin Lab Data [facility] Lab Attestation statement: I reviewed the patient's lab results. Independent Interpretation I performed an independent interpretation of an: Plain X-Ray Radiology Impression Discussion of test interpretation with radiology: I have reviewed the radiologist's reading. Independent Historian Clinical information obtained from an independent historian. History obtained from or confirmed by: EMS External Record Review External record reviewed: Inpatient record and Outpatient record Prescription Management I considered prescription management with: Antibiotic Discharge Plan Discharge Clinical Impression: Wound of left ankle Qualifiers: Encounter type: initial encounter Qualified Code(s): S91.002A - Unspecified open wound, left ankle, initial encounter Patient Disposition: Home, Self-Care Instructions: Wound Healing and Your Diet (ED) Additional Instructions: at this time needs cephalexin 500mg QID for 10 days santyl dressing daily patient refused all labs return for worsening swelling/drainage/fevers unchanged exam from last admit here 01/18/25 Prescriptions: No Action risperidone 0.5 mg tablet 0.5 mg PO BID 30 Days Qty: 60 1RF levothyroxine 150 mcg Tablet 150 mcg PO DAILY@0600 30 Days Qty: 30 1RF Santyl 250 unit/gram Ointment 1 appl topical DAILY 30 Days Qty: 90 0RF Protocol: Apply to: Apply to: Left medial ankle ascorbic acid (vitamin C) [Vitamin C] 500 mg tablet 500 mg PO DAILY 30 Days Qty: 30 0RF ferrous sulfate 325 mg (65 mg iron) tablet 325 mg PO BID 30 Days Qty: 60 1RF Rx Instructions: 2 x day with meals mirtazapine 15 mg tablet 15 mg PO BEDTIME 30 Days Qty: 30 1RF albuterol sulfate 90 mcg/actuation HFA aerosol inhaler 2 puff INHALATION Q4H PRN (Reason: dyspnea) Qty: 8.5 1RF Rx Instructions: Q.4h p.r.n. shortness breath cholecalciferol (vitamin D3) [Vitamin D3] 25 mcg (1,000 unit) tablet 25 mcg PO DAILY 30 Days Qty: 30 1RF lithium carbonate 300 mg Tablet 450 mg PO BEDTIME 30 Days Qty: 45 0RF Print Language: Sinhala
--- NOTE | 2025-03-21 14:13 | PC.NURSE ---
Patient is a difficult stick, was only able to draw blood cultures x2. Draw is sluggish. Patient refused additional lab draw attempt with multiple staff. Dr. Edmondson aware of this and okayed not drawing labs due to refusal. Sitter remains at bedside, patient on section 21. Imaging ordered to r/o osteomyelitis or other deep wound-related injuries/illnesses. Patient states that she has had this wound for a long time , ~15 years. Large wound, foul odor to medial aspect of left ankle/foot. Light yellow/green in color with redness surrounding the area.
--- NOTE | 2025-03-21 14:49 | PHA.MEDREC ---
Pharmacy Consult ? Medication Reconciliation Pharmacy has completed the medication reconciliation, using med list from [facility].
[2025-03-21 14:52] VITALS: BP 107/68; PULSE 81; RESP 16; TEMP 37.1; O2SAT 96
--- NOTE | 2025-03-21 16:00 | PC.NURSE ---
Patient refused Santyl. Dr. Edmondson aware of this.
--- NOTE | 2025-03-21 18:07 | PC.NURSE ---
Awaiting EMS transport to [place], ETA 19:00-19:30.
[2025-03-21 20:44] VITALS: BP 113/53; PULSE 68; RESP 16; TEMP 36.6; O2SAT 97
--- NOTE | 2025-03-21 21:03 | PC.NURSE ---
Discussed case with Jenn clinical coordinator, case management Ernestine , and provider David, pt to return back to facility, no medical necessity, on section 21, multiple discussion with staff prior to my shift, no documentation pt was discharge from facility. Electronic Component Processor Rita from [place] behavior upset with discussion, notified house supervision Rita here at [facility] of on going concern of disposition of patient. Pt Transport back to [place]
--- NOTE | 2025-03-22 07:47 | PC.NURSE ---
Back Charting for 03/21/2025 This RN was charge nurse on shift at time of patient arrival. Pt arrived from [facility] on a Section-21 to return. Pt was being sent to ED for eval of a wound on her leg. Per EMS staff would not give them any report on the patient stating they had no idea why she was there or that she had this wound prior to her arrival at [facility], that she had just arrived from [facility] the night before. Pt was evaluated by Rosario Edmondson MD who determined she did not meet any medical criteria for admission or further wound intervention. Pt given PO antibiotics and cream to place on wound, specific wound care instructions given on DC for staff. Provider given written script for antibiotic. This RN called facility on time of DC to discuss an indepth nurse to nurse to insure all questions and concerns were answered. It was at this time that [facility] was refusing to take the patient back to their facility. EMS at ED to transport pt back approx around 1830. This RN called [facility] and was transferred to the [facility] floor were the nurse who was going to take report (refused to give this RN her name), and very rudely stated that this patient had been discharged from their facility and that they were not going to be taking her back. This RN was then given the name and number of the malt house supervisor Rita ([phone]) This RN then had an indepth conversation with Rita about the patient, she was then stating that the patient had been discharged from their facility as they could not medically take care of her, it was then brought to our attention that the patient had already seen their wound services and that her level of care had been escalated up [facility] chain of command. Rita then alerted this RN that she was going to call their DON and would call [facility] back. Rita returned her call to the ED at approx 1900. They continued to state that the patient should have been sent on a 12A not a 21A, Bjorn SHI and Gurinder Cabello RN, and on coming legend maker Deanna Cox. All reviewed the signed, highlighted, dated March 21 2025 Section 21 that was sent from their facility with the patient. It was then discussed between Rita and Deanna/ bjorn SHI and Gurinder SHI that the patient would be returning to them. EMS was re-booked for patient to return. Deanna resumed zinc furnace charger at this time, situation of patient had been escalated to leadership at [facility].
== END 2025-03-21 20:55 | disposition home or self-care (01) ==
PROVIDERS: Emergency Provider Emergency Medicine
DX: L97.329 Non-pressure chronic ulcer of left ankle with unspecified severity (principal); M79.662 Pain in left lower leg
CPT/HCPCS: 87040; 99283; 99284